=== PATIENT | female | born 1970 | race Caucasian/White ===

== ENCOUNTER 2019-11-30 01:40 | Emergency (ER) | payer MEDICAID, SELFPAY ==
[2019-11-30 01:40] VITALS: BP 144/75; PULSE 82; RESP 16; TEMP 36.9; O2SAT 95; BMI 38.4
--- NOTE | 2019-11-30 01:41 | ED.VIS.GEN ---
History of Present Illness Chief Complaint: Cold Sx Narrative: 49-year-old female presenting with a cough for 1 week. She states she thought it was her allergies because she has itching eyes that are burning as well as nasal congestion. She has been taking her Zyrtec without relief. She states she is not a smoker. She has no chest pain or shortness of breath. Denies myalgias, fever, loss of taste or smell. She is not been around any sick contacts that she knows of. Patient does state that she has a sore throat. - Past Medical History (1) Diabetes insipidus Status: Chronic (2) Dyslipidemia Status: Chronic (3) Hypothyroidism Status: Chronic Past Medical History - Allergies and Home Meds Allergies/Adverse Reactions: Allergies No Known Allergies Allergy (Verified 11/30/19 01:44) Primary Care Physician: Allison Blank MD [STAFF PHYSICIAN] - Past Medical History: - - Reviewed and problem list Surgical History: noncontributory, - - Lives: Alone Smoking Status: Never smoker Alcohol: None - Family History Paternal Family History: Reports: Heart Disease Review of Systems General: Denies: Chills, Fever, Sweats Eyes: Denies: Visual changes - bilaterally, Diplopia ENT: Reports: Rhinorrhea, Sore throat Cardiovascular: Denies: Chest pain, Palpitations Respiratory: Reports: Cough. Denies: Dyspnea, Sputum Gastrointestinal: Denies: Abdominal pain, Nausea Genitourinary: Denies: Dysuria, Hematuria Musculoskeletal: Denies: Myalgias, Arthralgias Skin: Denies: Rash, Abscess Neurological: Denies: Headache, Weakness Physical Exam Inital Vital Signs reviewed: Yes General: Obese, No Acute Distress Head: Normocephalic, Atraumatic Eyes: Perrl, EOMI, - - Scleral injection bilaterally ENT: Nasal congestion. Negative for: Dry mucous membranes Cardiovascular: Regular rate, Regular rhythm Respiratory: No distress, CTA bilaterally, Chest nontender Extremities: Nontender, No edema Skin: Normal color, No rash Neurological: Alert, Oriented x3, Cranial nerves II-XII grossly intact Psychological: Normal affect, Normal Mood Diagnostic/Tx/Re-eval Clinical Impression(s) from Imaging Studies Chest X-Ray 11/30/19 02:19 IMPRESSION: Persistent paramediastinal soft tissue density which may represent lymphadenopathy possible vascular ectasia or enlarged thyroid. Otherwise stable chest. No visualized focal infiltrate. Electronically Signed: Charmaine Cardenas MD at 3:22 EDT Tel , Service support , - Medical Decision Making Presents with chief complaint of cough. She states that she has been coughing more this week. She has not had a fever, chills, myalgias, loss of taste or smell but does states she has sore throat. She also believes this could be allergic in nature because her eyes are itching and her nose is running as well. She does take Zyrtec at home but does not seem to be helping. Her vital signs are stable she is afebrile. Her physical exam is normal. I did check a chest x-ray which was negative. Patient will be tested for COVID?19 and she will quarantine until her results come back. Impression: 1. Allergic rhinitis 2. Possible exposure to COVID?19 ED Disposition - Plan for ED Patient: Instructions: Controlling Allergens: In the Home, ED Upper Resp Infec No Abx Tx Prescriptions: Loratadine 10 mg PO DAILY #30 cap Transmission Status: Received by [id number] Benzonatate [Tessalon Perle] 100 mg PO TID PRN PRN #30 cap PRN Reason: Cough Transmission Status: Received by [id number] Referrals: Allison Blank MD [STAFF PHYSICIAN] -
--- NOTE | 2019-11-30 02:19 | RAD_ITS ---
STUDY: X-RAY CHEST REASON FOR EXAM: Female, 49 years old. COUGH X 1 WEEK TECHNIQUE: Single AP portable view of the chest. COMPARISON: January 04, 2014 FINDINGS: There is a focal right apical medial opacity abutting the mediastinum or involving the right-sided mediastinum. This is been seen on prior studies. There is no demonstrated pleural abnormality. Normal size heart. There are calcified mediastinal lymph nodes. Normal visualized pulmonary arteries. There is atherosclerotic tortuosity of the aortic arch and descending thoracic aorta. There are diffuse degenerative changes of the visualized thoracic spine. Normal visualized ribs, clavicles, and shoulders. There is no demonstrated abnormality of the visualized soft tissue structures of the upper abdomen. RAD/Chest 1 View IMPRESSION: Persistent paramediastinal soft tissue density which may represent lymphadenopathy possible vascular ectasia or enlarged thyroid. Otherwise stable chest. No visualized focal infiltrate. Electronically Signed: Charmaine Cardenas MD at 3:22 EDT Tel , Service support ,
[2019-11-30] MEDS: Benzonatate 100 MG Capsule 200 MG PO (02:53)
[2019-11-30] MEDS: Loratadine 10 MG Tablet PO (02:54)
[2019-11-30 04:02] VITALS: RESP 16
== END 2019-11-30 04:03 | disposition home or self-care (01) ==
PROVIDERS: Emergency Provider Student in an Organized Health Care Education/Training Program; Referring Provider Nurse Practitioner Family
DX: J30.9 Allergic rhinitis, unspecified (principal); E03.9 Hypothyroidism, unspecified
CPT/HCPCS: 71045; 87635; 99283; U0003

== ENCOUNTER → 2019-12-07 09:33 | Outpatient (CLI) | payer MEDICAID, SELFPAY ==
[2019-11-30 01:40] VITALS: BMI 38.4
[2019-12-07 10:28] LABS: Vitamin D,25 Hydroxy 32.4 ng/mL
[2019-12-07 10:36] LABS: Cholesterol 231 mg/dL (200); High Density Lipoprotein 45 mg/dL; Thyroid Stim Hormone (TSH) 1.69 uIU/mL (0.358-3.74); Triglycerides 222 mg/dL; Very Low Density Lipoprotein 44 mg/dL (5-40)
== END ==
PROVIDERS: Referring Provider Nurse Practitioner Family; Visit Provider Nurse Practitioner Family
DX: E78.5 Hyperlipidemia, unspecified (principal); E03.9 Hypothyroidism, unspecified; E55.9 Vitamin D deficiency, unspecified
CPT/HCPCS: 36415; 80061; 82306; 84443

== ENCOUNTER → 2020-01-25 12:53 | Outpatient (CLI) | payer MEDICAID, SELFPAY ==
[2020-01-25 09:51] VITALS: BMI 38.5
[2020-01-25 13:42] LABS: Absolute Neutrophil Count 3.5 X10^3/uL (2.0-7.7); Basophil# 0.07 X10^3/uL; Basophil% 0.9 % (0-1); Eosinophil# 0.54 X10^3/uL; Eosinophils% 7.1 % (0-5); Hematocrit 41.3 % (37-47); Hemoglobin 12.8 g/dL (12.0-15.0); Lymphocyte % 38.3 % (19-41); Mean Corpuscular Hgb 29.4 pg (27.0-32.0); Mean Corpuscular Volume 94.9 fL (81-99); Monocyte# 0.48 X10^3/uL; Monocyte% 6.3 % (0-10); NRBC Flagged by Analyzer 0 % (0-5); Neutrophil # 3.52 X10^3/uL (2.7-7.7); Neutrophil % 46.6 % (47-70); Platelet Count 153 K/mm3 (150-450); RBC Distribution Width CV 13.6 % (11.6-14.6); RBC Distribution Width SD 46.8 fl (35.1-43.9); Red Blood Count 4.35 M/mm3 (4.2-5.4); White Blood Count 7.6 K/mm3 (4.4-11.0)
[2020-01-25 14:09] LABS: AST(SGOT) 18 U/L (15-37); Alanine Aminotransfer ALT/SGPT 40 U/L (13-56); Albumin, Serum 3.7 g/dL (3.2-5.0); Alkaline Phosphatase 58 U/L (45-117); Anion Gap 4 (5-15); BUN 9 mg/dL (7-18); BUN/Creat Ratio 10.8 RATIO (10-20); Calcium,Total 8.5 mg/dL (8.5-10.1); Chloride 107 mmol/L (98-107); Cholesterol 261 mg/dL (200); Creatinine, Serum 0.83 mg/dL (0.55-1.02); EST Glomerular Filtration Rate 78 mL/min (>60); Est Glom Filt Rate - Afr Amer 94 mL/min (>60); Globulin 3.8 g/dL (2.2-4.2); Glucose 97 mg/dL (74-106); High Density Lipoprotein 48 mg/dL; Potassium 3.6 mmol/L (3.5-5.1); Protein, Total 7.5 g/dL (6.4-8.2); Sodium Level 142 mmol/L (136-145); T4 Free Direct 0.84 ng/dL (0.76-1.46); Triglycerides 301 mg/dL; Very Low Density Lipoprotein 60 mg/dL (5-40)
== END ==
PROVIDERS: PCP Internal Medicine; Referring Provider Internal Medicine; Visit Provider Internal Medicine
DX: E03.9 Hypothyroidism, unspecified (principal); E23.2 Diabetes insipidus; E78.5 Hyperlipidemia, unspecified
CPT/HCPCS: 36415; 80053; 80061; 84439; 84443; 85025

== ENCOUNTER → 2020-02-20 20:00 | Outpatient (CLI) | payer MEDICAID, SELFPAY ==
[2020-01-30 15:18] VITALS: BMI 38.5
== END ==
PROVIDERS: PCP Internal Medicine; Visit Provider Internal Medicine
DX: G47.10 Hypersomnia, unspecified (principal)
CPT/HCPCS: 95810

== ENCOUNTER → 2020-03-01 09:39 | Outpatient (CLI) | payer MEDICAID, SELFPAY ==
[2020-01-30 15:18] VITALS: BMI 38.5
--- NOTE | 2020-03-01 09:40 | BI_ITS ---
MAMMOGRAPHY - BILATERAL SCREENING REASON FOR EXAM: Female, 50 years old. Routine annual screening examination. PERTINENT HISTORY: Non-contributory. TECHNIQUE: Digital bilateral breast raquel (3D mammographic acquisition) in the CC and MLO projections. 2-D mediolateral oblique (MLO) and craniocaudad (CC) views of both breasts were obtained. CAD: Full Field Digital Mammography with Computer Added Detection was performed. COMPARISON: None. Baseline examination. FINDINGS: Breast Composition: There are scattered areas of fibroglandular density. There are no dominant masses or suspicious calcifications. No other significant abnormalities are identified. BI/SCREEN MAMM (CAD) W/RAQUEL BILAT IMPRESSION: Negative screening mammogram. Yearly followup mammogram recommended. (A) ASSESSMENT CATEGORY: BIRADS Category 1: Negative. A letter regarding these results will be sent to the patient by the facility within 30 days. Approximately 10% of breast cancers are not detected by mammography. A normal mammogram should not delay biopsy of a clinically suspicious abnormality. [id number] Electronically Signed: Bean Linn, at 11:11 EST , Service support ,
== END ==
PROVIDERS: PCP Internal Medicine; Referring Provider Internal Medicine; Visit Provider Internal Medicine
DX: Z12.31 Encounter for screening mammogram for malignant neoplasm of breast (principal)
CPT/HCPCS: 77063; 77067

== ENCOUNTER → 2020-03-22 09:44 | Outpatient (CLI) | payer MEDICAID, SELFPAY ==
[2020-03-12 10:00] VITALS: BMI 38.2
== END ==
PROVIDERS: PCP Internal Medicine; Visit Provider Nurse Practitioner Acute Care
DX: Z46.89 Encounter for fitting and adjustment of other specified devices (principal)

== ENCOUNTER → 2020-04-25 10:44 | Outpatient (CLI) | payer MEDICAID, SELFPAY ==
[2020-04-25 10:46] LABS: Mucous, Urine 0 SEEN /hpf (<or=2+); Red Blood Cells-Urine 0 SEEN /hpf (0-5)
[2020-04-25 12:47] LABS: Color, Urine Yellow (Yellow); Glucose, Dipstick Normal (Normal); Ketone-Dipstick Negative (Negative); Leukocyte Esterase-Dipstick 25 /ul (Negative); Nitrite-Dipstick Negative (Negative); Occult Blood-Urine Negative /ul (Negative); Protein-Dipstick Negative (Negative); Urine Bilirubin Dipstick Negative (Negative); Urine Clarity Clear (Clear); Urine Urobilinogen Normal (Normal)
[2020-04-25 13:11] LABS: ALB/GLOB Ratio 0.9 RATIO (0.9-2.4); AST(SGOT) 20 U/L (15-37); Alanine Aminotransfer ALT/SGPT 44 U/L (13-56); Albumin, Serum 3.6 g/dL (3.2-5.0); Alkaline Phosphatase 66 U/L (45-117); Anion Gap 4 (5-15); BUN 11 mg/dL (7-18); BUN/Creat Ratio 13.6 RATIO (10-20); Calcium,Total 8.7 mg/dL (8.5-10.1); Chloride 108 mmol/L (98-107); Creatinine, Serum 0.81 mg/dL (0.55-1.02); EST Glomerular Filtration Rate 81 mL/min (>60); Est Glom Filt Rate - Afr Amer 98 mL/min (>60); Globulin 3.9 g/dL (2.2-4.2); Glucose 78 mg/dL (74-106); Potassium 3.6 mmol/L (3.5-5.1); Protein, Total 7.5 g/dL (6.4-8.2); Sodium Level 142 mmol/L (136-145); Thyroid Stim Hormone (TSH) 0.38 uIU/mL (0.358-3.74)
[2020-04-25 13:16] LABS: Bacteria RARE /hpf (None Seen); Squamous Epithelial Cells - UA 10-25 SEEN /hpf (5-10); White Blood Cells 0-5 SEEN /hpf (0-5)
== END ==
PROVIDERS: PCP Internal Medicine; Referring Provider Internal Medicine; Visit Provider Internal Medicine
DX: E23.2 Diabetes insipidus (principal); E03.9 Hypothyroidism, unspecified; R35.0 Frequency of micturition
CPT/HCPCS: 36415; 80053; 81001; 84443

== ENCOUNTER → 2020-08-23 10:31 | Outpatient (CLI) | payer MEDICAID, SELFPAY ==
[2020-08-01 13:12] VITALS: BMI 38.2
[2020-08-22 08:46] VITALS: BMI 39.0
== END ==
PROVIDERS: PCP Internal Medicine; Visit Provider Nurse Practitioner Acute Care
DX: G47.33 Obstructive sleep apnea (adult) (pediatric) (principal)
CPT/HCPCS: 98960; G0463

== ENCOUNTER → 2020-10-19 15:39 | Outpatient (CLI) | payer MEDICAID, SELFPAY ==
[2020-10-19 15:03] VITALS: BMI 39.0
[2020-10-19 16:50] LABS: Vitamin D,25 Hydroxy 27.2 ng/mL
[2020-10-19 16:56] LABS: AST(SGOT) 18 U/L (15-37); Alanine Aminotransfer ALT/SGPT 41 U/L (13-56); Albumin, Serum 3.9 g/dL (3.2-5.0); Alkaline Phosphatase 57 U/L (45-117); Anion Gap 8 (5-15); BUN 12 mg/dL (7-18); BUN/Creat Ratio 14.2 RATIO (10-20); Calcium,Total 8.7 mg/dL (8.5-10.1); Chloride 106 mmol/L (98-107); Cholesterol 291 mg/dL (200); Creatinine, Serum 0.85 mg/dL (0.55-1.02); EST Glomerular Filtration Rate 76 mL/min (>60); Est Glom Filt Rate - Afr Amer 92 mL/min (>60); Globulin 4.1 g/dL (2.2-4.2); Glucose 89 mg/dL (74-106); High Density Lipoprotein 50 mg/dL; Potassium 3.4 mmol/L (3.5-5.1); Sodium Level 141 mmol/L (136-145); T4 Free Direct 0.69 ng/dL (0.76-1.46); Triglycerides 241 mg/dL; Very Low Density Lipoprotein 48 mg/dL (5-40)
== END ==
PROVIDERS: PCP Internal Medicine; Referring Provider Internal Medicine Endocrinology, Diabetes & Metabolism; Visit Provider Internal Medicine Endocrinology, Diabetes & Metabolism
DX: E78.5 Hyperlipidemia, unspecified (principal); E03.9 Hypothyroidism, unspecified; E23.2 Diabetes insipidus
CPT/HCPCS: 36415; 80053; 80061; 82306; 84439; 84443

== ENCOUNTER → 2020-12-12 13:18 | Outpatient (CLI) | payer MEDICAID, SELFPAY | PROVIDERS: PCP Internal Medicine; Referring Provider Physician Assistant; Visit Provider Physician Assistant | DX: Z11.52 Encounter for screening for COVID-19 (principal) | CPT/HCPCS: 87635; U0005; U0003 ==

== ENCOUNTER 2021-02-03 11:40 | Emergency (ER) | payer MEDICAID, SELFPAY ==
[2021-02-03 11:40] VITALS: BP 145/79; PULSE 78; RESP 16; TEMP 36.6; O2SAT 100; BMI 38.5
--- NOTE | 2021-02-03 12:11 | EX.ED.VISEXT ---
HPI History of Present Illness Chief Complaint: Bite Informant: patient Narrative Narrative: Patient took an air conditioner out of her house yesterday. Sometime after this she noted a red spot on her right wrist. Its been itching since. She is suspicious she was bitten by a spider. She never saw a spider or an insect. The area has not spread. She has not had nausea vomiting fevers or chills. ROS ROS ED Constitutional Constitutional ED: Denies fever(s) or subjective ENT ENT ED: Denies rhinorrhea Gastrointestinal Gastrointestinal: Denies nausea or vomiting Musculoskeletal Musculoskeletal: Denies arthralgias or myalgias Integumentary Reports rash and other Details: See history of present illness. Endocrine Endocrinology: Denies polydipsia or polyuria Allergic/Immunologic Allergic/Immunologic ED: Denies mouth swelling or tongue swelling PFSH PFSH Medical History Colon cancer screening Diabetes insipidus DiGeorge's syndrome Elevated blood pressure reading without diagnosis of hypertension Health care maintenance Prediabetes Seasonal allergies Home Medications ibuprofen 600 mg PO Q6H PRN PRN 11/12/15 [History Last Taken Unknown] cholecalciferol (vitamin D3) 1,250 mcg (50,000 unit) capsule 1,250 mcg PO QWEEK #14 cap 08/01/20 [Rx Last Taken Unknown] atorvastatin 20 mg tablet 20 mg PO DAILY #90 tab 10/22/20 [Rx Last Taken Unknown] desmopressin 0.1 mg tablet 0.15 mg PO BID #180 tab 11/02/20 [Rx Last Taken Unknown] levothyroxine 125 mcg tablet 125 mcg PO DAILY #90 tab 11/02/20 [Rx Last Taken Unknown] cetirizine 10 mg tablet 10 mg PO BID 90 Days #180 tab 11/06/20 [Rx Last Taken Unknown] montelukast 10 mg tablet 10 mg PO DAILY #90 tab 11/06/20 [Rx Last Taken Unknown] famotidine 10 mg tablet 10 mg PO DAILY #30 tab 01/14/21 [Rx Last Taken Unknown] hydroxyzine pamoate [Vistaril] 25 mg PO TID PRN #14 cap 02/03/21 [Rx Last Taken Unknown] Allergy/AdvReac Type Severity Reaction Status Date / Time No Known Allergies Allergy Verified 02/03/21 11:42 Family History Father Heart disease Myocardial infarction Surgical History c section H/O: hysterectomy Social History household members: significant other number of children: 2 current occupational status: unemployed history of recent travel: No sexually active: Yes Smoking Status: Never smoker second hand exposure: Yes alcohol intake: never substance use type: does not use what type of physical activity do you participate in: none seatbelt use: never do you feel safe at home: Yes additional social history: boyfriend EXAM Physical Exam Const Vital Signs: 02/03/21 11:40 Temperature 97.8 F Temperature Source Temporal Pulse Rate 78 Respiratory Rate 16 Blood Pressure 145/79 H Blood Pressure Mean 101 Pulse Ox 100 Oxygen Delivery Method Room Air Positive well nourished and well developed General Appearance ED: well developed and NAD HEENT Reports moist mucous membranes Resp normal respiratory effort GI non-tender Palpation: soft Extremity normal to inspection and full ROM Extremity Narrative: See skin exam below. General Extremety ED: Negative for deformity or edema General Extremity: Negative for deformity or edema Neuro no sensory deficits noted Sensorium / Orientation: alert Motor Exam: strength 5/5 throughout Psych mental status grossly normal Skin Skin Narrative: There is a 1-1 and half centimeter area of erythema surrounding a slight abrasion on the left wrist. I do not see any typical bite peng. There is no spreading erythema. No lymphangitis. No sign of abscess. This does not look infected. It looks very localized. MDM MDM MDM Narrative Medical decision making narrative: On exam it looks like she may have a small abrasion. But this also could have been caused by her scratching. Because of the significant pruritus, it is more suspicious that she may have been bit by something. I do not think this needs antibiotics. She has no symptoms of infection. Its not spreading. Is not getting larger. There is no drainage. I think antihistamine for itch will be appropriate. Discharge Plan Triage Chief Complaint: Bite ED Provider: Amadou Hanley Dx/Rx/DC Orders Clinical Impression: Insect bite of wrist Instructions: ED Insect Sting, Local Reaction Prescriptions: New hydroxyzine pamoate [Vistaril] 25 mg capsule 25 mg PO TID PRN (Reason: itching) Qty: 14 RF: 0 No Action cholecalciferol (vitamin D3) 1,250 mcg (50,000 unit) capsule 1,250 mcg PO QWEEK Qty: 14 RF: 1 montelukast 10 mg tablet 10 mg PO DAILY Qty: 90 RF: 2 cetirizine [Zyrtec] 10 mg tablet 10 mg PO BID 90 Days Qty: 180 RF: 3 famotidine 10 mg tablet 10 mg PO DAILY Qty: 30 RF: 0 ibuprofen 600 MG tablet 600 mg PO Q6H PRN PRN (Reason: Pain) RF: 0 atorvastatin 20 mg tablet 20 mg PO DAILY Qty: 90 RF: 3 desmopressin 0.1 mg tablet 0.15 mg PO BID Qty: 180 RF: 1 levothyroxine 125 mcg tablet 125 mcg PO DAILY Qty: 90 RF: 1 Primary Care Provider: Nicole Grey Referrals: Nicole Grey MD [Primary Care Provider] - 3-5 Days if not improving Disposition Disposition: Home, Self Care
[2021-02-03] MEDS: hydrOXYzine PAM 25 MG Capsule PO (12:30)
== END 2021-02-03 12:31 | disposition home or self-care (01) ==
LOC: ED 12:17
PROVIDERS: Emergency Provider Emergency Medicine; PCP Internal Medicine
DX: S60.861A Insect bite (nonvenomous) of right wrist, initial encounter (principal); W57.XXXA Bitten or stung by nonvenomous insect and other nonvenomous arthropods, initial encounter; Z79.899 Other long term (current) drug therapy
CPT/HCPCS: 99283

== ENCOUNTER 2021-05-01 02:23 | Emergency (ER) | payer MEDICAID, SELFPAY ==
[2021-05-01 02:23] VITALS: BP 143/91; PULSE 78; RESP 17; TEMP 36.7; O2SAT 99; BMI 40.6
--- NOTE | 2021-05-01 03:03 | RAD_ITS ---
EXAM: XR LEFT RIBS AND AP CHEST, 3 OR MORE VIEWS CLINICAL INDICATION: fall fall TECHNIQUE: Frontal and oblique views of the left ribs and frontal view of the chest. This report was created using [employer] report generation technology. COMPARISON: Chest x-ray 11/30/2019. FINDINGS: LUNGS AND PLEURAL SPACES: There is minimal chronic atelectasis or fibrosis in the lung bases. There are no demonstrated pulmonary consolidations. HEART: Unremarkable. Cardiac silhouette not enlarged. MEDIASTINUM: There are calcified granulomas overlying the mediastinum and right hilum. BONES/JOINTS: There are multilevel degenerative changes in the thoracic spine. There is an old healed fracture of the lateral segment of the left sixth rib. There is no demonstrated acute rib fracture. RAD/Ribs Uni Min 3V w/PA Chest IMPRESSION: No evidence for acute cardiopulmonary pathology. Old healed left sixth rib fracture. No demonstrated acute rib fracture. Electronically Signed: Martín Shields MD at 3:59 EST Reading Location ID and State: [facility] / [place] , Service support ,
[2021-05-01] MEDS: Naproxen 500 MG Tablet PO (03:14)
--- NOTE | 2021-05-01 04:16 | EDS_ITS ---
HPI History of Present Illness Chief Complaint: Fall Informant: patient Onset/Context/Timing Onset: Hours Current Severity: Mild Maximum Severity: Moderate Narrative Narrative: Patient presents via EMS secondary to left rib injury. Patient states she was on her porch and went to sit on the chair when she missed and fell striking her left ribs against the arm of the chair. She denies any other injury. She denies striking her head or loss of consciousness. She has no headache. [facility] Medical History Colon cancer screening Diabetes insipidus DiGeorge's syndrome Elevated blood pressure reading without diagnosis of hypertension Health care maintenance Prediabetes Seasonal allergies Home Medications ibuprofen 600 mg PO Q6H PRN PRN 11/12/15 [History Last Taken Unknown] cholecalciferol (vitamin D3) 1,250 mcg (50,000 unit) capsule 1,250 mcg PO QWEEK #14 cap 08/01/20 [Rx Last Taken Unknown] levothyroxine 125 mcg tablet 125 mcg PO DAILY #90 tab 11/02/20 [Rx Last Taken Unknown] desmopressin [DDAVP] 0.15 mg PO BID 05/01/21 [History Last Taken Unknown] naproxen [Naprosyn] 500 mg PO BID PRN #20 tab 05/01/21 [Rx Last Taken Unknown] Allergy/AdvReac Type Severity Reaction Status Date / Time No Known Allergies Allergy Verified 05/01/21 02:31 Family History Father Heart disease Myocardial infarction Surgical History c section H/O: hysterectomy Social History household members: significant other number of children: 2 current occupational status: unemployed history of recent travel: No sexually active: Yes Smoking Status: Never smoker second hand exposure: Yes alcohol intake: never substance use type: does not use what type of physical activity do you participate in: none seatbelt use: never do you feel safe at home: Yes additional social history: boyfriend ROS ROS ED Constitutional Constitutional ED: Denies chills or fever(s) Eyes Eyes: Denies change in vision ENT ENT ED: Denies sore throat Cardiovascular Cardiovascular: Reports chest pain and other Details: Left rib pain Respiratory/Chest Respiratory/Chest: Denies cough or dyspnea Gastrointestinal Gastrointestinal: Denies abdominal pain, nausea or vomiting Genitourinary Genitourinary ED: Denies dysuria Musculoskeletal Musculoskeletal: Denies back pain or neck pain Integumentary Denies rash Neurologic Neurologic: Denies headache(s) or weakness Allergic/Immunologic Allergic/Immunologic ED: Denies urticaria EXAM Physical Exam Const Vital Signs: 05/01/21 02:23 05/01/21 02:32 Temperature 98.0 F Temperature Source Temporal Pulse Rate 78 Respiratory Rate 17 Respiratory Effort Normal Blood Pressure 143/91 H Blood Pressure Mean 108 Pulse Ox 99 Oxygen Delivery Method Room Air Positive obese Nutritional Appearance: obese HEENT Reports moist mucous membranes Eyes PERRL and EOMs intact bilaterally Neck supple Chest Wall inspection of chest normal and palpation of chest normal Resp normal respiratory effort and clear to auscultation bilaterally Cardio regular rate and regular rhythm GI non-tender Palpation: soft Extremity normal to inspection Neuro oriented x3 Sensorium / Orientation: alert Psych mental status grossly normal Skin no rashes or lesions noted MDM MDM MDM Narrative Medical decision making narrative: Rib series with chest x-ray obtained. Pat ient given naproxen for pain. Radiography Diagnostic Testing: Clinical Impression(s) from Imaging Studies Ribs w/Chest X-Ray 05/01/21 03:03 IMPRESSION: No evidence for acute cardiopulmonary pathology. Old healed left sixth rib fracture. No demonstrated acute rib fracture. Electronically Signed: Martín Shields MD at 3:59 EST Reading Location ID and State: [facility] / [place] , Service support , Treatment and Re-Evaluation Comments:: X-rays from interpretation reveal no acute findings. Radiology to rotation is reviewed. Test results discussed with the patient. She got a prescription for naproxen at home. Return instructions given. Discharge Plan Triage Chief Complaint: Fall ED Provider: Alexa Arroyo Dx/Rx/DC Orders Clinical Impression: Contusion of rib Instructions: ED Contusion, Rib Prescriptions: New naproxen [Naprosyn] 500 mg tablet 500 mg PO BID PRN (Reason: pain) Qty: 20 RF: 0 No Action cholecalciferol (vitamin D3) 1,250 mcg (50,000 unit) capsule 1,250 mcg PO QWEEK Qty: 14 RF: 1 ibuprofen 600 MG tablet 600 mg PO Q6H PRN PRN (Reason: Pain) RF: 0 desmopressin [DDAVP] 0.1 mg tablet 0.15 mg PO BID RF: 0 levothyroxine 125 mcg tablet 125 mcg PO DAILY Qty: 90 RF: 1 Primary Care Provider: Nicole Grey Referrals: Nicole Grey MD [Primary Care Provider] - 10-14 Days if not better Activity Restrictions/Additional Instructions: You can take the prescribed naproxen or ibuprofen for pain, but do not take the 2 together. Disposition Disposition: Home, Self Care
[2021-05-01 04:50] VITALS: BP 121/93; PULSE 74; TEMP 37.1; O2SAT 99
== END 2021-05-01 04:53 | disposition home or self-care (01) ==
PROVIDERS: Emergency Provider Emergency Medicine; PCP Internal Medicine; Visit Provider Emergency Medicine
DX: S20.212A Contusion of left front wall of thorax, initial encounter (principal); E66.9 Obesity, unspecified; W07.XXXA Fall from chair, initial encounter; Z79.899 Other long term (current) drug therapy
CPT/HCPCS: 71101; 99284

== ENCOUNTER 2021-06-14 09:07 | Outpatient (CLI) | payer MEDICAID, SELFPAY ==
[2021-06-14 11:17] LABS: T4 Free Direct 1.35 ng/dL (0.76-1.46); Thyroid Stim Hormone (TSH) 0.66 uIU/mL (0.358-3.74)
== END 2021-06-14 23:59 | disposition home or self-care (01) ==
LOC: BIMLAB 09:08
PROVIDERS: PCP Internal Medicine; Referring Provider Nurse Practitioner Family; Visit Provider Nurse Practitioner Family
DX: E03.9 Hypothyroidism, unspecified (principal)
CPT/HCPCS: 36415; 84439; 84443

== ENCOUNTER 2021-07-14 18:01 | Emergency (ER) | payer MEDICAID, SELFPAY ==
[2021-07-14 18:05] VITALS: BP 147/89; PULSE 83; RESP 16; TEMP 36.4; O2SAT 98; BMI 37.0
--- NOTE | 2021-07-14 18:11 | EDS_ITS ---
HPI History of Present Illness Chief Complaint: Upper Extremity Injury Narrative Narrative: 51-year-old female presenting with left wrist pain. She states she was at [employer] and it was very muddy. She states she slipped with her left foot and fell to her buttocks with her hands behind her but her fingers facing forward. She complains of pain in the left wrist afterward. She states he drove back from [facility] and continued to have pain. She took nothing for pain prior to arrival. She decided at this point she would come to the emergency room for evaluation. She does not have any numbness or tingling. No other injuries. No lacerations or abrasions. [facility] Medical History Colon cancer screening Diabetes insipidus DiGeorge's syndrome Elevated blood pressure reading without diagnosis of hypertension Health care maintenance Prediabetes Seasonal allergies Home Medications ibuprofen 600 mg PO Q6H PRN PRN 11/12/15 [History Last Taken Unknown] levothyroxine 125 mcg tablet 125 mcg PO DAILY #90 tab 05/22/21 [Rx Last Taken Unknown] naproxen 500 mg tablet 500 mg PO BID PRN #20 tab 05/22/21 [Rx Last Taken Unknown] desmopressin 0.1 mg tablet 0.2 mg PO BID #360 tab 06/14/21 [Rx Last Taken Unknown] hydrocodone-acetaminophen 1 tab PO Q6H PRN 3 Days #12 tab 07/14/21 [Rx Last Taken Unknown] Allergy/AdvReac Type Severity Reaction Status Date / Time No Known Allergies Allergy Verified 07/14/21 18:02 Family History Father Heart disease Myocardial infarction Surgical History c section H/O: hysterectomy Social History household members: significant other number of children: 2 current occupational status: unemployed history of recent travel: No sexually active: Yes Smoking Status: Never smoker second hand exposure: Yes alcohol intake: never substance use type: does not use what type of physical activity do you participate in: none seatbelt use: never do you feel safe at home: Yes additional social history: boyfriend ROS ROS ED Constitutional Constitutional ED: Denies chills or fever(s) Eyes Eyes: Denies blurry vision or diplopia ENT ENT ED: Denies rhinorrhea or sore throat Cardiovascular Cardiovascular: Denies chest pain Respiratory/Chest Respiratory/Chest: Denies cough or dyspnea Gastrointestinal Gastrointestinal: Denies abdominal pain or nausea Genitourinary Genitourinary ED: Denies dysuria or hematuria Musculoskeletal Musculoskeletal: Reports other Details: Left wrist pain ; Denies neck pain Integumentary Denies rash Neurologic Neurologic: Denies headache(s) Psychiatric Psychiatric: Denies anxiety or depression EXAM Physical Exam Const Vital Signs: 07/14/21 18:05 Temperature 97.6 F L Temperature Source Temporal Pulse Rate 83 Respiratory Rate 16 Blood Pressure 147/89 H Blood Pressure Mean 108 Pulse Ox 98 Oxygen Delivery Method Room Air Positive well nourished General Appearance ED: NAD HEENT normocephalic and atraumatic Resp normal respiratory effort Cardio regular rate and regular rhythm Extremity Extremity Narrative: Tenderness to palpation over left dorsal lateral wrist. There is slight swelling. There is limited range of motion secondary to pain. No pain in the anatomical snuffbox. Left hand nontender. Left hand neurovascular intact prescription for all 5 fingers. Neuro oriented x3 and CN's II-XII intact bilaterally Sensorium / Orientation: alert Psych mental status grossly normal Skin Rashes: no rashes MDM MDM MDM Narrative Medical decision making narrative: Patient given ibuprofen. I will obtain an x- ray of the left wrist given her symptoms. X-ray of the wrist on my interpretation shows a transverse distal radius fracture without significant angulation or displacement. There is extension into the articular surface. Patient is driving so I did not get her narcotic pain medication here. Patient was place in a well padded, sugar tong splint which was fabricated by myself. Patient is neurovascularly intact post procedure. She tolerated this well. Patient will given a prescription for Jeanerette for home. She is counseled to keep her arm elevated above her heart is much as possible. She is given a sling for comfort. She will be given Dr. Owen for follow-up. Impression: 1. Mechanical fall 2. Left distal radius fracture Lab Data Attestation: I reviewed the patient's lab results. Discharge Plan Triage Chief Complaint: Upper Extremity Injury ED Provider: Tray,Maninder Dx/Rx/DC Orders Instructions: ED Fracture, Wrist, General Prescriptions: New hydrocodone-acetaminophen 5-325 mg tablet 1 tab PO Q6H PRN (Reason: pain) 3 Days Qty: 12 RF: 0 No Action desmopressin [DDAVP] 0.1 mg tablet 0.2 mg PO BID Qty: 360 RF: 1 ibuprofen 600 MG tablet 600 mg PO Q6H PRN PRN (Reason: Pain) RF: 0 levothyroxine 125 mcg tablet 125 mcg PO DAILY Qty: 90 RF: 1 naproxen [Naprosyn] 500 mg tablet 500 mg PO BID PRN (Reason: pain) Qty: 20 RF: 0 Primary Care Provider: Nicole Grey Referrals: Nicole Grey MD [Primary Care Provider] - Wagner Owen DO [STAFF PHYSICIAN] - 3-5 Days Disposition Disposition: Home, Self Care
--- NOTE | 2021-07-14 18:14 | RAD_ITS ---
STUDY: X-RAY - LEFT WRIST REASON FOR EXAM: Female, 51 years old. fell and injured left wrist today, pain all over wrist area TECHNIQUE: 3 view(s) of the wrist were obtained. COMPARISON: None. FINDINGS: Transverse fracture of the distal radial metaphysis with longitudinal component extending along the medial articular surface. Normal radiocarpal articulation. Normal distal radioulnar articulation. Normal carpal bones. Normal carpal articulations. Normal carpometacarpal articulation of the thumb. Normal second through fifth carpometacarpal articulations. Normal visualized metacarpal bones. Diffuse soft tissue swelling. RAD/Wrist min 3 Views IMPRESSION: Distal radial fracture with articular surface involvement. Electronically Signed: Ran Soliman MD ([place]) at 18:35 EDT ,
[2021-07-14] MEDS: Ibuprofen 600 MG Tablet PO (18:16)
--- NOTE | 2021-07-14 18:43 | ED.RN ---
pt. placed in paper scrub top due to dr. nesbitt having to splint arm
== END 2021-07-14 19:33 | disposition home or self-care (01) ==
PROVIDERS: Emergency Provider Student in an Organized Health Care Education/Training Program; PCP Internal Medicine; Visit Provider Student in an Organized Health Care Education/Training Program
DX: S52.502A Unspecified fracture of the lower end of left radius, initial encounter for closed fracture (principal); Z79.899 Other long term (current) drug therapy; W01.0XXA Fall on same level from slipping, tripping and stumbling without subsequent striking against object, initial encounter
CPT/HCPCS: 29125; 73110; 99283

== ENCOUNTER 2021-07-29 17:07 | Emergency (ER) | payer MEDICAID, SELFPAY ==
[2021-07-29 17:08] VITALS: BP 154/87; PULSE 80; RESP 16; TEMP 36.3; O2SAT 97; BMI 37.0
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
== END 2021-07-29 18:37 | disposition home or self-care (01) ==
PROVIDERS: Emergency Provider Emergency Medicine; PCP Internal Medicine; Visit Provider Emergency Medicine
DX: S00.11XA Contusion of right eyelid and periocular area, initial encounter (principal); D82.1 Di George's syndrome; Y04.8XXA Assault by other bodily force, initial encounter; R73.03 Prediabetes; Z79.899 Other long term (current) drug therapy
CPT/HCPCS: 99282

== ENCOUNTER 2022-03-12 10:26 | Emergency (ER) | payer MEDICAID, SELFPAY ==
[2022-03-12 10:27] VITALS: BP 130/99; PULSE 81; RESP 14; TEMP 36.1; O2SAT 99; BMI 35.2
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
[2022-03-12 14:12] VITALS: BP 141/86; PULSE 79; RESP 16; O2SAT 99
== END 2022-03-12 14:15 | disposition home or self-care (01) ==
PROVIDERS: Emergency Provider Emergency Medicine; PCP Internal Medicine; Visit Provider Emergency Medicine
DX: S60.221A Contusion of right hand, initial encounter (principal); X58.XXXA Exposure to other specified factors, initial encounter
CPT/HCPCS: 73140; 99282

== ENCOUNTER 2022-06-12 20:12 | Emergency (ER) | payer MEDICAID, SELFPAY ==
[2022-06-12 20:12] VITALS: RESP 18; TEMP 37.1; O2SAT 97
[2022-06-12 20:13] VITALS: BP 141/98; PULSE 80; RESP 20; TEMP 37.8; O2SAT 98; BMI 35.2
[2022-06-12] MEDS: Ibuprofen 600 MG Tablet PO (20:50)
[2022-06-12] MEDS: Benzonatate 100 MG Capsule 200 MG PO (20:51)
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
== END 2022-06-12 22:05 | disposition home or self-care (01) ==
PROVIDERS: Emergency Provider Emergency Medicine; PCP Internal Medicine; Visit Provider Emergency Medicine
DX: J06.9 Acute upper respiratory infection, unspecified (principal)
CPT/HCPCS: 87428; 99283

== ENCOUNTER 2022-07-31 16:04 | Emergency (ER) | payer MEDICAID, SELFPAY ==
[2022-07-31 16:04] VITALS: BP 135/81; PULSE 75; RESP 18; TEMP 36; O2SAT 99; BMI 35.4
--- NOTE | 2022-07-31 17:04 | EX.ED.DYSGE1 ---
HPI <DALLAS Bravo - Last Filed: 07/31/22 19:21> History of Present Illness Chief Complaint: Abd Pain Narrative Narrative: Patient is a 52-year-old female with history of hypothyroidism, diabetes who is currently homeless who presents to the emergency department for 2 days of severe upper and lower abdominal pain. Patient states that her bowel movements have been normal, she has no problems urinating. She does have history of C-sections, as well as full hysterectomy. She states that this pain is worse with any movement, and can be dull to sharp. She denies any blood in her stool or vomit. PFS <DALLAS Bravo - Last Filed: 07/31/22 19:21> [facility] Medical History Cervical cancer Colon cancer screening Diabetes insipidus DiGeorge's syndrome Elevated blood pressure reading without diagnosis of hypertension Health care maintenance Prediabetes Seasonal allergies Home Medications desmopressin 0.1 mg tablet (DDAVP) 0.2 mg PO BID #360 tabs 10/10/21 [Rx Last Taken Unknown] levothyroxine 125 mcg tablet 125 mcg PO DAILY #90 tabs 06/11/22 [Rx Last Taken Unknown] benzonatate 100 mg capsule 200 mg PO TID PRN PRN Cough #15 CAPSULES 06/18/22 [Rx Last Taken Unknown] cetirizine 10 mg tablet 10 mg PO DAILY PRN allergies #90 tabs 06/18/22 [Rx Last Taken Unknown] ciprofloxacin HCl 500 mg tablet (Cipro) 500 mg PO BID #20 tabs 07/31/22 [Rx Last Taken Unknown] metronidazole 500 mg tablet 500 mg PO TID #30 tabs 07/31/22 [Rx Last Taken Unknown] Allergy/AdvReac Type Severity Reaction Status Date / Time No Known Allergies Allergy Verified 07/31/22 16:04 Family History Father Heart disease Myocardial infarction Surgical History c section H/O: hysterectomy Social History household members: significant other number of children: 2 current occupational status: unemployed history of recent travel: No sexually active: Yes Smoking Status: Never smoker second hand exposure: Yes alcohol intake: never substance use type: does not use what type of physical activity do you participate in: none seatbelt use: never do you feel safe at home: Yes additional social history: boyfriend ROS <DALLAS Bravo - Last Filed: 07/31/22 19:21> ROS ED ROS Narrative Constitutional: Negative for fever, chills, weight loss, weakness Eyes: Negative for vision loss, vision change, double vision ENT: Negative for any sore throat, ear pain, congestion Cardiovascular: Negative for any chest pain, tightness, palpitations Respiratory: Negative for any cough, sputum production, hemoptysis, dyspnea, dyspnea on exertion, orthopnea Gastrointestinal: Negative for any vomiting, diarrhea, constipation, blood in stool, blood in vomit. Positive for abdominal pain : Negative for any urinary frequency, dysuria, retention, blood in urine Muscle skeletal: Negative for any muscle joint pain, stiffness, myalgias, arthralgias, neck pain, back pain Neurological: Negative for any headache, syncope, numbness or tingling, dizziness Skin: Negative for any rashes, lumps, itching, abrasions, lacerations Psychiatric: Negative for any depression, anxiety, stress, suicidal ideation, homicidal ideation Hematologic: Negative for any easy bruising, excessive bruising, easy bleeding Allergies: Negative for any eczema, hives, rash EXAM <DALLAS Bravo - Last Filed: 07/31/22 19:21> Physical Exam Narrative Exam Narrative: Vital signs reviewed. HEET: Head normocephalic atraumatic, TMs clear bilaterally. Posterior pharynx is clear, moist mucous membranes. Nares clear bilaterally. Neck: Supple with no lymphadenopathy or tenderness. No signs of meningismus, negative jolt sign. Cardiac: Regular rate and rhythm no murmurs gallops or rubs, equal peripheral pulses bilaterally. Respiratory: Lungs clear to auscultation bilaterally. No chest tenderness. Abdomen: Soft, nondistended. No abdominal bruit or pulsatile masses. No hepatosplenomegaly. Active bowel sounds in all quadrants, tenderness throughout the entire abdomen on palpation. Extremities: No peripheral edema, no signs of gross trauma or deformity. Active full range of motion of all extremities. Neuro: Cranial nerves II through XII intact, no focal neurological deficits. Skin: Clean dry and intact with no rash, purpura, petechiae, vesicles or pustules. Backs/flank: No CVA tenderness, no midline spinal tenderness, no deformity. Psych: Normal mood and affect. No SI, HI or acute psychosis. Const Vital Signs: 07/31/22 16:04 07/31/22 18:04 07/31/22 19:21 Temperature 96.8 F L Temperature Source Temporal Pulse Rate 75 84 Respiratory Rate 18 18 18 Blood Pressure 135/81 H 105/77 Blood Pressure Mean 99 Pulse Ox 99 95 Oxygen Delivery Method Room Air Positive unkempt General Appearance ED: unkempt Psych Appearance: unkempt <Dr. Chidi Simpson DO - Last Filed: 07/31/22 23:06> Physical Exam Const Vital Signs: 07/31/22 16:04 07/31/22 18:04 07/31/22 19:21 Temperature 96.8 F L Temperature Source Temporal Pulse Rate 75 84 Respiratory Rate 18 18 18 Blood Pressure 135/81 H 105/77 Blood Pressure Mean 99 Pulse Ox 99 95 Oxygen Delivery Method Room Air MDM <DALLAS Bravo - Last Filed: 07/31/22 19:21> MDM Lab Data Labs: Laboratory Results - last 24 hr 07/31/22 07/31/22 07/31/22 17:40 17:40 17:48 WBC 13.5 H RBC 4.37 Hgb 12.8 Hct 40.8 MCV 93.4 MCH 29.3 MCHC 31.4 L RDW Std Deviation 49.4 H RDW Coeff of Suhas 14.3 Plt Count 144 L MPV 13.9 H Immature Gran % (Auto) 0.700 Neut % (Auto) 74.8 H Lymph % (Auto) 16.5 L [place] % (Auto) 7.2 Eos % (Auto) 0.6 Baso % (Auto) 0.2 Absolute Neuts (auto) 10.1 H Absolute Lymphs (auto) 2.23 Nucleated RBC % 0 Sodium 140 Potassium 3.0 L Chloride 104 Carbon Dioxide 29.0 Anion Gap 7 BUN 8 Creatinine 0.89 Estim Creat Clear Calc 54.32 Est GFR (MDRD) Af Amer 87 Est GFR (MDRD) Non-Af 72 BUN/Creatinine Ratio 9.0 L Glucose 117 H Calcium 9.2 Total Bilirubin 2.20 H AST 11 L ALT 23 Alkaline Phosphatase 60 Total Protein 8.2 Albumin 3.6 Globulin 4.6 H Albumin/Globulin Ratio 0.8 L Lipase 21 Urine Color Straw Urine Clarity Sl. Cloudy Urine pH 6.5 Ur Specific [place] 1.010 Urine Protein 15 H Urine Glucose (UA) Normal Urine Ketones Negative Urine Occult Blood 10 H Urine Nitrite Negative Urine Bilirubin Negative Urine Urobilinogen 1 H Ur Leukocyte Esterase 500 H Urine RBC 0 SEEN Urine WBC 10-25 SEEN Ur Squamous Epith Cells 10-25 SEEN Urine Bacteria 1+ Urine Mucus 0 SEEN Radiography Diagnostic Testing: Clinical Impression(s) from Imaging Studies Abdomen/Pelvis CT 07/31/22 17:17 IMPRESSION: Wall thickening with inflammation of the mid to distal transverse colon compatible with diverticulitis. There is no abscess or perforation. There is no abscess or perforation. Electronically Signed: Guy Yang MD at 18:50 EDT , Treatment and Re-Evaluation :: All radiologic examinations were read, reviewed by the emergency department attending. From these reads, a plan of care will be put in place. Patient appears well, patient appears nontoxic, vital signs are stable. Patient presents to the emergency department with complaints of generalized abdominal pain for 2 days. Patient did receive a full abdominal work-up including abdominal labs and CT scan concerning for any appendicitis, diverticulitis, small bowel obstruction. Patient's laboratory studies do show the CBC has a leukocytosis with a white blood count of 13.5. Patient's chemistries showed potassium that was 3.0, that we will be replaced here orally. Patient's total bilirubin slightly elevated 2.2. Lipase is negative. Patient received a CT scan of the abdomen pelvis, this showed wall thickening with inflammation of the mid to distal transverse colon compatible with diverticulitis. There is no abscess or perforation. At this time, the patient is able to take p.o. fluids, I do feel that she is stable for discharge. She will receive a antibiotics Cipro as well as Flagyl. She does have a UTI as well this was shown with a urinalysis, urine culture will be sent. The Cipro will cover the urinary tract infection as well. She was educated to not drink with the Flagyl. She will follow-up outpatient, she is instructed to return for any worsening symptoms, abdominal pain nausea vomiting fever or chills. She is happy with plan of care all questions answered. <Dr. Chidi Simpson, DO - Last Filed: 07/31/22 23:06> [facility] Narrative Medical decision making narrative: I have personally performed a face to face assessment of the patient and have reviewed the MARVEL Note. I performed a substantive portion of the visit including all aspects of the following. My lemon findings include: History: Patient presents with abdominal pain that became worse today. Patient states her pain is diffuse across her abdomen but worse over the upper abdomen. Patient denies any nausea or vomiting. Patient denies any fevers or chills. Patient denies any dysuria or hematuria. Patient states nothing makes her pain better nothing makes it worse. Exam: Vital signs are stable. Patient is afebrile. Patient is in no acute distress. Oral mucosa is pink and moist. Neck is supple. Trachea is midline. There is no JVD. Heart was regular rate and rhythm. Lungs are clear and equal bilaterally. Abdomen is soft. Bowel sounds are normal. There is mild upper abdominal tenderness. There is no rebound or guarding noted. Cranial nerves II through XII are intact. There are no focal motor or sensory deficits noted. Medical Decision Making: Differential diagnosis includes gastritis, peptic ulcer disease, duodenal ulcer, pancreatitis, gastroenteritis, and pyelonephritis. CBC will be obtained to assess for leukocytosis and anemia. Comprehensive metabolic profile will be obtained to assess for hepatic function, renal function, and electrolyte abnormality. Lipase will be obtained to assess for pancreatitis. Urinalysis will be obtained to assess for urinary tract infection. CT scan of the abdomen pelvis will be obtained to assess for bowel obstruction and perforation. CBC was reviewed and showed a mild leukocytosis of 13.5. The remainder was within normal limits. Comprehensive metabolic profile was reviewed. Potassium was slightly low at 3.0. Total bilirubin was slightly elevated at 2.2. Urinalysis was reviewed. There is a leukocyte Estrace of 500 with 10-25 white blood cells but 10-25 epithelial cells. There is 1+ bacteria. CT scan of the abdomen pelvis was reviewed. There is evidence of diverticulitis over the mid to distal transverse colon. There is no abscess or perforation noted. This was interpreted by the radiologist and was also independently reviewed by myself. Patient was advised of her findings. Patient was given a dose of Cipro and Flagyl here. Patient was given prescription for Cipro and Flagyl. Patient was also given a dose of oral potassium here. Patient was instructed to avoid alcohol while taking Flagyl. Patient was instructed to follow-up with her primary care physician in 5 to 7 days. Patient understood and was agreeable with the plan. All questions were answered. Lab Data Labs: Laboratory Results - last 24 hr 07/31/22 07/31/22 07/31/22 17:40 17:40 17:48 WBC 13.5 H RBC 4.37 Hgb 12.8 Hct 40.8 MCV 93.4 MCH 29.3 MCHC 31.4 L RDW Std Deviation 49.4 H RDW Coeff of Suhas 14.3 Plt Count 144 L MPV 13.9 H Immature Gran % (Auto) 0.700 Neut % (Auto) 74.8 H Lymph % (Auto) 16.5 L [place] % (Auto) 7.2 Eos % (Auto) 0.6 Baso % (Auto) 0.2 Absolute Neuts (auto) 10.1 H Absolute Lymphs (auto) 2.23 Nucleated RBC % 0 Sodium 140 Potassium 3.0 L Chloride 104 Carbon Dioxide 29.0 Anion Gap 7 BUN 8 Creatinine 0.89 Estim Creat Clear Calc 54.32 Est GFR (MDRD) Af Amer 87 Est GFR (MDRD) Non-Af 72 BUN/Creatinine Ratio 9.0 L Glucose 117 H Calcium 9.2 Total Bilirubin 2.20 H AST 11 L ALT 23 Alkaline Phosphatase 60 Total Protein 8.2 Albumin 3.6 Globulin 4.6 H Albumin/Globulin Ratio 0.8 L Lipase 21 Urine Color Straw Urine Clarity Sl. Cloudy Urine pH 6.5 Ur Specific [place] 1.010 Urine Protein 15 H Urine Glucose (UA) Normal Urine Ketones Negative Urine Occult Blood 10 H Urine Nitrite Negative Urine Bilirubin Negative Urine Urobilinogen 1 H Ur Leukocyte Esterase 500 H Urine RBC 0 SEEN Urine WBC 10-25 SEEN Ur Squamous Epith Cells 10-25 SEEN Urine Bacteria 1+ Urine Mucus 0 SEEN Radiography Diagnostic Testing: Clinical Impression(s) from Imaging Studies Abdomen/Pelvis CT 07/31/22 17:17 IMPRESSION: Wall thickening with inflammation of the mid to distal transverse colon compatible with diverticulitis. There is no abscess or perforation. There is no abscess or perforation. Electronically Signed: Guy Yang MD at 18:50 EDT , Discharge Plan Triage Chief Complaint: Abd Pain ED Midlevel Provider: Anson Mike ED Provider: Chidi Simpson Dx/Rx/DC Orders Clinical Impression: Diverticulitis, UTI (urinary tract infection) Instructions: Diverticulitis Dc, ED Cystitis Female Adult Prescriptions: New ciprofloxacin HCl [Cipro] 500 mg tablet 500 mg PO BID Qty: 20 0RF metronidazole 500 mg tablet 500 mg PO TID Qty: 30 0RF No Action desmopressin [DDAVP] 0.1 mg tablet 0.2 mg PO BID Qty: 360 1RF levothyroxine 125 mcg tablet 125 mcg PO DAILY Qty: 90 1RF benzonatate 100 mg capsule 200 mg PO TID PRN PRN (Reason: Cough) Qty: 15 0RF cetirizine 10 mg tablet 10 mg PO DAILY PRN (Reason: allergies) Qty: 90 1RF Primary Care Provider: Nicole Grey Referrals: Nicole Grey MD [Primary Care Provider] - Activity Restrictions/Additional Instructions: You are being treated for diverticulitis and urinary tract infection. Take the full doses of Cipro and Flagyl, do not drink alcohol with the Flagyl Disposition Disposition: Home, Self Care Discharge Date/Time: 07/31/22 19:39
--- NOTE | 2022-07-31 17:17 | CT_ITS ---
EXAM: CT ABDOMEN AND PELVIS WITH INTRAVENOUS CONTRAST CLINICAL INDICATION: abdominal pain TECHNIQUE: Helically acquired images were obtained of the abdomen and pelvis with intravenous contrast. This CT exam was performed using one or more of the following dose reduction techniques: automated exposure control, adjustment of the mA and/or kV according to patient size, and/or use of iterative reconstruction technique. CONTRAST: IV 100mL Isovue-300 COMPARISON: 06/25/2015 FINDINGS: LOWER THORAX: Unremarkable. Lung bases are clear. No cardiomegaly. No significant pericardial effusion. ABDOMEN: LIVER: Unremarkable. Homogeneous. No focal mass. GALLBLADDER AND BILE DUCTS: Unremarkable. No calcified gallstones. No gallbladder distention or wall edema. No intra- or extrahepatic biliary ductal dilation. PANCREAS: Unremarkable. No focal cystic or solid mass. SPLEEN: Unremarkable. Normal size without focal cystic or solid mass. ADRENALS: Unremarkable. No nodules. KIDNEYS AND URETERS: Unremarkable. Normal renal size and position. No hydronephrosis. STOMACH AND BOWEL: Diverticula seen throughout the colon. There is thickening of the bowel wall with surrounding inflammation in the mid to distal transverse colon compatible with acute diverticulitis. There is no abscess or perforation. No stomach or bowel distention. PELVIS: APPENDIX: No evidence of acute appendicitis. BLADDER: Unremarkable. REPRODUCTIVE: Unremarkable as visualized. No mass. ABDOMEN and PELVIS: INTRAPERITONEAL SPACE: Unremarkable. No ascites or other fluid collection. No free air. BONES/JOINTS: Unremarkable. No suspicious lytic or blastic abnormality. SOFT TISSUES: Unremarkable. No discrete abdominal or pelvic wall hernia. VASCULATURE: Unremarkable. Abdominal aorta is non-dilated. LYMPH NODES: Unremarkable. No enlarged lymph nodes. CT/Abdomen/Pelvis W IV Cont ONLY IMPRESSION: Wall thickening with inflammation of the mid to distal transverse colon compatible with diverticulitis. There is no abscess or perforation. There is no abscess or perforation. Electronically Signed: Guy Yang MD at 18:50 EDT ,
[2022-07-31] MEDS: 0.9% Normal Saline 1,000 ML 1000 ML IV (17:49)
[2022-07-31] MEDS: Ketorolac 15 MG/ML Vial IV (17:49)
[2022-07-31] MEDS: Ondansetron 4 MG/2 ML Vial IV (17:49)
[2022-07-31 17:51] LABS: Absolute Lymphocyte Count 2.23 X10^3/uL (0.83-4.51); Absolute Neutrophil Count 10.1 X10^3/uL (2.0-7.7); Basophil# 0.03 X10^3/uL; Basophil% 0.2 % (0-1); Eosinophil# 0.08 X10^3/uL; Eosinophils% 0.6 % (0-5); Hematocrit 40.8 % (37-47); Hemoglobin 12.8 g/dL (12.0-15.0); Lymphocyte # 2.23 X10^3/ul (0.83-4.51); Lymphocyte % 16.5 % (19-41); Mean Corp Hgb Conc 31.4 g/dL (32-36); Mean Corpuscular Hgb 29.3 pg (27.0-32.0); Mean Corpuscular Volume 93.4 fL (81-99); Mean Platelet Vol. 13.9 fl (6.2-12.0); Monocyte# 0.98 X10^3/uL; Monocyte% 7.2 % (0-10); NRBC Flagged by Analyzer 0 % (0-5); Neutrophil # 10.12 X10^3/uL (2.7-7.7); Neutrophil % 74.8 % (47-70); Platelet Count 144 K/mm3 (150-450); RBC Distribution Width CV 14.3 % (11.6-14.6); RBC Distribution Width SD 49.4 fl (35.1-43.9); Red Blood Count 4.37 M/mm3 (4.2-5.4); White Blood Count 13.5 K/mm3 (4.4-11.0)
[2022-07-31 17:55] LABS: Mucous, Urine 0 SEEN /hpf (<or=2+); Red Blood Cells-Urine 0 SEEN /hpf (0-5)
[2022-07-31 18:00] LABS: Color, Urine Straw (Yellow); Glucose, Dipstick Normal (Normal); Ketone-Dipstick Negative (Negative); Leukocyte Esterase-Dipstick 500 /ul (Negative); Nitrite-Dipstick Negative (Negative); Occult Blood-Urine 10 /ul (Negative); Protein-Dipstick 15 mg/dl (Negative); Urine Bilirubin Dipstick Negative (Negative); Urine Clarity Sl. Cloudy (Clear); Urine Urobilinogen 1 mg/dl (Normal); Urine pH 6.5 (5.0 - 8.0)
[2022-07-31 18:04] VITALS: RESP 18
[2022-07-31 18:06] LABS: ALB/GLOB Ratio 0.8 RATIO (0.9-2.4); AST(SGOT) 11 U/L (15-37); Alanine Aminotransfer ALT/SGPT 23 U/L (13-56); Albumin, Serum 3.6 g/dL (3.2-5.0); Alkaline Phosphatase 60 U/L (45-117); Anion Gap 7 (5-15); BUN 8 mg/dL (7-18); Calcium,Total 9.2 mg/dL (8.5-10.1); Chloride 104 mmol/L (98-107); Creatinine, Serum 0.89 mg/dL (0.55-1.02); EST Glomerular Filtration Rate 72 mL/min (>60); Est Glom Filt Rate - Afr Amer 87 mL/min (>60); Estimated Creatinine Clearance 54.32 ml/min; Globulin 4.6 g/dL (2.2-4.2); Glucose 117 mg/dL (74-106); Lipase 21 U/L (13-75); Protein, Total 8.2 g/dL (6.4-8.2); Sodium Level 140 mmol/L (136-145)
[2022-07-31 18:09] LABS: Squamous Epithelial Cells - UA 10-25 SEEN /hpf (5-10); White Blood Cells 10-25 SEEN /hpf (0-5)
[2022-07-31 18:10] LABS: Bacteria 1+ /hpf (None Seen)
[2022-07-31 19:21] VITALS: BP 105/77; PULSE 84; RESP 18; O2SAT 95
[2022-07-31] MEDS: metroNIDAZOLE 500 MG Tablet PO (19:30)
[2022-07-31] MEDS: Ciprofloxacin 500 MG Tablet PO (19:31)
[2022-07-31] MEDS: Potassium Chloride Oral Tablet 20 MEQ 40 MEQ PO (19:31)
== END 2022-07-31 19:39 | disposition home or self-care (01) ==
PROVIDERS: Nurse Practitioner; Emergency Provider Emergency Medicine; PCP Internal Medicine; Visit Provider Emergency Medicine
DX: K57.92 Diverticulitis of intestine, part unspecified, without perforation or abscess without bleeding (principal); N39.0 Urinary tract infection, site not specified
CPT/HCPCS: 74177; 80053; 81001; 83690; 85025; 96361; 96374; 96375; 99284; J7030; Q9967; J2405

== ENCOUNTER 2022-09-18 19:09 | Emergency (ER) | payer MEDICAID, SELFPAY ==
[2022-09-18 19:10] VITALS: BP 153/81; PULSE 89; RESP 16; TEMP 36.6; O2SAT 95; BMI 36.1
--- NOTE | 2022-09-18 20:02 | EX.ED.DYSGE1 ---
HPI History of Present Illness Chief Complaint: General Illness Informant: patient Onset/Context/Timing Onset: Today Context: Sudden Onset Timing: Intermittent Quality: Chills Location: Generalized Worsened by: Nothing Relieved by: Nothing Narrative Narrative: Patient presents with chills that began today. Patient states she did not take her temperature. Patient does not think she had a fever. Patient states she just felt chilled all day today. Patient states it began suddenly when she woke up today. Patient states it comes and goes. Patient states nothing makes it better nothing makes it worse. Patient admits to some occasional chest pain. Patient also admits to some urinary frequency. Patient also admits to some pain in her neck and back. Patient states she has been drinking more frequently as well. [facility] Medical History Cervical cancer Colon cancer screening Diabetes insipidus DiGeorge's syndrome Elevated blood pressure reading without diagnosis of hypertension Health care maintenance Prediabetes Seasonal allergies Home Medications levothyroxine 125 mcg tablet 125 mcg PO DAILY #90 tabs 06/11/22 [Rx Last Taken Unknown] benzonatate 100 mg capsule 200 mg (2 x 100 mg) PO TID PRN PRN Cough #15 CAPSULES 06/18/22 [Rx Last Taken Unknown] cetirizine 10 mg tablet 10 mg PO DAILY PRN allergies #90 tabs 06/18/22 [Rx Last Taken Unknown] ciprofloxacin HCl 500 mg tablet (Cipro) 500 mg PO BID #20 tabs 07/31/22 [Rx Last Taken Unknown] metronidazole 500 mg tablet 500 mg PO TID #30 tabs 07/31/22 [Rx Last Taken Unknown] desmopressin 0.1 mg tablet See Rx Instructions .Route .COMPLEX #360 tabs 08/28/22 [Rx Last Taken Unknown] Allergy/AdvReac Type Severity Reaction Status Date / Time No Known Allergies Allergy Verified 09/18/22 19:12 Family History Father Heart disease Myocardial infarction Surgical History c section H/O: hysterectomy Social History household members: significant other number of children: 2 current occupational status: unemployed history of recent travel: No sexually active: Yes Smoking Status: Never smoker second hand exposure: Yes alcohol intake: never substance use type: does not use what type of physical activity do you participate in: none seatbelt use: never do you feel safe at home: Yes additional social history: boyfriend ROS ROS ED Constitutional Constitutional ED: Reports chills and subjective; Denies fever(s) Eyes Eyes: Denies blurry vision or change in vision ENT ENT ED: Denies rhinorrhea or sore throat Cardiovascular Cardiovascular: Reports chest pain; Denies palpitations Respiratory/Chest Respiratory/Chest: Denies cough or dyspnea Gastrointestinal Gastrointestinal: Denies nausea or vomiting Genitourinary Genitourinary ED: Reports urinary frequency; Denies dysuria or hematuria Musculoskeletal Musculoskeletal: Reports back pain and neck pain Integumentary Denies abscess or rash Neurologic Neurologic: Reports headache(s); Denies weakness Endocrine Endocrinology: Reports polydipsia and polyuria Allergic/Immunologic Allergic/Immunologic ED: Denies mouth swelling or urticaria EXAM Physical Exam Const Vital Signs: 09/18/22 19:10 Temperature 97.9 F Temperature Source Temporal Pulse Rate 89 Respiratory Rate 16 Blood Pressure 153/81 H Blood Pressure Mean 105 Pulse Ox 95 Oxygen Delivery Method Room Air Positive well nourished and well developed General Appearance ED: well developed HEENT Reports moist mucous membranes Neck supple and no JVD Resp normal respiratory effort and clear to auscultation bilaterally Cardio regular rate, regular rhythm and no murmurs GI normal to inspection, nondistended, normoactive bowel sounds and non-tender Palpation: soft Extremity normal to inspection General Extremety ED: Negative for edema or tenderness General Extremity: Negative for edema Neuro oriented x3, CN's II-XII intact bilaterally and no sensory deficits noted Sensorium / Orientation: alert Motor Exam: strength 5/5 throughout Psych mental status grossly normal Skin no rashes or lesions noted MDM MDM MDM Narrative Medical decision making narrative: Differential diagnosis includes viral illness, pneumonia, electrolyte abnormality, DKA, acute kidney injury, and urinary tract infection. Chest x-ray will be obtained to assess for pneumonia. CBC will be obtained to assess for leukocytosis and anemia. Basic metabolic profile will be obtained to assess for electrolyte abnormality, renal function, and glucose. Urinalysis will be obtained to assess for urinary tract infection hematuria. Lab Data Attestation: I reviewed the patient's lab results. Lab results narrative: CBC was reviewed. There is a slight leukocytosis of 11.2. Lipids were slightly low at 148. The remainder is within normal limits. Basic metabolic profile was reviewed and was essentially within normal limits. Urinalysis was reviewed. There is no evidence of urinary tract infection or hematuria. Labs: Laboratory Results - last 24 hr 09/18/22 09/18/22 20:13 20:20 WBC 11.2 H RBC 4.51 Hgb 13.4 Hct 41.9 MCV 92.9 MCH 29.7 MCHC 32.0 RDW Std Deviation 49.3 H RDW Coeff of Suhas 14.4 Plt Count 148 L MPV 14.0 H Immature Gran % (Auto) 1.100 H Neut % (Auto) 75.9 H Lymph % (Auto) 14.6 L [place] % (Auto) 7.8 Eos % (Auto) 0.1 Baso % (Auto) 0.5 Absolute Neuts (auto) 8.5 H Absolute Lymphs (auto) 1.63 Nucleated RBC % 0 Sodium 145 Potassium 3.2 L Chloride 109 H Carbon Dioxide 28.0 Anion Gap 8 BUN 11 Creatinine 1.05 H Estim Creat Clear Calc 46.04 Est GFR (MDRD) Af Amer 71 Est GFR (MDRD) Non-Af 59 L BUN/Creatinine Ratio 10.5 Glucose 111 H Calcium 8.7 Urine Color Straw Urine Clarity Clear Urine pH 6.5 Ur Specific [place] 1.010 Urine Protein Negative Urine Glucose (UA) Normal Urine Ketones Negative Urine Occult Blood Negative Urine Nitrite Negative Urine Bilirubin Negative Urine Urobilinogen Normal Ur Leukocyte Esterase 25 H Urine RBC 0 SEEN Urine WBC 0-5 SEEN Ur Squamous Epith Cells 0 SEEN Urine Bacteria 0 SEEN Urine Mucus 0 SEEN Radiography Diagnostic Testing: Clinical Impression(s) from Imaging Studies Chest X-Ray 09/18/22 20:35 IMPRESSION: No definite acute or significant abnormality seen. Electronically Signed: Yamil Mon MD at 20:47 EDT , PA and lateral chest x-ray was obtained. There are 2 views. On my independent interpretation, lung faustin are clear. There is normal cardiac silhouette. Bony thorax is normal. There is no acute process noted. Radiologist also interpreted the x-ray and agrees. Treatment and Re-Evaluation :: Patient was advised of her findings. Patient was advised that this may be a viral illness. Patient was instructed to continue Tylenol as needed for any fevers or chills. Patient was instructed to follow-up with her primary care physician in 5 to 7 days. Patient understood and was agreeable with the plan. All questions were answered. Discharge Plan Triage Chief Complaint: General Illness ED Provider: Chidi Simpson Dx/Rx/DC Orders Clinical Impression: Viral illness Instructions: ED Viral Syndrome (Adult) Prescriptions: No Action ciprofloxacin HCl [Cipro] 500 mg tablet 500 mg PO BID Qty: 20 0RF metronidazole 500 mg tablet 500 mg PO TID Qty: 30 0RF levothyroxine 125 mcg tablet 125 mcg PO DAILY Qty: 90 1RF benzonatate 100 mg capsule 200 mg PO TID PRN PRN (Reason: Cough) Qty: 15 0RF cetirizine 10 mg tablet 10 mg PO DAILY PRN (Reason: allergies) Qty: 90 1RF desmopressin 0.1 mg tablet See Rx Instructions .ROUTE .COMPLEX Qty: 360 1RF Dose Instruction: TAKE 2 TABLETS BY MOUTH TWICE DAILY Rx Instructions: TAKE 2 TABLETS BY MOUTH TWICE DAILY Primary Care Provider: Nicole Grey Referrals: Nicole Grey MD [Primary Care Provider] - 3-5 Days Disposition Disposition: Home, Self Care
[2022-09-18 20:30] LABS: Bacteria 0 SEEN /hpf (None Seen); Mucous, Urine 0 SEEN /hpf (<or=2+); Red Blood Cells-Urine 0 SEEN /hpf (0-5); Squamous Epithelial Cells - UA 0 SEEN /hpf (5-10)
[2022-09-18] MEDS: Acetaminophen 500 MG Tablet 1000 MG PO (20:32)
[2022-09-18 20:33] LABS: Color, Urine Straw (Yellow); Glucose, Dipstick Normal (Normal); Ketone-Dipstick Negative (Negative); Leukocyte Esterase-Dipstick 25 /ul (Negative); Nitrite-Dipstick Negative (Negative); Occult Blood-Urine Negative /ul (Negative); Protein-Dipstick Negative (Negative); Urine Bilirubin Dipstick Negative (Negative); Urine Clarity Clear (Clear); Urine Urobilinogen Normal (Normal); Urine pH 6.5 (5.0 - 8.0)
[2022-09-18 20:33] LABS: Absolute Lymphocyte Count 1.63 X10^3/uL (0.83-4.51); Absolute Neutrophil Count 8.5 X10^3/uL (2.0-7.7); Basophil# 0.06 X10^3/uL; Basophil% 0.5 % (0-1); Eosinophil# 0.01 X10^3/uL; Eosinophils% 0.1 % (0-5); Hematocrit 41.9 % (37-47); Hemoglobin 13.4 g/dL (12.0-15.0); Lymphocyte # 1.63 X10^3/ul (0.83-4.51); Lymphocyte % 14.6 % (19-41); Mean Corpuscular Hgb 29.7 pg (27.0-32.0); Mean Corpuscular Volume 92.9 fL (81-99); Monocyte# 0.87 X10^3/uL; Monocyte% 7.8 % (0-10); NRBC Flagged by Analyzer 0 % (0-5); Neutrophil # 8.46 X10^3/uL (2.7-7.7); Neutrophil % 75.9 % (47-70); Platelet Count 148 K/mm3 (150-450); RBC Distribution Width CV 14.4 % (11.6-14.6); RBC Distribution Width SD 49.3 fl (35.1-43.9); Red Blood Count 4.51 M/mm3 (4.2-5.4); White Blood Count 11.2 K/mm3 (4.4-11.0)
--- NOTE | 2022-09-18 20:35 | RAD_ITS ---
STUDY: X-RAY CHEST REASON FOR EXAM: Female, 52 years old. Cough TECHNIQUE: Frontal and lateral views of the chest. COMPARISON: 05/01/2021. FINDINGS: The lungs are clear and expanded. There is no demonstrated pleural abnormality. Normal size heart. There are calcified mediastinal lymph nodes. Normal visualized pulmonary arteries. Normal visualized aortic arch and descending thoracic aorta. There are diffuse degenerative changes of the visualized thoracic spine. Normal visualized ribs, clavicles, and shoulders. There is no demonstrated abnormality of the visualized soft tissue structures of the upper abdomen. RAD/Chest PA and Lateral IMPRESSION: No definite acute or significant abnormality seen. Electronically Signed: Yamil Mon MD at 20:47 EDT ,
[2022-09-18 20:43] LABS: White Blood Cells 0-5 SEEN /hpf (0-5)
[2022-09-18 20:48] LABS: Anion Gap 8 (5-15); BUN 11 mg/dL (7-18); BUN/Creat Ratio 10.5 RATIO (10-20); Calcium,Total 8.7 mg/dL (8.5-10.1); Chloride 109 mmol/L (98-107); Creatinine, Serum 1.05 mg/dL (0.55-1.02); EST Glomerular Filtration Rate 59 mL/min (>60); Est Glom Filt Rate - Afr Amer 71 mL/min (>60); Estimated Creatinine Clearance 46.04 ml/min; Glucose 111 mg/dL (74-106); Potassium 3.2 mmol/L (3.5-5.1); Sodium Level 145 mmol/L (136-145)
== END 2022-09-18 21:17 | disposition home or self-care (01) ==
PROVIDERS: Emergency Provider Emergency Medicine; PCP Internal Medicine; Visit Provider Emergency Medicine
DX: B34.9 Viral infection, unspecified (principal)
CPT/HCPCS: 71046; 80048; 81001; 85025; 99283; A4216

== ENCOUNTER 2022-11-13 16:25 | Emergency (ER) | payer MEDICAID, SELFPAY ==
[2022-11-13 16:27] VITALS: BP 133/89; PULSE 68; RESP 19; TEMP 36.9; O2SAT 100; BMI 34.5
== END 2022-11-13 17:30 | disposition left against medical advice (07) ==
LOC: ED 17:50
PROVIDERS: PCP Internal Medicine
DX: Z53.21 Procedure and treatment not carried out due to patient leaving prior to being seen by health care provider (principal)

== ENCOUNTER 2022-11-22 13:45 | Emergency (ER) | payer MEDICAID, SELFPAY ==
[2022-11-22 13:45] VITALS: BP 153/71; PULSE 75; RESP 18; TEMP 36.1; O2SAT 96; BMI 33.5
--- NOTE | 2022-11-22 13:57 | EX.ED.DYSGE1 ---
HPI <SAMUEL Garcia - Last Filed: 11/22/22 15:16> History of Present Illness Chief Complaint: Lower Extremity Injury Narrative Narrative: Patient presenting today with pain to her bilateral anterior thighs that she has had intermittently over the past year. She reports that the pain seems to worsen when she is trying to get in and out of the car or get into bed. She denies any injury. She has not seen her PCP for this issue. She came in today because she reports that she started googling what could be causing her symptoms and is concerned that she could have a DVT. She denies any history of blood clots, recent surgery/procedures, immobilization. She also reports having a mild cough intermittently over the past week. She does have a history of seasonal allergies and thinks that this is the cause of her cough. She denies any fever, chills, chest pain, or shortness of breath. [facility] <SAMUEL Garcia - Last Filed: 11/22/22 15:16> [facility] Medical History Cervical cancer Colon cancer screening Diabetes insipidus DiGeorge's syndrome Elevated blood pressure reading without diagnosis of hypertension Health care maintenance Prediabetes Seasonal allergies Home Medications levothyroxine 125 mcg tablet 125 mcg PO DAILY #90 tabs 06/11/22 [Rx Last Taken Unknown] cetirizine 10 mg tablet 10 mg PO DAILY PRN allergies #90 tabs 06/18/22 [Rx Last Taken Unknown] desmopressin 0.1 mg tablet See Rx Instructions .Route .COMPLEX #360 tabs 08/28/22 [Rx Last Taken Unknown] naproxen 500 mg tablet 500 mg PO BID #14 tabs 11/22/22 [Rx Last Taken Unknown] Allergy/AdvReac Type Severity Reaction Status Date / Time No Known Allergies Allergy Verified 11/22/22 13:47 Family History Father Heart disease Myocardial infarction Surgical History c section H/O: hysterectomy Social History household members: significant other number of children: 2 current occupational status: unemployed history of recent travel: No sexually active: Yes Smoking Status: Never smoker second hand exposure: Yes alcohol intake: never substance use type: does not use what type of physical activity do you participate in: none seatbelt use: never do you feel safe at home: Yes additional social history: boyfriend ROS <SAMUEL Garcia - Last Filed: 11/22/22 15:16> ROS ED Constitutional Constitutional ED: Denies chills or fever(s) Cardiovascular Cardiovascular: Denies chest pain Respiratory/Chest Respiratory/Chest: Reports cough; Denies dyspnea, dyspnea on exertion, tachypnea or wheezing Gastrointestinal Gastrointestinal: Denies abdominal pain, nausea or vomiting Musculoskeletal Musculoskeletal: Reports myalgias Integumentary Denies rash Neurologic Neurologic: Denies paresthesias or weakness EXAM <SAMUEL Garcia - Last Filed: 11/22/22 15:16> Physical Exam Const Vital Signs: 11/22/22 13:45 Temperature 97 F L Temperature Source Temporal Pulse Rate 75 Respiratory Rate 18 Blood Pressure 153/71 H Blood Pressure Mean 98 Pulse Ox 96 Oxygen Delivery Method Room Air Positive well nourished, well developed and no apparent distress General Appearance ED: well developed HEENT Reports normocephalic and head/scalp atraumatic Mouth ED: Yes moist mucous membranes normal Eyes PERRL and EOMs intact bilaterally Neck full ROM and supple Chest Wall inspection of chest normal Resp normal respiratory effort and clear to auscultation bilaterally Cardio regular rate and regular rhythm GI soft to palpation, non-tender, non-distended and no masses Back/Spine normal ROM and normal to inspection Extremity normal to inspection and full ROM Extremity Narrative: No pain to palpation to the thighs bilaterally Neuro oriented x3, CN's II-XII intact bilaterally, moves all extremities, no focal motor deficits and no sensory deficits noted Sensorium / Orientation: awake and alert Psych mental status grossly normal and thought process normal Skin no rashes or lesions noted and no wounds <Dr. Chidi Simpson DO - Last Filed: 11/22/22 14:26> Physical Exam Const Vital Signs: 11/22/22 13:45 Temperature 97 F L Temperature Source Temporal Pulse Rate 75 Respiratory Rate 18 Blood Pressure 153/71 H Blood Pressure Mean 98 Pulse Ox 96 Oxygen Delivery Method Room Air MDM <SAMUEL Garcia - Last Filed: 11/22/22 15:16> [facility] Narrative Medical decision making narrative: Patient presenting today due to pain to her bilateral thighs that she has had intermittently over the past year. She did not have any injury to her legs. She is well-appearing and in no acute distress, vitals are noted and unremarkable. She reports concerns for DVT after googling her symptoms, her symptoms are not consistent with a DVT and she has been reassured. I do not feel that any imaging at this time is indicated. She will be given a prescription for naproxen and is to follow-up with her PCP. She also reports a chronic cough that has been worse over the past week or so and thinks that it is because of her allergies. She is currently not taking anything for her allergies. I encouraged her to start taking an [id number] allergy pill. She is not complaining of any shortness of breath, fever, or chest pain. She will be discharged home in stable condition and is comfortable with plan. <Dr. Chidi Simpson, DO - Last Filed: 11/22/22 14:26> [facility] [place] Treatment and Re-Evaluation :: I have personally performed a face to face assessment of the patient and have reviewed the MARVEL Note. I performed a substantive portion of the visit including all aspects of the following. My lemon findings include: History: Patient presents with bilateral lower extremity pain that has been constant for the past year. Patient states it is mainly over her anterior thighs. Patient denies any trauma or injury. Patient denies any fevers or chills. Patient denies any swelling. Patient states she is concerned over possible blood clot. Patient also admits to a chronic cough. Patient states she has seasonal allergies. Exam: Vital signs are stable. Patient is afebrile. Patient is in no acute distress. Oral mucosa is pink and moist. Oropharynx shows some postnasal drainage. There are no exudates noted. Neck is supple. Trachea is midline. There is no JVD. Heart was regular rate and rhythm. Lungs are clear and equal bilaterally. Abdomen is soft and nontender. Cranial nerves II through XII are intact. There are no focal motor or sensory deficits noted. There is mild tenderness over the anterior thighs bilaterally. There is no bony crepitance or step-off. There is full range of motion. There is no edema noted. Medical Decision Making: Patient was advised that this is unlikely to be any blood clots. Patient was advised that this is most likely musculoskeletal strain. Patient was given a prescription for Naprosyn to take as needed for pain. Patient was also advised that her postnasal drainage is most likely from seasonal allergies. Patient was instructed use [id number] Zyrtec, Claritin, or Meri as needed. Patient was instructed to follow-up with her primary care physician in 5 to 7 days. Patient understood and was agreeable with the plan. All questions were answered. Discharge Plan Triage Chief Complaint: Lower Extremity Injury ED Midlevel Provider: Irina Wick ED Provider: Chidi Simpson Dx/Rx/DC Orders Clinical Impression: Cough, Bilateral leg pain Instructions: ED Myalgias Prescriptions: New naproxen 500 mg tablet 500 mg PO BID Qty: 14 0RF No Action levothyroxine 125 mcg tablet 125 mcg PO DAILY Qty: 90 1RF cetirizine 10 mg tablet 10 mg PO DAILY PRN (Reason: allergies) Qty: 90 1RF desmopressin 0.1 mg tablet See Rx Instructions .ROUTE .COMPLEX Qty: 360 1RF Dose Instruction: TAKE 2 TABLETS BY MOUTH TWICE DAILY Rx Instructions: TAKE 2 TABLETS BY MOUTH TWICE DAILY Primary Care Provider: Nicole Grey Referrals: Nicole Grey MD [Primary Care Provider] - 5-7 Days Activity Restrictions/Additional Instructions: Please follow-up with your PCP. Return for any worsening of your symptoms. Disposition Disposition: Home, Self Care Discharge Date/Time: 11/22/22 14:22
== END 2022-11-22 14:22 | disposition home or self-care (01) ==
LOC: ED 14:21
PROVIDERS: Emergency Provider Emergency Medicine; PCP Internal Medicine; Visit Provider Emergency Medicine
DX: R05.9 Cough, unspecified (principal); M79.604 Pain in right leg; M79.605 Pain in left leg
CPT/HCPCS: 99282

== ENCOUNTER 2023-04-15 15:39 | Emergency (ER) | payer MEDICAID, SELFPAY ==
[2023-04-15 15:39] VITALS: BP 165/111; PULSE 86; RESP 16; TEMP 36.6; O2SAT 99; BMI 34.4
--- NOTE | 2023-04-15 16:10 | EDS_ITS ---
HPI HPI - URI History of Present Illness Chief Complaint: Ear Problem Detail of Chief Complaint: Left ear pain last 2 days. No trauma. Informant: patient Onset/Context/Timing Onset: Days Context: Gradual Onset Timing: Continuous Current Severity: Mild Maximum Severity: Mild Worsened by: Not Worsened By Swallowing, Eating Solids or Drinking Liquids Associated Symptoms Associated Symptoms: Negative for Headache, Sinus Pressure, Myalgias, Nausea, Vomiting, Diarrhea, Shortness of Breath, Chest Pain, Nonproductive cough or Hemoptysis Narrative Narrative: 53-year-old female history of hypertension and diabetes insipidus. Complaining of left earache for last couple days. No fever. No vomiting or diarrhea. No sore throat or trouble swallowing. No trauma to her ear. Prior similar symptoms: Yes Recent Illness/Hospitalization: No ROS ROS ED ROS Narrative Left earache. Review of Systems ROS Unobtainable: Denies due to encephalopathy Constitutional Constitutional ED: Denies chills or fever(s) Eyes Eyes: Denies blurry vision ENT ENT ED: Reports ear pain; Denies rhinorrhea or sore throat Cardiovascular Cardiovascular: Denies chest pain, palpitations or racing heartbeat Respiratory/Chest Respiratory/Chest: Denies cough or dyspnea Gastrointestinal Gastrointestinal: Denies abdominal pain or diarrhea Genitourinary Genitourinary ED: Denies dysuria or hematuria Musculoskeletal Musculoskeletal: Denies arthralgias or back pain Integumentary Denies abscess or Abrasions Neurologic Neurologic: Denies headache(s) or paresthesias Psychiatric Psychiatric: Denies anxiety or depression Endocrine Endocrinology: Denies cold intolerance Hematologic/Lymphatic Hematologic/Lymphatic: Denies easy bleeding Allergic/Immunologic Allergic/Immunologic ED: Denies mouth swelling, tongue swelling or urticaria [facility] Medical History Cervical cancer Colon cancer screening Diabetes insipidus DiGeorge's syndrome Elevated blood pressure reading without diagnosis of hypertension Health care maintenance Prediabetes Seasonal allergies Home Medications levothyroxine 125 mcg tablet 125 mcg PO DAILY #90 tabs 06/11/22 [Rx Last Taken Unknown] cetirizine 10 mg tablet 10 mg PO DAILY PRN allergies #90 tabs 06/18/22 [Rx Last Taken Unknown] desmopressin 0.1 mg tablet See Rx Instructions .Route .COMPLEX #360 tabs 08/28/22 [Rx Last Taken Unknown] lisinopril 10 mg tablet 10 mg PO DAILY #30 tabs 03/13/23 [Rx Last Taken Unknown] naproxen 500 mg tablet 500 mg PO BID PRN 03/13/23 [History Last Taken Unknown] amoxicillin 500 mg capsule 500 mg PO TID 10 days #30 caps 04/15/23 [Rx Last Taken Unknown] Allergy/AdvReac Type Severity Reaction Status Date / Time No Known Allergies Allergy Verified 04/15/23 15:39 Family History Father Heart disease Myocardial infarction Surgical History c section H/O: hysterectomy Social History household members: significant other number of children: 2 current occupational status: unemployed history of recent travel: No sexually active: Yes Smoking Status: Never smoker second hand exposure: Yes alcohol intake: never substance use type: does not use what type of physical activity do you participate in: none seatbelt use: never do you feel safe at home: Yes additional social history: boyfriend EXAM Physical Exam Narrative Exam Narrative: Well-appearing 53-year-old female. Vital signs stable afebrile. History of hypertension initial blood pressure 165/111. H EENT exam left TM dull and red. Consistent with otitis media. Canal unremarkable. Posterior pharynx normal. Tonsils not enlarged. No trouble swallowing or breathing. No erythema or exudate. Right TM and canal normal. Neck nontender no lymphadenopathy. Lungs clear to auscultation bilaterally. Heart regular rhythm no murmur. Abdomen soft nontender. Moving all 4 extremities. Normal motor strength. Normal range of motion. Neurologically awake and alert no focal motor deficit. Const Vital Signs: 04/15/23 15:39 Temperature 98 F Temperature Source Temporal Pulse Rate 86 Respiratory Rate 16 Blood Pressure 165/111 H Blood Pressure Mean 129 Pulse Ox 99 Oxygen Delivery Method Room Air Positive well nourished and well developed; Negative for cachectic or contractures General Appearance ED: well developed and NAD; Negative for cachectic, contractures, cyanotic, diaphoretic or pallor Nutritional Appearance: Negative for cachectic HEENT Reports moist mucous membranes; Denies dry mucous membranes normocephalic and atraumatic; Negative for scalp tenderness Face and Sinus: Negative for sinus tenderness, maxillary instability or facial tenderness Mouth ED: No dry mucous membranes Mouth: No dry mucous membranes Teeth and Gingiva: Negative for caries Throat: posterior oropharynx normal; Negative for tonsils abnormal or posterior oropharynx abnormal Eyes PERRL and EOMs intact bilaterally General Eye ED: Negative for pale conjunctiva or scleral icterus Neck no lymphadenopathy, supple, no meningeal signs and no JVD General: Negative for anterior neck swelling, lymphadenopathy or other Resp normal respiratory effort and clear to auscultation bilaterally Effort and Inspection: Negative for retractions Auscultation: Negative for rales, rhonchi or wheezes Cardio S1 normal heart sound, S2 normal heart sound and no murmurs Rate: regular rate Rhythm: regular rhythm GI non-tender, non-distended and no masses Inspection: Negative for abdominal distention Auscultation: normoactive bowel sounds Palpation: soft; Negative for tender or guarding Back/Spine no CVA tenderness and normal ROM General Back: Negative for CVA tenderness Cervical Spine: Negative for cervical spine tenderness Thoracic Spine / Upper Back: Negative for thoracic spinal tenderness Lumbar Spine / Lower Back: Negative for lumbar spinal tenderness Sacrum: Negative for tenderness Extremity normal to inspection and full ROM General Extremety ED: Negative for cyanosis or tenderness General Extremity: Negative for cyanosis Neuro oriented x3 and CN's II-XII intact bilaterally Sensorium / Orientation: alert, oriented to person, oriented to place and oriented to time; Negative for orientation impaired, lethargic or stuporous Motor Exam: strength 5/5 throughout; Negative for general weakness or strength abnormal Psych mental status grossly normal Appearance: Negative for other Attitude: No agitated Mood & Affect: Negative for depressed, anxious or tearful Skin General Skin Exam: Negative for jaundice or pallor Lesions: no lesions Rashes: no rashes Trauma: Negative for abrasion or laceration MDM MDM MDM Narrative Medical decision making narrative: 53-year-old female left ear pain for 2 days exam consistent with left otitis media. Amoxicillin 500 3 times daily for 10 days. Tylenol Motrin for pain. Follow-up if not improving. Given her first dose of antibiotic here prior to discharge. Discharge Plan Triage Chief Complaint: Ear Problem ED Provider: Naresh Khalil Dx/Rx/DC Orders Clinical Impression: Acute left otitis media, History of diabetes insipidus Instructions: ED Otitis Media Adult Prescriptions: New amoxicillin 500 mg capsule 500 mg PO TID 10 Days Qty: 30 0RF No Action naproxen 500 mg tablet 500 mg PO BID PRN lisinopril 10 mg tablet 10 mg PO DAILY Qty: 30 1RF levothyroxine 125 mcg tablet 125 mcg PO DAILY Qty: 90 1RF cetirizine 10 mg tablet 10 mg PO DAILY PRN (Reason: allergies) Qty: 90 1RF desmopressin 0.1 mg tablet See Rx Instructions .ROUTE .COMPLEX Qty: 360 1RF Dose Instruction: TAKE 2 TABLETS BY MOUTH TWICE DAILY Rx Instructions: TAKE 2 TABLETS BY MOUTH TWICE DAILY Primary Care Provider: Nicole Grey Referrals: Nicole Grey MD [Primary Care Provider] - 3-5 Days if not improving Activity Restrictions/Additional Instructions: Left ear infection. Motrin and Tylenol for pain. The antibiotic amoxicillin 3 times a day for the next 10 days. If not improving follow-up with your doctor. Try to take a second dose of the antibiotic tonight before you go to bed. Disposition Disposition: Home, Self Care
[2023-04-15] MEDS: AMOXICILLIN 500 MG CAPSULE PO (16:12)
[2023-04-15 16:17] VITALS: PULSE 80; RESP 16; O2SAT 96
--- OUTSIDE RECORDS SUMMARY | 2023-04-15 19:16 | XMS RPT_ITS | CCD ---
Author Name Unknown Address Pending sale to [facility] [id number] [place] [address] Organization [facility] Care Team Providers Care Equal Opportunity Officer Name Role Phone Que PERRY, Nicole Dodge Primary Care Provider [phone] PHYSICIAN, NONE Primary Care Physician Unavailab NICOLE Urbina Primary Care Unavailable NICOLE GREY Primary Care Unavailable NICOLE GREY Primary Care Unavailable KATELYNN PERRY, DR PETER Lara [facility] PHYSICIAN, NONE Primary Care Unavailable Allergies Allergy Classification Reported Allergen(s) Allergy Type Date of Onset Reaction(s) Facility (5 sources) diphenhydrAMINE; Translations: [DIPHENHYDRAMINE HCL] Drug Allergy 12-31-2004 [facility] Work Phone: Medications Current Medications Medication Drug Class(es) Dates Sig (Normalized) Sig (Original) desmopressin acetate 0.1 mg oral tablet (5 sources) Vasopressin Analog, Factor VIII Activator Start: 2023 desmopressin 0.1 mg oral tablet Dose : 0.1 mg = 1 tab(s), TAKE 2 TABLETS BY MOUTH TWICE DAILY Start Date: 02/26/23 Status: Ordered Completed/Discontinued Medications Medication Drug Class(es) Dates Sig (Normalized) Sig (Original) [id number] 200 actuat albuterol 0.09 mg/actuat metered dose inhaler (4 sources) beta2-Adrenergic Agonist Start: 01-15-2021 take 2 puff(s) by inhalation every four hours as needed for wheezing albuterol HFA (PROVENTIL HFA, VENTOLIN HFA) 90 mcg/actuation inhaler Indications: Suspected COVID-19 virus infection , Wheezing Inhale 2 Puffs as instructed every 4 hours as needed for wheezing/shortnes s of breath. 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 Immunizations and screening for infectious disease (3 sources) Patient encounter status; Translations: [Encounter for screening for infections with a predominantly sexual mode of transmission] Episodic Inflammation; infection of eye (except that caused by tuberculosis or sexually transmitteddisease) (1 source) Acute conjunctivitis of bilateral eyes; Translations: [Unspecified acute conjunctivitis, bilateral] 01-11-2023 Episodic Nutritional deficiencies (4 sources) Vitamin D deficiency; Translations: [Vitamin D deficiency, unspecified] Onset: 10-21-2010 10-21-2010 Chronic Other endocrine disorders (4 sources) Diabetes insipidus; Translations: [Diabetes insipidus] 12-31-2004 Chronic Other nutritional; endocrine; and metabolic disorders (4 sources) Hypocalcemia; Translations: [Hypocalcemia] Onset: 03-11-2010 03-11-2010 Chronic Other nutritional; endocrine; and metabolic disorders (4 sources) Obesity; Translations: [Obesity, unspecified] Onset: 08-13-2015 08-13-2015 Chronic Other upper respiratory disease (4 sources) Allergic rhinitis; Translations: [Allergic rhinitis, unspecified] Onset: 01-23-2009 01-23-2009 Chronic Thyroid disorders (4 sources) Hypothyroidism; Translations: [Hypothyroidism, unspecified] 03-04-2021 Chronic Viral infection (2 sources) Viral disease; Translations: [Viral infection, unspecified] Onset: 2023 Episodic Results Test Name Value Interpretation Reference Range Facil ity Vital Signs Date Time Vital Sign Value Performing Clinician Facility 2023 15:140500 Body height 152.[address] PETER PACE MD [facility] 2023 15:14-0500 Body temperature 97.88 [degF] DR PETER PACE MD [facility] 2023 15:14-0500 Body weight 77.[address] PETER PACE MD [facility] 2023 15:14-0500 Diastolic Blood Pressure Non-Invasive 78 mm[Hg] DR PETER PACE MD [facility] 2023 15:14-0500 Heart rate 74 /min DR PETER PACE MD [facility] 2023 15:14-0500 Respiratory rate 16 /min DR PETER PACE MD [facility] 2023 15:14-0500 Systolic Blood Pressure Non-Invasive 139 mm[Hg] DR PETER PACE MD [facility] 01-11-2023 11:31-0500 Body temperature 98.29 [degF] Erica Athy PA-C Work Phone: [facility] 01-11-2023 11:31-0500 Body weight 79.47 kg Erica Athy PA-C Work Phone: [facility] 01-11-2023 11:31-0500 Diastolic blood pressure 68 mm[Hg] Erica Athy PA-C Work Phone: [facility] 01-11-2023 11:31-0500 Heart rate 63 /min Erica Athy PA-C Work Phone: [facility] 01-11-2023 11:31-0500 Respiratory rate 18 /min Erica Athy PA-C Work Phone: [facility] 01-11-2023 11:31-0500 SaO2% (BldA) [Mass fraction] 98 % Erica Athy PA-C Work Phone: [facility] 01-11-2023 11:31-0500 Systolic blood pressure 104 mm[Hg] Erica Bailey PA-C Work Phone: [facility] 02-10-2022 14:36-0500 Body height 152.4 cm Breanne Noa MOTOR COACH OPERATOR.CORRESPONDENCE TRANSCRIBER Work Phone: [facility] 02-10-2022 14:36-0500 Body weight 85.82 kg Breanne Nahunta MOTOR COACH OPERATOR.CORRESPONDENCE TRANSCRIBER Work Phone: [facility] 02-10-2022 14:36-0500 Diastolic blood pressure 80 mm[Hg] Breanne Nahunta MOTOR COACH OPERATOR.CORRESPONDENCE TRANSCRIBER Work Phone: [facility] 02-10-2022 14:36-0500 Systolic blood pressure 114 mm[Hg] Breanne Noa MOTOR COACH OPERATOR.CORRESPONDENCE TRANSCRIBER Work Phone: [facility] Encounters Encounter Date Encounter Type Care Provider Facility Start: 2023 End: 2023 Emergency department patient visit DR PETER PACE MD Facility: Start: 2023 End: 2023 ambulatory NICOLE RGEY Facility:[facility] Start: 2023 End: 2023 Emergency department patient visit DR PETER PACE MD [facility] Start: 01-12-2023 Telephone encounter Darcy Ramirez APRN.CORRESPONDENCE TRANSCRIBER Work Phone: [facility] Procedures Date Procedure Procedure Detail Performing Clinician Start: 01-11-2023 BACTERIAL VAGINOSIS NAAT Erica Bailey PA-C Work Phone: Start: 01-11-2023 Iadna chlamydia trachomatis amplified probe tq Erica Bailey PA-C Work Phone: Start: 01-11-2023 Urnls dip stick/tabl et rgnt auto w/o microscopy Erica Bailey PA-C Work Phone: Start: 08-26-2017 Lipid 1996 panel - S bria or Plasma Erica Bailey PA-C Work Phone: Plan of Treatment Date Care Activity Detail Author Start: 02-10-2027 Pap Testing Pap Testing [facility] Start: 07-29-2026 Urine microalbumin profile [facility] Start: 11-07-2022 Influenza vaccination Influenza Vacc ine (#1) [facility] Start: 08-26-2022 Lipid 1996 panel - S bria or Plasma Lipid Screening [facility] Start: 08-26-2022 LIPID SCREEN LIPID SCREEN [facility] Start: 08-24-2022 PAP TESTING PAP TESTING [facility] Start: 03-09-2022 Depression Assessment Depression Ass essment [facility] Start: 02-25-2022 Shingrix Vaccine (1 of 2) Shingrix Vaccine (1 of 2) [facility] Start: 02-10-2022 End: 04-12-2022 Hepatitis B virus surface Ag [Presence] in Serum [facility] Work Phone: Immunizations Immunization Date Immunization Notes Care Provider Andreea ley 01-25-2020 Influenza, injectabl e, [facility] [place] Canine Kidney, preservative free, quadrivalent Breanne Nahunta MOTOR COACH OPERATOR.[facility] Work Phone: [facility] Work Phone: 01-25-2020 influenza, seasonal, injectable, preservative free Breanne Nahunta MOTOR COACH OPERATOR.CORRESPONDENCE TRANSCRIBER Work Phone: [facility] Work Phone: 01-25-2020 influenza virus vaccine, unspecified formulation Erica Bailey PA-C Work Phone: [facility] 07-29-2016 tetanus toxoid, redu holly diphtheria toxoid, and acellular pertussis vaccine, adsorbed Breanne Noa MOTOR COACH OPERATOR.CORRESPONDENCE TRANSCRIBER Work Phone: [facility] 01-05-2014 influenza, seasonal, injectable, preservative free Breanne Noa MOTOR COACH OPERATOR.CORRESPONDENCE TRANSCRIBER Work Phone: [facility] Work Phone: 01-09-2010 influenza virus vaccine, unspecified formulation Breanne Nahunta MOTOR COACH OPERATOR.[employer] Work Phone: [facility] 12-22-2008 influenza virus vaccine, unspecified formulation Breanne Bynumcalf MOTOR COACH OPERATOR.[employer] Work Phone: [facility] Payers Date Payer Category Payer Medicaid [id number] 2015 Medicaid [id number] 1970 Unknown [id number] Social History Date Type Detail Facility Start: 02-10-2022 Tobacco smoking stat us [facility]IS Never smoked tobacco [facility] Start: 02-10-2022 Tobacco use and exposure Smokeless t obacco non-user [facility] Start: 02-10-2022 End: 01-11-2023 Alcohol intake Current drinker of alcohol (finding) [facility] Start: 08-11-2016 Alcohol Comment Occasionally [facility] Start: 1970 Sex Assigned At Not on file [facility] Start: 01-31-2022 End: 02-10-2022 Exposure to SARS-CoV-2 (event) Not sure [facility] Start: 03-21-2022 End: 01-11-2023 History of Social function [facility] Start: 03-21-2022 End: 01-11-2023 Tobacco use panel [facility] Adult Depression Screening Assessment 2 [facility] Medical Equipment Procedure Code Equipment Code Equipment Origin al Text Equipment Identifier Dates Clip Flsh Int Fa lop Tube Ti - [id number] Start: 09-05-2014 Functional Status Date Assessment Result Facility 2023 Functional Status Resting [facility] Mental Status Date Assessment Result Facility 2023 Mental Status Orientation Oriented x 4 [facility] Clinical Notes 08-30-2014 to 2023 Telephone Encounter - Darcy Ramirez APRN.CNP - 01/12/2023 11:14 AM Erica Talbot PA-C - 01/11/2023 12:11 PM ESTTelephone Encounter - Melissa Nix RN - 02/11/2022 10:00 AM EST Note Date & Type Note Facility 2023 Hospital Discharg e instructions Patient Education 2023 17:22:47 Viral Syndrome (Adult) Viral Syndrome (Adult) A viral illness may cause a number of symptoms such as fever. Other symptoms depend on the part of the body that the virus affects. If it settles in your nose, throat, and lungs, it may cause cough, sore throat, congestion, runny nose, headache, earache and other ear symptoms, or shortness of breath. If it settles in your stomach and intestinal tract, it may cause nausea, vomiting, cramping, and diarrhea. Sometimes it causes generalized symptoms like aching all over, feeling tired, loss of energy, or loss of appetite. A viral illness usually lasts anywhere from several days to several weeks, but sometimes it lasts longer. In some cases, a more serious infection can look like a viral syndrome in the first few days of the illness. You may need another exam and additional tests to know the difference. Watch for the warning signs listed below for when to seek medical advice. Home care Follow these guidelines for taking care of yourself at home: If symptoms are severe, rest at home for the first 2 to 3 days. Stay away from cigarette smoke - both your smoke and the smoke from others. You may use zpdg-jfh-qhplzht acetaminophen or ibuprofen for fever, muscle aching, and headache, unless another medicine was prescribed for this. If you have chronic liver or kidney disease or ever had a stomach ulcer or gastrointestinal bleeding, talk with your healthcare provider before using these medicines. No one who is younger than 18 and ill with a fever should take aspirin. It may cause severe disease or . Your appetite may be poor, so a light diet is fine. Avoid dehydration by drinking 8 to 12, 8-ounce glasses of fluids each day. This may include water; orange juice; lemonade; apple, grape, and cranberry juice; clear fruit drinks; electrolyte replacement and sports drinks; and decaffeinated teas and coffee. If you have been diagnosed with a kidney disease, ask your healthcare provider how much and what types of fluids you should drink to prevent dehydration. If you have kidney disease, drinking too much fluid can cause it build up in the your body and be dangerous to your health. Zmcy-oum-nysirpf remedies won't shorten the length of the illness but may be helpful for symptoms such as cough, sore throat, nasal and sinus congestion, or diarrhea. Don't use decongestants if you have high blood pressure. Follow-up care Follow up with your healthcare provider if you do not improve over the next week. Call 911 Call 911 if any of the following occur: Convulsion Feeling weak, dizzy, or like you are going to faint Chest pain, or more than mild shortness of breath When to seek medical advice Call your healthcare provider right away if any of these occur: Cough with lots of colored sputum (mucus) or blood in your sputum Chest pain, shortness of breath, wheezing, or trouble breathing Severe headache; face, neck, or ear pain Severe, constant pain in the lower right side of your belly (abdominal) Continued vomiting (can t keep liquids down) Frequent diarrhea (more than 5 times a day); blood (red or black color) or mucus in diarrhea Feeling weak, dizzy, or like you are going to faint Extreme thirst Fever of 100.4 F (38 C) or higher, or as directed by your healthcare provider [id number] [employer]. [address] [place] [address]. All rights reserved. This information is not intended as a substitute for professional medical care. Always follow your healthcare professional's instructions. Follow Up Care 2023 14:22:03 With:WENDY PANG DO Address: [address] [place] [address] [phone] When:2-4 days [facility] 2023 Note Discharge Instructions Thank you for allowing [facility] to assist you with your healthcare needs. The following is important discharge information regarding your hospital visit. Diagnosis from Today's Visit Medical screening exam Viral illness What to Do Next Instructions from Your Care Team No qualifying data available. Post Acute Orders No qualifying data available. You Need to Schedule the Following Appointments Follow Up with WENDY PANG DO When Within 2-4 days Where: [address] [place] [address] [phone] Allergies No active allergies Medications Please ask your primary doctor or pharmacist before taking any other medication not listed, including over the counter drugs, herbal medications, vitamins and or supplements as they may interact with your home medications. What How Much When Instructions Last Dose New naproxen (Anaprox-DS 550 mg oral tablet) 1 tab(s) by mouth Two (2) times a day as needed for as needed for pain Printed Prescription New ondansetron (Zofran 4 mg oral tablet) 1 tab(s) by mouth Every 6 hours as needed for Nausea/Vomiting Printed Prescription Unchanged desmopressin (desmopressin 0.1 mg oral tablet) 1 tab(s) TAKE 2 TABLETS BY MOUTH TWICE DAILY Unchanged levothyroxine (levothyroxine 125 mcg (0.125 mg) oral tablet) 1 tab(s) by mouth Once a day Please take this list to your next doctor s visit. Bring all medications you take, including over the counter medications, herbals and other supplements with you to your doctor s visit. Patients and families are reminded to discard old lists and to update any records with all medication providers or retail pharmacies. Medication Leaflets ondansetron (oral) (on GLORIA se sky) What is the most important information I should know about ondansetron? You should not use ondansetron if you are also using apomorphine (Apokyn). What is ondansetron? Ondansetron blocks the actions of chemicals in the body that can trigger nausea and vomiting. Ondansetron is used to prevent nausea and vomiting that may be caused by surgery, cancer chemotherapy, or radiation treatment. Ondansetron may be used for purposes not listed in this medication guide. What should I discuss with my health care provider before taking ondansetron? You should not use ondansetron if: you are also using apomorphine (Apokyn); or you are allergic to ondansetron or similar medicines (dolasetron, granisetron, palonosetron). To make sure ondansetron is safe for you, tell your doctor if you have: liver disease; an electrolyte imbalance (such as low levels of potassium or magnesium in your blood); congestive heart failure, slow heartbeats; a personal or family history of long QT syndrome; or a blockage in your digestive tract (stomach or intestines). Ondansetron is not expected to harm an unborn baby. Tell your doctor if you are . It is not known whether ondansetron passes into breast milk or if it could harm a nursing baby. Tell your doctor if you are breast-feeding a baby. Ondansetron is not approved for use by anyone younger than 4 years old. Ondansetron orally disintegrating tablets may contain phenylalanine. Tell your doctor if you have phenylketonuria (PKU). How should I take ondansetron? Follow all directions on your prescription label. Do not take this medicine in larger or smaller amounts or for longer than recommended. Ondansetron can be taken with or without food. The first dose of ondansetron is usually taken before the start of your surgery, chemotherapy, or radiation treatment. Follow your doctor's dosing instructions very carefully. Take the ondansetron regular tablet with a full glass of water. To take the orally disintegrating tablet (Zofran ODT): Keep the tablet in its blister pack until you are ready to take it. Open the package and peel back the foil. Do not push a tablet through the foil or you may damage the tablet. Use dry hands to remove the tablet and place it in your mouth. Do not swallow the tablet whole. Allow it to dissolve in your mouth without chewing. Swallow several times as the tablet dissolves. To use ondansetron oral soluble film (strip) (Zuplenz): Keep the strip in the foil pouch until you are ready to use the medicine. Using dry hands, remove the strip and place it on your tongue. It will begin to dissolve right away. Do not swallow the strip whole. Allow it to dissolve in your mouth without chewing. Swallow several times after the strip dissolves. If desired, you may drink liquid to help swallow the dissolved strip. Wash your hands after using Zuplenz. Measure liquid medicine with the dosing syringe provided, or with a special dose-measuring spoon or medicine cup. If you do not have a dose-measuring device, ask your pharmacist for one. Store at room temperature away from moisture, heat, and light. Store liquid medicine in an upright position. What happens if I miss a dose? Take the missed dose as soon as you remember. Skip the missed dose if it is almost time for your next scheduled dose. Do not take extra medicine to make up the missed dose. What happens if I overdose? Seek emergency medical attention or call the Poison Help line at . Overdose symptoms may include sudden loss of vision, severe constipation, feeling light-headed, or fainting. What should I avoid while taking ondansetron? Ondansetron may impair your thinking or reactions. Be careful if you drive or do anything that requires you to be alert. What are the possible side effects of ondansetron? Get emergency medical help if you have signs of an allergic reaction: rash, hives; fever, chills, difficult breathing; swelling of your face, lips, tongue, or throat. Call your doctor at once if you have: severe constipation, stomach pain, or bloating; headache with chest pain and severe dizziness, fainting, fast or pounding heartbeats; fast or pounding heartbeats; jaundice (yellowing of the skin or eyes); blurred vision or temporary vision loss (lasting from only a few minutes to several hours); high levels of serotonin in the body--agitation, hallucinations, fever, fast heart rate, overactive reflexes, nausea, vomiting, diarrhea, loss of coordination, fainting. Common side effects may include: diarrhea or constipation; headache; drowsiness; or tired feeling. This is not a complete list of side effects and others may occur. Call your doctor for medical advice about side effects. You may report side effects to FDA at 3-456-EKP-6863. What other drugs will affect ondansetron? Ondansetron can cause a serious heart problem, especially if you use certain medicines at the same time, including antibiotics, antidepressants, heart rhythm medicine, antipsychotic medicines, and medicines to treat cancer, malaria, HIV or AIDS. Tell your doctor about all medicines you use, and those you start or stop using during your treatment with ondansetron. Taking ondansetron while you are using certain other medicines can cause high levels of serotonin to build up in your body, a condition called 'serotonin syndrome,' which can be fatal. Tell your doctor if you also use: medicine to treat depression; medicine to treat a psychiatric disorder; a narcotic (opioid) medication; or medicine to prevent nausea and vomiting. This list is not complete and many other drugs can interact with ondansetron. This includes prescription and xrgl-vun-xwwoyps medicines, vitamins, and herbal products. Give a list of all your medicines to any healthcare provider who treats you. Where can I get more information? Your pharmacist can provide more information about ondansetron. Remember, keep this and all other medicines out of the reach of children, never share your medicines with others, and use this medication only for the indication prescribed. Every effort has been made to ensure that the information provided by [employer]. [employer]') is accurate, up-to-date, and complete, but no guarantee is made to that effect. Drug information contained herein may be time sensitive. [employer] information has been compiled for use by healthcare practitioners and consumers in the [place] and therefore [employer] does not warrant that uses outside of the [place] are appropriate, unless specifically indicated otherwise. [employer] drug information does not endorse drugs, diagnose patients or recommend therapy. [employer] drug information is an informational resource designed to assist licensed healthcare practitioners in caring for their patients and/or to serve consumers viewing this service as a supplement to, and not a substitute for, the expertise, skill, knowledge and judgment of healthcare practitioners. The absence of a warning for a given drug or drug combination in no way should be construed to indicate that the drug or drug combination is safe, effective or appropriate for any given patient. [employer] does not assume any responsibility for any aspect of healthcare administered with the aid of information [employer] provides. The information contained herein is not intended to cover all possible uses, directions, precautions, warnings, drug interactions, allergic reactions, or adverse effects. If you have questions about the drugs you are taking, check with your doctor, nurse or pharmacist. Copyright [id number] [employer]. Version: 16.. Revision Date: 10/09/2022. naproxen (na PROX en) Aleve, Aleve Back and Muscle Pain, Aleve Easy Open Arthritis, Aleve Liquid Gels, Anaprox-DS, EC-Naprosyn, Naprelan, Naprosyn What is the most important information I should know about naproxen? Naproxen can increase your risk of fatal heart attack or stroke. Do not use this medicine just before or after heart bypass surgery (coronary artery bypass graft, or CABG). Naproxen may also cause stomach or intestinal bleeding, which can be fatal. What is naproxen? Naproxen is a nonsteroidal anti-inflammatory drug (NSAID). Naproxen is used to treat pain or inflammation caused by conditions such as arthritis, ankylosing spondylitis, tendinitis, bursitis, gout, or menstrual cramps. The delayed-release or extended-release tablets are slower-acting forms of naproxen that are used only for treating chronic conditions such as arthritis or ankylosing spondylitis. These forms of naproxen will not work fast enough to treat acute pain. Naproxen may also be used for purposes not listed in this medication guide. What should I discuss with my healthcare provider before taking naproxen? Naproxen can increase your risk of fatal heart attack or stroke, even if you don't have any risk factors. Do not use this medicine just before or after heart bypass surgery (coronary artery bypass graft, or CABG). Naproxen may also cause stomach or intestinal bleeding, which can be fatal. These conditions can occur without warning while you are using naproxen, especially in older adults. You should not use naproxen if you are allergic to it, or if you have ever had an asthma attack or severe allergic reaction after taking aspirin or an NSAID. Ask a doctor before giving naproxen to a child younger than 12 years old. Ask a doctor or pharmacist if this medicine is safe to use if you have: heart disease, high blood pressure, high cholesterol, diabetes, or if you smoke; a heart attack, stroke, or blood clot; stomach ulcers or bleeding; asthma; liver or kidney disease; fluid retention; or if you take aspirin to prevent heart attack or stroke. If you are , you should not take naproxen unless your doctor tells you to. Taking an NSAID during the last 20 weeks of can cause serious heart or kidney problems in the unborn baby and possible complications with your . It may not be safe to breastfeed while using this medicine. Ask your doctor about any risk. How should I take naproxen? Use exactly as directed on the label, or as prescribed by your doctor. Use the lowest dose that is effective in treating your condition. Shake the oral suspension (liquid) before you measure a dose. Measure a dose with the supplied measuring device (not a kitchen spoon). Take this medicine with food or milk if it upsets your stomach. Always follow directions on the medicine label about giving this medicine to a child. Naproxen doses are based on weight in children. Your child's dose needs may change if the child gains or loses weight. If you use naproxen long-term, you may need frequent medical tests. This medicine can affect the results of certain medical tests. Tell any doctor who treats you that you are using naproxen. Store at room temperature away from moisture, heat, and light. Keep the bottle tightly closed when not in use. What happens if I miss a dose? Since naproxen is used when needed, you may not be on a dosing schedule. Skip any missed dose if it's almost time for your next dose. Do not use two doses at one time. What happens if I overdose? Seek emergency medical attention or call the Poison Help line at . What should I avoid while taking naproxen? Avoid drinking alcohol. It may increase your risk of stomach bleeding. Avoid taking aspirin or other NSAIDs unless your doctor tells you to. Ask a doctor or pharmacist before using other medicines for pain, fever, swelling, or cold/flu symptoms. They may contain ingredients similar to naproxen (such as aspirin, ibuprofen, or ketoprofen). Ask your doctor before using an antacid, and use only the type your doctor recommends. Some antacids can make it harder for your body to absorb naproxen. What are the possible side effects of naproxen? Get emergency medical help if you have signs of an allergic reaction (runny or stuffy nose, wheezing or trouble breathing, hives, swelling in your face or throat) or a severe skin reaction (fever, sore throat, burning eyes, skin pain, red or purple skin rash with blistering and peeling). Stop using naproxen and seek medical treatment if you have a serious drug reaction that can affect many parts of your body. Symptoms may include skin rash, fever, swollen glands, muscle aches, severe weakness, unusual bruising, or yellowing of your skin or eyes. Get emergency medical help if you have signs of a heart attack or stroke: chest pain spreading to your jaw or shoulder, sudden numbness or weakness on one side of the body, slurred speech, leg swelling, feeling short of breath. Stop using naproxen and call your doctor at once if you have: shortness of breath (even with mild exertion); swelling or rapid weight gain; the first sign of any skin rash or blister, no matter how mild; signs of stomach bleeding--bloody or tarry stools, coughing up blood or vomit that looks like coffee grounds; liver problems--nausea, upper stomach pain, loss of appetite, dark urine, rizwan-colored stools, jaundice (yellowing of the skin or eyes); kidney problems--little or no urination, painful urination, swelling in your feet or ankles; or low red blood cells (anemia)--pale skin, unusual tiredness, feeling light-headed or short of breath, cold hands and feet. Common side effects may include: headache; indigestion, heartburn, stomach pain; or flu symptoms; This is not a complete list of side effects and others may occur. Call your doctor for medical advice about side effects. You may report side effects to FDA at 0-696-HRM-1174. What other drugs will affect naproxen? Ask your doctor before using naproxen if you take an antidepressant. Taking certain antidepressants with an NSAID may cause you to bruise or bleed easily. Ask a doctor or pharmacist before using naproxen with any other medications, especially: other NSAIDs or salicylates (diflunisal, salsalate); antacids and sucralfate; cholestyramine; cyclosporine; digoxin; lithium; methotrexate; pemetrexed; probenecid; warfarin (Coumadin, Jantoven) or similar blood thinners; a diuretic or 'water pill'; or heart or blood pressure medication. This list is not complete. Other drugs may affect naproxen, including prescription and rxwx-phj-trckfqx medicines, vitamins, and herbal products. Not all possible drug interactions are listed here. Where can I get more information? Your pharmacist can provide more information about naproxen. Remember, keep this and all other medicines out of the reach of children, never share your medicines with others, and use this medication only for the indication prescribed. Every effort has been made to ensure that the information provided by [employer]. ('[employer]') is accurate, up-to-date, and complete, but no guarantee is made to that effect. Drug information contained herein may be time sensitive. [employer] information has been compiled for use by healthcare practitioners and consumers in the [place] and therefore [employer] does not warrant that uses outside of the [place] are appropriate, unless specifically indicated otherwise. [employer] drug information does not endorse drugs, diagnose patients or recommend therapy. [employer] drug information is an informational resource designed to assist licensed healthcare practitioners in caring for their patients and/or to serve consumers viewing this service as a supplement to, and not a substitute for, the expertise, skill, knowledge and judgment of healthcare practitioners. The absence of a warning for a given drug or drug combination in no way should be construed to indicate that the drug or drug combination is safe, effective or appropriate for any given patient. [employer] does not assume any responsibility for any aspect of healthcare administered with the aid of information [employer] provides. The information contained herein is not intended to cover all possible uses, directions, precautions, warnings, drug interactions, allergic reactions, or adverse effects. If you have questions about the drugs you are taking, check with your doctor, nurse or pharmacist. Copyright 3486-6641 [facility] [employer]. Version: 22.. Revision Date: 10/09/2022. Education Materials Viral Syndrome (Adult) A viral illness may cause a number of symptoms such as fever. Other symptoms depend on the part of the body that the virus affects. If it settles in your nose, throat, and lungs, it may cause cough, sore throat, congestion, runny nose, headache, earache and other ear symptoms, or shortness of breath. If it settles in your stomach and intestinal tract, it may cause nausea, vomiting, cramping, and diarrhea. Sometimes it causes generalized symptoms like aching all over, feeling tired, loss of energy, or loss of appetite. A viral illness usually lasts anywhere from several days to several weeks, but sometimes it lasts longer. In some cases, a more serious infection can look like a viral syndrome in the first few days of the illness. You may need another exam and additional tests to know the difference. Watch for the warning signs listed below for when to seek medical advice. Home care Follow these guidelines for taking care of yourself at home: If symptoms are severe, rest at home for the first 2 to 3 days. Stay away from cigarette smoke - both your smoke and the smoke from others. You may use bjaw-vam-xgtcnmb acetaminophen or ibuprofen for fever, muscle aching, and headache, unless another medicine was prescribed for this. If you have chronic liver or kidney disease or ever had a stomach ulcer or gastrointestinal bleeding, talk with your healthcare provider before using these medicines. No one who is younger than 18 and ill with a fever should take aspirin. It may cause severe disease or . Your appetite may be poor, so a light diet is fine. Avoid dehydration by drinking 8 to 12, 8-ounce glasses of fluids each day. This may include water; orange juice; lemonade; apple, grape, and cranberry juice; clear fruit drinks; electrolyte replacement and sports drinks; and decaffeinated teas and coffee. If you have been diagnosed with a kidney disease, ask your healthcare provider how much and what types of fluids you should drink to prevent dehydration. If you have kidney disease, drinking too much fluid can cause it build up in the your body and be dangerous to your health. Jzbj-kln-eootzek remedies won't shorten the length of the illness but may be helpful for symptoms such as cough, sore throat, nasal and sinus congestion, or diarrhea. Don't use decongestants if you have high blood pressure. Follow-up care Follow up with your healthcare provider if you do not improve over the next week. Call 911 Call 911 if any of the following occur: Convulsion Feeling weak, dizzy, or like you are going to faint Chest pain, or more than mild shortness of breath When to seek medical advice Call your healthcare provider right away if any of these occur: Cough with lots of colored sputum (mucus) or blood in your sputum Chest pain, shortness of breath, wheezing, or trouble breathing Severe headache; face, neck, or ear pain Severe, constant pain in the lower right side of your belly (abdominal) Continued vomiting (can t keep liquids down) Frequent diarrhea (more than 5 times a day); blood (red or black color) or mucus in diarrhea Feeling weak, dizzy, or like you are going to faint Extreme thirst Fever of 100.4 F (38 C) or higher, or as directed by your healthcare provider [phone] [employer]. [address] [place] [address], [place] [address]. All rights reserved. This information is not intended as a substitute for professional medical care. Always follow your healthcare professional's instructions. Additional Information VACCINATE! IT SAVES LIVES! Members of the community who have not yet received the COVID-19 vaccine and would like to receive it can visit one of [facility] vaccine clinics. There are many vaccine clinic locations within the [facility]. For locations and available times, please visit [email or web address] It is important to note that some COVID mobile vaccine clinics are held outdoors and may be canceled in rainy or stormy conditions. To learn more about pediatric vaccinations (ages 5-11), we invite you to visit the [employer] [facility] webpage. [email or web address] To learn more about the COVID-19 vaccine, we invite you to visit the CDC website for a list of frequently asked questions. https://www.cdc.gov/coronavirus/ 2019-ncov/vaccines/faq.html [facility] Patient Portal Access Instructions: Stay connected with your healthcare team and access your personal medical information anytime with the [facility] Patient Portal. If you would like a full copy of your medical records please contact the [facility] Medical Records Department Thursday through Thursday between 8a.m. and 4:30p.m. Please follow the directions below to access the portal: 1.Access the email account you provided upon registration to the hospital.2.Look for an invitation email from [facility].3.Open the email and access the invitation link: Accept Invitation to [facility]4.Fill in the required faustin to create your account. Sign into www.[email or web address] with your username and password that you created in the above steps to stay up to date. You can then view a summary of results, a summary of your visits, and the ability to download your summaries to your computer or send the information securely to a physician. Remember that your healthcare information is confidential, so carefully consider who you will allow to register on the [facility] Patient Portal for access to your information. You can also access the [facility] Patient Portal on the [employer]. Simply click on Health Records under Health Data and then click on the [employer] logo. HOW TO SAFELY DISPOSE OF PRESCRIPTION MEDICATIONS Please use one of the following methods to safely dispose of your unused medications. 1.Use a drug disposal kit: the drug disposal pouch allows you to safely discard your old and unused drugs. Ask your nurse to give you one when you are discharged.2.Visit a local take-back location: Many local pharmacies and police departments have programs that collect old and unwanted prescription drugs. Call your local pharmacy or go to http://[employer]/8G9Ur8e to find one close to you.3.Make use of household items: Use cat litter or old coffee grounds to dispose medications if other options are not available. Mix your drugs with these household products, seal them in an airtight container and throw it into the garbage. Call [facility]: [phone] to be sure your drugs can be disposed of in this way. Some medicines may require a different approach.4.Never flush your medications down the toilet. IF YOU HAVE BEEN PRESCRIBED AN OPIOIDS FOR PAIN If you have been prescribed an opioid (such as hydrocodone, oxycodone or morphine), it is critical to understand the possible side effects and risks of opioid pain medications. Even when taken as directed, opioids can have several side effects including: Tolerance, meaning you might need to take more of a medication for the same pain relief. Nausea, vomiting and/or constipation. Sleepiness, dizziness, dry mouth, confusion, depression or itching. Physical dependence, meaning you have withdrawal symptoms when a medication is stopped ? this can develop within a few days. KNOW YOUR RESPONSIBILITIES It is important to know exactly how much and how often to take the opioid pain medications you are prescribed. Never take opioids in higher amounts or more often than prescribed. Do not combine opioids with alcohol or other drugs that cause drowsiness, such as benzodiazepines, also known as benzos, including diazepam and alprazolam, muscle relaxants or sleep aids. Never sell or share prescription opioids. This is illegal. Store opioids in a secure place and out of reach of others (including children, family, friends and visitors). The last page(s) of this document has been signed and retained as a CHART COPY Signatures Patient Education Materials Viral Syndrome (Adult) Medication Leaflets ondansetron (oral), naproxen My discharge plan and instructions have been reviewed and explained to me and I,VENICE ANDERSON understand my current condition and have read and understand these discharge instructions. I have received a written copy of the plan/instructions. If I have questions, I am aware that I should contact my doctor. 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 Pulmonary vasculature is within normal limits.. No pleural effusion or visible pneumothorax. Cardiomediastinal contours are within normal limits. Degenerative changes of the visible spine and bilateral shoulders. IMPRESSION: No acute cardiopulmonary process. 9 mm opacity of the suprahilar region likely calcified granuloma. REPORT CORRECTION I have personally reviewed the images of this examination and edited the preliminary report. Interpreted by: Rui Hays MD Preliminary Report By: Luis A Banuelos Electronically signed By Rui Hays MD Dictated Date: 2023 4:36:11 PM Prelim Date: 2023 4:40:11 PM Sign Date: 2023 5:06:43 PM Ordering Provider: PETER PACE [facility] 2023 SARS-CoV-2 (COVID-19) RNA SAQIB+probe Ql (Nph) Negative *NA* (02/26/23 3:41 PM) [facility] SS 2023 Note HNO ID: [id number] Author: Jorge Esposito APRN.CORRESPONDENCE TRANSCRIBER Service: ? Author Type: Nurse Practitioner Type: Progress Notes Filed: 2023 12:50 PM Note Text: Nontoxic-appearing female presents urgent care chief complaint hard time breathing. Patient states that started last night. States feels like somebody is choking her. Is having hard time swallowing. Airway feels tight. Does have some tightness in her chest. No OTC medications. With patient presenting symptoms recommend patient be seen ED for further valuation care. Patient states will drive self to [place] ER. Declined transport. Jorge Esposito APRN.CNP [facility] 01-12-2023 Miscellaneous Notes Negative For yeast chlamydia gonorrhea bacterial vaginosis. Patient is positive for trichomonas and I called in Flagyl twice a day for 7 days was called and patient was called and notified. documented in this encounter [facility] 01-11-2023 Note HNO ID: [id number] Author: Erica Bailey PA-C Service: ? Author Type: Physician Bundle Shaker Type: Progress Notes Filed: 01/11/2023 12:15 PM Note Text: This note was created using [employer]. Subjective Venice Anderson is a 52 year old female. HPI Patient presents with a chief complaint of dysuria, urinary frequency, vaginal itching and discharge over the past 2 weeks. Denies abdominal or back pain. She has had a total hysterectomy. She is sexually active with 1 partner. She is not sure if he is monogamous. Denies fever. Patient also complaining of bilateral eye drainage and itchiness with redness over the past 3 days. No cough or runny nose. No ear pain. Review of Systems Constitutional: Negative. HENT: Negative. Eyes: Positive for discharge, redness and itching. Negative for photophobia, pain and visual disturbance. Respiratory: Negative. Cardiovascular: Negative. Gastrointestinal: Negative. Genitourinary: Positive for dysuria, frequency, urgency and vaginal discharge. Negative for hematuria and pelvic pain. Musculoskeletal: Negative. All other systems reviewed and are negative. PAST MEDICAL HISTORY Diagnosis Date Allergic Rhinitis 01/23/2009 Diabetes insipidus (HCC) DiGeorge's syndrome (HCC) Hypocalcemia Prediabetes Unspecified hypothyroidism Vitamin D deficiency Current Outpatient Medications Medication Sig Dispense Refill levothyroxine (SYNTHROID) 125 mcg tablet Take 125 mcg by mouth once daily. montelukast (SINGULAIR) 10 mg tablet Take by mouth. cetirizine (ZYRTEC) 10 mg tablet Take 10 mg by mouth once daily. albuterol HFA (PROVENTIL HFA, VENTOLIN HFA) 90 mcg/actuation inhaler Inhale 2 Puffs as instructed every 4 hours as needed for wheezing/shortness of breath. 1 Each 0 desmopressin acetate (DDAVP) 0.1 mg tablet Take 0.5 tablets by mouth twice daily. 30 tablet 2 Cholecalciferol, Vitamin D3, 2,000 unit cap Take 1 capsule by mouth once daily. 30 capsule 5 ofloxacin (OCUFLOX) 0.3 % ophthalmic solution Use 2 Drops in both eyes every 4 hours for 7 days. 10 mL 0 nitrofurantoin monohydrate and macrocrystal (MACROBID) 100 mg capsule Take 1 capsule by mouth two times a day with meals for 5 days. 10 capsule 0 naproxen (NAPROSYN) 500 mg tablet Take 500 mg by mouth twice daily as needed. (Patient not taking: Reported on 01/11/2023) pravastatin (PRAVACHOL) 10 mg tablet Take 1 tablet by mouth once daily. (Patient not taking: Reported on 01/11/2023) 0 VITAMIN D2 50,000 unit capsule Take 1 capsule by mouth one time a week. (Patient not taking: Reported on 01/11/2023) 0 ARIPiprazole (ABILIFY) 10 mg tablet Take 1 tablet by mouth once daily. (Patient not taking: Reported on 01/11/2023) buPROPion XL (WELLBUTRIN XL) 150 mg 24 hr tablet Take 1 tablet by mouth once daily. (Patient not taking: Reported on 01/11/2023) No current facility-administered medications for this visit. PAST SURGICAL HISTORY Procedure Laterality Date DELIVERY ONLY 07/2005 , low cervical LAPAROSCOPIC TUBAL LIGATION/RING/CLIP 2014 PAST SURGICAL HISTORY OF Bilateral 1983 flat foot surgery PAST SURGICAL HISTORY OF Bilateral hardware removed from feet PAST SURGICAL HISTORY OF 07/03/15 laparoscopic removal of adenxa- cervical CA FAMILY HISTORY Problem Relation Age of Onset Heart Father [place] Stroke Father other (anuerysm) Father other (immune deficiency) Mother Diabetes Maternal Grandmother other (Colon cancer) Paternal Grandmother in her 50's (?) other (heart defect) Daughter other (Juvenile Rheumatoid Arthritis) Daughter Social History Tobacco Use Smoking status: Never Smokeless tobacco: Never Vaping Use Vaping Use: Never used Substance Use Topics Alcohol use: Yes Comment: Occasionally Drug use: No Objective BP 104/68 Pulse 63 Temp 36.8 ?C (98.3 ?F) Resp 18 Wt 79.5 kg (175 lb 3.2 oz) LMP 08/28/2014 (Approximate) SpO2 98% BMI 34.22 kg/m? Physical Exam Vitals reviewed. Constitutional: Appearance: Normal appearance. HENT: Head: Normocephalic and atraumatic. Right Ear: Tympanic membrane, ear canal and external ear normal. Left Ear: Tympanic membrane, ear canal and external ear normal. Nose: Nose normal. Mouth/Throat: Mouth: Mucous membranes are moist. Pharynx: Oropharynx is clear. Eyes: Comments: Bilateral scleral injection with some drainage in the medial canthus. Conjunctival erythema mild swelling with ecchymosis of the right conjunctive a. No sign of orbital or periorbital cellulitis. Cardiovascular: Rate and Rhythm: Normal rate and regular rhythm. Heart sounds: Normal heart sounds. Pulmonary: Effort: Pulmonary effort is normal. Breath sounds: Normal breath sounds. Genitourinary: Comments: Patient declined pelvic exam, preferred self swabs Musculoskeletal: Cervical back: Neck supple. Skin: General: Skin is warm and dry. Neurological: General: No focal deficit prese (more content not included)... [facility] 01-11-2023 History of Presen t illness Narrative This note was created using [employer]. Subjective Venice Anderson is a 52 year old female. HPI Patient presents with a chief complaint of dysuria, urinary frequency, vaginal itching and discharge over the past 2 weeks. Denies abdominal or back pain. She has had a total hysterectomy. She is sexually active with 1 partner. She is not sure if he is monogamous. Denies fever. Patient also complaining of bilateral eye drainage and itchiness with redness over the past 3 days. No cough or runny nose. No ear pain. Review of Systems Constitutional: Negative. HENT: Negative. Eyes: Positive for discharge, redness and itching. Negative for photophobia, pain and visual disturbance. Respiratory: Negative. Cardiovascular: Negative. Gastrointestinal: Negative. Genitourinary: Positive for dysuria, frequency, urgency and vaginal discharge. Negative for hematuria and pelvic pain. Musculoskeletal: Negative. All other systems reviewed and are negative. PAST MEDICAL HISTORY Diagnosis Date Allergic Rhinitis 01/23/2009 Diabetes insipidus (HCC) DiGeorge's syndrome (HCC) Hypocalcemia Prediabetes Unspecified hypothyroidism Vitamin D deficiency Current Outpatient Medications Medication Sig Dispense Refill levothyroxine (SYNTHROID) 125 mcg tablet Take 125 mcg by mouth once daily. montelukast (SINGULAIR) 10 mg tablet Take by mouth. cetirizine (ZYRTEC) 10 mg tablet Take 10 mg by mouth once daily. albuterol HFA (PROVENTIL HFA, VENTOLIN HFA) 90 mcg/actuation inhaler Inhale 2 Puffs as instructed every 4 hours as needed for wheezing/shortness of breath. 1 Each 0 desmopressin acetate (DDAVP) 0.1 mg tablet Take 0.5 tablets by mouth twice daily. 30 tablet 2 Cholecalciferol, Vitamin D3, 2,000 unit cap Take 1 capsule by mouth once daily. 30 capsule 5 ofloxacin (OCUFLOX) 0.3 % ophthalmic solution Use 2 Drops in both eyes every 4 hours for 7 days. 10 mL 0 nitrofurantoin monohydrate and macrocrystal (MACROBID) 100 mg capsule Take 1 capsule by mouth two times a day with meals for 5 days. 10 capsule 0 naproxen (NAPROSYN) 500 mg tablet Take 500 mg by mouth twice daily as needed. (Patient not taking: Reported on 01/11/2023) pravastatin (PRAVACHOL) 10 mg tablet Take 1 tablet by mouth once daily. (Patient not taking: Reported on 01/11/2023) 0 VITAMIN D2 50,000 unit capsule Take 1 capsule by mouth one time a week. (Patient not taking: Reported on 01/11/2023) 0 ARIPiprazole (ABILIFY) 10 mg tablet Take 1 tablet by mouth once daily. (Patient not taking: Reported on 01/11/2023) buPROPion XL (WELLBUTRIN XL) 150 mg 24 hr tablet Take 1 tablet by mouth once daily. (Patient not taking: Reported on 01/11/2023) No current facility-administered medications for this visit. PAST SURGICAL HISTORY Procedure Laterality Date DELIVERY ONLY 07/2005 , low cervical LAPAROSCOPIC TUBAL LIGATION/RING/CLIP 2014 PAST SURGICAL HISTORY OF Bilateral 1984 flat foot surgery PAST SURGICAL HISTORY OF Bilateral hardware removed from feet PAST SURGICAL HISTORY OF 07/03/15 laparoscopic removal of adenxa- cervical CA FAMILY HISTORY Problem Relation Age of Onset Heart Father [place] Stroke Father other (anuerysm) Father other (immune deficiency) Mother Diabetes Maternal Grandmother other (Colon cancer) Paternal Grandmother in her 50's (?) other (heart defect) Daughter other (Juvenile Rheumatoid Arthritis) Daughter Social History Tobacco Use Smoking status: Never Smokeless tobacco: Never Vaping Use Vaping Use: Never used Substance Use Topics Alcohol use: Yes Comment: Occasionally Drug use: No Objective BP 104/68 Pulse 63 Temp 36.8 C (98.3 F) Resp 18 Wt 79.5 kg (175 lb 3.2 oz) LMP 08/28/2014 (Approximate) SpO2 98% BMI 34.22 kg/m Physical Exam Vitals reviewed. Constitutional: Appearance: Normal appearance. HENT: Head: Normocephalic and atraumatic. Right Ear: Tympanic membrane, ear canal and external ear normal. Left Ear: Tympanic membrane, ear canal and external ear normal. Nose: Nose normal. Mouth/Throat: Mouth: Mucous membranes are moist. Pharynx: Oropharynx is clear. Eyes: Comments: Bilateral scleral injection with some drainage in the medial canthus. Conjunctival erythema mild swelling with ecchymosis of the right conjunctive a. No sign of orbital or periorbital cellulitis. Cardiovascular: Rate and Rhythm: Normal rate and regular rhythm. Heart sounds: Normal heart sounds. Pulmonary: Effort: Pulmonary effort is normal. Breath sounds: Normal breath sounds. Genitourinary: Comments: Patient declined pelvic exam, preferred self swabs Musculoskeletal: Cervical back: Neck supple. Skin: General: Skin is warm and dry. Neurological: General: No focal deficit present. Mental Status: She is alert. Assessment and Plan ASSESSMENT/PLAN: 1. Burning with urination - ICD9: 788.1, ICD10: R30.0 acute - UA positive for higinio esterase and hematuria - Send urine for culture - Begin treatment with Macrobid 100 mg BID for 5 Days Vaginal swabs also obtained. Will call and treat as indicated. - UA DIP, URINE (POC) - URINE CULTURE - GONORRHEA/CHLAMYDIA NAAT - BACTERIAL VAGINOSIS NAAT - ARIADNA/TRICHOMONAS NAAT 2. Acute conjunctivitis of both eyes, unspecified acute conjunctivitis type - ICD9: 372.00, ICD10: H10.33 - see medication orders - course and contagiousness issues discussed, including hand washing. - Instructed to call if high fever, development of periorbital redness or swelling, eye pain, visual changes, concerns or if symptoms persist. Erica Bailey PA-C documented in this encounter [facility] 07-31-2022 Note HNO ID: [id number] Author: Robert Hilliard APRN.CNP Service: ? Author Type: Nurse Practitioner Type: Progress Notes Filed: 07/31/2022 3:37 PM Note Text: Patient triaged at [facility]. Here today with 10/10 lower abdominal pain for past few days. I will refer to ER. [place] vit[facility]. Patient in no visible distress at time of triage. [facility] 02-11-2022 Miscellaneous Notes Patient notified and voiced understanding. Melissa Nix RN Please let the patient know that her blood work is negative for any STD infections. Breanne Latham APRN.RAMON documented in this encounter [facility] 02-10-2022 History of Presen t illness Narrative Field Marketing Director offered: Patient declinesBayron Salgado is a 51 year old who presents for an annual gynecologic exam without complaints. 08/16/2015 Laparoscopic extensive lysis of adhesion, left ureterolysis, resection of pelvic mass, total hysterectomy, bilateral salpingo-oophorectomy, cystoscopy and laser ablation of vulvar condyloma Menses:Hysterectomy Contraception: tubal sterilization HPV vaccine: No Last Pap: 08/31/2017 normal HPV: 08/14/2016 negative History of abnormal pap: Yes Last mammogram: 2020normal @ [facility] Sexually active: Yes Patient concerns for STD exposure: Yes: around people with Hep C Pain with intercourse: No Postcoital bleeding: No OB History T2 L2 SAB0 IAB0 Ectopic0 Multiple0 Live Births0 Sand Conditioner History LMP: 08/28/2014 (Approximate), Ablation Age at Menarche: Age at First : Age at Menopause: Sand Conditioner History Comments: Sexual Activity: Yes; Male Contraception: Tubal Ligation PAST MEDICAL HISTORY Diagnosis Date Allergic Rhinitis 01/23/2009 Diabetes insipidus (HCC) DiGeorge's syndrome (HCC) Hypocalcemia Menorrhagia 12/2013 Prediabetes Unspecified hypothyroidism Vitamin D deficiency PAST SURGICAL HISTORY Procedure Laterality Date DELIVERY ONLY 07/2005 , low cervical LAPAROSCOPIC TUBAL LIGATION/RING/CLIP 2014 PAST SURGICAL HISTORY OF Bilateral 1984 flat foot surgery PAST SURGICAL HISTORY OF Bilateral hardware removed from feet PAST SURGICAL HISTORY OF 07/03/15 laparoscopic removal of adenxa- cervical CA FAMILY HISTORY Problem Relation Age of Onset Heart Father [place] Stroke Father other (anuerysm) Father other (immune deficiency) Mother Diabetes Maternal Grandmother other (Colon cancer) Paternal Grandmother in her 50's (?) other (heart defect) Daughter other (Juvenile Rheumatoid Arthritis) Daughter SOCIAL HISTORY Social History Tobacco Use Smoking status: Never Smokeless tobacco: Never Vaping Use Vaping Use: Never used Substance Use Topics Alcohol use: Yes Comment: Occasionally Drug use: No REVIEW OF SYSTEMS Abdomen: No abdominal pain, nausea, vomiting, diarrhea, or constipation. No bloating, early satiety, indigestion, or increased flatulence. Bladder: No dysuria, gross hematuria, urinary frequency, urinary urgency, or incontinence. Breast: No breast lumps, nipple d/c, overlying skin changes, redness or skin retraction. Allergies and current medication updated:Yes EXAM: BP 114/80 Ht 5' 0 (1.52m) Wt 189 lb 3.2 oz (85.8kg) LMP 08/28/2014 BMI 36.95 kg/(m^2). GENERAL: pleasant, female in no apparent distress HEENT: Normocephalic, atraumatic, and no lesions NECK: Supple, full range of motion, no adenopathy, and thyroid normal DERMATOLOGY: Normal, without lesions, non-icteric, and non-hirsute BREAST: soft, non-tender, symmetric, no dominant mass, normal nipple-areolar complex, no lymphadenopathy, and no nipple discharge CHEST: Normal inspiratory effort ABDOMEN: soft, non-tender, and no masses PELVIC: external genitalia normal, normal Bartholin's glands, urethra, Higden's glands, no vulvar lesions, physiologic discharge present, normal appearing perineal body and perianal region, cervix surgically absent BIMANUAL: no adnexal masses, non-tender, and uterus surgically absent RECTOVAGINAL: deferred. NEURO: alert and oriented x3,exam grossly non-focal EXTREMITIES: normal ASSESSMENT/PLAN: 1) Health maintenance: Pap done with HPV. Mammogram ordered. Nutrition, exercise and routine health maintenance exams reviewed. Calcium/Vitamin D supplementation information provided. 2) Contraception: hysterectomy. Contraceptive options reviewed and information provided. 3) STD screening: Accepts full STD screeening including HIV, Syphilis and Hepatitis. 4) Follow up one year or sooner as needed Breanne Latham APRN.RAMON documented in this encounter [facility] documented as of this encounter (statuses as of 02/10/2022) [facility] History of Past illness Narrative* Problem Noted Date Resolved Date Abnormal uterine bleeding 08/30/20142021 Absence of menstruation 12/31/2004 08/05/19 15 documented as of this encounter (statuses as of 02/11/2022) [facility] History of Past illness Narrative* Problem Noted Date Diagnosed Date Resolved Date Abnormal uterine bleeding 08/30/2014 Absence of menstruation 12/31/200407/08 documented as of this encounter (statuses as of 01/12/2023) [facility] History of Past illness Narrative* Problem Noted Date Diagnosed Date Resolved Date Abnormal uterine bleeding 08/30/2014 Absence of menstruation 12/31/200407/08 documented as of this encounter (statuses as of 01/13/2023) [facility] No data available for this section [facility] Evaluation note* Diagnosis Encounter for gynecological examination (general) (routine) without abnormal findings- Primary Encounter for screening mammogram for breast cancer Screen for STD (sexually transmitted disease) Screening examination for venereal disease Screening for vaginal cancer Special screening for malignant neoplasms, vagina documented in this encounter [facility] note* Diagnosis Burning with urination- Primary Dysuria Acute conjunctivitis of both eyes, unspecified acute conjunctivitis type [facility] Diagnostic Procedure Only (Routine) - Pending Review Specialty Diagnoses / Procedures Referred By Love shepherd Referred To Contact [facility] Diagnoses Special screening examination for human papillomavirus (HPV) Procedures JUAN SCREENING SCREENING MAMMOGRAPHY BI 2-VIEW BREAST INC Breanne Gray APRN.CNP [address] [place] [place] [address] [facility] [address] [place] [address] Referral ID Status Reason Start Date Expiration Date Visits Requested Visits Authorized [id number] Pending Review Auto-Generat ed Referral 02/10/2022 03/12/2023 1 1 [facility] Summary Purpose Family History No Family History Records Found Advance Directives No Advanced Directives Records FoundNo Advanced Directives Records Found Additional Source Comments Source Comments (unrecognize d section and content) In the event this informatio n is protected by the Federal Confidentiality of Alcohol and Drug Abuse Patient Records regulations: The Federal rules restrict any use of the information to criminally investigate or prosecute any alcohol or drug abuse patient.[facility] the event this information is protected by the Federal Confidentiality of Alcohol and Drug Abuse Patient Records regulations: The Federal rules restrict any use of the information to criminally investigate or prosecute any alcohol or drug abuse patient.[facility] the event this information is protected by the Federal Confidentiality of Alcohol and Drug Abuse Patient Records regulations: The Federal rules restrict any use of the information to criminally investigate or prosecute any alcohol or drug abuse patient.[facility] the event this information is protected by the Federal Confidentiality of Alcohol and Drug Abuse Patient Records regulations: The Federal rules restrict any use of the information to criminally investigate or prosecute any alcohol or drug abuse patient.[facility] Reason for Visit (unrecogniz ed section and content) Reason Comments Results Reason Comments UTI Burning, frequency x 2 weeks Eye Problem Both Eyes Redness, swelling, watery Care Teams (unrecognized sec tion and content) Equal Opportunity Officer Relationship Specialty Start Date End Date Nicole Grey MD [address] [facility] [address] [place] [address] PCP - General Internal Medicine 09/27/20 Equal Opportunity Officer Relationship Specialty Start Date End Date Nicole Grey MD [address] [place] [phone] PCP - General Internal Medicine 09/27/20 Equal Opportunity Officer Relationship Specialty Start Date End Date Nicole Grey MD [address] [facility] [address] [place] [phone] PCP - General Internal Medicine 09/27/20 INFORMATION SOURCE (unrecogn ized section and content) DATE CREATED AUTHOR [facility]/05/2023 [facility] ([place]) FOR RECORDS PERTAINING TO PATIENTS WHO ARE OR HAVE BEEN ENROLLED IN A CHEMICAL DEPENDENCY/SUBSTANCEABUSE PROGRAM, SOME INFORMATION MAY BE OMITTED. This clinical summary was aggregated from multiple sources. Caution should be exercised in using it in the provision of clinical care. This summary normalizes information from multiple sources, and as a consequence, information in this document may materially change the coding, format and clinical context of patient data. In addition, data may be omitted in some cases. CLINICAL DECISIONS SHOULD BE BASED ON THE PRIMARY CLINICAL RECORDS. [facility]. provides no warranty or guarantee of the accuracy or completeness of information in this document.
== END 2023-04-15 16:37 | disposition home or self-care (01) ==
LOC: ED 16:32
PROVIDERS: Emergency Provider Emergency Medicine; PCP Internal Medicine; Visit Provider Emergency Medicine
DX: H66.92 Otitis media, unspecified, left ear (principal); E11.9 Type 2 diabetes mellitus without complications
CPT/HCPCS: 99282

== ENCOUNTER → 2023-06-09 | Outpatient (CLI) | payer MEDICAID, SELFPAY ==
--- NOTE | 2023-06-09 15:49 | BI_ITS ---
MAMMOGRAPHY - BILATERAL SCREENING REASON FOR EXAM: Female, 53 years old. Routine annual screening examination. PERTINENT HISTORY: Non-contributory. TECHNIQUE: Digital bilateral breast raquel (3D mammographic acquisition) in the CC and MLO projections. 2-D mediolateral oblique (MLO) and craniocaudad (CC) views of both breasts were obtained. CAD: Full Field Digital Mammography with Computer Added Detection was performed. COMPARISON: Comparison is made with prior study March 01, 2020. FINDINGS: Breast Composition: The breasts are almost entirely fatty. There are no dominant masses or suspicious calcifications. No other significant abnormalities are identified. There has been no significant change since the prior study. BI/SCRN MAMM (CAD)W/RAQUEL BILAT IMPRESSION: Stable bilateral screening mammogram. Yearly follow-up mammogram recommended. (A) ASSESSMENT CATEGORY: BIRADS Category 1: Negative. A letter regarding these results will be sent to the patient by the facility within 30 days. Approximately 10% of breast cancers are not detected by mammography. A normal mammogram should not delay biopsy of a clinically suspicious abnormality. [id number] Electronically Signed: Bean Linn MD at 7:52 EDT ,
== END | disposition home or self-care (01) ==
LOC: OPBI 15:49
PROVIDERS: PCP Internal Medicine; Referring Provider Nurse Practitioner; Visit Provider Nurse Practitioner
DX: Z12.31 Encounter for screening mammogram for malignant neoplasm of breast (principal)
CPT/HCPCS: 77063; 77067

== ENCOUNTER → 2023-06-19 | Outpatient (CLI) | payer MEDICAID, SELFPAY ==
[2023-06-19 16:52] LABS: Absolute Lymphocyte Count 3.09 X10^3/uL (0.83-4.51); Basophil# 0.07 X10^3/uL; Eosinophils% 5.5 % (0-5); Hematocrit 39.6 % (37-47); Hemoglobin 12.6 g/dL (12.0-15.0); Lymphocyte # 3.09 X10^3/ul (0.83-4.51); Lymphocyte % 42.3 % (19-41); Mean Corp Hgb Conc 31.8 g/dL (32-36); Mean Corpuscular Hgb 29.6 pg (27.0-32.0); Mean Platelet Vol. 13.9 fl (6.2-12.0); Monocyte# 0.71 X10^3/uL; Monocyte% 9.7 % (0-10); NRBC Flagged by Analyzer 0 % (0-5); Neutrophil # 2.96 X10^3/uL (2.7-7.7); Neutrophil % 40.4 % (47-70); Platelet Count 162 K/mm3 (150-450); RBC Distribution Width CV 13.3 % (11.6-14.6); RBC Distribution Width SD 45.2 fl (35.1-43.9); Red Blood Count 4.26 M/mm3 (4.2-5.4); White Blood Count 7.3 K/mm3 (4.4-11.0)
[2023-06-19 17:06] LABS: AST(SGOT) 7 U/L (15-37); Alanine Aminotransfer ALT/SGPT 25 U/L (13-56); Albumin, Serum 3.7 g/dL (3.2-5.0); Alkaline Phosphatase 49 U/L (45-117); Anion Gap 2 (5-15); BUN 17 mg/dL (7-18); BUN/Creat Ratio 23.6 RATIO (10-20); Calcium,Total 8.9 mg/dL (8.5-10.1); Chloride 107 mmol/L (98-107); Cholesterol 196 mg/dL (200); Creatinine, Serum 0.72 mg/dL (0.55-1.02); EST Glomerular Filtration Rate 91 mL/min (>60); Est Glom Filt Rate - Afr Amer 110 mL/min (>60); Globulin 3.8 g/dL (2.2-4.2); Glucose 93 mg/dL (74-106); High Density Lipoprotein 45 mg/dL; Potassium 3.7 mmol/L (3.5-5.1); Protein, Total 7.5 g/dL (6.4-8.2); Sodium Level 139 mmol/L (136-145); Triglycerides 145 mg/dL; Very Low Density Lipoprotein 29 mg/dL (5-40)
[2023-06-19 17:14] LABS: Thyroid Stim Hormone (TSH) 0.16 uIU/mL (0.358-3.74)
== END | disposition home or self-care (01) ==
LOC: BIMLAB 16:02
PROVIDERS: PCP Internal Medicine; Referring Provider Nurse Practitioner; Visit Provider Nurse Practitioner
DX: E03.9 Hypothyroidism, unspecified (principal); E78.5 Hyperlipidemia, unspecified; I10 Essential (primary) hypertension
CPT/HCPCS: 36415; 80053; 80061; 84443; 85025

== ENCOUNTER → 2023-07-22 | Outpatient (CLI) | payer MEDICAID, SELFPAY ==
--- NOTE | 2023-07-22 15:24 | STRESSREP_ITS ---
Stress Test Report Date: 07/22/2023 Procedure: Exercise tolerance test Indications: Chest pain Consent: Per the patient Procedure: The patient exercised on a Chad protocol for 6 minutes achieving a peak heart rate of 131 bpm (77% predicted maximal heart rate) with a peak blood pressure 152/78 mmHg and a peak MET capacity of approximately 7.0 MET's. The baseline ECG demonstrated sinus rhythm. Standing pretest ECG showed nonspecific T wave changes and ST depressions in inferior leads. Peak exercise ECG showed exaggeration of the baseline ST-T wave changes in the inferior leads. Nondiagnostic secondary to baseline abnormality. There were no cardiac dysrhythmias pretest, during exercise, or recovery. The functional capacity was considered suboptimal. The patient had no complaints of chest discomfort during exercise or recovery. The examination was discontinued secondary to fatigue and dyspnea. Impression: 1. Exercise tolerance test with 77% of maximal predicted heart rate achieved 2. Peak exercise ECG with ST depressions in inferior leads however these would be considered nondiagnostic in view of the baseline ST-T wave changes. Recommend further study with an imaging modality such as exercise Myoview or stress echo or coronary CT angiography if clinically indicated. 3. There were no cardiac dysrhythmias during exercise or recovery This note was generated with [employer] software. It may contain incorrect words, spelling, and punctuation that were not noted in checking the note before signing.
== END | disposition home or self-care (01) ==
PROVIDERS: PCP Internal Medicine; Referring Provider Nurse Practitioner; Visit Provider Nurse Practitioner
DX: R07.9 Chest pain, unspecified (principal)
CPT/HCPCS: 93017

== ENCOUNTER → 2023-07-30 | Outpatient (CLI) | payer MEDICAID, SELFPAY ==
[2023-08-04 21:07] LABS: Chlamydia By Nucleic Acid AMP Negative (Negative); Gonococcus By Nucleic Acid AMP Negative (Negative)
[2023-08-06 09:08] LABS: HPV APTIMA, High Risk Negative (Negative)
== END | disposition home or self-care (01) ==
LOC: LABSPEC 17:02
PROVIDERS: PCP Internal Medicine; Referring Provider Nurse Practitioner Family; Visit Provider Nurse Practitioner Family
DX: Z12.4 Encounter for screening for malignant neoplasm of cervix (principal); Z11.3 Encounter for screening for infections with a predominantly sexual mode of transmission
CPT/HCPCS: 87491; 87591; 87624; 88175; G0145

== ENCOUNTER → 2023-08-10 | Outpatient (CLI) | payer MEDICAID, SELFPAY ==
[2023-08-10 17:46] LABS: T4 Free Direct 1.27 ng/dL (0.76-1.46)
[2023-08-10 18:15] LABS: HIV - WCH Non-Reactive (Nonreactive); Hepatitis C Antibody Non-Reactive (Nonreactive); Syphilis Antibodies Non-reactive
[2023-08-12 06:11] LABS: HSV 1 IgG < 0.91 index (0.00-0.90); HSV 2 IgG < 0.91 index (0.00-0.90)
== END | disposition home or self-care (01) ==
PROVIDERS: Nurse Practitioner; PCP Internal Medicine; Referring Provider Nurse Practitioner Family; Visit Provider Nurse Practitioner Family
DX: Z11.3 Encounter for screening for infections with a predominantly sexual mode of transmission (principal); E03.9 Hypothyroidism, unspecified
CPT/HCPCS: 36415; 84439; 84443; 86695; 86696; 86703; 86780; 86803

== ENCOUNTER → 2023-10-20 | Outpatient (CLI) | payer MEDICAID, SELFPAY ==
[2023-10-20 18:01] LABS: HIV - WCH Non-Reactive (Nonreactive)
== END | disposition home or self-care (01) ==
PROVIDERS: PCP Internal Medicine; Referring Provider Registered Nurse; Visit Provider Registered Nurse
DX: Z20.2 Contact with and (suspected) exposure to infections with a predominantly sexual mode of transmission (principal)
CPT/HCPCS: 86703

== ENCOUNTER → 2024-03-17 | Outpatient (CLI) | payer MEDICAID, SELFPAY | END | disposition home or self-care (01) | LOC: SL 13:27 | PROVIDERS: PCP Internal Medicine; Visit Provider Nurse Practitioner Acute Care | DX: Z00.00 Encounter for general adult medical examination without abnormal findings (principal) ==

== ENCOUNTER → 2024-06-29 | Outpatient (CLI) | payer MEDICAID, SELFPAY ==
[2024-06-29 12:28] LABS: Absolute Neutrophil Count 2.8 X10^3/uL (2.0-7.7); Basophil# 0.07 X10^3/uL; Basophil% 1.1 % (0-1); Eosinophil# 0.53 X10^3/uL; Eosinophils% 8.1 % (0-5); Hematocrit 36.8 % (37-47); Lymphocyte % 39.9 % (19-41); Mean Corp Hgb Conc 32.6 g/dL (32-36); Mean Corpuscular Hgb 29.9 pg (27.0-32.0); Mean Corpuscular Volume 91.5 fL (81-99); Mean Platelet Vol. 14.2 fl (6.2-12.0); Monocyte# 0.45 X10^3/uL; Monocyte% 6.9 % (0-10); NRBC Flagged by Analyzer 0 % (0-5); Neutrophil # 2.83 X10^3/uL (2.7-7.7); Neutrophil % 43.4 % (47-70); Platelet Count 157 K/mm3 (150-450); Red Blood Count 4.02 M/mm3 (4.2-5.4); White Blood Count 6.5 K/mm3 (4.4-11.0)
[2024-06-29 13:33] LABS: Hemoglobin A1c 5.7 % (<=5.6)
[2024-06-29 13:55] LABS: ALB/GLOB Ratio 1.3 RATIO (0.9-2.4); AST(SGOT) 24 U/L (<=31); Alanine Aminotransfer ALT/SGPT 25 U/L (<=34); Alkaline Phosphatase 51 U/L (35-104); Anion Gap 15 (5-15); BUN 12 mg/dL (4-19); BUN/Creat Ratio 15.8 RATIO (10-20); Calcium,Total 8.6 mg/dL (7.6-11.0); Carbon Dioxide 21.8 mmol/L (21.0-32.0); Chloride 102 mmol/L (98-108); Cholesterol 231 mg/dL (<=200); Creatinine, Serum 0.76 mg/dL (0.70-1.20); EST Glomerular Filtration Rate 95 (>60); Glucose 120 mg/dL (70-99); High Density Lipoprotein 44 mg/dL; Low Density Lipoprotein Calc. 125 mg/dL; Potassium 3.4 mmol/L (3.3-5.1); Sodium Level 139 mmol/L (133-145); Total Bilirubin 0.66 mg/dL (0.00-1.30); Triglycerides 311 mg/dL; Very Low Density Lipoprotein 62 mg/dL (5-40); cholesterol:hdl ratio screen 5.31
[2024-06-29 14:00] LABS: HIV Nonreactive (Nonreactive)
== END | disposition home or self-care (01) ==
LOC: BIMLAB 11:15
PROVIDERS: Registered Nurse; PCP Internal Medicine; Referring Provider Internal Medicine; Visit Provider Internal Medicine
DX: I10 Essential (primary) hypertension (principal); E78.2 Mixed hyperlipidemia; R73.03 Prediabetes
CPT/HCPCS: 36415; 80053; 80061; 83036; 84443; 85025; 86703

== ENCOUNTER → 2024-08-03 | Outpatient (CLI) | payer MEDICAID, SELFPAY ==
[2024-08-03 18:09] LABS: HIV Nonreactive (Nonreactive); Hepatitis B Surface Antigen Nonreactive (Nonreactive); Syphilis Antibodies Nonreactive (Nonreactive)
[2024-08-03 18:48] LABS: Hepatitis C Antibody Nonreactive (Nonreactive)
[2024-08-05 06:08] LABS: HSV 1 IgG Non Reactive (Non Reactive); HSV 2 IgG Non Reactive (Non Reactive)
[2024-08-05 21:07] LABS: Chlamydia By Nucleic Acid AMP Negative (Negative); Gonococcus By Nucleic Acid AMP Negative (Negative)
== END | disposition home or self-care (01) ==
PROVIDERS: PCP Internal Medicine; Referring Provider Nurse Practitioner Family; Visit Provider Nurse Practitioner Family
DX: Z20.2 Contact with and (suspected) exposure to infections with a predominantly sexual mode of transmission (principal)
CPT/HCPCS: 36415; 86695; 86696; 86703; 86780; 86803; 87340; 87491; 87591

== ENCOUNTER 2024-08-19 06:25 | Day surgery (SDC) | payer MEDICAID, SELFPAY ==
--- NOTE | 2024-08-18 11:06 | PAT.ANE_ITS ---
Pre-Assessment Diagnosis/Proposed Procedure Planned Operative Procedure(s): COLONOSCOPY Anesthesia History Anesthesia History - captain cannery tender: Anesthesia History - captain cannery tender Hx Hospitalization No 08/18/24 10:02 Any Problems With Anesthesia No 08/18/24 10:02 Cholinesterase deficiency No 08/18/24 10:02 You/Your Family Experience No 08/18/24 10:02 fever (hyperthermia) with Relationship Recent Exposure to Contagious No 05/20/23 08:27 Disease Does patient have nerve No 08/18/24 10:02 stimulator Patient instructed to have device shut off --Does patient have Pacemaker or ICD? When Was Last Pacemaker Check QUESTION #4 FULL TEXT: You/Your Family Experience fever (hyperthermia) with Anesthesia Last Oral Intake Last Oral intake: Last Oral Intake NPO since Meds taken in AM with sips of water? Meds patient instructed to take am of surgery PONV PONV - captain cannery tender: PONV - captain cannery tender Female Yes 08/18/24 10:02 HX of Motion Sickness No 08/18/24 10:02 HX of N/V After Surgery No 08/18/24 10:02 Non-Smoker Yes 08/18/24 10:02 Duration of Surgery greater No 08/18/24 10:02 than 60 minutes Number of Risk Factors 2 08/18/24 10:02 PONV Score Moderate Risk 08/18/24 10:02 Height & Weight Height & Weight: Anesthesia: Height & Weight Height 5 ft 07/27/24 13:53 Respiratory Assessment Respiratory Assessment - captain cannery tender: Respiratory Tract Infection Hx - captain cannery tender Hx Respiratory Tract Infection No 08/18/24 10:02 STOP Sleep Apnea STOP Sleep Apnea - captain cannery tender: STOP Sleep Apnea - captain cannery tender Hx Hypertension No 08/18/24 10:02 Hx Sleep Apnea Yes 08/18/24 10:02 CPAP Yes 08/18/24 10:02 BIPAP No 08/18/24 10:02 Do you snore loudly (louder than talking or can be heard Do you often feel tired/ fatigued/ sleepy during daytime? Has anyone observed you stop breathing during sleep? STOP Results Positive 08/18/24 10:02 QUESTION #5 FULL TEXT : Do you snore loudly (louder than talking or can be heard through closed doors)? Tobacco Use History Tobacco Use History - captain cannery tender: Tobacco Use History - captain cannery tender Tobacco Use Smoking Status Never smoker 08/18/24 10:02 Hx Tobacco Use No 08/18/24 10:02 Years Smoking Packs Smoked per Day Smoking Cessation Date was within the last 15 years Hx Smoking Cessation Date Hx Smoking Cessation Counseling Hematologic Medial History Hematologic Hx - captain cannery tender: Hematologic Medical Hx - bi consultant Hx of Blood Transfusion No 08/18/24 10:02 Hx of Transfusion in last 3 No 08/18/24 10:02 Months Date of Last Transfusion (if within last 3 months) Ever experience any problems No 08/18/24 10:02 with transfusion(s)? Specify any problems Hx of Preganancy in last 3 No 08/18/24 10:02 Months Nurse Filling Out Transfusion [email or web address] 08/18/24 10:02 & Questions: Date: 08/18/24 08/18/24 10:02 Time: 10:05 08/18/24 10:02 Patient unable to answer at this time (ie. confused, unrespo /Reproduction History /Reproductive History - captain cannery tender: /Reproductive Hx- captain cannery tender Hx Now No 08/18/24 10:02 Gestational Age (in weeks): EDC: Hx Hx Para Hx Section SAB No 08/18/24 10:02 [facility] Medical History (Updated 08/18/24 @ 10:10 by Thom Brewer) Vitamin D deficiency Low iron Wears hearing aid Wears dentures Wears glasses Cancer Depression Anxiety Thyroid disease Anemia CPAP (continuous positive airway pressure) dependence Sleep apnea History of stress test Hx of otitis media Hx of diverticulitis of colon Cervical cancer Distal radius fracture Diabetes insipidus Seasonal allergies Prediabetes Elevated blood pressure reading without diagnosis of hypertension DiGeorge's syndrome Home Medications ?Medication ?Instructions ?Recorded ?Last Taken ?Type blood pressure monitor #1 ea 06/02/23 Unknown Rx cetirizine 10 mg tablet 10 mg PO DAILY PRN allergies #90 02/17/24 Unknown Rx tabs Cpap Mask #1 ea 02/24/24 Unknown Rx fluticasone propionate 50 1 spray intranasal BID #16 g ludy 06/29/24 Unknown Rx mcg/actuation nasal spray,suspension (Flonase Allergy Relief) desmopressin 0.1 mg tablet 0.2 mg (2 x 0.1 mg) PO BID 2 07/21/24 Unknown Rx months #240 tabs levothyroxine 125 mcg tablet See Rx Instructions .Rout e 07/21/24 Unknown Rx .COMPLEX #30 tabs peg 3350-electrolytes 236 4,000 ml PO ONCE #4,000 mL 0 07/28/24 Unknown Rx gram-22.74 gram-6.74 gram-5.86 gram solution Allergy/AdvReac Type Severity Reaction Status Date / Time No Known Allergies Allergy Verified 08/18/24 10:00 Family History (Reviewed 08/17/24 @ 13:45 by Carisa Slaughter RETAIL ADVERTISING SALES MANAGER, RETAIL ADVERTISING SALES MANAGER-C) Father Heart disease Myocardial infarction Grandmother Colon cancer Surgical History (Updated 08/18/24 @ 10:10 by Thom Brewer) Hx of foot surgery c section H/O: hysterectomy Social History (Reviewed 08/17/24 @ 13:45 by Carisa Slaughter RETAIL ADVERTISING SALES MANAGER, RETAIL ADVERTISING SALES MANAGER-C) number of children: 2 current occupational status: employed and unemployed history of recent travel: No sexually active: Yes Smoking Status: Never smoker second hand exposure: Yes alcohol intake: never substance use type: does not use what type of physical activity do you participate in: none seatbelt use: never do you feel safe at home: Yes additional social history: boyfriend Audit: Pertinent Findings Pertinent Findings EKG Perinent findings: 11/12/2015. Normal sinus rhythm nonspecific T wave abnormality. 61 bpm. Stress test pertinent findings: 07/21/2013. Some ST depression inferior leads however considered nondiagnostic in view of baseline ST to T wave changes. Recommend further imaging only if symptoms warrant. No cardiac dysrhythmias. Recommendation Anesthesia Recommendation Anesthesia recommendation: OPTIMIZED for anesthesia
[2024-08-19] VITALS (7 sets, daily range): BP systolic 114–150; BP diastolic 65–98; PULSE 66–69; RESP 16; TEMP 36.2–36.5; O2SAT 95–100; BMI 35.3
--- OUTSIDE RECORDS SUMMARY | 2024-08-19 06:29 | XMS RPT_ITS | CCD ---
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 reference interval change Current guidelines and recommendations do not recommend routine screening for HSV-2 in asymptomatic individuals, including those that are . The detection of HSV-2 IgG antibodies in a single sample indicates previous exposure to HSV-2 but does not give information as to the site of HSV infection or the timing of exposure. The predictive value of positive and negative results depends on the population's prevalence and the pretest likelihood of HSV-2. HSV-2 IgG testing performed using the [employer] HSV-2 IgG assay. Performed at: [address] [id number] Embossing Tool Setter: Jean-Claude Deshpande PhD, Phone: [phone] Performed By: #### L 3890.6006 #### [facility] [address] [place], [address] Chlamydia trachomatis rRNA d etection by probe and target amplification methodOrdered By: Haritha Carmen on 08-03-2024 C. trachomatis rRNA SAQIB+probe Ql (Unsp spec) Negative Negative [facility] HIVon 08-03-2024 HIV Non-Reactive Normal Nonreactive [facility] Comment on above: Result Comment: Non- Reactive Reactive Repeatedly reactive samples must be confirmed according to CDC recommended confirmatory algorithms. The subresults for either HIVAG or AHIV can be used as an aid in the selection of the confirmation algorithm for reactive samples. Send out specimens with Reactive results to [facility] for confirmation. Order the HIV antibody detection and differentiation: lc#[id number] Performed By: #### L 3890.6006 #### [facility] [address] [place] [address], [address] Hepatitis C Antibodyon 08-03 Hepatitis C Ab Non-Reactive Normal Nonreactive [facility] Comment on above: Result Comment: Reac tive: Presumptive evidence of antibodies to HCV. Follow CDC recommendations for supplemental testing. Non-Reactive: Antibodies to HCV were not detected; does not exclude the possibility of exposure to HCV Reactive Results are presumptive evidence of antibodies to HCV. Follow CDC recommendations for supplemental testing. Order confirmation testing: HCV Quant by PCR testing - HCVPCR #[id number] Non Reactive: < 0.8 Equivocal: >/= 0.8 to < 1.0 Reactive: >/= 1.0 The [facility] requires that a reactive/equivocal HCV antibody result be sent out for confirmation. HCV Quant by PCR testing. Performed By: #### L 3890.6301 #### [facility] [address] [place] [address], [id number] L3890.6102on 08-03-2024 HEP B Surf Ag Non-Reactive Normal Nonreactive [facility] Comment on above: Result Comment: Reac tive: Presumptive evidence of HBV. Repeatedly reactive samples must be confirmed using a neutralization test ([employer] HBsAg Confirmatory Test) Non-Reactive: HBsAg not detected; does not exclude the possibility of exposure to HBV Performed By: #### L 3890.6006 #### [facility] [address] [place] [address], [id number] Laboratory - Chemistry and C hemistry - challengeOrdered By: Haritha Carmen on 08-03-2024 Bilirubin Ql (U) Negative [facility] Glucose Ql (U) Negative [facility] Ketones Ql (U) Negative [facility] pH (U) 6 [pH] [facility] Specific gravity (U) [Rel density] 1.005 [facility] Urobilinogen (U) [Mass/Vol] Negative [facility] Laboratory - Hematology and Cell countsOrdered By: Haritha Carmen on 08-03-2024 Hemoglobin Ql (U) Negative [facility] Laboratory - Microbiology an d Antimicrobial susceptibilityOrdered By: Haritha Carmen on 08-03-2024 HBV surface Ag Ql (S) Non-Reactive Nonreactive [facility] Comment on above: Reactive: Presumptiv e evidence of HBV. Repeatedly reactive samples must be confirmed using a neutralization test (Ele[employer] HBsAg Confirmatory Test)Non-Reactive: HBsAg not detected; does not exclude the possibility of exposure to HBV Laboratory - Specimen inform ationOrdered By: Haritha Carmen on 08-03-2024 Clarity (U) Clear [facility] Color (U) Yellow [facility] Laboratory - UrinalysisOrder ed By: Haritha Carmen on 08-03-2024 Nitrite Ql (U) Negative [facility] Protein Ql (U) Negative [facility] Neisseria gonorrhoeae nuclei c acid detection by amplified probe techniqueOrdered By: Haritha Carmen on 08-03-2024 N. gonorrhoeae DNA SAQIB+probe Ql (Unsp spec) Negative Negative [facility] Comment on above: Performed at: =[address] [id number] Director: Sultana Stafford MD, Phone: [phone] No Panel InformationOrdered By: Haritha Carmne on 08-03-2024 HIV (1&2) Antibody Non-Reactive Nonreactive [facility] Comment on above: Non-ReactiveReactive Repeatedly reactive samples must be confirmed according to CDC recommended confirmatory algorithms. The subresults for either HIVAG or AHIV can be used as an aid in the selection of the confirmation algorithm for reactive samples.Send out specimens with Reactive results to [facility] for confirmation.Order the HIV antibody detection and differentiation: #[id number] POC Trichomonas (Rapid) Negative [facility] Urine Leukocytes Negatve [facility] Urine Non-Hemolyzed Blood [facility] Bss Solution Architect Office Visit Reporton 08-03-2024 Bss Solution Architect Office Visit Report [facility] [address], [address] [place] [address] OFFICE VISIT Date of Service: 08/03/24 MR#: [id number] Acct: [id number] Name: VENICE ANDERSON Brayden Rep #: [id number] : 1970 Provider: DALLAS Jenkins Age/Sex: 54/F Location: [facility] Status: Signed Intake Vital Signs 02/24/24 17:58 07/27/24 13:53 08/03/24 15:30 08/03/24 15:30 Height 5 ft 5 ft 5 ft 5 ft Weight: 191 lb BMI 37.3 BP 139/84 H Intake Visit 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 Acute Required: No Is patient in pain?: No Allergies No Known Allergies Allergy (Verified 08/03/24 15:30) Medications ???Medication ???Instructions ???Recorded ???Confirmed ???Type blood pressure monitor #1 ea 06/02/23 08/03/24 Rx cetirizine 10 mg tablet 10 mg PO DAILY PRN allergies #90 1 04/19/23 08/03/24 Rx tabs Cpap Mask #1 ea 02/24/24 08/03/24 Rx multivitamin (Daily Multi-Vitamin 1 tab PO DAILY 04/27/24 08/03/24 History tablet) fluticasone propionate 50 1 spray intranasal BID #16 grams 0 06/29/24 08/03/24 Rx mcg/actuation nasal spray,suspension (Flonase Allergy Relief) desmopressin 0.1 mg tablet 0.2 mg (2 x 0.1 mg) PO BID 2 07/2108/03/24 Rx months #240 tabs levothyroxine 125 mcg tablet See Rx Instructions .Route 5 08/03/24 Rx .COMPLEX #30 tabs peg 3350-electrolytes 236 4,000 ml PO ONCE #4,000 mL 5 08/03/24 Rx gram-22.74 gram-6.74 gram-5.86 gram solution Post menopausal: No Patient : No : No PFSH Medical History Wears hearing aid Wears dentures Wears glasses Cancer Depression Anxiety Thyroid disease Anemia CPAP (continuous positive airway pressure) dependence Sleep apnea History of stress test Hx of otitis media Hx of diverticulitis of colon Cervical cancer Distal radius fracture Diabetes insipidus Seasonal allergies Prediabetes Elevated blood pressure reading without diagnosis of hypertension DiGeorge's syndrome Surgical History Hx of foot surgery c section H/O: hysterectomy Family History Father Heart disease Myocardial infarction Grandmother Colon cancer Social History number of children: 2 current occupational status: employed and unemployed history of recent travel: No sexually active: Yes Smoking Status: Never smoker second hand exposure: Yes alcohol intake: never substance use type: does not use what type of physical activity do you participate in: none seatbelt use: never do you feel safe at home: Yes additional social history: boyfriend History 2 Elective abortions Hx Para 2 Spontaneous abortions Hx # Term Pregnancies Ectopic pregnancies Hx # Pregnancies Multiple births # of living children 2 Past Pregnancies Del. Date Name GA/Weeks Outcome Route Bth Weight Gen Labor Lgth Anesthesia Del Locatn Provider FOB Unknown Katina 1993 Unknown Marjorie 2005 HPI Encounter for routine gynecological examination Details: VENICE ANDERSON is a 54 year old who presents for annual exam. She reports no issues or concerns today. She would like to have her urine check for UTI; she reports she is not symptomatic. She reports she was with a new partner and would like to be tested for STD's. She reports no current symptoms; denies discharge, vaginal odor or any bleeding. Last PAP: 2023; normal. HPV neg. History of abnormal PAP: no. Last mammogram: 2023; normal. History of abnormal mammogram: no. Colon cancer screening: scheduled for 08/19/24. Other preventative health care screenings: Dr. Grey; PCP. ROS Const Constitutional: Denies chills, fatigue, fever(s), headache(s) or weight loss Eyes Eyes: Denies change in vision ENT ENT: Denies dizziness Resp Resp: Denies cough GI GI: Denies abdominal pain, constipation or nausea : Denies difficulty voiding, dysuria, hematuria, nipple discharge, pelvic pain, prolapse symptoms, urinary incontinence, vaginal discharge, vaginal dryness, vaginal odor or vaginal pruritus Skin Skin/Breast: Denies alopecia, rash, breast mass, breast pain, breast skin changes or nipple discharge Neuro Neuro: Denies dizziness Psych Psych: Denies anxiety or depression Endo Endo: Denies cold intolerance, excessive sweating or heat intolerance Exam Const General: cooperative, healthy appearing, comfortable, no acute distress, well groomed and well hydrated Nutritional Appearance: well nourished Orientation: alert, awake and oriented x3 HENMT Head: normal to inspection and normocephalic Ears: hearing grossl (more content not included)... Normal [facility] Serum herpes simplex virus 2 antibody assay by immunoassay (units/volume)Ordered By: Haritha Carmen on 08-03-2024 HSV 2 Ab IA Qn (S) Non-Reactive Non Reactive [facility] Comment on above: Please note refere nce interval changeCurrent guidelines and recommendations do not recommendroutine screening for HSV-2 in asymptomatic individuals,including those that are . The detection of HSV-2IgG antibodies in a single sample indicates previousexposure to HSV-2 but does not give information as to thesite of HSV infection or the timing of exposure. Thepredictive value of positive and negative results dependson the population's prevalence and the pretest likelihoodof HSV-2. HSV-2 IgG testing performed using the [employer] HSV-2 IgG assay.Performed at: [facility] [id number] Director: Jean-Claude Deshpande PhD, Phone: [phone] Syphilis Antibodieson 2024 Syphilis Abs Non-Reactive Normal Nonreactive [facility] Comment on above: Performed By: #### L 3890.6006 #### [facility] [address] [place] [address]. [place], [place], [address] Surgery Visit Reporton 07-27 Surgery Visit Report [facility] [address] [place] [address] OFFICE VISIT Date of Service: 07/27/24 MR#: [id number] Acct: [id number] Name: VENICE ANDERSON Rep #: [id number] : 1970 Provider: Dr. Manan tse MD Age/Sex: 54/F Location: [facility] Status: Signed Intake Vital Signs 06/29/24 10:32 07/27/24 13:53 Height 5 ft 5 ft Weight: 193 lb 189 lb BMI 37.7 36.9 BP 128/80 H 154/83 H Blood Pressure Location Lt brachial Rt brachial Position Sitting Sitting Respiration 17 16 Pulse 65 Pulse Source Monitor Temp 98.0 F Temp Source Temporal Pulse Oximetry (%) 97 Oxygen Delivery Method room air Intake Visit Reasons: DISCUSS COLONOSCOPY Chief Complaint: c-scope Director Acute Required: No Is patient in pain?: No Allergies No Known Allergies Allergy (Verified 07/27/24 13:54) Medications ???Medication ???Instructions ???Recorded ???Confirmed ???Type blood pressure monitor #1 ea 06/02/23 07/27/24 Rx cetirizine 10 mg tablet 10 mg PO DAILY PRN allergies #90 1 04/19/23 07/27/24 Rx tabs Cpap Mask #1 ea 02/24/24 07/27/24 Rx peg 3350-electrolytes 236 4,000 ml PO ONCE #4,000 mL 5 07/27/24 Rx gram-22.74 gram-6.74 gram-5.86 gram solution multivitamin (Daily Multi-Vitamin 1 tab PO DAILY 04/27/24 07/27/24 History tablet) fluticasone propionate 50 1 spray intranasal BID #16 grams 0 06/29/24 07/27/24 Rx mcg/actuation nasal spray,suspension (Flonase Allergy Relief) desmopressin 0.1 mg tablet 0.2 mg (2 x 0.1 mg) PO BID 2 07/2107/27/24 Rx months #240 tabs levothyroxine 125 mcg tablet See Rx Instructions .Route 5 07/27/24 Rx .COMPLEX #30 tabs Have you fallen in the past year?: No PFSH Medical History Wears hearing aid Wears dentures Wears glasses Cancer Depression Anxiety Thyroid disease Anemia CPAP (continuous positive airway pressure) dependence Sleep apnea History of stress test Hx of otitis media Hx of diverticulitis of colon Cervical cancer Distal radius fracture Diabetes insipidus Seasonal allergies Prediabetes Elevated blood pressure reading without diagnosis of hypertension DiGeorge's syndrome Surgical History Hx of foot surgery c section H/O: hysterectomy Family History Father Heart disease Myocardial infarction Grandmother Colon cancer Social History number of children: 2 current occupational status: employed and unemployed history of recent travel: No sexually active: Yes Smoking Status: Never smoker second hand exposure: Yes alcohol intake: never substance use type: does not use what type of physical activity do you participate in: none seatbelt use: never do you feel safe at home: Yes additional social history: boyfriend HPI HPI HPI: Patient is a 54-year-old female here for screening colonoscopy. She came in about 6 months ago and attempted colonoscopy but did not prep well. She is here to reschedule. She denies abdominal pain or blood in the stool. ROS General General: Yes weight change and fatigue; No appetite, colon cancer, breast cancer or weakness HEENT HEENT: No difficulty swallowing, eye injury, eye surgery, swollen glands or hoarseness Endo Endocrine: Yes thyroid disease and diabetes mellitus; No thyroid cancer, Hair loss, heat intolerance or cold intolerance Skin Skin: Yes rash; No changing moles Breast Breast: No left breast lump, right breast lump, nipple discharge, breast pain, abnormal mammogram, abnormal US or breast enlargement Musc Musculoskeletal: No back problems, arthritis, rheumatoid arthritis, gout or joint pain Cardio Cardiovascular: Yes high blood pressure; No murmur, pacemaker, heart disease, atrial fibrillation, heart attack, heart stent, palpitations, shortness of breath with exertion or chest pain Psych Psychiatric: Yes depression and anxiety; No hearing voices Resp Respiratory: No shortness of breath, Yes sleep apnea, No cough, No COPD, No asthma, No emphysema and No wheezing Gastro Gastrointestinal: No abdominal pain, No nausea or vomiting, No diarrhea, No constipation, No blood in stool, No acid reflux, No hemorrhoids, No ulcers, No gallbladder problem and No black,tarry stools Rahul Hematologic: No blood thinners, No blood disorders, No bleeding, Yes anemia and No blood clots Neuro Neurologic: No system reviewed and no additional complaints, except as documented, No as per HPI, No abnormal gait, No abnormal hearing, No abnormal movements, No abnormal speech, No behavioral changes, No burning sensations, No (more content not included)... Normal [facility] Absolute lymphocyte countOrd ered By: Carine Grey on 06-29-2024 Lymphocytes Auto (Unsp spec) [#/Vol] 2.60 10*3/uL 0.83-4.51 [facility] Absolute neutrophil countOrd ered By: Carine Grey on 06-29-2024 Neutrophils (Bld) [#/Vol] 2.8 10*3/uL 2.0-7.7 [facility] Anion gap in Serum or Plasma Ordered By: Carine Grey on 06-29-2024 Anion gap [Moles/Vol] 15 mmol/L 5- [facility] Automated lymphocyte count a s percentage of total leukocytesOrdered By: Carine Grey on 06-29-2024 Lymphocytes/100 WBC Auto (Unsp spec) 39.9 % - [facility] BUN/creatinine ratioOrdered By: Tammymelissa Grey on 06-29-2024 Urea nitrogen/Creatinine [Mass ratio] 15.8 mg/mg 10- [facility] Basophil percentageOrdered B y: Carine Valentinalanabeny on 06-29-2024 Basophils/100 WBC (Bld) 1.1 % High 0-1 [facility] Bilirubin, totalOrdered By: Tammykgmarixawesley Valentinalanabeny on 06-29-2024 Bilirubin [Mass/Vol] 0.66 mg/dL 0.00-1.30 [facility] CBC W/Diff, Automatedon 06-08 Absolute Lymph 2.60 X10 3/uL Normal 0.83-4.51 [facility] Comment on above: Performed By: #### L 500.4100, L100.0100, L501.9985, L501.9520, L500.4050 #### [facility] [address] [place], [address] Absolute Neut 2.8 X10 3/uL Normal 2.0-7.7 [facility] Comment on above: Performed By: #### L 500.4100, L100.0100, L501.9985, L501.9520, L500.4050 #### [facility] [address] [place], [address] Basophils/100 WBC (Bld) 1.1 % High 0-1 [facility] Comment on above: Performed By: #### L 500.4100, L100.0100, L501.9985, L501.9520, L500.4050 #### [facility] [address] [place], [address] Eosinophils/100 WBC (Bld) 8.1 % High 0-5 [facility] Comment on above: Performed By: #### L 500.4100, L100.0100, L501.9985, L501.9520, L500.4050 #### [facility] [address] [place], [address] Erythrocyte distribution width (RBC) [Ratio] 14.0 % Normal 11.6-14.6 [facility] Comment on above: Performed By: #### L 500.4100, L100.0100, L501.9985, L501.9520, L500.4050 #### [facility] [address] [place], [address] Hematocrit (Bld) [Volume fraction] 36.8 % Low 37-47 [facility] Comment on above: Performed By: #### L 500.4100, L100.0100, L501.9985, L501.9520, L500.4050 #### [facility] [address] [place], [address] Hemoglobin (Bld) [Mass/Vol] 12.0 g/dL Normal 12.0-15.0 [facility] Comment on above: Performed By: #### L 500.4100, L100.0100, L501.9985, L501.9520, L500.4050 #### [facility] [address] [place], [address] IG% 0.600 Normal 0.0-0.9 [facility] Comment on above: Result Comment: IG% - Immature Granulocytes (promyelocytes, myelocytes and metamyelocytes) > 1% indicates that a LEFT SHIFT is Present. Performed By: #### L 500.4100, L100.0100, L501.9985, L501.9520, L500.4050 #### [facility] [address] [place], [address] Lymphocytes/100 WBC (Bld) 39.9 % Normal 19-41 [facility] Comment on above: Performed By: #### L 500.4100, L100.0100, L501.9985, L501.9520, L500.4050 #### [facility] [address] [place], [address] MCH (RBC) [Entitic mass] 29.9 pg Normal 27.0-32.0 [facility] Comment on above: Performed By: #### L 500.4100, L100.0100, L501.9985, L501.9520, L500.4050 #### [facility] [address] [place], [address] MCHC (RBC) [Mass/Vol] 32.6 g/dL Normal 32-36 [facility] Comment on above: Performed By: #### L 500.4100, L100.0100, L501.9985, L501.9520, L500.4050 #### [facility] [address] [place], [address] MCV (RBC) [Entitic vol] 91.5 fL Normal 81-99 [facility] Comment on above: Performed By: #### L 500.4100, L100.0100, L501.9985, L501.9520, L500.4050 #### [facility] [address] [place], [address] Monocytes/100 WBC (Bld) 6.9 % Normal 0-10 [facility] Comment on above: Performed By: #### L 500.4100, L100.0100, L501.9985, L501.9520, L500.4050 #### [facility] [address] [place], [address] Neutrophils/100 WBC (Bld) 43.4 % Low 47-70 [facility] Comment on above: Performed By: #### L 500.4100, L100.0100, L501.9985, L501.9520, L500.4050 #### [facility] [address] [place], [address] Nucleated RBC (Bld) [#/Vol] 0 10*3/uL Normal 0-5 [facility] Comment on above: Performed By: #### L 500.4100, L100.0100, L501.9985, L501.9520, L500.4050 #### [facility] [address] [place], [address] Platelet mean volume (Bld) [Entitic vol] 14.2 fL High 6.2-12.0 [facility] Comment on above: Performed By: #### L 500.4100, L100.0100, L501.9985, L501.9520, L500.4050 #### [facility] [address] [place], [address] Platelets (Bld) [#/Vol] 157 10*3/uL Normal 150-450 [facility] Comment on above: Performed By: #### L 500.4100, L100.0100, L501.9985, L501.9520, L500.4050 #### [facility] [address] [place], [address] RBC (Bld) [#/Vol] 4.02 10*6/uL Low 4.2-5.4 [facility] Comment on above: Performed By: #### L 500.4100, L100.0100, L501.9985, L501.9520, L500.4050 #### [facility] [address] [place], [address] RDW SD 47.0 fl High 35.1-43.9 [facility] Comment on above: Performed By: #### L 500.4100, L100.0100, L501.9985, L501.9520, L500.4050 #### [facility] [address] [place], [address] WBC (Bld) [#/Vol] 6.5 10*3/uL Normal 4.4-11.0 [facility] Comment on above: Performed By: #### L 500.4100, L100.0100, L501.9985, L501.9520, L500.4050 #### [facility] [address] [place], [address] Calculated very low density lipoprotein (VLDL) cholesterol measurementOrdered By: Carine Grey on 06-29-2024 Calculated very low density lipoprotein (VLDL) cholesterol measurement 62 mg/dL High 5-40 [facility] Carbon dioxide, total [Moles /volume] in Central venous bloodOrdered By: Carine Grey on 06-29-2024 CO2 [Moles/Vol] 21.8 mmol/L 21.0-32.0 [facility] Chloride assayOrdered By: Tammy Grey on 06-29-2024 Chloride [Moles/Vol] 102 mmol/L 98-108 [facility] Comprehensive Metabolic Prof ilon 06-29-2024 Albumin [Mass/Vol] 4.0 g/dL Normal 3.5-5.0 [facility] [facility] Comment on above: Performed By: #### L 500.4100, L100.0100, L501.9985, L501.9520, L500.4050 #### [facility] [address] [place], [address] Albumin/Globulin [Mass ratio] 1.3 {ratio} Normal 0.9-2.4 [facility] Comment on above: Performed By: #### L 500.4100, L100.0100, L501.9985, L501.9520, L500.4050 #### [facility] [address] [place], [address] ALK PHOS 51 U/L Normal 35-104 [facility] Comment on above: Performed By: #### L 500.4100, L100.0100, L501.9985, L501.9520, L500.4050 #### [facility] [address] [place], [address] ALT [Catalytic activity/Vol] 25 U/L Normal <=34 [facility] Comment on above: Performed By: #### L 500.4100, L100.0100, L501.9985, L501.9520, L500.4050 #### [facility] [address] [place], [address] AST [Catalytic activity/Vol] 24 U/L Normal <=31 [facility] Comment on above: Performed By: #### L 500.4100, L100.0100, L501.9985, L501.9520, L500.4050 #### [facility] [address] [place], [address] Bilirubin [Mass/Vol] 0.66 mg/dL Normal 0.00-1.30 [facility] Comment on above: Performed By: #### L 500.4100, L100.0100, L501.9985, L501.9520, L500.4050 #### [facility] [address] [place], [address] BUN/CRE 15.8 RATIO Normal 10-20 [facility] Comment on above: Performed By: #### L 500.4100, L100.0100, L501.9985, L501.9520, L500.4050 #### [facility] [address] [place], [address] Calcium [Mass/Vol] 8.6 mg/dL Normal 7.6-11.0 [facility] Comment on above: Performed By: #### L 500.4100, L100.0100, L501.9985, L501.9520, L500.4050 #### [facility] [address] [place], [address] Chloride [Moles/Vol] 102 mmol/L Normal 98-108 [facility] Comment on above: Performed By: #### L 500.4100, L100.0100, L501.9985, L501.9520, L500.4050 #### [facility] [address] [place], [address] CO2 [Moles/Vol] 21.8 mmol/L Normal 21.0-32.0 [facility] Comment on above: Performed By: #### L 500.4100, L100.0100, L501.9985, L501.9520, L500.4050 #### [facility] [address] [place], [address] Creatinine [Mass/Vol] 0.76 mg/dL Normal 0.70-1.20 [facility] Comment on above: Performed By: #### L 500.4100, L100.0100, L501.9985, L501.9520, L500.4050 #### [facility] [address] [place], [address] GAP 15 Normal 5-15 [facility] Comment on above: Performed By: #### L 500.4100, L100.0100, L501.9985, L501.9520, L500.4050 #### [facility] [address] [place], [address] GFR/1.73 sq M.predicted among non-blacks MDRD (S/P/Bld) [Vol rate/Area] 95 mL/min/{1.73_m2} Normal >60 [facility] Comment on above: Result Comment: mL/m in/1.73m2 CKD-EPI Creatinine Equation (2020) Performed By: #### L 500.4100, L100.0100, L501.9985, L501.9520, L500.4050 #### [facility] [address] [place], [address] Globulin (S) [Mass/Vol] 3.0 g/dL Normal 2.2-4.2 [facility] Comment on above: Performed By: #### L 500.4100, L100.0100, L501.9985, L501.9520, L500.4050 #### [facility] [address] [place], [address] Glucose [Mass/Vol] 120 mg/dL High 70-99 [facility] Comment on above: Performed By: #### L 500.4100, L100.0100, L501.9985, L501.9520, L500.4050 #### [facility] [address] [place], [address] Potassium [Moles/Vol] 3.4 mmol/L Normal 3.3-5.1 [facility] Comment on above: Performed By: #### L 500.4100, L100.0100, L501.9985, L501.9520, L500.4050 #### [facility] [address] [place], [address] Sodium [Moles/Vol] 139 mmol/L Normal 133-145 [facility] Comment on above: Performed By: #### L 500.4100, L100.0100, L501.9985, L501.9520, L500.4050 #### [facility] [address] [place], [address] T PROT 7.0 g/dL Normal 5.9-8.4 [facility] Comment on above: Performed By: #### L 500.4100, L100.0100, L501.9985, L501.9520, L500.4050 #### [facility] [address] [place], [address] Urea nitrogen [Mass/Vol] 12 mg/dL Normal 4-19 [facility] Comment on above: Performed By: #### L 500.4100, L100.0100, L501.9985, L501.9520, L500.4050 #### [facility] [address] [place], [place], [id number] (925) Eosinophil percentageOrdered By: Carine Grey on 06-29-2024 Eosinophils/100 WBC (Bld) 8.1 % High 0-5 [facility] Erythrocyte distribution wid th ratioOrdered By: Mckenzieavon lakewesley Grey on 06-29-2024 Erythrocyte distribution width (RBC) [Ratio] 14.0 % 11.6-14.6 [facility] Erythrocyte distribution wid th standard deviationOrdered By: [facility] Valentinbeny on 06-29-2024 Erythrocyte distribution width (RBC) [Ratio] 47.0 fl High 35.1-43.9 [facility] Glomerular filtration rate ( GFR) estimation/1.73 sq m using serum, plasma, or whole bOrdered By: Carine Grey on 06-29-2024 GFR/1.73 sq M.predicted among non-blacks MDRD (S/P/Bld) [Vol rate/Area] 95 mL/min/{1.73_m2} >60 [facility] Comment on above: mL/min/1.73m2 CKD-EP I Creatinine Equation (2020) HIVon 06-29-2024 HIV Non-Reactive Normal Nonreactive [facility] Comment on above: Result Comment: Non- Reactive Reactive Repeatedly reactive samples must be confirmed according to CDC recommended confirmatory algorithms. The subresults for either HIVAG or AHIV can be used as an aid in the selection of the confirmation algorithm for reactive samples. Send out specimens with Reactive results to [facility] for confirmation. Order the HIV antibody detection and differentiation: lc#[id number] Performed By: #### L 3890.6006 #### [facility] [address] [place], [place], [id number] Hematocrit Auto (Bld) [Volum e fraction]Ordered By: Carine Grey on 06-29-2024 Hematocrit (Bld) [Volume fraction] 36.8 % Low 37-47 [facility] Hemoglobin A1con 06-29-2024 HbA1c (Bld) [Mass fraction] 5.7 % Normal <=5.6 [facility] Comment on above: Result Comment: Norm al < 5.7 % Prediabetic 5.7 - 6.4 % Diabetic >or= 6.5 % Please note range changes. Performed By: #### L 500.4100, L100.0100, L501.9985, L501.9520, L500.4050 #### [facility] [address] [place], [place], [id number] Hemoglobin A1c percentageOrd ered By: Carine Grey on 06-29-2024 HbA1c (Bld) [Mass fraction] 5.7 % <5.7 [facility] Comment on above: Normal < 5.7 % Predi abetic 5.7 - 6.4 % Diabetic >or= 6.5 % Please note range changes. Hemoglobin measurementOrdere d By: Carine Grey on 06-29-2024 Hemoglobin (Bld) [Mass/Vol] 12.0 g/dL 12.0-15.0 [facility] Immature granulocytes/100 WB C Auto (Bld)Ordered By: Carine Grey on 06-29-2024 Immature granulocytes/100 WBC (Bld) 0.600 % 0.0-0.9 [facility] Comment on above: IG% - Immature Granu locytes (promyelocytes, myelocytes and metamyelocytes) > 1% indicates that a LEFT SHIFT is Present. Internal Medicine Office Vis romaine 06-29-2024 Internal Medicine Office Visit [facility] [address] [place] [address] [place] [address] OFFICE VISIT Date of Service: 06/29/24 MR#: [id number] Acct: [id number] Name: VENICE ANDERSON Rep #: [id number] : 1970 Provider: SAMUEL Villatoro Age/Sex: 54/F Location: [facility] Status: Signed Intake Vital Signs 03/21/24 07:50 06/29/24 10:32 Height 5 ft 5 ft Weight: 190 lb 193 lb BMI 37.0 37.7 BP 157/85 H 128/80 H Blood Pressure Location Lt brachial Lt brachial Position Sitting Sitting Respiration 20 H 17 Pulse 65 65 Pulse Source Monitor Monitor Temp 97.4 F L 98.0 F Temp Source Temporal Pulse Oximetry (%) 97 97 Oxygen Delivery Method room air room air Intake Visit Reasons: ACUTE - 4 M FU Chief Complaint: ACUTE- 4 M FU Is patient in pain?: No Allergies No Known Allergies Allergy (Verified 06/29/24 10:33) Medications ???Medication ???Instructions ???Recorded ???Confirmed ???Type blood pressure monitor #1 ea 06/02/23 06/29/24 Rx cetirizine 10 mg tablet 10 mg PO DAILY PRN allergies #90 1 04/19/23 04/27/24 Rx tabs Cpap Mask #1 ea 02/24/24 06/29/24 Rx levothyroxine 125 mcg tablet See Rx Instructions .Route 5 06/29/24 Rx .COMPLEX #30 tabs peg 3350-electrolytes 236 4,000 ml PO ONCE #4,000 mL 5 04/27/24 Rx gram-22.74 gram-6.74 gram-5.86 gram solution multivitamin (Daily Multi-Vitamin 1 tab PO DAILY 04/27/24 06/29/24 History tablet) desmopressin 0.1 mg tablet 0.2 mg (2 x 0.1 mg) PO BID 2 05/1606/29/24 Rx months #240 tabs fluticasone propionate 50 1 spray intranasal BID #16 grams 0 06/29/24 06/29/24 Rx mcg/actuation nasal spray,suspension (Flonase Allergy Relief) Have you fallen in the past year?: No Nurse's Note: pt reports she has been taking 3 zyrtec per evening to help with allergies. [facility] Medical History Wears hearing aid Wears dentures Wears glasses Cancer Depression Anxiety Thyroid disease Anemia CPAP (continuous positive airway pressure) dependence Sleep apnea History of stress test Hx of otitis media Hx of diverticulitis of colon Cervical cancer Distal radius fracture Diabetes insipidus Seasonal allergies Prediabetes Elevated blood pressure reading without diagnosis of hypertension DiGeorge's syndrome Surgical History Hx of foot surgery c section H/O: hysterectomy Family History Father Heart disease Myocardial infarction Grandmother Colon cancer Social History number of children: 2 current occupational status: employed and unemployed history of recent travel: No sexually active: Yes Smoking Status: Never smoker second hand exposure: Yes alcohol intake: never substance use type: does not use what type of physical activity do you participate in: none seatbelt use: never do you feel safe at home: Yes additional social history: boyfriend HPI HPI Chief Complaint: ACUTE- 4 M FU Details: VENICE ANDERSON, is a 54 F who presents to the office today for f/u on her chronic conditions. Patient has no current concerns or complaints at this time and is feeling well. She does not currently monitor her BP at home. She states that she only takes her BP meds when she needs it and has not needed to take them recently She does not currently check her sugars at home She does take her thyroid medication daily but states that she takes this with her other medications and not always on an empty stomach. She does get allergies this time of year pretty bad. She has been taking her medications for this regularly. She states that she has to actually take three of these tabs for it to work for her. Nasal Congestion is her biggest concern / symptom along with some sneezing. She states that she has not tried anything else She does take her desmopressin daily as directed. She states that she had an injury to her wrist a long time ago and thought maybe she should have this checked out but states that the wrist does not hurt her or bother her. She uses this every day without any restrictions or hesitations and has not noticed any swelling or other abnormalities She does not get regular exercise but tries to walk some. She also does not really monitor her dietary intake. ROS Const Constitutional: No body ache, chills, excessive sweating, fatigue, fever(s), frequent falls, headache(s), snoring, weight change, sleep problems, abnormal sleep pattern or change in appetite Eyes Eyes: No blurry vision, change in vision, eye pain or Light sensitivity ENT ENT: No abnormal hearing, ear or mastoid pain, tinnitus, nasal congestion, headache(s), ne (more content not included)... Normal [facility] LDL calc ser/plasOrdered By: Carine Grey on 06-29-2024 Cholesterol in LDL [Mass/Vol] 125 mg/dL [facility] Comment on above: Lhdnepzpsa=915-542 m g/dL & Higher Teme=553 mg/dL or greater Laboratory - Chemistry and C hemistry - challengeOrdered By: Carine Grey on 06-29-2024 AST [Catalytic activity/Vol] 24 U/L <32 [facility] Lipid Profileon 06-29-2024 CHOL:HDL 5.31 Normal [facility] Comment on above: Performed By: #### L 500.4100, L100.0100, L501.9985, L501.9520, L500.4050 #### [facility] [address] [place], [address] Cholesterol [Mass/Vol] 231 mg/dL High <=200 [facility] Comment on above: Result Comment: Chol esterol level, Desirable <200 mg/dL Borderline high cholesterol 200-239 mg/dL High cholesterol >=240 mg/dL Recommendations of the NCEP Adult Treatment Panel for the following risk-cutoff thresholds for the [place] population. Performed By: #### L 500.4100, L100.0100, L501.9985, L501.9520, L500.4050 #### [facility] [address] [place], [address] Cholesterol in HDL [Mass/Vol] 44 mg/dL Normal [facility] Comment on above: Result Comment: Babita onal Cholesterol Education Program (NCEP) guidelines: <40 mg/dL: Low HDL-cholesterol (major risk factor for CHD) >= 60 mg/dL: High HDL-cholesterol (negative risk factor for CHD) HDL-cholesterol is affected by a number of factors, e.g. smoking, exercise, hormones, sex and age. Performed By: #### L 500.4100, L100.0100, L501.9985, L501.9520, L500.4050 #### [facility] [address] [place], [address] Cholesterol in LDL [Mass/Vol] 125 mg/dL Normal [facility] Comment on above: Result Comment: Bord plgobd=539-094 mg/dL Higher Iejq=023 mg/dL or greater Performed By: #### L 500.4100, L100.0100, L501.9985, L501.9520, L500.4050 #### [facility] [address] [place], [address] Cholesterol in VLDL [Mass/Vol] 62 mg/dL High 5-40 [facility] Comment on above: Performed By: #### L 500.4100, L100.0100, L501.9985, L501.9520, L500.4050 #### [facility] [address] [place], [address] Triglyceride [Mass/Vol] 311 mg/dL High [facility] Comment on above: Result Comment: The drugs N-Acetylcysteine and Metamizole may falsely depress this assay. Normal range: <150 mg/dL Borderline High: 150-199 mg/dL High: 200-499 mg/dL Very High: >500 mg/dL Performed By: #### L 500.4100, L100.0100, L501.9985, L501.9520, L500.4050 #### [facility] [address] [place], [address] MCV (mean corpuscular volume ) determinationOrdered By: Carine Grey on 06-29-2024 MCV (RBC) [Entitic vol] 91.5 fL 81-99 [facility] Mean corpuscular hemoglobin (MCH) determinationOrdered By: Carine Grey on 06-29-2024 MCH (RBC) [Entitic mass] 29.9 pg 27.0-32.0 [facility] Mean corpuscular hemoglobin concentration (MCHC) determinationOrdered By: Carine Grey on 06-29-2024 MCHC (RBC) [Mass/Vol] 32.6 g/dL 32-36 [facility] Mean platelet volume determi nationOrdered By: Carine Grey on 06-29-2024 Platelet mean volume (Bld) [Entitic vol] 14.2 fL High 6.2-12.0 [facility] Monocyte percentageOrdered B y: Tammykgmarixawesley Grey on 06-29-2024 Monocytes/100 WBC (Bld) 6.9 % 0-10 [facility] Neutrophil percentageOrdered By: Carine Grey on 06-29-2024 Neutrophils/100 WBC (Bld) 43.4 % Low 47-70 [facility] No Panel InformationOrdered By: Radha Natarajan on 06-29-2024 HIV (1&2) Antibody Non-Reactive Nonreactive [facility] Comment on above: Non-ReactiveReactive Repeatedly reactive samples must be confirmed according to CDC recommended confirmatory algorithms. The subresults for either HIVAG or AHIV can be used as an aid in the selection of the confirmation algorithm for reactive samples.Send out specimens with Reactive results to [facility] for confirmation.Order the HIV antibody detection and differentiation: #[id number] Nucleated red blood cell per centageOrdered By: Carine Grey on 06-29-2024 Nucleated RBC/100 WBC (Bld) [Ratio] 0 % 0-5 [facility] Platelet countOrdered By: Tammy Grey on 06-29-2024 Platelets (Bld) [#/Vol] 157 10*3/uL 150-450 [facility] Potassium measurement (mass/ volume)Ordered By: Carine Grey on 06-29-2024 Potassium (Unsp spec) [Mass/Vol] 3.4 mmol/L 3.3-5.1 [facility] RBC Auto (Bld) [#/Vol]Ordere d By: Carine rGey on 06-29-2024 RBC (Bld) [#/Vol] 4.02 10*6/uL Low 4.2-5.4 [facility] Screening total cholesterol/ high density lipoprotein (HDL) cholesterol ratioOrdered By: Carine Grey on 06-29-2024 Cholesterol.total/Ny sterol in HDL [Mass ratio] 5.31 {ratio} [facility] Serum creatinine measurement (mass/volume)Ordered By: Carine Grey on 06-29-2024 Creatinine [Mass/Vol] 0.76 mg/dL 0.70-1.20 [facility] Serum globulin measurementOr dered By: Carine Grey on 06-29-2024 Globulin (S) [Mass/Vol] 3.0 g/dL 2.2-4.2 [facility] Serum glucose measurement (m ass/volume)Ordered By: Carine Grey on 06-29-2024 Glucose [Mass/Vol] 120 mg/dL High 70-99 [facility] Serum or plasma alanine mcneal otransferase (ALT) measurementOrdered By: Carine Grey 06-29-2024 ALT [Catalytic activity/Vol] 25 U/L <35 [facility] Serum or plasma albumin jinny urement (mass/volume)Ordered By: Carine Grey 06-29-2024 Albumin [Mass/Vol] 4.0 g/dL 3.5-5.0 [facility] Serum or plasma albumin/glob ulin mass ratioOrdered By: Carine Grey 06-29-2024 Albumin/Globulin [Mass ratio] 1.3 {ratio} 0.9-2.4 [facility] Serum or plasma alkaline morelia sphatase measurementOrdered By: Carine Grey 06-29-2024 ALP [Catalytic activity/Vol] 51 U/L 35-104 [facility] Serum or plasma calcium jinny urement (mass/volume)Ordered By: Carine Grey on 06-29-2024 Calcium [Mass/Vol] 8.6 mg/dL 7.6-11.0 [facility] Serum or plasma cholesterol in HDL measurement (mass/volume)Ordered By: Carine Grey on 06-29-2024 Cholesterol in HDL [Mass/Vol] 44 mg/dL >40 [facility] Comment on above: National Cholesterol Education Program (NCEP) guidelines:<40 mg/dL: Low HDL-cholesterol (major risk factor for CHD)>= 60 mg/dL: High HDL-cholesterol (negative risk factor for CHD)HDL-cholesterol is affected by a number of factors, e.g. smoking, exercise, hormones, sex and age. Serum or plasma cholesterol measurement (mass/volume)Ordered By: Carine Grey on 06-29-2024 Cholesterol [Mass/Vol] 231 mg/dL High <201 [facility] Comment on above: Cholesterol level, D esirable <200 mg/dLBorderline high cholesterol 200-239 mg/dLHigh cholesterol >=240 mg/dLRecommendations of the NCEP Adult Treatment Panel for the following risk-cutoff thresholds for the [place] population. Serum or plasma urea nitroge n measurement (mass/volume)Ordered By: Carine Grey on 06-29-2024 Urea nitrogen [Mass/Vol] 12 mg/dL 4-19 [facility] Sodium levelOrdered By: Mckenzie Grey on 06-29-2024 Sodium [Moles/Vol] 139 mmol/L 133-145 [facility] TSH DL <= 0.005 mIU/L QnOrde red By: Carine Grey on 06-29-2024 TSH Qn 6.900 uIU/mL High 0.300-4.200 [facility] Thyroid Stim Hormone (TSH)on 06-29-2024 TSH 6.900 uIU/mL High 0.300-4.200 [facility] Comment on above: Performed By: #### L 500.4100, L100.0100, L501.9985, L501.9520, L500.4050 #### [facility] [address] [place], [address] Total proteinOrdered By: Jasonbeny esparzawesley Grey on 06-29-2024 Protein [Mass/Vol] 7.0 g/dL 5.9-8.4 [facility] Triglycerides measurementOrd ered By: Carine Grey on 06-29-2024 Triglyceride [Mass/Vol] 311 mg/dL High <199 [facility] Comment on above: The drugs N-Acetylcy steine and Metamizole may falsely depress this assay. Normal range: <150 mg/dLBorderline High: 150-199 mg/dLHigh: 200-499 mg/dLVery High: >500 mg/dL White blood cell (WBC) count Ordered By: Carine Grey on 06-29-2024 WBC (Bld) [#/Vol] 6.5 10*3/uL 4.4-11.0 [facility] 36on 06-14-2024 36 Name of Caller: Venice Contact Reason for Appointment: Venice called stating that [facility] gave her our number to call and schedule. I let Venice know we would need a referral. Provided our fax number and Venice is going to call her PCP and have them send a referral. Venice asking for a call back when referral is received to schedule. Please advise. Office Name: Gastroenterology Medication Refills need, if any: N/A Medication Name: N/A [facility] MR/PATBayronANEon 04-27-2024 MR/PAT.IVY [facility] Medical Records Department [address] [place] [address] PAT - Anesthesia 04/27/24 1236 MR#: [id number] Acct: [id number] Name: VENICE ANDERSON Rep #: [id number] : 1970 54 From: Yasmany Huertas MD PCP: Dr. 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 When Was Last Pacemaker Check QUESTION #4 FULL TEXT: You/Your Family Experience fever (hyperthermia) with Anesthesia Last Oral Intake Last Oral intake: Last Oral Intake NPO since Meds taken in AM with sips of water? 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 scout Female Yes 04/27/24 09:38 HX of Motion Sickness No 04/27/24 09:38 HX of N/V After Surgery No 04/27/24 09:38 Non-Smoker Yes 04/27/24 09:38 Duration of Surgery greater No 04/27/24 09:38 than 60 minutes Number of Risk Factors 2 04/27/24 09:38 PONV Score Moderate Risk 04/27/24 09:38 Height Weight Height Weight: Anesthesia: Height Weight Height 5 ft 03/21/24 07:50 Respiratory Assessment Respiratory Assessment - athletic scout: Respiratory Tract Infection Hx - athletic scout Hx Respiratory Tract Infection No 04/27/24 09:38 STOP Sleep Apnea STOP Sleep Apnea - athletic scout: STOP Sleep Apnea - athletic scout Hx Hypertension No 04/27/24 09:38 Hx Sleep Apnea No 04/27/24 09:38 CPAP No 04/27/24 09:38 BIPAP No 04/27/24 09:38 Do you snore loudly (louder No 04/27/24 09:38 than talking or can be heard Do you often feel tired/ No 04/27/24 09:38 fatigued/ sleepy during daytime? Has anyone observed you stop No 04/27/24 09:38 breathing during sleep? STOP Results Negative 04/27/24 09:38 QUESTION #5 FULL TEXT : Do you snore loudly (louder than talking or can be heard through closed doors)? Tobacco Use History Tobacco Use History - athletic scout: Tobacco Use History - athletic scout Tobacco Use Smoking Status Never smoker 04/27/24 09:38 Hx Tobacco Use No 04/27/24 09:38 Years Smoking Packs Smoked per Day Smoking Cessation Date was within the last 15 years Hx Smoking Cessation Date Hx Smoking Cessation Counseling Hematologic Medial History Hematologic Hx - athletic scout: Hematologic Medical Hx - manager progressive care Hx of Blood Transfusion No 04/27/24 09:38 Hx of Transfusion in last 3 No 04/27/24 09:38 Months Date of Last Transfusion (if within last 3 months) Ever experience any problems No 04/27/24 09:38 with transfusion(s)? Specify any problems Hx of Preganancy in last 3 No 04/27/24 09:38 Months Nurse Filling Out Transfusion VCHRISTIN 04/27/24 09:38 Questions: Date: 04/27/24 04/27/24 09:38 Time: 09:40 04/27/24 09:38 Patient unable to answer at this time (ie. confused, unrespo /Reproduct ion History /Reproduct gabriele History - athletic scout: /Reproduct gabriele Hx- athletic scout Hx Now No 04/27/24 09:38 Gestational Age (in weeks): EDC: Hx Hx Para Hx Section SAB No 04/27/24 09:38 [facility] Medical History (Updated 04/27/24 @ 09:38 by Paz Moe) Wears hearing aid Wears dentures Wears glasses Cancer Depression Anxiety Thyroid disease Anemia CPAP (continuous positive airway pressure) dependence Sleep apnea History of stress test Hx of otitis media Hx of diverticulitis of colon Cervical cancer Distal radius fracture Diabetes insipidus Seasonal allergies Prediabetes Elevated blood pressure reading without diagnosis of hypertension DiGeorge's syndrome Home Medications ???Medication ???Instructions ???Recorded ???Last Taken ???Type naproxen 500 mg tablet 500 mg PO BID PRN pain 03/13/23 Un known History desmopressin 0.1 mg tablet See Rx Instructions .Route 4 Unknown Rx .COMPLEX #360 tabs blood pressure monitor #1 ea 06/02/23 Unknown Rx meclizine 25 mg tablet 25 mg PO DAILY PRN dizziness #30 0 06/19/23 Unknown Rx tabs cetirizine (more content not included)... Normal [facility] Pulmonary Visit Reporton Pulmonary Visit Report [facility] [address] [place] [address] OFFICE VISIT Date of Service: 03/21/24 MR#: [id number] Acct: [id number] Name: VENICE ANDERSON Rep #: [id number] : 1970 Provider: DALLAS Slaughter Age/Sex: 54/F [facility] Status: Signed Assessment and Plan Assessment and Plan (1) CHRISSY (obstructive sleep apnea): Status: Chronic Comment: Overall AHI 27.6 Plan: She is using and benefiting from Pap therapy. The patient now understands that she needs to utilize her machine at least 4 hours nightly, or 80% of the time. No indication for retitration study. Follow-up in 6 months. Contact the office with any new or worsening symptoms in the meantime. (2) Obesity: Status: Chronic Qualifiers: Obesity type: due to excess calories Obesity classification: adult class 2 (BMI 35 - 39.9) Serious obesity comorbidity presence: with serious comorbidity Body mass index: BMI 37.0-37.9 Qualified Code(s): E66.812 - Obesity, class 2; E66.01 - Morbid (severe) obesity due to excess calories; Z68.37 - Body mass index [BMI] 37.0-37.9, adult Plan: Continue to encourage healthy weight loss. Plan Details Follow Up: 6 Months ([facility] HPI f/u sleep apnea Chief Complaint: Reestablish care HPI Comments Details: The patient is a 51-year-old female who presents to the clinic today for a follow-up on her obstructive sleep apnea. She is ambulatory and currently on room air. I she was last seen here in the office in 2021. She presents today to reestablish care. The patient has had some personal troubles, in fact was homeless for several months over the summer. She lived in her van for 3 months. She has not recently been seen in the ED or urgent care for any respiratory illness. She has not required any antibiotics or prednisone for any breathing problems. She does have an occasional nonproductive cough. She denies any production or hemoptysis. She denies any shortness of breath. She also denies any wheezing, chest tightness, chest pain or palpitations. She has not had any fever, chills or body aches. The patient reports that over the past week she has begun to be compliant with her PAP machine. She has noticed benefit. She is feeling more rested. She now has a stable lace to stay that she believes will be a long-term solution. She is not having difficulty with dry mouth. She denies any problem with mask leaks. She is not requiring naps and is not nodding off to sleep unintentionally. Patient also admits that she was not aware that she needed to utilize the PAP machine a certain percentage. Compliance report for the past 30 days shows 13% compliance and average use of 9 hours and 40 minutes per night. Current setting is AutoPap 5 to 15 cm of water pressure typically being utilized at 7 to 9.9 cm water. Residual AHI 0.4 events per hour. Leaks do not appear to be problematic. Intake Vital Signs 12/14/23 07:31 02/24/24 17:58 03/21/24 07:50 Height 5 ft 5 ft 5 ft Weight: 190 lb BMI 37.0 BP 157/85 H Blood Pressure Location Lt brachial Position Sitting Respiration 20 H Pulse 65 Pulse Source Monitor Temp 97.4 F L Temperature Source Temporal Artery Pulse Oximetry (%) 97 Oxygen Delivery Method room air Intake Visit Reasons: f/u sleep apnea Chief Complaint: F/U Chronic Conditions Director Acute Required: No DME Vendor: Juan[employer] Accompanied by: Self Allergies No Known Allergies Allergy (Verified 03/21/24 13:23) Medications ???Medication ???Instructions ???Recorded ???Confirmed ???Type naproxen 500 mg tablet 500 mg PO BID PRN 03/13/23 03/21/24 History desmopressin 0.1 mg tablet See Rx Instructions .Route 04/24/23 03/21/24 Rx .COMPLEX #360 tabs lisinopril 10 mg tablet 5 mg (1/2 x 10 mg) PO DAILY #30 05/07/23 03/21/24 Rx tabs blood pressure monitor #1 ea 06/02/23 03/21/24 Rx meclizine 25 mg tablet 25 mg PO DAILY PRN dizziness #30 06/19/23 03/21/24 Rx tabs benzonatate 100 mg capsule 100 mg PO BID-TID PRN cough #90 07/30/23 03/21/24 Rx caps peg 3350-electrolytes 236 4,000 ml PO ONCE #4,000 mL 08/05/23 03/21/24 Rx gram-22.74 gram-6.74 gram-5.86 gram solution levothyroxine 125 mcg tablet See Rx Instructions .Route 02/11/24 03/21/24 Rx .COMPLEX #30 tabs cetirizine 10 mg tablet 10 mg PO DAILY PRN allergies #90 02/17/24 03/21/24 Rx tabs Cpap Mask #1 ea 02/24/24 03/21/24 Rx PFSH Medical History Hx of otitis media Hx of diverticulitis of colon Cervical cancer Distal radius fracture Diabetes insipidus Seasonal allergies Prediabetes Elevated blood pressure reading without diagnosis of hypertension DiGeorge's syndrome Surgical History ... Normal [facility] Internal Medicine Office Vis iton 02-24-2024 Internal Medicine Office Visit [facility] [address] [place] [address] [place] [address] OFFICE VISIT Date of Service: 02/24/24 MR#: [id number] Acct: [id number] Name: VENICE ANDERSON Rep #: [id number] : 1970 Provider: Dr. Carine garcia MD Age/Sex: 53/F Location: [facility] Status: Signed Intake Vital Signs 12/14/23 07:31 02/24/24 17:58 Height 5 ft 5 ft Weight: 188 lb BMI 36.7 BP 124/74 H Blood Pressure Location Lt brachial Position Sitting Respiration 16 Pulse 74 Pulse Source Monitor Temp 97.7 F L Temp Source Temporal Pulse Oximetry (%) 93 Oxygen Delivery Method room air Intake Visit Reasons: fu Chief Complaint: F/U Chronic Conditions Director Acute Required: No Accompanied by: Self Is patient in pain?: No Allergies No Known Allergies Allergy (Verified 02/24/24 17:56) Medications ???Medication ???Instructions ???Recorded ???Confirmed ???Type naproxen 500 mg tablet 500 mg PO BID PRN 03/13/23 02/24/24 History desmopressin 0.1 mg tablet See Rx Instructions .Route 04/24/23 02/24/24 Rx .COMPLEX #360 tabs lisinopril 10 mg tablet 5 mg (1/2 x 10 mg) PO DAILY #30 05/07/23 02/24/24 Rx tabs blood pressure monitor #1 ea 06/02/23 02/24/24 Rx meclizine 25 mg tablet 25 mg PO DAILY PRN dizziness #30 06/19/23 02/24/24 Rx tabs benzonatate 100 mg capsule 100 mg PO BID-TID PRN cough #90 07/30/23 02/24/24 Rx caps peg 3350-electrolytes 236 4,000 ml PO ONCE #4,000 mL 08/05/23 02/24/24 Rx gram-22.74 gram-6.74 gram-5.86 gram solution levothyroxine 125 mcg tablet See Rx Instructions .Route 02/11/24 02/24/24 Rx .COMPLEX #30 tabs cetirizine 10 mg tablet 10 mg PO DAILY PRN allergies #90 02/17/24 02/24/24 Rx tabs Cpap Mask #1 ea 02/24/24 02/24/24 Rx PFSH Medical History Hx of otitis media Hx of diverticulitis of colon Cervical cancer Distal radius fracture Diabetes insipidus Seasonal allergies Prediabetes Elevated blood pressure reading without diagnosis of hypertension DiGeorge's syndrome Surgical History c section H/O: hysterectomy Family History Father Heart disease Myocardial infarction Grandmother Colon cancer Social History household members: significant other number of children: 2 current occupational status: employed history of recent travel: No sexually active: Yes Smoking Status: Never smoker second hand exposure: Yes alcohol intake: never substance use type: does not use what type of physical activity do you participate in: none seatbelt use: never do you feel safe at home: Yes additional social history: boyfriend HPI HPI Chief Complaint: F/U Chronic Conditions Details: VENICE ANDERSON, is a 53 F who presents to the office today for follow-up of her chronic conditions. Also has a concerns. History of sleep apnea, she reports concerns with her mask leaking lately. Has an appointment with pulmonology but this is not till next month. Feels tired. She would like a prescription for a new mask. History of hypertension, blood pressure today at 120/74 mmHg. Currently on lisinopril which she reports compliance with. No chest pain, palpitations or shortness of breath. Other chronic medical conditions are stable. ROS Const Constitutional: No body ache, chills, excessive sweating, fatigue, fever(s), frequent falls, headache(s), snoring, weakness or change in appetite Eyes Eyes: No blurry vision, change in vision, bulging eyes, floaters, visual disturbances, eye pain or Light sensitivity ENT ENT: No abnormal hearing, ear or mastoid pain, tinnitus, balance problems, nosebleed/epistaxis , nasal congestion, headache(s), neck pain or sore throat Resp Respiratory: No cough, excessive phlegm production, pain on inspiration, shortness of breath, snoring or wheezing Cardio Cardiology: No chest pain at rest, chest pain with exertion, excessive sweating, dyspnea on exertion, lightheadedness, orthopnea or palpitations Gastro GI: No abdominal pain, change in bowel habits, constipation, cramping, diarrhea, nausea/dyspepsia or vomiting Genitourinary-Femal e: No burning urination, painful urination, urinary incontinence, urinary frequency, suprapubic fullness or side pain Musc Musculoskeletal: No abnormal gait, joint pain, back pain, limited range of motion, loss of height, muscle cramps, muscle weakness, neck pain or numbness Skin Skin: No dry skin, redness, excessive hair growth, yellowing of the eye, lesions, itchy eyes, rash or wounds Neuro Neurology: No abnormal gait, abnormal hearing, behavioral changes, unsteady gait/balance, weakness, frequent falls, headache( (more content not included)... [facility] ---- VENICE ANDERSON ([id number]) 1970 F Date Time Provider Department 11/06/23 2:15 PM JORGE ESPOSITO [facility] During your visit today, we recorded the following information about you: Temperature Pulse Respiration Blood pressure 97 degrees 56/minute 20/minute 151/86 Weight 81 kg Jorge Esposito, REPORT MANAGER.HL7 DEVELOPER 11/06/2023 2:50 PM Signed Subjective HPI Nontoxic-appearing female presents urgent care chief complaint loose stool headache nausea. Duration of symptoms 2 days. Associated symptoms listed above. 1 loose stool yesterday. No blood. Is slightly nauseated today. Has headache. Colleague has similar signs symptoms. No OTC medication use. Denies any fever body aches chills productive cough chest pain shortness of breath pleuritic pain hemoptysis nausea vomiting abdominal pain or rashes. Habits. Past medical history prescription medication use and allergies reviewed. .Patient presents with: Nausea: Headache, x today, diarrhea yesterday PAST MEDICAL HISTORY 01/23/2009: Allergic Rhinitis No date: Diabetes insipidus (HCC) No date: DiGeorge's syndrome (HCC) No date: Hypocalcemia No date: Prediabetes No date: Unspecified hypothyroidism No date: Vitamin D deficiency PAST SURGICAL HISTORY 07/2005: DELIVERY ONLY Comment: , low cervical 2015: LAPAROSCOPIC TUBAL LIGATION/RING/CLIP 1984: PAST SURGICAL HISTORY OF; Bilateral Comment: flat foot surgery No date: PAST SURGICAL HISTORY OF; Bilateral Comment: hardware removed from feet 07/03/15: PAST SURGICAL HISTORY OF Comment: laparoscopic removal of adenxa- cervical CA ALLERGIES Benadryl [Diphenhydramine Hcl] MEDICATIONS busPIRone (BUSPAR) 5 mg tablet Take 1 tablet by mouth every 12 hours. levothyroxine (SYNTHROID) 125 mcg tablet Take 125 mcg by mouth once daily. montelukast (SINGULAIR) 10 mg tablet Take by mouth. cetirizine (ZYRTEC) 10 mg tablet Take 10 mg by mouth once daily. albuterol HFA (PROVENTIL HFA, VENTOLIN HFA) 90 mcg/actuation inhaler Inhale 2 Puffs as instructed every 4 hours as needed for wheezing/shortness of breath. desmopressin acetate (DDAVP) 0.1 mg tablet Take 0.5 tablets by mouth twice daily. Cholecalciferol, Vitamin D3, 2,000 unit cap Take 1 capsule by mouth once daily. naproxen (NAPROSYN) 500 mg tablet Take 500 mg by mouth twice daily as needed. (Patient not taking: Reported on 01/11/2023) pravastatin (PRAVACHOL) 10 mg tablet Take 1 tablet by mouth once daily. (Patient not taking: Reported on 01/11/2023) VITAMIN D2 50,000 unit capsule Take 1 capsule by mouth one time a week. (Patient not taking: Reported on 01/11/2023) ARIPiprazole (ABILIFY) 10 mg tablet Take 1 tablet by mouth once daily. (Patient not taking: Reported on 01/11/2023) buPROPion XL (WELLBUTRIN XL) 150 mg 24 hr tablet Take 1 tablet by mouth once daily. (Patient not taking: Reported on 01/11/2023) FAMILY HISTORY Problem Relation Age of Onset Heart Father ID Stroke Father other (anuerysm) Father other (immune deficiency) Mother Diabetes Maternal Grandmother other (Colon cancer) Paternal Grandmother in her 50's (?) other (heart defect) Daughter other (Juvenile Rheumatoid Arthritis) Daughter Social History Tobacco Use Smoking status: Never Smokeless tobacco: Never Vaping Use Vaping status: Never Used Substance Use Topics Alcohol use: Yes Comment: Occasionally Drug use: No BP 151/86 Pulse (!) 56 Temp 36.1 ?C (97 ?F) Resp 20 Wt 81 kg (178 lb 9.2 oz) LMP 08/28/2014 (Approximate) SpO2 100% BMI 34.88 kg/m? Review of Systems Constitutional: Negative for chills, fever and malaise/fatigue. HENT: Negative for congestion, ear discharge, ear pain, sinus pain and sore throat. Eyes: Negative for blurred vision, pain, discharge and redness. Respiratory: Negative for cough, hemoptysis, sputum production, shortness of breath, wheezing and stridor. Cardiovascular: Negative for chest pain. Gastrointestinal: Positive for diarrhea and nausea. Negative for abdominal pain and vomiting. Musculoskeletal: Negative for myalgias. Skin: Negative for itching and rash. Neurological: Positive for headaches. Negative for dizziness. Objective Physical Exam Constitutional: General: She is not in acute distress. Appearance: She is not diaphoretic. HENT: Head: Normocephalic. Jaw: No trismus, tenderness, swelling or pain on movement. Mouth/Throat: Mouth: Mucous membranes are moist. Pharynx: Oropharynx is clear. Uvula midline. No pharyngeal swelling, oropharyngeal exudate, posterior oropharyngeal erythema or uvula swelling. Eyes: Conjunctiva/sclera: Conjunctivae normal. Pupils: Pupils are equal, round, and reactive to light. Cardiovascular: Rate and Rhythm: Normal rate and regular rhythm. Heart sounds: Normal heart sounds. Pulmonary: Effort: Pulmonary effort is no (more content not included)... Normal [facility] HIV - WCHon 10-20-2023 HIV Non-Reactive Normal Nonreactive [facility] Comment on above: Performed By: #### L [id number] #### [facility] Laboratory [address] [place], [place], [address] Urgent Care Visit Reporton 0 08-27-2023 Urgent Care Visit Report [facility] [address], [address] [place] [address] OFFICE VISIT Date of Service: 05/01/23 MR#: [id number] Acct: [id number] Name: VENICE ANDERSON Brayden Rep #: [id number] : 1970 Provider: SAMUEL Roberson Age/Sex: 53/F Location: [facility] Status: Signed Intake Vital Signs 04/15/23 15:39 Height 5 ft Intake Visit Reasons: RANDOM NON DOT DRUG BAT/ [place] Chief Complaint: 3m f/u Allergies No Known Allergies Allergy (Verified 07/30/23 16:32) [facility] Medical History Hx of otitis media Hx of diverticulitis of colon Cervical cancer Distal radius fracture Diabetes insipidus Seasonal allergies Prediabetes Elevated blood pressure reading without diagnosis of hypertension DiGeorge's syndrome Surgical History c section H/O: hysterectomy Family History Father Heart disease Myocardial infarction Grandmother Colon cancer Social History household members: significant other number of children: 2 current occupational status: employed history of recent travel: No sexually active: Yes Smoking Status: Never smoker second hand exposure: Yes alcohol intake: never substance use type: does not use what type of physical activity do you participate in: none seatbelt use: never do you feel safe at home: Yes additional social history: boyfriend HPI HPI Chief Complaint: 3m f/u Details: VENICE ANDERSON, is a 53 F who presents to the office today for Coding Level of Care Code No Charge CPT Codes Testing - Breath Alcohol in [facility]: Yes (BATNC) Testing - Non-DOT Random Drug Screen: Yes (NDRDS) [facility] Billing Sheet Testing Breath Alcohol in [facility]: Yes Non-DOT Random Drug Screen: Yes 09/03/23 0953 Date Marcos Irizarry Signature: Date (if applicable) CC: Normal [facility] Absolute lymphocyte countOrd ered By: Carine Grey on 06-19-2023 Lymphocytes Auto (Unsp spec) [#/Vol] 3.09 10*3/uL 0.83-4.51 [facility] Automated lymphocyte count a s percentage of total leukocytesOrdered By: Carine Grey on 06-19-2023 Lymphocytes/100 WBC Auto (Unsp spec) 42.3 % 19-41 [facility] Basophil percentageOrdered B y: Carine Grey on 06-19-2023 Basophils/100 WBC (Bld) 1.0 % 0-1 [facility] Bilirubin [Mass/Vol] 0.70 mg/dL 0.20-1.00 [facility] Comment on above: For patients on eltr ombopag therapy, use of Dimension [place] TBIL is not recommended. Chloride [Moles/Vol] 107 mmol/L 98-107 [facility] Cholesterol [Mass/Vol] 196 mg/dL <200 [facility] Comment on above: <200 mg/dL Desirable 200-240 mg/dL Borderline >240 mg/dL High Risk Eosinophils/100 WBC (Bld) 5.5 % 0-5 [facility] Glucose [Mass/Vol] 93 mg/dL 74-106 [facility] Hemoglobin (Bld) [Mass/Vol] 12.6 g/dL 12.0-15.0 [facility] Monocytes/100 WBC (Bld) 9.7 % 0-10 [facility] Neutrophils (Bld) [#/Vol] 3.0 10*3/uL 2.0-7.7 [facility] Neutrophils/100 WBC (Bld) 40.4 % 47-70 [facility] Potassium [Moles/Vol] 3.7 mmol/L 3.5-5.1 [facility] Protein [Mass/Vol] 7.5 g/dL 6.4-8.2 [facility] Sodium [Moles/Vol] 139 mmol/L 136-145 [facility] Triglyceride [Mass/Vol] 145 mg/dL <199 [facility] Comment on above: The drugs N-Acetylcy steine and Metamizole may falsely depress this assay.Serum Triglycerides Reference Interval Normal <150 mg/dL Borderline high 150 - 199 mg/dL High 200 - 499 mg/dL Very High > or = 500 mg/dL WBC (Bld) [#/Vol] 7.3 10*3/uL 4.4-11.0 [facility] Determination of erythrocyte mean corpuscular volume (MCV)Ordered By: Carine Grey on 06-19-2023 MCV (RBC) [Entitic vol] 93.0 fL 81-99 [facility] Erythrocyte distribution wid th ratioOrdered By: Carine Grey on 06-19-2023 Erythrocyte distribution width (RBC) [Ratio] 13.3 % 11.6-14.6 [facility] Erythrocyte distribution wid th standard deviationOrdered By: Carine Grey on 06-19-2023 Erythrocyte distribution width (RBC) [Entitic vol] 45.2 fL 35.1-43.9 [facility] Hematocrit Auto (Bld) [Volum e fraction]Ordered By: Carine Grey on 06-19-2023 Hematocrit (Bld) [Volume fraction] 39.6 % 37-47 [facility] Immature granulocytes/100 WB C Auto (Bld)Ordered By: [facility] Valentinbeny on 06-19-2023 Immature granulocytes/100 WBC (Bld) 1.100 % 0.0-0.9 [facility] Comment on above: IG% - Immature Granu locytes (promyelocytes, myelocytes and metamyelocytes) > 1% indicates that a LEFT SHIFT is Present. Laboratory - Chemistry and C hemistry - challengeOrdered By: Mckenzieavon lakewesley Grey on 06-19-2023 Albumin/Globulin [Mass ratio] 1.0 {ratio} 0.9-2.4 [facility] ALP [Catalytic activity/Vol] 49 U/L 45-117 [facility] ALT [Catalytic activity/Vol] 25 U/L 13-56 [facility] Cholesterol in HDL [Mass/Vol] 45 mg/dL >40 [facility] Comment on above: The drugs N-Acetylcy steine and Metamizole may falsely depress this assay. Reference Range HDL <40 mg/dL Low HDL Cholesterol HDL >or= 60 mg/dL High HDL Cholesterol Cholesterol in LDL [Mass/Vol] 122 mg/dL 0-130 [facility] CO2 [Moles/Vol] 30.0 mmol/L 21.0-32.0 [facility] Globulin (S) [Mass/Vol] 3.8 g/dL 2.2-4.2 [facility] Urea nitrogen/Creatinine [Mass ratio] 23.6 mg/mg 10-20 [facility] Laboratory - Hematology and Cell countsOrdered By: kgavon lakewesley Grey on 06-19-2023 MCH (RBC) [Entitic mass] 29.6 pg 27.0-32.0 [facility] MCHC (RBC) [Mass/Vol] 31.8 g/dL 32-36 [facility] Nucleated RBC/100 WBC (Bld) [Ratio] 0 % 0-5 [facility] Platelet mean volume (Bld) [Entitic vol] 13.9 fL 6.2-12.0 [facility] Platelets (Bld) [#/Vol] 162 10*3/uL 150-450 [facility] No Panel InformationOrdered By: Carine Grey on 06-19-2023 Estimated GFR (MDRD) Amer 110 mL/min >60 [facility] Comment on above: GFR Calc Estimated GFR (MDRD) Non-Af Amer 91 mL/min >60 [facility] Comment on above: Non- GFR Calc VLDL Cholesterol 29 mg/dL 5-40 [facility] RBC Auto (Bld) [#/Vol]Ordere d By: Carine Grey on 06-19-2023 RBC (Bld) [#/Vol] 4.26 10*6/uL 4.2-5.4 [facility] Serum or plasma calcium jinny urement (mass/volume)Ordered By: Carine Grey on 06-19-2023 Calcium [Mass/Vol] 8.9 mg/dL 8.5-10.1 [facility] Serum or plasma creatinine m easurement (mass/volume)Ordered By: Carine Grey on 06-19-2023 Creatinine [Mass/Vol] 0.72 mg/dL 0.55-1.02 [facility] Comment on above: The validity of the calculated GFR & GFRAA in patients over 70 years has not been determined. Clinical correlation is essential. Serum or plasma thyroid stim ulating hormone (TSH) measurement (units/volume)Ordered By: Svitlana Ricci on 06-19-2023 TSH Qn 0.16 uIU/mL 0.358-3.74 [facility] Serum or plasma urea nitroge n measurement (mass/volume)Ordered By: Carine Grey on 06-19-2023 Urea nitrogen [Mass/Vol] 17 mg/dL 7-18 [facility] Thin prep Papanicolaou smear with manual screeningOrdered By: Carine Grey on 06-19-2023 Thin prep Papanicolaou smear with manual screening 3.7 g/dL 3.2-5.0 [facility] Thin prep Papanicolaou smear with manual screening 7 U/L 15-37 [facility] Thin prep Papanicolaou smear with manual screening 2 5-15 [facility] .Auto Diffon 05-24-2023 Basophil, Absolute 0.1 10 3/mcL Normal 0.0-0.2 [facility] ([place]) Comment on above: Performed By: #### Allie COELLO COVD19 #### [address] [address] Basophils/100 WBC (Bld) 0.9 % Normal 0.0-2.5 [facility] ([place]) Comment on above: Performed By: #### Allie COELLO COVD19 #### [address] [address] Eosinophil, Absolute 0.3 10 3/mcL Normal 0.0-0.4 [facility] ([place]) Comment on above: Performed By: #### F MODE COVD19 #### [address] [address] Eosinophils/100 WBC (Bld) 3.6 % Normal 0.0-7.0 [facility] ([place]) Comment on above: Performed By: #### F MODE COVD19 #### [address] [address] Lymphocyte, Absolute 2.8 10 3/mcL Normal 0.8-3.9 [facility] ([place] Comment on above: Performed By: #### F MODE COVD19 #### [address] [address] Lymphocytes/100 WBC (Bld) 38.7 % Normal 10.0-50.0 [facility] ([place]) Comment on above: Performed By: #### F MODE, COVD19 #### [address] [address] Monocyte, Absolute 0.4 10 3/mcL Normal 0.2-1.0 [facility] ([place]) Comment on above: Performed By: #### F MODE COVD19 #### [address] [address] Monocytes/100 WBC (Bld) 5.4 % Normal 1.7-13.0 A [facility] ([place]) Comment on above: Performed By: #### F ROGER COELLOD19 #### [address] [address] Neutrophils/100 WBC (Bld) 51.4 % Normal 37.0-80.0 [facility] ([place] Comment on above: Performed By: #### HOWIE SANABRIA9 #### [address] [address] .GFRon 05-24-2023 GFR 96 ml/min/1.73sqm Normal [facility] ([place]) Comment on above: Result Comment: GFR Population mean for , Non- Americans Ages 20-29 = 116 mL/min/1.73 sq.m. Ages 30-39 = 107 mL/min/1.73 sq.m. Ages 40-49 = 99 mL/min/1.73 sq.m. Ages 50-59 = 93 mL/min/1.73 sq.m. Ages 60-69 = 85 mL/min/1.73 sq.m. Ages 70+ = 75 mL/min/1.73 sq.m. Chronic Kidney Disease: Less than 60 mL/min/1.73 square meters End Stage Renal Disease: Less than 15 mL/min/1.73 square meters Performed By: #### F MODE, COVD19 #### [address] [address] GFR Non- 79 ml/min/1.73sqm Normal [facility] ([place] Comment on above: Result Comment: GFR Population mean for , Non- Americans Ages 20-29 = 116 mL/min/1.73 sq.m. Ages 30-39 = 107 mL/min/1.73 sq.m. Ages 40-49 = 99 mL/min/1.73 sq.m. Ages 50-59 = 93 mL/min/1.73 sq.m. Ages 60-69 = 85 mL/min/1.73 sq.m. Ages 70+ = 75 mL/min/1.73 sq.m. Chronic Kidney Disease: Less than 60 mL/min/1.73 square meters End Stage Renal Disease: Less than 15 mL/min/1.73 square meters Performed By: #### HOWIE SANABRIA9 #### [place] [address] .MDWon 05-24-2023 Monocyte Distribution Width 18.92 Normal 0.00-20.00 [facility] ([place]) Comment on above: Result Comment: For ED adult patients suspected of sepsis, MDW<=20.0 does not rule out sepsis or risk of sepsis Performed By: #### HOWIE SANABRIA9 #### [place] [address] .NEUABSon 05-24-2023 Neutrophil, Absolute 3.7 10 3/mcL Normal 2.9-6.2 [facility] ([place] Comment on above: Performed By: #### HOWIE SANABRIA9 #### [place] [address] .Urinalysis Microscopic (AO) on 05-24-2023 UA Bacteria Trace Abnormal [facility] ([place]) Comment on above: Performed By: #### U A, UAMICAO #### [place] [address] UA RBC None Seen Normal None Seen [facility] ([place] Comment on above: Performed By: #### U A, UAMICAO #### [place] [address] UA Squam Epithelial 5-10 Abnormal None Seen [facility] ([place]) Comment on above: Performed By: #### U A, UAMICAO #### [place] [address] UA WBC 0-5 Abnormal None Seen [facility] ([place] Comment on above: Performed By: #### U A, UAMICAO #### [address] [address] BMPon 05-24-2023 BUN/Creatinine Ratio 14 ratio Normal 7-27 [facility] ([place] Comment on above: Performed By: #### Allie COELLO, COVD19 #### [address] [address] Calcium [Mass/Vol] 8.6 mg/dL Normal 8.4-10.2 [facility] ([place]) Comment on above: Performed By: #### Allie COELLO, COVD19 #### [address] [address] Chloride [Moles/Vol] 100 mmol/L Normal 98-107 [facility] ([place] Comment on above: Performed By: #### Allie COELLO, COVD19 #### [address] [address] CO2 [Moles/Vol] 29 mmol/L Normal 22-29 [facility] ([place] Comment on above: Performed By: #### Allie COELLO COVVianey9 #### [address] [address] Creatinine [Mass/Vol] 0.77 mg/dL Normal 0.55-1.02 [facility] ([place]) Comment on above: Performed By: #### Allie COELLO, COVD19 #### [address] [address] Electrolyte Balance 9.0 mEq/L Normal 4.0-15.0 [facility] ([place] Comment on above: Performed By: #### Allie COELLO COVD19 #### [address] [address] Glucose [Mass/Vol] 100 mg/dL Normal 70-105 [facility] ([place]) Comment on above: Performed By: #### Allie COELLO, COVD19 #### [address] [address] Potassium [Moles/Vol] 3.9 mmol/L Normal 3.5-5.1 [facility] ([place]) Comment on above: Performed By: #### HOWIE SANABRIA9 #### [address] [address] Sodium [Moles/Vol] 138 mmol/L Normal 136-145 [facility] ([place]) Comment on above: Performed By: #### HOWIE SANABRIA9 #### [address] [address] Urea nitrogen [Mass/Vol] 11 mg/dL Normal 7-18 [facility] ([place] Comment on above: Performed By: #### HOWIE SANABRIA9 #### [address] [address] CBCon 05-24-2023 Erythrocyte distribution width (RBC) [Ratio] 15.0 % High 11.5-14.5 [facility] ([place] Comment on above: Performed By: #### HOWIE SANABRIA9 #### [address] [address] Hematocrit (Bld) [Volume fraction] 39.8 % Normal 37.0-47.0 [facility] ([place] Comment on above: Performed By: #### HOWIE SANABRIA9 #### [address] [address] Hgb 13.4 G/dL Normal 12.0-16.0 [facility] ([place] Comment on above: Performed By: #### HOWIE SANABRIA9 #### [address] [address] MCH (RBC) [Entitic mass] 30.2 pg Normal 27.0-31.2 [facility] ([place] Comment on above: Performed By: #### HOWIE SANABRIA9 #### [address] [address] MCHC 33.8 G/dL Normal 33.0-37.0 [facility] ([place] Comment on above: Performed By: #### HOWIE SANABRIA9 #### [address] [address] MCV (RBC) [Entitic vol] 89.5 fL Normal 80.0-94.0 A [facility] ([place] Comment on above: Performed By: #### F MODE, COVD19 #### [address] [place] [address] [place], [place] [address] Platelet 178 10 3/mcL Normal 130-400 [facility] ([place]) Comment on above: Performed By: #### F MODE, COVD19 #### [address] [address] Platelet mean volume (Bld) [Entitic vol] 11.4 fL High 7.4-10.4 [facility] ([place] Comment on above: Performed By: #### F MODE, COVD19 #### [address] [address] RBC 4.45 10 6/mcL Normal 4.20-5.40 [facility] ([place] Comment on above: Performed By: #### Allie COELLO, COVD19 #### [address] [address] WBC 7.2 10 3/mcL Normal 4.6-10.8 [facility] ([place] Comment on above: Performed By: #### F MODE, COVD19 #### [address] [address] LABORATORYOrdered By: Marques Carmona on 05-24-2023 Appearance (U) Clear (05/24/23 4:11 PM) Normal Clear AO Auto Urine SS Bacteria LM.HPF (Urine sed) [#/Area] Trace /HPF Invalid Interpretation Code AO Auto Urine SS Bilirubin Ql (U) Negative (05/24/23 4:11 PM) Normal Negative AO Auto Urine SS Color (U) Yellow (05/24/23 4:11 PM) Normal AO Auto Urine SS Glucose Test strip (U) [Mass/Vol] Negative Normal Negative AO Auto Urine SS Hemoglobin Auto test strip (U) [Mass/Vol] Negative (05/24/23 4:11 PM) Normal Negative AO Auto Urine SS Ketones Ql (U) Negative Normal Negative AO Auto Urine SS UA Leuk Est Trace *ABN* (05/24/23 4:11 PM) Invalid Interpretation Code Negative AO Auto Urine SS UA Nitrite Negative (05/24/23 4:11 PM) Normal Negative AO Auto Urine SS UA pH 7.5 (05/24/23 4:11 PM) Normal 5.0 - 8.0 AO Auto Urine SS UA Protein Negative Normal Negative AO Auto Urine SS UA RBC None Seen /HPF Normal None Seen AO Auto Urine SS UA Spec Grav 1.015 (05/24/23 4:11 PM) Normal 1.015-1.025 AO Auto Urine SS UA Specimen Type Clean Catch (05/24/23 4:11 PM) Normal AO Auto Urine SS UA Squam Epithelial 5-10 /HPF Invalid Interpretation Code None Seen AO Auto Urine SS UA Urobilinogen 0.2 E.U./dL Normal 0.2-1.0 AO Auto Urine SS WBC LM.HPF (Urine sed) [#/Area] 0-5 /HPF Invalid Interpretation Code None Seen AO Auto Urine SS LABORATORYOrdered By: SYSTEM SYSTEM on 05-24-2023 Basophil, Absolute 0.1 103/mcL Normal 0.0 - 0.2 10^3/mcL AO Workflow SS Basophils/100 WBC (Bld) 0.9 % Normal 0.0 - 2.5 % AO Workflow SS Calcium [Mass/Vol] 8.6 mg/dL Normal 8.4 - 10. 2 mg/dL AO ADM SS Chloride [Moles/Vol] 100 mmol/L Normal 98 - 107 mmol/L AO ADM SS CO2 [Moles/Vol] 29 mmol/L Normal 22 - 29 mmol/L AO AD M SS Creatinine [Mass/Vol] 0.77 mg/dL Normal 0.55 - 1.02 mg/dL AO ADM SS Electrolyte Balance 9.0 mEq/L Normal 4.0 - 15 .0 mEq/L AO ADM SS Eosinophil, Absolute 0.3 103/mcL Normal 0.0 - 0 .4 10^3/mcL AO Workflow SS Eosinophils/100 WBC (Bld) 3.6 % Normal 0.0 - 7.0 % AO Workflow SS Erythrocyte distribution width (RBC) [Ratio] 15.0 % High 11.5 - 14.5 % AO Workflow SS GFR/1.73 sq M.predicted among blacks MDRD (S/P/Bld) [Vol rate/Area] 96 ml/min/1.73sqm Invalid Interpretation Code AO Chemistry S Comment on above: Interpretive Data: GFR Population mean for , Non- Americans Ages 20-29 = 116 mL/min/1.73 sq.m. Ages 30-39 = 107 mL/min/1.73 sq.m. Ages 40-49 = 99 mL/min/1.73 sq.m. Ages 50-59 = 93 mL/min/1.73 sq.m. Ages 60-69 = 85 mL/min/1.73 sq.m. Ages 70+ = 75 mL/min/1.73 sq.m. Chronic Kidney Disease: Less than 60 mL/min/1.73 square meters End Stage Renal Disease: Less than 15 mL/min/1.73 square meters GFR/1.73 sq M.predicted among non-blacks MDRD (S/P/Bld) [Vol rate/Area] 79 ml/min/1.73sqm Invalid Interpretation Code AO Chemistry S Comment on above: Interpretive Data: GFR Population mean for , Non- Americans Ages 20-29 = 116 mL/min/1.73 sq.m. Ages 30-39 = 107 mL/min/1.73 sq.m. Ages 40-49 = 99 mL/min/1.73 sq.m. Ages 50-59 = 93 mL/min/1.73 sq.m. Ages 60-69 = 85 mL/min/1.73 sq.m. Ages 70+ = 75 mL/min/1.73 sq.m. Chronic Kidney Disease: Less than 60 mL/min/1.73 square meters End Stage Renal Disease: Less than 15 mL/min/1.73 square meters Glucose [Mass/Vol] 100 mg/dL Normal 70 - 105 mg/dL AO ADM SS Hematocrit (Bld) [Volume fraction] 39.8 % Normal 37.0 - 47.0 % AO Workflow SS Hemoglobin (Bld) [Mass/Vol] 13.4 G/dL Normal 12.0 - 16.0 G/dL AO Workflow SS Lymphocyte, Absolute 2.8 103/mcL Normal 0.8 - 3 .9 10^3/mcL AO Workflow SS Lymphocytes/100 WBC (Bld) 38.7 % Normal 10.0 - 50.0 % AO Workflow SS MCH (RBC) [Entitic mass] 30.2 pg Normal 27.0 - 31.2 pg AO Workflow SS MCHC 33.8 G/dL Normal 33.0 - 37.0 G/dL AO Workflow SS MCV (RBC) [Entitic vol] 89.5 fL Normal 80.0 - 94.0 fL AO Workflow SS Monocyte distribution width Auto (Bld) [Entitic vol] 18.92 1 Normal 0.00 - 20.00 AO Workflow SS Comment on above: Result Comment: For ED adult patients suspected of sepsis, MDW<=20.0 does not rule out sepsis or risk of sepsis Monocyte, Absolute 0.4 103/mcL Normal 0.2 - 1.0 10^3/mcL AO Workflow SS Monocytes/100 WBC (Bld) 5.4 % Normal 1.7 - 13.0 % AO Workflow SS Neutrophil, Absolute 3.7 103/mcL Normal 2.9 - 6 .2 10^3/mcL AO Workflow SS Neutrophils/100 WBC (Bld) 51.4 % Normal 37.0 - 80.0 % AO Workflow SS Platelet mean volume (Bld) [Entitic vol] 11.4 fL High 7.4 - 10.4 fL AO Workflow SS Platelets (Bld) [#/Vol] 178 103/mcL Normal 130 - 400 10^3/mcL AO Workflow SS Potassium [Moles/Vol] 3.9 mmol/L Normal 3.5 - 5.1 mmol/L AO ADM SS RBC (Bld) [#/Vol] 4.45 106/mcL Normal 4.20 - 5.4 0 10^6/mcL AO Workflow SS Sodium [Moles/Vol] 138 mmol/L Normal 136 - 145 mmol/L AO ADM SS TSH Qn 57.68 m[IU]/L High 0.36 - 3.74 mcIU/mL AO ADM SS Urea nitrogen [Mass/Vol] 11 mg/dL Normal 7 - 18 mg/dL AO ADM SS Urea nitrogen/Creatinine [Mass ratio] 14 ratio Normal 7 - 27 ratio AO ADM SS WBC (Bld) [#/Vol] 7.2 103/mcL Normal 4.6 - 10.8 10^3/mcL AO Workflow SS TSHon 05-24-2023 TSH Qn 57.68 m[IU]/L High 0.36-3.74 [facility] ([place]) Comment on above: Performed By: #### F MODE, [id number] #### [place] [address] UAon 05-24-2023 Color (U) Yellow Normal [facility] ([place]) Comment on above: Performed By: #### U A, UAMICAO #### [place] [address] Glucose (U) [Mass/Vol] Negative Normal Negative [facility] ([place]) Comment on above: Performed By: #### U A, UAMICAO #### [place] [address] Ketones Ql (U) Negative Normal Negative [facility] ([place]) Comment on above: Performed By: #### U A, UAMICAO #### [place] [address] UA Appear Clear Normal Clear [facility] ([place]) Comment on above: Performed By: #### U A, UAMICAO #### [place] [address] UA Blood Negative Normal Negative [facility] ([place] Comment on above: Performed By: #### U A, UAMICAO #### [place] [address] UA Leuk Est Trace Abnormal Negative [facility] ([place] Comment on above: Performed By: #### U A, UAMICAO #### [place] [address] UA Nitrite Negative Normal Negative [facility] ([place] Comment on above: Performed By: #### U A, UAMICAO #### [place] [address] UA pH 7.5 Normal 5.0 - 8.0 [facility] ([place] Comment on above: Performed By: #### U A, UAMICAO #### [place] [address] UA Protein Negative Normal Negative [facility] ([place] Comment on above: Performed By: #### U A, UAMICAO #### [address] [address] UA Spec Grav 1.015 Normal 1.015-1.025 [facility] ([place]) Comment on above: Performed By: #### U A, UAMICAO #### [address] [address] UA Specimen Type Clean Catch Normal [facility] ([place]) Comment on above: Performed By: #### U A, UAMICAO #### [address] [address] UA Urobilinogen 0.2 E.U./dL Normal 0.2-1.0 [facility] ([place] Comment on above: Performed By: #### U A, UAMICAO #### [place] [address] Urobilinogen (U) [Mass/Vol] Negative Normal Negative [facility] ([place] Comment on above: Performed By: #### U A, UAMICAO #### [address] [address] .Auto Diffon 2023 Basophil, Absolute 0.0 10 3/mcL Normal 0.0-0.2 [facility] ([place]) Comment on above: Performed By: #### M ORPH, BMP, ADIFF, CBC, ANEU, MDW, GFR #### [address] [address] Basophils/100 WBC (Bld) 0.4 % Normal 0.0-2.5 A [facility] ([place]) Comment on above: Performed By: #### M ORPH, BMP, ADIFF, CBC, ANEU, MDW, GFR #### [place] [address] Eosinophil, Absolute 0.1 10 3/mcL Normal 0.0-0.4 [facility] ([place] Comment on above: Performed By: #### M ORPH, BMP, ADIFF, CBC, ANEU, MDW, GFR #### [address] [address] Eosinophils/100 WBC (Bld) 1.0 % Normal 0.0-7.0 [facility] ([place] Comment on above: Performed By: #### M ORPH, BMP, ADIFF, CBC, ANEU, MDW, GFR #### [address] [address] Lymphocyte, Absolute 0.3 10 3/mcL Low 0.8-3.9 [facility] ([place] Comment on above: Performed By: #### M ORPH, BMP, ADIFF, CBC, ANEU, MDW, GFR #### [address] [address] Lymphocytes/100 WBC (Bld) 5.1 % Low 10.0-50.0 [facility] ([place] Comment on above: Performed By: #### M ORPH, BMP, ADIFF, CBC, ANEU, MDW, GFR #### [address] [address] Monocyte, Absolute 0.4 10 3/mcL Normal 0.2-1.0 [facility] ([place] Comment on above: Performed By: #### M ORPH, BMP, ADIFF, CBC, ANEU, MDW, GFR #### [address] [address] Monocytes/100 WBC (Bld) 7.2 % Normal 1.7-13.0 A [facility] ([place] Comment on above: Performed By: #### M ORPH, BMP, ADIFF, CBC, ANEU, MDW, GFR #### [address] [address] Neutrophils/100 WBC (Bld) 86.3 % High 37.0-80.0 [facility] ([place] Comment on above: Performed By: #### M ORPH, BMP, ADIFF, CBC, ANEU, MDW, GFR #### [address] [address] .GFRon 2023 GFR 81 ml/min/1.73sqm Normal [facility] ([place]) Comment on above: Result Comment: GFR Population mean for , Non- Americans Ages 20-29 = 116 mL/min/1.73 sq.m. Ages 30-39 = 107 mL/min/1.73 sq.m. Ages 40-49 = 99 mL/min/1.73 sq.m. Ages 50-59 = 93 mL/min/1.73 sq.m. Ages 60-69 = 85 mL/min/1.73 sq.m. Ages 70+ = 75 mL/min/1.73 sq.m. Chronic Kidney Disease: Less than 60 mL/min/1.73 square meters End Stage Renal Disease: Less than 15 mL/min/1.73 square meters Performed By: #### F HOWIE COELLO9 #### [address] [place] [address] [place], [place] [address] GFR Non- 67 ml/min/1.73sqm Normal [facility] ([place] Comment on above: Result Comment: GFR Population mean for , Non- Americans Ages 20-29 = 116 mL/min/1.73 sq.m. Ages 30-39 = 107 mL/min/1.73 sq.m. Ages 40-49 = 99 mL/min/1.73 sq.m. Ages 50-59 = 93 mL/min/1.73 sq.m. Ages 60-69 = 85 mL/min/1.73 sq.m. Ages 70+ = 75 mL/min/1.73 sq.m. Chronic Kidney Disease: Less than 60 mL/min/1.73 square meters End Stage Renal Disease: Less than 15 mL/min/1.73 square meters Performed By: #### F HOWIE COELLO9 #### [address] [place], [place] [address] .MDWon 2023 Monocyte Distribution Width 21.74 High 0.00-20.00 [facility] ([place] Comment on above: Result Comment: For adults in ED, MDW>20.0 may be associated with a higher risk of sepsis during the first 12hrs of hospital admission Performed By: #### M ORPH, BMP, ADIFF, CBC, ANEU, MDW, GFR #### [address] [address] .Morphon 2023 Platelet Estimate Slt Decreased Normal [facility] ([place]) Comment on above: Performed By: #### F ROGER COELLOD19 #### [address] [address] .NEUABSon 2023 Neutrophil, Absolute 5.3 10 3/mcL Normal 2.9-6.2 [facility] ([place]) Comment on above: Performed By: #### M ORPH, BMP, ADIFF, CBC, ANEU, MDW, GFR #### [address] [address] BMPon 2023 BUN/Creatinine Ratio 10 ratio Normal 7-27 [facility]) Comment on above: Performed By: #### M ORPH, BMP, ADIFF, CBC, ANEU, MDW, GFR #### [address] [address] Calcium [Mass/Vol] 9.1 mg/dL Normal 8.4-10.2 [facility] ([place]) Comment on above: Performed By: #### M ORPH, BMP, ADIFF, CBC, ANEU, MDW, GFR #### [address] [address] Chloride [Moles/Vol] 105 mmol/L Normal 98-107 [facility]) Comment on above: Performed By: #### M ORPH, BMP, ADIFF, CBC, ANEU, MDW, GFR #### [address] [address] CO2 [Moles/Vol] 27 mmol/L Normal 22-29 [facility] ([place] Comment on above: Performed By: #### M ORPH, BMP, ADIFF, CBC, ANEU, MDW, GFR #### [address] [address] Creatinine [Mass/Vol] 0.89 mg/dL Normal 0.55-1.02 [facility] ([place]) Comment on above: Performed By: #### M ORPH, BMP, ADIFF, CBC, ANEU, MDW, GFR #### [address] [address] Electrolyte Balance 11.0 mEq/L Normal 4.0-15.0 [facility] ([place] Comment on above: Performed By: #### M ORPH, BMP, ADIFF, CBC, ANEU, MDW, GFR #### [address] [address] Glucose [Mass/Vol] 112 mg/dL High 70-105 [facility] ([place] Comment on above: Performed By: #### M ORPH, BMP, ADIFF, CBC, ANEU, MDW, GFR #### [address] [address] Potassium [Moles/Vol] 3.7 mmol/L Normal 3.5-5.1 [facility] ([place]) Comment on above: Performed By: #### M ORPH, BMP, ADIFF, CBC, ANEU, MDW, GFR #### [address] [address] Sodium [Moles/Vol] 143 mmol/L Normal 136-145 [facility] ([place] Comment on above: Performed By: #### M ORPH, BMP, ADIFF, CBC, ANEU, MDW, GFR #### [address] [address] Urea nitrogen [Mass/Vol] 9 mg/dL Normal 7-18 [facility] ([place] Comment on above: Performed By: #### M ORPH, BMP, ADIFF, CBC, ANEU, MDW, GFR #### [address] [address] CBCon 2023 Erythrocyte distribution width (RBC) [Ratio] 14.8 % High 11.5-14.5 [facility] ([place] Comment on above: Performed By: #### M ORPH, BMP, ADIFF, CBC, ANEU, MDW, GFR #### [address] [address] Hematocrit (Bld) [Volume fraction] 42.9 % Normal 37.0-47.0 [facility] ([place] Comment on above: Performed By: #### M ORPH, BMP, ADIFF, CBC, ANEU, MDW, GFR #### [address] [address] Hgb 14.1 G/dL Normal 12.0-16.0 [facility] ([place] Comment on above: Performed By: #### M ORPH, BMP, ADIFF, CBC, ANEU, MDW, GFR #### [place] [address] MCH (RBC) [Entitic mass] 28.9 pg Normal 27.0-31.2 [facility] ([place] Comment on above: Performed By: #### M ORPH, BMP, ADIFF, CBC, ANEU, MDW, GFR #### [place] [address] MCHC 32.9 G/dL Low 33.0-37.0 [facility] ([place] Comment on above: Performed By: #### M ORPH, BMP, ADIFF, CBC, ANEU, MDW, GFR #### [place] [address] MCV (RBC) [Entitic vol] 87.9 fL Normal 80.0-94.0 [facility] ([place]) Comment on above: Performed By: #### M ORPH, BMP, ADIFF, CBC, ANEU, MDW, GFR #### [place] [address] Platelet 136 10 3/mcL Normal 130-400 [facility] ([place] Comment on above: Performed By: #### M ORPH, BMP, ADIFF, CBC, ANEU, MDW, GFR #### [address] [address] Platelet mean volume (Bld) [Entitic vol] 11.0 fL High 7.4-10.4 [facility] ([place]) Comment on above: Performed By: #### M ORPH, BMP, ADIFF, CBC, ANEU, MDW, GFR #### [address] [place], [place] [address] RBC 4.88 10 6/mcL Normal 4.20-5.40 [facility] ([place]) Comment on above: Performed By: #### M ORPH, BMP, ADIFF, CBC, ANEU, MDW, GFR #### [address] [place], [place] [address] WBC 6.2 10 3/mcL Normal 4.6-10.8 [facility] ([place]) Comment on above: Performed By: #### M ORPH, BMP, ADIFF, CBC, ANEU, MDW, GFR #### [address] [place], [place] [address] CNOVon 2023 CNOV Office Visit (UCWSTR) ---- VENICE ANDERSON ([id number]) 1970 F Date Time Provider Department 02/26/23 12:30 PM JORGE ESOPSITO [facility] During your visit today, we recorded the following information about you: Jorge Esposito APRN.CNP 2023 12:50 PM Signed Nontoxic-appearing female presents urgent care chief complaint hard time breathing. Patient states that started last night. States feels like somebody is choking her. Is having hard time swallowing. Airway feels tight. Does have some tightness in her chest. No OTC medications. With patient presenting symptoms recommend patient be seen ED for further valuation care. Patient states will drive self to [place] [facility]. Declined transport. Jorge Esposito APRN.CNP Allergies As of Date: 2023 Noted Allergy Reaction BENADRYL (DIPHENHYDRAMINE HCL) 12/31/2004 Comments: as a child Date Reviewed: 01/11/2023 Reviewed by: Nazanin Sosa MA - Fully Assessed Primary Visit Diagnosis:Procedure not carried out [Z53.9] Prescriptions as of 2023 - levothyroxine (SYNTHROID) 125 mcg tablet Take 125 mcg by mouth once daily. - naproxen (NAPROSYN) 500 mg tablet Take 500 mg by mouth twice daily as needed. - montelukast (SINGULAIR) 10 mg tablet Take by mouth. - cetirizine (ZYRTEC) 10 mg tablet Take 10 mg by mouth once daily. - albuterol HFA (PROVENTIL HFA, VENTOLIN HFA) 90 mcg/actuation inhaler Inhale 2 Puffs as instructed every 4 hours as needed for wheezing/shortness of breath. - pravastatin (PRAVACHOL) 10 mg tablet Take 1 tablet by mouth once daily. - VITAMIN D2 50,000 unit capsule Take 1 capsule by mouth one time a week. - desmopressin acetate (DDAVP) 0.1 mg tablet Take 0.5 tablets by mouth twice daily. - Cholecalciferol, Vitamin D3, 2,000 unit cap Take 1 capsule by mouth once daily. - ARIPiprazole (ABILIFY) 10 mg tablet Take 1 tablet by mouth once daily. - buPROPion XL (WELLBUTRIN XL) 150 mg 24 hr tablet Take 1 tablet by mouth once daily. 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 [id number] 2023 SARS-CoV-2 (COVID-19) RNA SAQIB+probe Ql (Unsp spec) Negative Normal Negative [facility] ([place]) Comment on above: Performed By: #### F MODE COVD19 #### [address] [address] SARS-CoV-2 (COVID-19) RNA SAQIB+probe Ql (Unsp spec) Normal [facility] ([place]) Comment on above: Result Comment: Nega tive results do not preclude SARS-CoV-2 infection and should not be used as the sole basis for patient management decisions. Negative results must be combined with clinical observations, patient history, and epidemiological information. There is a risk of false negative values resulting from improperly collected, transported, or handled specimens. There is a risk of false negative values due to the presence of sequence variants in the pathogen targets of the assay, procedural errors, amplification inhibitors in specimens, or inadequate numbers of organisms for amplification. [employer] SARS-CoV-2 Assay is a Real-Time reverse-transcriptase polymerase chain reaction (RT-PCR) based qualitative in vitro diagnostic test intended for the qualitative detection of nucleic acid from the SARS-CoV-2 in nasopharyngeal swab specimens collected from individuals suspected of COVID-19 by their healthcare provider. Testing is limited to laboratories certified under the Clinical Laboratory Improvement Amendments of 1988 (CLIA), 42 U.S.C. ?263a, to perform moderate and high complexity tests. COVID-19 Int Performed By: #### F MODE COVD19 #### [address] [address] FLURSVon 2023 Flu A PCR (AO) Positive Abnormal Negative [facility] ([place]) Comment on above: Result Comment: Posi tive Results: Positive Flu A/B or RSV for by PCR. Positive test results do not rule out bacterial infection or co-infection with other pathogens. Test results should be interpreted in conjunction with other laboratory and clinical data. Negative Results: Negative for by PCR. Negative test results do not preclude influenza virus or RSV infection and should not be used as the sole basis for diagnosis, treatment, or other management decisions. There is a risk of false negative RSV results when at low concentration and in the presence of co-infection with high concentration of influenza A. Invalid Results: An Invalid result (INV) was obtained. The test was repeated with similar results. REPEAT COLLECTION AND TESTING IS RECOMMENDED. The [employer] Flu A/B & RSV Assay is a real-time polymerase chain reaction (PCR) based qualitative in vitro diagnostic test for the direct detection and differentiation of influenza A virus, influenza B virus, and respiratory syncytial virus (RSV) nucleic acid in nasopharyngeal swab (SEED CLEANING MACHINE OPERATOR) specimens from patients with signs and symptoms of respiratory infection in conjunction with clinical and laboratory findings. The test is intended for use as an aid in the differential diagnosis of influenza A virus, influenza B virus, and RSV in humans and is not intended to detect influenza C. Performed By: #### F MODE COVD19 #### [address] [address] Flu B PCR (AO) Negative Normal Negative [facility] ([place]) Comment on above: Result Comment: Posi tive Results: Positive Flu A/B or RSV for by PCR. Positive test results do not rule out bacterial infection or co-infection with other pathogens. Test results should be interpreted in conjunction with other laboratory and clinical data. Negative Results: Negative for by PCR. Negative test results do not preclude influenza virus or RSV infection and should not be used as the sole basis for diagnosis, treatment, or other management decisions. There is a risk of false negative RSV results when at low concentration and in the presence of co-infection with high concentration of influenza A. Invalid Results: An Invalid result (INV) was obtained. The test was repeated with similar results. REPEAT COLLECTION AND TESTING IS RECOMMENDED. The [employer] Flu A/B & RSV Assay is a real-time polymerase chain reaction (PCR) based qualitative in vitro diagnostic test for the direct detection and differentiation of influenza A virus, influenza B virus, and respiratory syncytial virus (RSV) nucleic acid in nasopharyngeal swab (SEED CLEANING MACHINE OPERATOR) specimens from patients with signs and symptoms of respiratory infection in conjunction with clinical and laboratory findings. The test is intended for use as an aid in the differential diagnosis of influenza A virus, influenza B virus, and RSV in humans and is not intended to detect influenza C. Performed By: #### F MODE COVD19 #### [address] [address] RSV PCR (AO) Negative Normal Negative [facility] ([place]) Comment on above: Result Comment: Posi tive Results: Positive Flu A/B or RSV for by PCR. Positive test results do not rule out bacterial infection or co-infection with other pathogens. Test results should be interpreted in conjunction with other laboratory and clinical data. Negative Results: Negative for by PCR. Negative test results do not preclude influenza virus or RSV infection and should not be used as the sole basis for diagnosis, treatment, or other management decisions. There is a risk of false negative RSV results when at low concentration and in the presence of co-infection with high concentration of influenza A. Invalid Results: An Invalid result (INV) was obtained. The test was repeated with similar results. REPEAT COLLECTION AND TESTING IS RECOMMENDED. The [employer] Flu A/B & RSV Assay is a real-time polymerase chain reaction (PCR) based qualitative in vitro diagnostic test for the direct detection and differentiation of influenza A virus, influenza B virus, and respiratory syncytial virus (RSV) nucleic acid in nasopharyngeal swab (SEED CLEANING MACHINE OPERATOR) specimens from patients with signs and symptoms of respiratory infection in conjunction with clinical and laboratory findings. The test is intended for use as an aid in the differential diagnosis of influenza A virus, influenza B virus, and RSV in humans and is not intended to detect influenza C. Performed By: #### F MODE COVD19 #### [place] [address] LABORATORYOrdered By: SYSTEM SYSTEM on 2023 Basophil, Absolute 0.0 103/mcL Normal 0.0 - 0.2 10^3/mcL AO Workflow SS Basophils/100 WBC (Bld) 0.4 % Normal 0.0 - 2.5 % AO Workflow SS Calcium [Mass/Vol] 9.1 mg/dL Normal 8.4 - 10. 2 mg/dL AO ADM SS Chloride [Moles/Vol] 105 mmol/L Normal 98 - 107 mmol/L AO ADM SS CO2 [Moles/Vol] 27 mmol/L Normal 22 - 29 mmol/L AO AD M SS Creatinine [Mass/Vol] 0.89 mg/dL Normal 0.55 - 1.02 mg/dL AO ADM SS Electrolyte Balance 11.0 mEq/L Normal 4.0 - 15 .0 mEq/L AO ADM SS Eosinophil, Absolute 0.1 103/mcL Normal 0.0 - 0 .4 10^3/mcL AO Workflow SS Eosinophils/100 WBC (Bld) 1.0 % Normal 0.0 - 7.0 % AO Workflow SS Erythrocyte distribution width (RBC) [Ratio] 14.8 % High 11.5 - 14.5 % AO Workflow SS GFR/1.73 sq M.predicted among blacks MDRD (S/P/Bld) [Vol rate/Area] 81 ml/min/1.73sqm Invalid Interpretation Code AO Chemistry S Comment on above: Interpretive Data: GFR Population mean for , Non- Americans Ages 20-29 = 116 mL/min/1.73 sq.m. Ages 30-39 = 107 mL/min/1.73 sq.m. Ages 40-49 = 99 mL/min/1.73 sq.m. Ages 50-59 = 93 mL/min/1.73 sq.m. Ages 60-69 = 85 mL/min/1.73 sq.m. Ages 70+ = 75 mL/min/1.73 sq.m. Chronic Kidney Disease: Less than 60 mL/min/1.73 square meters End Stage Renal Disease: Less than 15 mL/min/1.73 square meters GFR/1.73 sq M.predicted among non-blacks MDRD (S/P/Bld) [Vol rate/Area] 67 ml/min/1.73sqm Invalid Interpretation Code AO Chemistry S Comment on above: Interpretive Data: GFR Population mean for , Non- Americans Ages 20-29 = 116 mL/min/1.73 sq.m. Ages 30-39 = 107 mL/min/1.73 sq.m. Ages 40-49 = 99 mL/min/1.73 sq.m. Ages 50-59 = 93 mL/min/1.73 sq.m. Ages 60-69 = 85 mL/min/1.73 sq.m. Ages 70+ = 75 mL/min/1.73 sq.m. Chronic Kidney Disease: Less than 60 mL/min/1.73 square meters End Stage Renal Disease: Less than 15 mL/min/1.73 square meters Glucose [Mass/Vol] 112 mg/dL High 70 - 105 mg/dL AO ADM SS Hematocrit (Bld) [Volume fraction] 42.9 % Normal 37.0 - 47.0 % AO Workflow SS Hemoglobin (Bld) [Mass/Vol] 14.1 G/dL Normal 12.0 - 16.0 G/dL AO Workflow SS Lymphocyte, Absolute 0.3 103/mcL Low 0.8 - 3 .9 10^3/mcL AO Workflow SS Lymphocytes/100 WBC (Bld) 5.1 % Low 10.0 - 50.0 % AO Workflow SS MCH (RBC) [Entitic mass] 28.9 pg Normal 27.0 - 31.2 pg AO Workflow SS MCHC 32.9 G/dL Low 33.0 - 37.0 G/dL AO Workflow SS MCV (RBC) [Entitic vol] 87.9 fL Normal 80.0 - 94.0 fL AO Workflow SS Monocyte distribution width Auto (Bld) [Entitic vol] 21.74 1 High 0.00 - 20.00 AO Workflow SS Comment on above: Result Comment: For adults in ED, MDW>20.0 may be associated with a higher risk of sepsis during the first 12hrs of hospital admission Monocyte, Absolute 0.4 103/mcL Normal 0.2 - 1.0 10^3/mcL AO Workflow SS Monocytes/100 WBC (Bld) 7.2 % Normal 1.7 - 13.0 % AO Workflow SS Neutrophil, Absolute 5.3 103/mcL Normal 2.9 - 6 .2 10^3/mcL AO Workflow SS Neutrophils/100 WBC (Bld) 86.3 % High 37.0 - 80.0 % AO Workflow SS Platelet mean volume (Bld) [Entitic vol] 11.0 fL High 7.4 - 10.4 fL AO Workflow SS Platelets (Bld) [#/Vol] 136 103/mcL Normal 130 - 400 10^3/mcL AO Workflow SS Potassium [Moles/Vol] 3.7 mmol/L Normal 3.5 - 5.1 mmol/L AO ADM SS RBC (Bld) [#/Vol] 4.88 106/mcL Normal 4.20 - 5.4 0 10^6/mcL AO Workflow SS Sodium [Moles/Vol] 143 mmol/L Normal 136 - 145 mmol/L AO ADM SS Urea nitrogen [Mass/Vol] 9 mg/dL Normal 7 - 18 mg/dL AO ADM SS Urea nitrogen/Creatinine [Mass ratio] 10 ratio Normal 7 - 27 ratio AO ADM SS WBC (Bld) [#/Vol] 6.2 103/mcL Normal 4.6 - 10.8 10^3/mcL AO Workflow SS LABORATORYOrdered By: Jennifer Wagner on 2023 FLUAV RNA SAQIB+probe Ql (Upper resp) Positive 4 *ABN* (02/26/23 3:41 PM) Invalid Interpretation Code Negative AO Auto Urine SS Comment on above: Interpretive Data: P ositive Results: Positive Flu A/B or RSV for by PCR. Positive test results do not rule out bacterial infection or co-infection with other pathogens. Test results should be interpreted in conjunction with other laboratory and clinical data. Negative Results: Negative for by PCR. Negative test results do not preclude influenza virus or RSV infection and should not be used as the sole basis for diagnosis, treatment, or other management decisions. There is a risk of false negative RSV results when at low concentration and in the presence of co-infection with high concentration of influenza A. Invalid Results: An Invalid result (INV) was obtained. The test was repeated with similar results. REPEAT COLLECTION AND TESTING IS RECOMMENDED. The [employer] Flu A/B & RSV Assay is a real-time polymerase chain reaction (PCR) based qualitative in vitro diagnostic test for the direct detection and differentiation of influenza A virus, influenza B virus, and respiratory syncytial virus (RSV) nucleic acid in nasopharyngeal swab (SEED CLEANING MACHINE OPERATOR) specimens from patients with signs and symptoms of respiratory infection in conjunction with clinical and laboratory findings. The test is intended for use as an aid in the differential diagnosis of influenza A virus, influenza B virus, and RSV in humans and is not intended to detect influenza C. FLUBV RNA SAQIB+probe Ql (Upper resp) Negative 5 (02/26/23 3:41 PM) Normal Negative AO Auto Urine SS Comment on above: Interpretive Data: P ositive Results: Positive Flu A/B or RSV for by PCR. Positive test results do not rule out bacterial infection or co-infection with other pathogens. Test results should be interpreted in conjunction with other laboratory and clinical data. Negative Results: Negative for by PCR. Negative test results do not preclude influenza virus or RSV infection and should not be used as the sole basis for diagnosis, treatment, or other management decisions. There is a risk of false negative RSV results when at low concentration and in the presence of co-infection with high concentration of influenza A. Invalid Results: An Invalid result (INV) was obtained. The test was repeated with similar results. REPEAT COLLECTION AND TESTING IS RECOMMENDED. The [employer] Flu A/B & RSV Assay is a real-time polymerase chain reaction (PCR) based qualitative in vitro diagnostic test for the direct detection and differentiation of influenza A virus, influenza B virus, and respiratory syncytial virus (RSV) nucleic acid in nasopharyngeal swab (SEED CLEANING MACHINE OPERATOR) specimens from patients with signs and symptoms of respiratory infection in conjunction with clinical and laboratory findings. The test is intended for use as an aid in the differential diagnosis of influenza A virus, influenza B virus, and RSV in humans and is not intended to detect influenza C. RSV RNA SAQIB+probe Ql (Upper resp) Negative 6 (02/26/23 3:41 PM) Normal Negative AO Auto Urine SS Comment on above: Interpretive Data: P ositive Results: Positive Flu A/B or RSV for by PCR. Positive test results do not rule out bacterial infection or co-infection with other pathogens. Test results should be interpreted in conjunction with other laboratory and clinical data. Negative Results: Negative for by PCR. Negative test results do not preclude influenza virus or RSV infection and should not be used as the sole basis for diagnosis, treatment, or other management decisions. There is a risk of false negative RSV results when at low concentration and in the presence of co-infection with high concentration of influenza A. Invalid Results: An Invalid result (INV) was obtained. The test was repeated with similar results. REPEAT COLLECTION AND TESTING IS RECOMMENDED. The [employer] Flu A/B & RSV Assay is a real-time polymerase chain reaction (PCR) based qualitative in vitro diagnostic test for the direct detection and differentiation of influenza A virus, influenza B virus, and respiratory syncytial virus (RSV) nucleic acid in nasopharyngeal swab (SEED CLEANING MACHINE OPERATOR) specimens from patients with signs and symptoms of respiratory infection in conjunction with clinical and laboratory findings. The test is intended for use as an aid in the differential diagnosis of influenza A virus, influenza B virus, and RSV in humans and is not intended to detect influenza C. SARS-CoV-2 (COVID-19) RNA SAQIB+probe Ql (Resp) Negative results do not preclude SARS-CoV-2 infection and should not be used as the sole basis for patient management decisions. Negative results must be combined with clinical observations, patient history, and epidemiological information.There is a risk of false negative values resulting from improperly collected, transported, or handled specimens.There is a risk of false negative values due to the presence of sequence variants in the pathogen targets of the assay, procedural errors, amplification inhibitors in specimens, or inadequate numbers of organisms for amplification.[employer] SARS-CoV-2 Assay is a Real-Time reverse-transcripta se polymerase chain reaction (RT-PCR) based qualitative in vitro diagnostic test intended for the qualitative detection of nucleic acid from the SARS-CoV-2 in nasopharyngeal swab specimens collected from individuals suspected of COVID-19 by their healthcare provider. Testing is limited to laboratories certified under the Clinical Laboratory Improvement Amendments of 1988 (CLIA), 42 U.S.C. 263a, to perform moderate and high complexity tests. Invalid Interpretation Code AO Auto Urine SS LABORATORYOrdered By: Stephanie Alexander on 2023 Platelet Estimate Slt Decreased (02/26/23 3:41 PM) Normal AO Hematology S XR CHEST 1 VIEWon 2023 XR CHEST 1 VIEW ORIGINAL EXAMINATION: ONE XRAY VIEW OF THE [...] suprahilar region likely calcified granuloma. REPORT CORRECTION * I have personally reviewed the images of this examination and edited the preliminary report. Interpreted by: Rui Hays MD Preliminary Report By: Luis A Banuelos Electronically signed By Rui Hays MD Dictated Date: 2023 4:36:11 PM Prelim Date: 2023 4:40:11 PM Sign Date: 2023 5:06:43 PM Ordering Provider: PETER PACE [facility] ([place]) Jazmyn 01-12-2023 RAMONN Telephone ([facility]) ---- VENICE ANDERSON ([id number]) 1970 F Date Time Provider Department 01/12/23 GERMAN SHIN [facility] During your visit today, we recorded the following information about you: German Shin APRN.[facility] 01/12/2023 11:42 AM Addendum Negative For yeast chlamydia gonorrhea bacterial vaginosis. Patient is positive for trichomonas and I called in Flagyl twice a day for 7 days was called and patient was called and notified. Allergies As of Date: 01/12/2023 Noted Allergy Reaction BENADRYL (DIPHENHYDRAMINE HCL) 12/31/2004 Comments: as a child Date Reviewed: 01/11/2023 Reviewed by: Nazanin Sosa MA - Fully Assessed Reason for Visit: Results [95] Order(s):metroNIDAZ OLE (FLAGYL) 500 mg tabletTake 1 tablet by mouth two times a day for 7 days.Disp: 14 tabletRfl: 0 Prescriptions as of 01/12/2023 - metroNIDAZOLE (FLAGYL) 500 mg tablet Take 1 tablet by mouth two times a day for 7 days. - ofloxacin (OCUFLOX) 0.3 % ophthalmic solution Use 2 Drops in both eyes every 4 hours for 7 days. - nitrofurantoin monohydrate and macrocrystal (MACROBID) 100 mg capsule Take 1 capsule by mouth two times a day with meals for 5 days. - levothyroxine (SYNTHROID) 125 mcg tablet Take 125 mcg by mouth once daily. - naproxen (NAPROSYN) 500 mg tablet Take 500 mg by mouth twice daily as needed. - montelukast (SINGULAIR) 10 mg tablet Take by mouth. - cetirizine (ZYRTEC) 10 mg tablet Take 10 mg by mouth once daily. - albuterol HFA (PROVENTIL HFA, VENTOLIN HFA) 90 mcg/actuation inhaler Inhale 2 Puffs as instructed every 4 hours as needed for wheezing/shortness of breath. - pravastatin (PRAVACHOL) 10 mg tablet Take 1 tablet by mouth once daily. - VITAMIN D2 50,000 unit capsule Take 1 capsule by mouth one time a week. - desmopressin acetate (DDAVP) 0.1 mg tablet Take 0.5 tablets by mouth twice daily. - Cholecalciferol, Vitamin D3, 2,000 unit cap Take 1 capsule by mouth once daily. - ARIPiprazole (ABILIFY) 10 mg tablet Take 1 tablet by mouth once daily. - buPROPion XL (WELLBUTRIN XL) 150 mg 24 hr tablet Take 1 tablet by mouth once daily. 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 Encounter Status:[facility] VENICE ANDERSON ([id number]) 1970 F Date Time Provider Department 01/12/23 RIRI ARRIOLA [facility] During your visit today, we recorded the following information about you: Riri Arriola APRN.[facility] 01/12/2023 2:57 PM Signed Patient urine culture negative for bacterial growth. She can stop taking the Macrobid (she should continue taking the Flagyl as that is treating BV, but can stop the Macrobid) Please advise Tomer Mas MA 01/12/2023 3:31 PM Signed Pt was notified of the results. Pt verbalized understanding. Tomer Cleary MA Allergies As of Date: 01/12/2023 Noted Allergy Reaction BENADRYL (DIPHENHYDRAMINE HCL) 12/31/2004 Comments: as a child Date Reviewed: 01/11/2023 Reviewed by: Nazanin Sosa MA - Fully Assessed Reason for Visit: Results [95] Prescriptions as of 01/12/2023 - metroNIDAZOLE (FLAGYL) 500 mg tablet Take 1 tablet by mouth two times a day for 7 days. - ofloxacin (OCUFLOX) 0.3 % ophthalmic solution Use 2 Drops in both eyes every 4 hours for 7 days. - nitrofurantoin monohydrate and macrocrystal (MACROBID) 100 mg capsule Take 1 capsule by mouth two times a day with meals for 5 days. - levothyroxine (SYNTHROID) 125 mcg tablet Take 125 mcg by mouth once daily. - naproxen (NAPROSYN) 500 mg tablet Take 500 mg by mouth twice daily as needed. - montelukast (SINGULAIR) 10 mg tablet Take by mouth. - cetirizine (ZYRTEC) 10 mg tablet Take 10 mg by mouth once daily. - albuterol HFA (PROVENTIL HFA, VENTOLIN HFA) 90 mcg/actuation inhaler Inhale 2 Puffs as instructed every 4 hours as needed for wheezing/shortness of breath. - pravastatin (PRAVACHOL) 10 mg tablet Take 1 tablet by mouth once daily. - VITAMIN D2 50,000 unit capsule Take 1 capsule by mouth one time a week. - desmopressin acetate (DDAVP) 0.1 mg tablet Take 0.5 tablets by mouth twice daily. - Cholecalciferol, Vitamin D3, 2,000 unit cap Take 1 capsule by mouth once daily. - ARIPiprazole (ABILIFY) 10 mg tablet Take 1 tablet by mouth once daily. - buPROPion XL (WELLBUTRIN XL) 150 mg 24 hr tablet Take 1 tablet by mouth once daily. 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 BACTERIAL VAGINOSIS NAATon 1 03-13-2022 Lactobacillus crispatus+gasseri+jense sola + Gardnerella vaginalis + Atopobium vaginae rRNA SAQIB+probe Ql (Vag fld) Negative Negative for bacterial vaginosis [facility] Lactobacillus crispatus+gasseri+jense sola + Gardnerella vaginalis + Atopobium vaginae rRNA SAQIB+probe Ql (Vag fld) Negative Normal Negative for bacterial vaginosis [facility] Comment on above: Order Comment: Speci men Type: SWAB Ordering Facility: [facility] Address: [address] [place] [address] Performed By: #### 3 6902-5, BVAMP #### [facility] CLIA [id number] [address] [place] [address] [place] Bacteria Ur Culton Bacteria identified Cx Nom (U) ORGANISM ID: 1 10,000 -<50,000 CFU/ml Normal urogenital klaus Normal [facility] Comment on above: Performed By: #### 6 30-4 #### [facility] CLIA [id number] [address] [place] [address] [place] C. trachomatis+N. gonorrhoea e DNA SAQIB+probe Ql (Unsp spec)on 01-11-2023 C. trachomatis rRNA SAQIB+probe Ql (Unsp spec) Negative Negative for Chlamydia trachomatis by amplificaton [facility] N. gonorrhoeae rRNA SAQIB+probe Ql (Unsp spec) Negative Negative for Neisseria gonorrhoeae by amplification [facility] C. trachomatis rRNA SAQIB+probe Ql (Unsp spec) Negative Normal Negative for Chlamydia trachomatis by amplificaton [facility] Comment on above: Order Comment: Speci men Type: SWAB Ordering Facility: [facility] Address: [address] [place] [address] Performed By: #### 3 6902-5, BVAMP #### [facility] CLIA [id number] [address] [place] [address] [place] N. gonorrhoeae rRNA SAQIB+probe Ql (Unsp spec) Negative Normal Negative for Neisseria gonorrhoeae by amplification [facility] Comment on above: Order Comment: Speci men Type: SWAB Ordering Facility: [facility] Address: [address] [place] [address] Performed By: #### 3 6902-5, BVAMP #### [facility] [facility] CLIA [id number] [facility] [place] [address] [place] ARIADNA/TRICHOMONAS NAATon 1 03-13-2022 C. glabrata RNA SAQIB+probe Ql (Vag fld) Negative Negative for Ariadna glabrata [facility] Ariadna sp DNA SAQIB+probe Ql (Vag fld) Negative Negative for Ariadna species [facility] T. vaginalis DNA SAQIB+probe Ql (Unsp spec) Positive Abnormal Negative for Trichomonas vaginalis by amplification [facility] C. glabrata RNA SAQIB+probe Ql (Vag fld) Negative Normal Negative for Ariadna glabrata [facility] Comment on above: Order Comment: Speci men Type: SWAB Ordering Facility: [facility] Address: [address] [place] [address] Performed By: #### C VTV #### [facility] CLIA [id number] [address] [place] [address] [place] sp DNA SAQIB+probe Ql (Vag fld) Negative Normal Negative for Ariadna species [facility] Comment on above: Order Comment: Speci men Type: SWAB Ordering Facility: [facility] Address: [address] [place] [address] Performed By: #### C VTV #### [facility] CLIA [id number] [address] [place] [address] [place] T. vaginalis DNA SAQIB+probe Ql (Unsp spec) Positive Abnormal Negative for Trichomonas vaginalis by amplification [facility] Comment on above: Order Comment: Speci men Type: SWAB Ordering Facility: [facility] Address: [address] [place] [address] Performed By: #### C VTV #### [facility] CLIA [id number] [address] [place] [address] OF [place] CNOVon 01-11-2023 CNOV Office Visit (UCWSTR) ---- VENICE ANDERSON ([id number]) 1970 F Date Time Provider Department 01/11/23 11:30 AM MEIR NICOLE WSTR During your visit today, we recorded the following information about you: Temperature Pulse Respiration Blood pressure 98.3 degrees 63/minute 18/minute 104/68 Weight 79.5 kg Meir Nicole PA-C 01/11/2023 12:15 PM Signed This note was created using [employer]. Subjective Venice Anderson is a 52 year [...] not taking: Reported on 01/11/2023) No current facility-administer ed medications for this visit. PAST SURGICAL HISTORY Procedure Laterality Date DELIVERY ONLY 07/2005 , low cervical LAPAROSCOPIC TUBAL LIGATION/RING/CLIP 2014 PAST SURGICAL HISTORY OF Bilateral 1984 flat foot surgery PAST SURGICAL HISTORY OF Bilateral hardware removed from feet PAST SURGICAL HISTORY OF 07/03/15 laparoscopic removal of adenxa- cervical CA FAMILY HISTORY Problem Relation Age of Onset Heart Father ID Stroke Father other (anuerysm) Father other (immune [...] Heart sounds: Normal heart sounds. Pulmonary: Effort: Pulmon (more content not included)... Normal [facility] UA DIP, URINE (POC)on 2022 BILIRUBIN UA (POCT) Negative Negative [facility] CLARITY UA (POCT) Clear [facility] COLOR UA (POCT) Yellow [facility] GLUCOSE UA (POCT) Negative Negative mg/dL [facility] Hemoglobin Ql (U) Small Abnormal Negative [facility] KETONE UA (POCT) Negative Negative mg/dL [facility] LEUKOCYTES UA (POCT) Large Abnormal Negative [facility] NITRITE UA (POCT) Negative Negative [facility] PH UA (POCT) 5.5 4.5 - 8.0 [facility] Protein Ql (U) Negative Negative mg/dL [facility] SPECIFIC GRAVITY UA (POCT) <=1.005 Abnormal 1.005 - 1.030 [facility] UROBILINOGEN UA (POCT) 0.2 E.U./dL Normal E.U./ dL [facility] Absolute lymphocyte countOrd ered By: Chidi Simpson on 09-18-2022 Lymphocytes Auto (Unsp spec) [#/Vol] 1.63 10*3/uL 0.83-4.51 [facility] Basophil percentageOrdered B y: Chidi Simpson on 09-18-2022 Basophil percentage 0-5 SEEN /hpf 0-5 [facility] Basophils/100 WBC (Bld) 0.5 % 0-1 [facility] Chloride [Moles/Vol] 109 mmol/L 98-107 [facility] Eosinophils/100 WBC (Bld) 0.1 % 0-5 [facility] Glucose [Mass/Vol] 111 mg/dL 74-106 [facility] Comment on above: Fasting Glucose resu lt from 100 to 125 mg/dL suggests IMPAIRED HOMEOSTASIS per A.D.A. criteria. Neutrophils (Bld) [#/Vol] 8.5 10*3/uL 2.0-7.7 [facility] Neutrophils/100 WBC (Bld) 75.9 % 47-70 [facility] Potassium [Moles/Vol] 3.2 mmol/L 3.5-5.1 [facility] Sodium [Moles/Vol] 145 mmol/L 136-145 [facility] WBC (Bld) [#/Vol] 11.2 10*3/uL 4.4-11.0 [facility] Bilirubin Test strip Ql (U)O rdered By: Chidi Simpson on 09-18-2022 Bilirubin Ql (U) Negative Negative [facility] Blood erythrocytes count (nu mber/volume)Ordered By: Chidi Simpson on 09-18-2022 RBC (Bld) [#/Vol] 4.51 10*6/uL 4.2-5.4 [facility] Blood hemoglobin measurement (mass/volume)Ordered By: Chidi Simpson on 09-18-2022 Hemoglobin (Bld) [Mass/Vol] 13.4 g/dL 12.0-15.0 [facility] Blood lymphocytes/100 leukoc ytesOrdered By: Chidi Simpson on 09-18-2022 Lymphocytes/100 WBC (Bld) 14.6 % 19-41 [facility] Blood monocytes/100 leukocyt esOrdered By: Chidi Simpson on 09-18-2022 Monocytes/100 WBC (Bld) 7.8 % 0-10 [facility] Blood platelet mean volumeOr dered By: Chidi Simpson on 09-18-2022 Platelet mean volume (Bld) [Entitic vol] 14.0 fL 6.2-12.0 [facility] Determination of erythrocyte mean corpuscular volume (MCV)Ordered By: Chidi Simpson on 09-18-2022 MCV (RBC) [Entitic vol] 92.9 fL 81-99 [facility] Hematocrit Auto (Bld) [Volum e fraction]Ordered By: Chidi Simpson on 09-18-2022 Hematocrit (Bld) [Volume fraction] 41.9 % 37-47 [facility] Ketones Test strip Ql (U)Ord ered By: Chidi Simpson on 09-18-2022 Ketones Ql (U) Negative Negative [facility] Laboratory - Chemistry and C hemistry - challengeOrdered By: Chidi Simpson on 09-18-2022 CO2 [Moles/Vol] 28.0 mmol/L 21.0-32.0 [facility] Urea nitrogen/Creatinine [Mass ratio] 10.5 mg/mg 10-20 [facility] Laboratory - Hematology and Cell countsOrdered By: Chidi Simpson on 09-18-2022 Erythrocyte distribution width (RBC) [Entitic vol] 49.3 fL 35.1-43.9 [facility] Erythrocyte distribution width (RBC) [Ratio] 14.4 % 11.6-14.6 [facility] Immature granulocytes/100 WBC (Bld) 1.100 % 0.0-0.9 [facility] Comment on above: IG% - Immature Granu locytes (promyelocytes, myelocytes and metamyelocytes) > 1% indicates that a LEFT SHIFT is Present. MCH (RBC) [Entitic mass] 29.7 pg 27.0-32.0 [facility] Nucleated RBC/100 WBC (Bld) [Ratio] 0 % 0-5 [facility] MCHC Auto (RBC) [Mass/Vol]Or dered By: Chidi Simpson on 09-18-2022 MCHC (RBC) [Mass/Vol] 32.0 g/dL 32-36 [facility] Mucus LM Ql (Urine sed)Order ed By: Chidi Simpson on 09-18-2022 Mucus Ql (Urine sed) 0 SEEN /hpf [facility] Nitrite Test strip Ql (U)Ord ered By: Chidi Simpson on 09-18-2022 Nitrite Ql (U) Negative Negative [facility] No Panel InformationOrdered By: Chidi Simpson on 09-18-2022 Estimated Creatinine Clearance Calc 46.04 ml/min [facility] Estimated GFR (MDRD) Amer 71 mL/min >60 [facility] Comment on above: GFR Calc Estimated GFR (MDRD) Non-Af Amer 59 mL/min >60 [facility] Comment on above: Non- GFR Calc Platelets bldOrdered By: Jennifer Simpson on 09-18-2022 Platelets (Bld) [#/Vol] 148 10*3/uL 150-450 [facility] Protein Test strip Ql (U)Ord ered By: Chidi Simpson on 09-18-2022 Protein Ql (U) Negative Negative [facility] Serum or plasma calcium jinny urement (mass/volume)Ordered By: Chidi Simpson on 09-18-2022 Calcium [Mass/Vol] 8.7 mg/dL 8.5-10.1 [facility] Serum or plasma creatinine m easurement (mass/volume)Ordered By: Chidi Simpson on 09-18-2022 Creatinine [Mass/Vol] 1.05 mg/dL 0.55-1.02 [facility] Comment on above: The validity of the calculated GFR & GFRAA in patients over 70 years has not been determined. Clinical correlation is essential. Serum or plasma urea nitroge n measurement (mass/volume)Ordered By: Chidi Simpson on 09-18-2022 Urea nitrogen [Mass/Vol] 11 mg/dL 7-18 [facility] Squamous epithelial cells de tection in urine sediment by light microscopyOrdered By: Chidi Simpson on 09-18-2022 Epithelial cells.squamous LM Ql (Urine sed) 0 SEEN /hpf 5-10 [facility] Thin prep Papanicolaou smear with manual screeningOrdered By: Chidi Simpson on 09-18-2022 Thin prep Papanicolaou smear with manual screening 8 5-15 [facility] Urine blood detectionOrdered By: Chidi Simpson on 09-18-2022 RBC Ql (U) Negative Negative [facility] RBC Ql (U) 0 SEEN /hpf 0-5 [facility] Urine clarityOrdered By: Jennifer Simpson on 09-18-2022 Clarity (U) Clear Clear [facility] Urine color determinationOrd ered By: Chidi Simpson on 09-18-2022 Color (U) Straw Yellow [facility] Urine glucose detectionOrder ed By: Chidi Simpson on 09-18-2022 Glucose Ql (U) Normal mg/dl Normal [facility] Urine leukocyte esterase det ection by dipstickOrdered By: Chidi Simpson on 09-18-2022 Leukocyte esterase Test strip Ql (U) 25 /ul Negative [facility] Urine pHOrdered By: Chidi rosa on 09-18-2022 pH (U) 6.5 [pH] 5.0 - 8.0 [facility] Urine sediment bacteria coun t by microscopy (number/high power field)Ordered By: Chidi Simpson on 09-18-2022 Bacteria LM.HPF (Urine sed) [#/Area] 0 /[HPF] None Seen [facility] Urine specific gravity measu rementOrdered By: Chidi Simpson on 09-18-2022 Specific gravity (U) [Rel density] 1.010 1.002-1.030 [facility] Urobilinogen Auto test strip Ql (U)Ordered By: Chidi Simpson on 09-18-2022 Urobilinogen Ql (U) Normal mg/dl Normal [facility] Absolute lymphocyte countOrd ered By: Anson Mike on 07-31-2022 Lymphocytes Auto (Unsp spec) [#/Vol] 2.23 10*3/uL 0.83-4.51 [facility] Basophil percentageOrdered B y: Anson Mike on 07-31-2022 Basophil percentage 10-25 SEEN /hpf 0-5 [facility] Basophils/100 WBC (Bld) 0.2 % 0-1 [facility] Bilirubin [Mass/Vol] 2.20 mg/dL 0.20-1.00 [facility] Comment on above: For patients on eltr ombopag therapy, use of Dimension [place] TBIL is not recommended. Chloride [Moles/Vol] 104 mmol/L 98-107 [facility] Eosinophils/100 WBC (Bld) 0.6 % 0-5 [facility] Glucose [Mass/Vol] 117 mg/dL 74-106 [facility] Comment on above: Fasting Glucose resu lt from 100 to 125 mg/dL suggests IMPAIRED HOMEOSTASIS per A.D.A. criteria. Neutrophils (Bld) [#/Vol] 10.1 10*3/uL 2.0-7.7 [facility] Neutrophils/100 WBC (Bld) 74.8 % 47-70 [facility] Potassium [Moles/Vol] 3.0 mmol/L 3.5-5.1 [facility] Protein [Mass/Vol] 8.2 g/dL 6.4-8.2 [facility] Sodium [Moles/Vol] 140 mmol/L 136-145 [facility] WBC (Bld) [#/Vol] 13.5 10*3/uL 4.4-11.0 [facility] Bilirubin Test strip Ql (U)O rdered By: Anson Mike on 07-31-2022 Bilirubin Ql (U) Negative Negative [facility] Blood erythrocytes count (nu mber/volume)Ordered By: Anson Mike on 07-31-2022 RBC (Bld) [#/Vol] 4.37 10*6/uL 4.2-5.4 [facility] Blood hemoglobin measurement (mass/volume)Ordered By: Anson Mike on 07-31-2022 Hemoglobin (Bld) [Mass/Vol] 12.8 g/dL 12.0-15.0 [facility] Blood lymphocytes/100 leukoc ytesOrdered By: Anson Mike on 07-31-2022 Lymphocytes/100 WBC (Bld) 16.5 % 19-41 [facility] Blood monocytes/100 leukocyt esOrdered By: Anson Mike on 07-31-2022 Monocytes/100 WBC (Bld) 7.2 % 0-10 [facility] Blood platelet mean volumeOr dered By: Anson Mike on 07-31-2022 Platelet mean volume (Bld) [Entitic vol] 13.9 fL 6.2-12.0 [facility] Determination of erythrocyte mean corpuscular volume (MCV)Ordered By: Anson Mike on 07-31-2022 MCV (RBC) [Entitic vol] 93.4 fL 81-99 [facility] Hematocrit Auto (Bld) [Volum e fraction]Ordered By: Anson Mike on 07-31-2022 Hematocrit (Bld) [Volume fraction] 40.8 % 37-47 [facility] Ketones Test strip Ql (U)Ord ered By: Anson Mike on 07-31-2022 Ketones Ql (U) Negative Negative [facility] Laboratory - Chemistry and C hemistry - challengeOrdered By: Anson Mike on 07-31-2022 ALP [Catalytic activity/Vol] 60 U/L 45-117 [facility] ALT [Catalytic activity/Vol] 23 U/L 13-56 [facility] CO2 [Moles/Vol] 29.0 mmol/L 21.0-32.0 [facility] Globulin (S) [Mass/Vol] 4.6 g/dL 2.2-4.2 [facility] Lipase [Catalytic activity/Vol] 21 U/L 13-75 [facility] Comment on above: Please note:LIPASE r evised reference range effective 22. New Lipase methodology. Expected to produce lower values than the previous assay method. NEW Reference Range: 13 - 75 U/L Urea nitrogen/Creatinine [Mass ratio] 9.0 mg/mg 10-20 [facility] Laboratory - Hematology and Cell countsOrdered By: Anson Mike on 07-31-2022 Erythrocyte distribution width (RBC) [Entitic vol] 49.4 fL 35.1-43.9 [facility] Erythrocyte distribution width (RBC) [Ratio] 14.3 % 11.6-14.6 [facility] Immature granulocytes/100 WBC (Bld) 0.700 % 0.0-0.9 [facility] Comment on above: IG% - Immature Granu locytes (promyelocytes, myelocytes and metamyelocytes) > 1% indicates that a LEFT SHIFT is Present. MCH (RBC) [Entitic mass] 29.3 pg 27.0-32.0 [facility] Nucleated RBC/100 WBC (Bld) [Ratio] 0 % 0-5 [facility] MCHC Auto (RBC) [Mass/Vol]Or dered By: Anson Mike on 07-31-2022 MCHC (RBC) [Mass/Vol] 31.4 g/dL 32-36 [facility] Mucus LM Ql (Urine sed)Order ed By: Anson Mike on 07-31-2022 Mucus Ql (Urine sed) 0 SEEN /hpf [facility] Nitrite Test strip Ql (U)Ord ered By: Anson Mike on 07-31-2022 Nitrite Ql (U) Negative Negative [facility] No Panel InformationOrdered By: Anson Mike on 07-31-2022 Estimated Creatinine Clearance Calc 54.32 ml/min [facility] Estimated GFR (MDRD) Amer 87 mL/min >60 [facility] Comment on above: GFR Calc Estimated GFR (MDRD) Non-Af Amer 72 mL/min >60 [facility] Comment on above: Non- GFR Calc Platelets bldOrdered By: Marci Mike on 07-31-2022 Platelets (Bld) [#/Vol] 144 10*3/uL 150-450 [facility] Protein Test strip Ql (U)Ord ered By: Anson Mike on 07-31-2022 Protein Ql (U) 15 mg/dl Negative [facility] Serum or plasma albumin jinny urement (mass/volume)Ordered By: Anson Mike on 07-31-2022 Albumin [Mass/Vol] 3.6 g/dL 3.2-5.0 [facility] Serum or plasma albumin/glob ulin mass ratioOrdered By: Anson Mike on 07-31-2022 Albumin/Globulin [Mass ratio] 0.8 {ratio} 0.9-2.4 [facility] Serum or plasma calcium jinny urement (mass/volume)Ordered By: Anson Mike on 07-31-2022 Calcium [Mass/Vol] 9.2 mg/dL 8.5-10.1 [facility] Serum or plasma creatinine m easurement (mass/volume)Ordered By: Anson Mike on 07-31-2022 Creatinine [Mass/Vol] 0.89 mg/dL 0.55-1.02 [facility] Comment on above: The validity of the calculated GFR & GFRAA in patients over 70 years has not been determined. Clinical correlation is essential. Serum or plasma urea nitroge n measurement (mass/volume)Ordered By: Anson Mike on 07-31-2022 Urea nitrogen [Mass/Vol] 8 mg/dL 7-18 [facility] Squamous epithelial cells de tection in urine sediment by light microscopyOrdered By: Anson Mike on 07-31-2022 Epithelial cells.squamous LM Ql (Urine sed) 10-25 SEEN /hpf 5-10 [facility] Thin prep Papanicolaou smear with manual screeningOrdered By: Anson Mike on 07-31-2022 Thin prep Papanicolaou smear with manual screening 11 U/L 15-37 [facility] Thin prep Papanicolaou smear with manual screening 7 5-15 [facility] Urine blood detectionOrdered By: Anson Mike on 07-31-2022 RBC Ql (U) 10 /ul Negative [facility] RBC Ql (U) 0 SEEN /hpf 0-5 [facility] Urine clarityOrdered By: Marci Mike on 07-31-2022 Clarity (U) Sl. Cloudy Clear [facility] Urine color determinationOrd ered By: Anson Mike on 07-31-2022 Color (U) Straw Yellow [facility] Urine glucose detectionOrder ed By: Anson Mike on 07-31-2022 Glucose Ql (U) Normal mg/dl Normal [facility] Urine leukocyte esterase det ection by dipstickOrdered By: Anson Mike on 07-31-2022 Leukocyte esterase Test strip Ql (U) 500 /ul Negative [facility] Urine pHOrdered By: Anson persaud on 07-31-2022 pH (U) 6.5 [pH] 5.0 - 8.0 [facility] Urine sediment bacteria coun t by microscopy (number/high power field)Ordered By: Anson Mike on 07-31-2022 Bacteria LM.HPF (Urine sed) [#/Area] 1 /[HPF] None Seen [facility] Urine specific gravity measu rementOrdered By: Anson Mike on 07-31-2022 Specific gravity (U) [Rel density] 1.010 1.002-1.030 [facility] Urobilinogen Auto test strip Ql (U)Ordered By: Anson Mike on 07-31-2022 Urobilinogen Ql (U) 1 mg/dl Normal [facility] Influenza virus A and B and SARS-CoV-2 (COVID-19) Ag panel - Upper respiratory specimOrdered By: Shalom Bailey on 06-12-2022 SARS-CoV-2 (COVID-19) RNA SAQIB+probe Ql (Resp) [facility] Influenza virus A and B and SARS-CoV-2 (COVID-19) Ag panel - Upper respiratory specimOrdered By: Dr. Bailey on 06-12-2022 SARS-CoV-2 (COVID-19) RNA SAQIB+probe Ql (Resp) [facility] Laboratory - Chemistry and C hemistry - challengeon 06-14-2021 Free T4 [Mass/Vol] 1.35 ng/dL 0.76-1.46 [facility] Work Phone: No Panel Informationon 06-14 Thyroid Stimulating Hormone (TSH) 0.66 uIU/mL 0.358-3.74 [facility] Work Phone: Vital Signs Date Time Vital Sign Value Performing Clinician Facility 08-17-2024 09:25-0400 Body mass index (BMI) [Ratio] 37.3 kg/m2 Dr. Carine Grey MD Work Phone: [facility] 08-17-2024 09:25-0400 Body temperature 97.4 [degF] Dr. Carine Grey MD Work Phone: [facility] 08-17-2024 09:25-0400 Body weight 86.[address] Carine Grey MD Work Phone: [facility] 08-17-2024 09:25-0400 Diastolic blood pressure 89 mm[Hg] Dr. Carine Grey MD Work Phone: [facility] 08-17-2024 09:25-0400 Heart rate 63 /min Dr. Carine Grey MD Work Phone: [facility] 08-17-2024 09:25-0400 Respiratory rate 18 /min Dr. Carine Grey MD Work Phone: [facility] 08-17-2024 09:25-0400 SaO2% (BldA) [Mass fraction] 97 % Dr. Carine Grey MD Work Phone: [facility] 08-17-2024 09:25-0400 Systolic blood pressure 135 mm[Hg] Dr. Carine Grey MD Work Phone: [facility] 08-03-2024 15:30-0400 Body height 152.[address] Carine Grey MD Work Phone: [facility] 08-03-2024 15:30-0400 Body mass index (BMI) [Ratio] 37.3 kg/m2 Dr. Carine Grey MD Work Phone: [facility] 08-03-2024 15:30-0400 Body weight 86.[address] Carine Grey MD Work Phone: [facility] 08-03-2024 15:30-0400 Diastolic blood pressure 84 mm[Hg] Dr. Carine Grey MD Work Phone: [facility] 08-03-2024 15:30-0400 Systolic blood pressure 139 mm[Hg] Dr. Carine Grey MD Work Phone: [facility] 07-27-2024 13:53-0400 Body height 152.[address] Carine Grey MD Work Phone: [facility] 07-27-2024 13:53-0400 Body mass index (BMI) [Ratio] 36.9 kg/m2 Dr. Carine Grey MD Work Phone: [facility] 07-27-2024 13:53-0400 Body weight 85.[address] Carine Grey MD Work Phone: [facility] 07-27-2024 13:53-0400 Diastolic blood pressure 83 mm[Hg] Dr. Carine Grey MD Work Phone: [facility] 07-27-2024 13:53-0400 Respiratory rate 16 /min Dr. Carine Grey MD Work Phone: [facility] 07-27-2024 13:53-0400 Systolic blood pressure 154 mm[Hg] Dr. Carine Grey MD Work Phone: [facility] 06-29-2024 10:32-0400 Body mass index (BMI) [Ratio] 37.7 kg/m2 Dr. Carine Grey MD Work Phone: [facility] 06-29-2024 10:32-0400 Body temperature 98 [degF] Dr. Carine Grey MD Work Phone: [facility] 06-29-2024 10:32-0400 Body weight 87.[address] Carine Grey MD Work Phone: [facility] 06-29-2024 10:32-0400 Diastolic blood pressure 80 mm[Hg] Dr. Carine Grey MD Work Phone: [facility] 06-29-2024 10:32-0400 Heart rate 65 /min Dr. Carine Grey MD Work Phone: [facility] 06-29-2024 10:32-0400 Respiratory rate 17 /min Dr. Carine Grey MD Work Phone: [facility] 06-29-2024 10:32-0400 SaO2% (BldA) [Mass fraction] 97 % Dr. Carine Grey MD Work Phone: [facility] 06-29-2024 10:32-0400 Systolic blood pressure 128 mm[Hg] Dr. Carine Grey MD Work Phone: [facility] 11-06-2023 14:26-0400 Body mass index (BMI) [Ratio] 34.88 kg/m2 [facility] REPORT MANAGER.[id number] DEVELOPER Work Phone: [facility] 11-06-2023 14:26-0400 Body temperature 97 [degF] [facility] REPORT MANAGER.[id number] DEVELOPER Work Phone: [facility] 11-06-2023 14:26-0400 Body weight 81 kg [facility] REPORT MANAGER.HL7 DEVELOPER Work Phone: [facility] 11-06-2023 14:26-0400 Diastolic blood pressure 86 mm[Hg] [facility] REPORT MANAGER.HL7 DEVELOPER Work Phone: [facility] 11-06-2023 14:26-0400 Heart rate 56 /min [facility] REPORT MANAGER.HL7 DEVELOPER Work Phone: [facility] 11-06-2023 14:26-0400 Respiratory rate 20 /min [facility] REPORT MANAGER.HL7 DEVELOPER Work Phone: [facility] 11-06-2023 14:26-0400 SaO2% (BldA) [Mass fraction] 100 % [facility] REPORT MANAGER.HL7 DEVELOPER Work Phone: [facility] 11-06-2023 14:26-0400 Systolic blood pressure 151 mm[Hg] [facility] REPORT MANAGER.HL7 DEVELOPER Work Phone: [facility] 06-19-2023 15:43-0400 Body height 152.[address] Carine Grey Work Phone: [facility] 06-19-2023 15:43-0400 Body mass index (BMI) [Ratio] 35.2 kg/m2 Dr. Carine Grey Work Phone: [facility] 06-19-2023 15:43-0400 Body temperature 97.3 [degF] Dr. Carine Grey Work Phone: [facility] 06-19-2023 15:43-0400 Body weight 81.[address] Carine Grey Work Phone: [facility] 06-19-2023 15:43-0400 Diastolic blood pressure 70 mm[Hg] Dr. Carine Grey Work Phone: [facility] 06-19-2023 15:43-0400 Heart rate 60 /min Dr. Carine Grey Work Phone: [facility] 06-19-2023 15:43-0400 Respiratory rate 16 /min Dr. Carine Grey Work Phone: [facility] 06-19-2023 15:43-0400 SaO2% (BldA) [Mass fraction] 98 % Dr. Carine Grey Work Phone: [facility] 06-19-2023 15:43-0400 Systolic blood pressure 122 mm[Hg] Dr. Carine Grey Work Phone: [facility] 06-04-2023 07:58-0400 Body height 152.[address] Carine Grey Work Phone: [facility] 06-04-2023 07:58-0400 Body mass index (BMI) [Ratio] 36.1 kg/m2 Dr. Carine Grey Work Phone: [facility] 06-04-2023 07:58-0400 Body weight 83.[address] Carine Grey Work Phone: [facility] 06-04-2023 07:58-0400 Diastolic blood pressure 90 mm[Hg] Dr. Carine Grey Work Phone: [facility] 06-04-2023 07:58-0400 Heart rate 70 /min Dr. Carine Grey Work Phone: [facility] 06-04-2023 07:58-0400 Respiratory rate 17 /min Dr. Carine Grey Work Phone: [facility] 06-04-2023 07:58-0400 SaO2% (BldA) [Mass fraction] 96 % Dr. Carine Grey Work Phone: [facility] 06-04-2023 07:58-0400 Systolic blood pressure 142 mm[Hg] Dr. Carine Grey Work Phone: [facility] 06-02-2023 15:44-0400 Body mass index (BMI) [Ratio] 35.5 kg/m2 Dr. Carine Grey Work Phone: [facility] 06-02-2023 15:44-0400 Body temperature 97.4 [degF] Dr. Carine Grey Work Phone: [facility] 06-02-2023 15:44-0400 Body weight 82.[address] Carine Grey Work Phone: [facility] 06-02-2023 15:44-0400 Diastolic blood pressure 90 mm[Hg] Dr. Carine Grey Work Phone: [facility] 06-02-2023 15:44-0400 Heart rate 62 /min Dr. Carine Grey Work Phone: [facility] 06-02-2023 15:44-0400 Respiratory rate 14 /min Dr. Carine Grey Work Phone: [facility] 06-02-2023 15:44-0400 SaO2% (BldA) [Mass fraction] 99 % Dr. Carine Grey Work Phone: [facility] 06-02-2023 15:44-0400 Systolic blood pressure 140 mm[Hg] Dr. Carine Grey Work Phone: [facility] 05-24-2023 17:37-0400 Diastolic Blood Pressure Non-Invasive 84 mm[Hg] NIDAL CHOUJAA DO [facility] 05-24-2023 17:37-0400 Heart rate 62 /min NIDAL CHOUJAA DO [facility] 05-24-2023 17:37-0400 Respiratory rate 20 /min NIDAL CHOUJAA DO [facility] 05-24-2023 17:37-0400 Systolic Blood Pressure Non-Invasive 131 mm[Hg] NIDAL CHOUJAA DO [facility] 05-24-2023 17:00-0400 Diastolic Blood Pressure Non-Invasive 94 mm[Hg] NIDAL CHOUJAA DO [facility] 05-24-2023 17:00-0400 Heart rate 56 /min NIDAL CHOUJAA DO [facility] 05-24-2023 17:00-0400 Respiratory rate 17 /min NIDAL CHOUJAA DO [facility] 05-24-2023 17:00-0400 Systolic Blood Pressure Non-Invasive 140 mm[Hg] NIDAL CHOUJAA DO [facility] 05-24-2023 16:31-0400 Respiratory rate 18 /min NIDAL CHOUJAA DO [facility] 05-24-2023 16:30-0400 Diastolic Blood Pressure Non-Invasive 86 mm[Hg] NIDAL CHOUJAA DO [facility] 05-24-2023 16:30-0400 Heart rate 55 /min NIDAL CHOUJAA DO [facility] 05-24-2023 16:30-0400 Systolic Blood Pressure Non-Invasive 141 mm[Hg] KASSANDRA REICHA DO [facility] 05-24-2023 15:42-0400 Body temperature 96.8 [degF] KASSANDRA ELIZONDO DO [facility] 05-07-2023 17:12-0500 Body mass index (BMI) [Ratio] 34.7 kg/m2 Dr. Carine Grey Work Phone: [facility] 05-07-2023 17:12-0500 Body temperature 97.8 [degF] Dr. Carine Grey Work Phone: [facility] 05-07-2023 17:12-0500 Body weight 80.[address] Carine Grey Work Phone: [facility] 05-07-2023 17:12-0500 Diastolic blood pressure 70 mm[Hg] Dr. Carine Grey Work Phone: [facility] 05-07-2023 17:12-0500 Heart rate 55 /min Dr. Carine Grey Work Phone: [facility] 05-07-2023 17:12-0500 Respiratory rate 14 /min Dr. Carine Grey Work Phone: [facility] 05-07-2023 17:12-0500 SaO2% (BldA) [Mass fraction] 98 % Dr. Carine Grey Work Phone: [facility] 05-07-2023 17:12-0500 Systolic blood pressure 108 mm[Hg] Dr. Carine Grey Work Phone: [facility] 04-15-2023 16:17-0500 Heart rate 80 /min Dr. Carine Grey Work Phone: [facility] 04-15-2023 16:17-0500 Respiratory rate 16 /min Dr. Carine Grey Work Phone: [facility] 04-15-2023 16:17-0500 SaO2% (BldA) [Mass fraction] 96 % Dr. Carine Grey Work Phone: [facility] 04-15-2023 15:39-0500 Body height 152.[address] Carine Grey Work Phone: [facility] 04-15-2023 15:39-0500 Body mass index (BMI) [Ratio] 34.4 kg/m2 Dr. Carine Grey Work Phone: [facility] 04-15-2023 15:39-0500 Body temperature 98 [degF] Dr. Carine Grey Work Phone: [facility] 04-15-2023 15:39-0500 Body weight 79.[address] Carine Grey Work Phone: [facility] 04-15-2023 15:39-0500 Diastolic blood pressure 111 mm[Hg] Dr. Carine Grey Work Phone: [facility] 04-15-2023 15:39-0500 Systolic blood pressure 165 mm[Hg] Dr. Carine Grey Work Phone: [facility] 03-13-2023 15:46-0500 Body mass index (BMI) [Ratio] 34.9 kg/m2 Dr. Carine Grey Work Phone: [facility] 03-13-2023 15:46-0500 Body temperature 97.6 [degF] Dr. Carine Grey Work Phone: [facility] 03-13-2023 15:46-0500 Body weight 81.[address] Carine Grey Work Phone: [facility] 03-13-2023 15:46-0500 Diastolic blood pressure 98 mm[Hg] Dr. Carine Grey Work Phone: [facility] 03-13-2023 15:46-0500 Heart rate 58 /min Dr. Carine Grey Work Phone: [facility] 03-13-2023 15:46-0500 Respiratory rate 16 /min Dr. Carine Grey Work Phone: [facility] 03-13-2023 15:46-0500 SaO2% (BldA) [Mass fraction] 98 % Dr. Carine Grey Work Phone: [facility] 03-13-2023 15:46-0500 Systolic blood pressure 138 mm[Hg] Dr. Carine Grey Work Phone: [facility] 2023 15:14-0500 Body height 152.[address] PETER PACE MD [facility] 2023 15:14-0500 Body temperature 97.88 [degF] DR PETER PACE MD [facility] 2023 15:14-0500 Body weight 77.[address] PETER PACE MD [facility] 2023 15:14-0500 Diastolic Blood Pressure Non-Invasive 78 mm[Hg] DR PETER PACE MD [facility] 2023 15:14-0500 Heart rate 74 /min DR PETER PACE MD [facility] 2023 15:14-0500 Respiratory rate 16 /min DR PETER PACE MD [facility] 2023 15:14-0500 Systolic Blood Pressure Non-Invasive 139 mm[Hg] DR PETER PACE MD [facility] 01-11-2023 11:31-0500 Body temperature 98.29 [degF] Meir Athy PA-C Work Phone: [facility] 01-11-2023 11:31-0500 Body weight 79.47 kg Meir Athy PA-C Work Phone: [facility] 01-11-2023 11:31-0500 Diastolic blood pressure 68 mm[Hg] Meir Athy PA-C Work Phone: [facility] 01-11-2023 11:31-0500 Heart rate 63 /min Meir Athy PA-C Work Phone: [facility] 01-11-2023 11:31-0500 Respiratory rate 18 /min Meir Athy PA-C Work Phone: [facility] 01-11-2023 11:31-0500 SaO2% (BldA) [Mass fraction] 98 % Meir Athy PA-C Work Phone: [facility] 01-11-2023 11:31-0500 Systolic blood pressure 104 mm[Hg] Meir Athy PA-C Work Phone: [facility] 11-22-2022 13:45-0400 Body height 152.4 cm [facility] 11-22-2022 13:45-0400 Body mass index (BMI) [Ratio] 33.5 kg/m2 [facility] 11-22-2022 13:45-0400 Body temperature 97 [degF] [facility] 11-22-2022 13:45-0400 Body weight 78.01 kg [facility] 11-22-2022 13:45-0400 Diastolic blood pressure 71 mm[Hg] [facility] 11-22-2022 13:45-0400 Heart rate 75 /min [facility] 11-22-2022 13:45-0400 Respiratory rate 18 /min [facility] 11-22-2022 13:45-0400 SaO2% (BldA) [Mass fraction] 96 % [facility] 11-22-2022 13:45-0400 Systolic blood pressure 153 mm[Hg] [facility] 11-13-2022 16:27-0400 Body height 152.4 cm [facility] 11-13-2022 16:27-0400 Body mass index (BMI) [Ratio] 34.5 kg/m2 [facility] 11-13-2022 16:27-0400 Body temperature 98.4 [degF] [facility] 11-13-2022 16:27-0400 Body weight 80.19 kg [facility] 11-13-2022 16:27-0400 Diastolic blood pressure 89 mm[Hg] [facility] 11-13-2022 16:27-0400 Heart rate 68 /min [facility] 11-13-2022 16:27-0400 Respiratory rate 19 /min [facility] 11-13-2022 16:27-0400 SaO2% (BldA) [Mass fraction] 100 % [facility] 11-13-2022 16:27-0400 Systolic blood pressure 133 mm[Hg] [facility] 09-18-2022 19:10-0400 Body height 152.4 cm [facility] 09-18-2022 19:10-0400 Body mass index (BMI) [Ratio] 36.1 kg/m2 [facility] 09-18-2022 19:10-0400 Body temperature 97.9 [degF] [facility] 09-18-2022 19:10-0400 Body weight 83.91 kg [facility] 09-18-2022 19:10-0400 Diastolic blood pressure 81 mm[Hg] [facility] 09-18-2022 19:10-0400 Heart rate 89 /min [facility] 09-18-2022 19:10-0400 Respiratory rate 16 /min [facility] 09-18-2022 19:10-0400 SaO2% (BldA) [Mass fraction] 95 % [facility] 09-18-2022 19:10-0400 Systolic blood pressure 153 mm[Hg] [facility] 07-31-2022 19:21-0400 Diastolic blood pressure 77 mm[Hg] [facility] 07-31-2022 19:21-0400 Heart rate 84 /min [facility] 07-31-2022 19:21-0400 Respiratory rate 18 /min [facility] 07-31-2022 19:21-0400 SaO2% (BldA) [Mass fraction] 95 % [facility] 07-31-2022 19:21-0400 Systolic blood pressure 105 mm[Hg] [facility] 07-31-2022 16:04-0400 Body mass index (BMI) [Ratio] 35.4 kg/m2 [facility] 07-31-2022 16:04-0400 Body temperature 96.8 [degF] [facility] 07-31-2022 16:04-0400 Body weight 82.19 kg [facility] 06-12-2022 20:13-0400 Body height 152.4 cm [facility] 06-12-2022 20:13-0400 Body mass index (BMI) [Ratio] 35.2 kg/m2 [facility] 06-12-2022 20:13-0400 Body temperature 100.1 [degF] [facility] 06-12-2022 20:13-0400 Body weight 81.64 kg [facility] 06-12-2022 20:13-0400 Diastolic blood pressure 98 mm[Hg] [facility] 06-12-2022 20:13-0400 Heart rate 80 /min [facility] 06-12-2022 20:13-0400 Respiratory rate 20 /min [facility] 06-12-2022 20:13-0400 SaO2% (BldA) [Mass fraction] 98 % [facility] 06-12-2022 20:13-0400 Systolic blood pressure 141 mm[Hg] [facility] 03-12-2022 14:12-0500 Diastolic blood pressure 86 mm[Hg] [facility] 03-12-2022 14:12-0500 Heart rate 79 /min [facility] 03-12-2022 14:12-0500 Respiratory rate 16 /min [facility] 03-12-2022 14:12-0500 SaO2% (BldA) [Mass fraction] 99 % [facility] 03-12-2022 14:12-0500 Systolic blood pressure 141 mm[Hg] [facility] 03-12-2022 10:27-0500 Body height 152.4 cm [facility] Work Phone: 03-12-2022 10:27-0500 Body mass index (BMI) [Ratio] 35.2 kg/m2 [facility] 03-12-2022 10:27-0500 Body temperature 97 [degF] [facility] 03-12-2022 10:27-0500 Body weight 81.64 kg [facility] 02-10-2022 14:36-0500 Body height 152.4 cm Breanne Noa REPORT MANAGER.HL7 DEVELOPER Work Phone: [facility] 02-10-2022 14:36-0500 Body weight 85.82 kg Breanne Noa REPORT MANAGER.HL7 DEVELOPER Work Phone: [facility] 02-10-2022 14:36-0500 Diastolic blood pressure 80 mm[Hg] Breanne Noa REPORT MANAGER.HL7 DEVELOPER Work Phone: [facility] 02-10-2022 14:36-0500 Systolic blood pressure 114 mm[Hg] Breanne Trafford REPORT MANAGER.HL7 DEVELOPER Work Phone: [facility] 07-29-2021 17:08-0400 Body height 152.[address] Carine Grey Work Phone: [facility] Work Phone: 07-29-2021 17:08-0400 Body mass index (BMI) [Ratio] 37 kg/m2 Dr. Carine Grey Work Phone: [facility] Work Phone: 07-29-2021 17:08-0400 Body temperature 97.4 [degF] Dr. Carine Grey Work Phone: [facility] Work Phone: 07-29-2021 17:08-0400 Body weight 86.[address] Carine Grey Work Phone: [facility] Work Phone: 07-29-2021 17:08-0400 Diastolic blood pressure 87 mm[Hg] Dr. Carine Grey Work Phone: [facility] Work Phone: 07-29-2021 17:08-0400 Heart rate 80 /min Dr. Carine Grey Work Phone: [facility] Work Phone: 07-29-2021 17:08-0400 Respiratory rate 16 /min Dr. Carine Grey Work Phone: [facility] Work Phone: 07-29-2021 17:08-0400 SaO2% (BldA) [Mass fraction] 97 % Dr. Carine Grey Work Phone: [facility] Work Phone: 07-29-2021 17:08-0400 Systolic blood pressure 154 mm[Hg] Dr. Carine Grey Work Phone: [facility] Work Phone: 07-14-2021 18:05-0400 Body mass index (BMI) [Ratio] 37 kg/m2 Dr. Carine Grey Work Phone: [facility] Work Phone: 07-14-2021 18:05-0400 Body temperature 97.6 [degF] Dr. Carine Grey Work Phone: [facility] Work Phone: 07-14-2021 18:05-0400 Body weight 86.[address] Carine Grey Work Phone: [facility] Work Phone: 07-14-2021 18:05-0400 Diastolic blood pressure 89 mm[Hg] Dr. Carine Grey Work Phone: [facility] Work Phone: 07-14-2021 18:05-0400 Heart rate 83 /min Dr. Carine Grey Work Phone: [facility] Work Phone: 07-14-2021 18:05-0400 Respiratory rate 16 /min Dr. Carine Grey Work Phone: [facility] Work Phone: 07-14-2021 18:05-0400 SaO2% (BldA) [Mass fraction] 98 % Dr. Carine Grey Work Phone: [facility] Work Phone: 07-14-2021 18:05-0400 Systolic blood pressure 147 mm[Hg] Dr. Carine Grey Work Phone: [facility] Work Phone: 06-14-2021 08:40-0400 Body height 152.[address] Carine Grey Work Phone: [facility] Work Phone: 06-14-2021 08:40-0400 Body mass index (BMI) [Ratio] 37.8 kg/m2 Dr. Carine Grey Work Phone: [facility] Work Phone: 06-14-2021 08:40-0400 Body temperature 97 [degF] Dr. Carine Grey Work Phone: [facility] Work Phone: 06-14-2021 08:40-0400 Body weight 87.[address] Carine Grey Work Phone: [facility] Work Phone: 06-14-2021 08:40-0400 Diastolic blood pressure 70 mm[Hg] Dr. Carine Grey Work Phone: [facility] Work Phone: 06-14-2021 08:40-0400 Heart rate 86 /min Dr. Carine Grey Work Phone: [facility] Work Phone: 06-14-2021 08:40-0400 Respiratory rate 16 /min Dr. Carine Grey Work Phone: [facility] Work Phone: 06-14-2021 08:40-0400 SaO2% (BldA) [Mass fraction] 93 % Dr. Carine Grey Work Phone: [facility] Work Phone: 06-14-2021 08:40-0400 Systolic blood pressure 120 mm[Hg] Dr. Carine Grey Work Phone: [facility] Work Phone: 05-01-2021 03:50-0500 Body temperature 98.7 [degF] Dr. Carine Grey Work Phone: [facility] Work Phone: 05-01-2021 03:50-0500 Diastolic blood pressure 93 mm[Hg] Dr. Carine Grey Work Phone: [facility] Work Phone: 05-01-2021 03:50-0500 Heart rate 74 /min Dr. Carine Grey Work Phone: [facility] Work Phone: 05-01-2021 03:50-0500 SaO2% (BldA) [Mass fraction] 99 % Dr. Carine Grey Work Phone: [facility] Work Phone: 05-01-2021 03:50-0500 Systolic blood pressure 121 mm[Hg] Dr. Carine Grey Work Phone: [facility] Work Phone: 05-01-2021 01:23-0500 Body mass index (BMI) [Ratio] 40.6 kg/m2 Dr. Carine Grey Work Phone: [facility] Work Phone: 05-01-2021 01:23-0500 Body weight 94.[address] Carine Grey Work Phone: [facility] Work Phone: 05-01-2021 01:23-0500 Respiratory rate 17 /min Dr. Carine Grey Work Phone: [facility] Work Phone: Encounters Encounter Date Encounter Type Care Provider Facility Start: 08-19-2024 ambulatory Manan Caldwell lity:[facility] Start: 08-17-2024 End: 08-17-2024 ambulatory Carisa Slaughter NP Facility:[facility] Start: 08-17-2024 End: 08-17-2024 Patient encounter procedure Carisa Slaughter LOG DATA TECHNICIAN-C -[facility] Work Phone: Start: 08-03-2024 End: 08-03-2024 Patient encounter procedure Haritha Carmen NP-C -[facility] Work Phone: Start: 08-03-2024 End: 08-03-2024 Patient encounter status Haritha Carmen NP-C [facility] Start: 08-03-2024 End: 08-03-[address] Carine Grey MD Work Phone: [facility] Work Phone: Start: 08-03-2024 End: 08-03-2024 ambulatory Haritha Carmen Facility:[facility] Start: 07-27-2024 End: 07-27-[address] Manan Galicia MD -[facility] Work Phone: Start: 07-27-2024 End: 07-27-[address] Carine Grey MD Work Phone: [facility] Work Phone: Start: 06-29-2024 End: 06-29-2024 Patient encounter procedure Jose R BAKER -[facility] Work Phone: Start: 06-29-2024 End: 06-29-2024 ambulatory Efewongbe Oleghe Facility:[facility] Start: 06-29-2024 End: 06-29-2024 ambulatory Efewongbe Oleghe Facility:[facility] Start: 04-29-2024 ambulatory Efewavon lakebe Gracielae Facili ty:[facility] Start: 04-07-2024 Encounter for genera l adult medical examination without abnormal findings Carisa Slaughter LOG DATA TECHNICIAN [facility] Start: 03-21-2024 End: 03-21-2024 ambulatory Carisa Slaughter LOG DATA TECHNICIAN Facility:[facility] Start: 03-17-2024 End: 03-17-2024 ambulatory Carisa Slaughter LOG DATA TECHNICIAN Facility:[facility] Start: 02-24-2024 End: 02-24-2024 ambulatory Efewongbe Oleghe Facility:[facility] Start: 11-06-2023 End: 11-06-2023 ambulatory EFMELISSA B HANNAHALANAE Facility:[facility] Start: 11-06-2023 End: 11-06-2023 Office outpatient visit 15 minutes Jorge Esposito APRN.CNP Work Phone: [facility] Comment on above: Viral illness (Prima ry Dx) Start: 11-05-2023 ambulatory Efmelissa Owense Facili ty:[facility] Start: 10-20-2023 End: 10-20-2023 ambulatory Efkgongwesley Valentinghe Facility:[facility] Start: 06-19-2023 End: 06-19-[address] Carine Grey Work Phone: [facility] Work Phone: Start: 06-19-2023 End: 06-19-[address] Carine Grey Work Phone: [facility] Work Phone: Start: 06-09-2023 End: 06-09-[address] Carine Grey Work Phone: [facility] Work Phone: Start: 06-09-2023 End: 06-09-[address] Carine Grey Work Phone: [facility] Work Phone: Start: 06-04-2023 End: 06-04-[address] Carine Grey Work Phone: [facility] Work Phone: Start: 06-02-2023 End: 06-02-[address] Carine Grey Work Phone: [facility] Work Phone: Start: 05-24-2023 End: 05-24-2023 Emergency department patient visit CARINE GREY MD Facility:[facility] Start: 05-24-2023 End: 05-24-2023 Emergency department patient visit KASSANDRA ELIZONDO [facility] Start: 05-07-2023 End: 05-07-[address] Carine Grey Work Phone: [facility] Work Phone: Start: 05-01-2023 End: 05-01-[address] Carine Grey Work Phone: [facility] Work Phone: Start: 04-15-2023 End: 04-15-2023 Emergency department patient [facility] Dr. Carine Grey [facility] Start: 03-13-2023 End: 03-13-[address] Carine Grey Work Phone: [facility] Work Phone: Start: 2023 End: 2023 Emergency department patient visit DR PETER PACE MD Facility:B Start: 2023 End: 2023 Emergency department patient visit DR PETER PACE MD [facility] Start: 2023 End: 2023 ambulatory [facility] Facility:[facility] Start: 01-12-2023 Telephone encounter German Shin APRN.CNP Work Phone: [facility] Comment on above: Results Start: 01-11-2023 End: 01-11-2023 ambulatory [facility] Facility:[facility] Start: 01-11-2023 End: 01-11-2023 Patient encounter procedure Meir Nicole PA-C Work Phone: [facility] Comment on above: Burning with urinati on (Primary Dx); Acute conjunctivitis of both eyes, unspecified acute conjunctivitis type Start: 11-22-2022 End: 11-22-2022 [facility] Start: 11-13-2022 End: 11-13-2022 [facility] Start: 09-18-2022 End: 09-18-2022 [facility] Start: 07-31-2022 End: 07-31-2022 Emergency department patient visit [facility]Emergency Department Work Phone: Start: 06-12-2022 End: 06-12-2022 Emergency department patient visit [facility]-Emergency Department Start: 03-12-2022 End: 03-12-2022 Emergency department patient visit [facility]Emergency Department Start: 02-11-2022 Telephone encounter Breanne Linares marv REPORT MANAGER.HL7 DEVELOPER Work Phone: OB/Gynecology Comment on above: Results Start: 02-10-2022 End: 02-10-2022 Patient encounter procedure Breanne Bynumcalf HL7 DEVELOPER Work Phone: OB/Gynecology Comment on above: Encounter for gyneco logical examination (general) (routine) without abnormal findings (Primary Dx); Encounter for screening mammogram for breast cancer; Screen for STD (sexually transmitted disease); Screening for vaginal cancer Start: 02-10-2022 End: 02-10-2022 Patient encounter status Breanne Bynumcalf REPORT MANAGER.HL7 DEVELOPER Work Phone: OB/Gynecology Start: 07-29-2021 End: 07-29-2021 Emergency department patient visit Dr. Carine Grey Work Phone: [facility]-Emergency Department Start: 07-22-2021 End: 07-22-[address] Carine Grey Work Phone: [facility] Start: 07-17-2021 End: 07-17-[address] Carine Grey Work Phone: [facility] Start: 07-14-2021 End: 07-14-2021 Emergency department patient visit Dr. Carine Grey Work Phone: [facility]-Emergency Department Start: 06-14-2021 End: 06-14-[address] Carine Grey Work Phone: [facility]-Laboratory, [facility] Start: 05-01-2021 End: 05-01-2021 Emergency department patient visit Dr. Carine Grey Work Phone: [facility]-Emergency Department Start: 11-06-[address] Beny Grey Work Phone: [facility] Procedures Date Procedure Procedure Detail Performing Clinician Start: 08-03-2024 Hepatitis C antibody measurement Dr. Carine Grey MD Work Phone: Comment on above: Reactive: Presumptiv e evidence of antibodies to HCV. Follow CDC recommendations for supplemental testing.Non-Reactive: Antibodies to HCV were not detected; does not exclude the possibility of exposure to HCVReactive Results are presumptive evidence of antibodies to HCV. Follow CDC recommendations for supplemental testing.Order confirmation testing: HCV Quant by PCR testing - HCVPCR #[id number] Non Reactive: < 0.8 Equivocal: >/= 0.8 to < 1.0 Reactive: >/= 1.0The CDC requires that a reactive/equivocal HCV antibody result be sent out for confirmation. HCV Quant by PCR testing. Start: 08-03-2024 Serologic test for h erpes simplex Dr. Carine Grey MD Work Phone: Comment on above: Please note refere nce interval changeHSV-1 IgG testing performed using the [employer] HSV-1IgG assay. Start: 08-03-2024 Serologic test for syphilis Dr. Carine Grey MD Work Phone: Start: 06-09-2023 Screening mammography Jazlyn Grey Work Phone: Start: 01-11-2023 BACTERIAL VAGINOSIS NAAT Meir Nicole PA-C Work Phone: Start: 01-11-2023 Iadna chlamydia trac homatis amplified probe tq Meir Nicole PA-C Work Phone: Start: 01-11-2023 Urnls dip stick/tabl et rgnt auto w/o microscopy Meir HOLLINSC Work Phone: Start: 09-18-2022 Plain chest X-ray Start: 07-31-2022 Computed tomography of abdomen and pelvis with intravenous contrast Start: 06-12-2022 SARS-CoV-2 & FLU Ant igen (Rapid) Start: 03-12-2022 Diagnostic radiograp hy of finger Start: 07-22-2021 Plain x-ray of wrist Dr Bayron Grey Work Phone: Start: 07-14-2021 Plain x-ray of wrist Dr Bayron Grey Work Phone: Start: 05-01-2021 X-ray of chest posteroanterior view Dr. Carine Grey Work Phone: Start: 08-26-2017 Lipid 1996 panel - S bria or Plasma Meir Nicole PA-C Work Phone: Plan of Treatment Date Care Activity Detail Author Start: 02-10-2027 Pap Testing Pap Testing [facility] Start: 02-10-2027 Screening for malign ant neoplasm of cervix Cervical Cancer Screening [facility] Start: 07-29-2026 Urine microalbumin profile [facility] Start: 08-17-2024 Patient referral [facility] Work Phone: Start: 08-03-2024 Serologic test for syphilis [facility] Start: 08-03-2024 [facility] Start: 11-08-2023 Influenza vaccination Influenza Vacc ine (#1) [facility] Start: 05-07-2023 Patient referral [facility] Work Phone: Start: 04-15-2023 [facility] Start: 11-07-2022 Covid-19 Vaccine ( season) Covid-19 Vaccine ( season) [facility] Start: 11-07-2022 Influenza vaccination Influenza Vacc ine (#1) [facility] Start: 08-26-2022 Lipid 1996 panel - S bria or Plasma Lipid Screening [facility] Start: 08-26-2022 Lipid panel Lipid Screening [facility] Start: 08-26-2022 LIPID SCREEN LIPID SCREEN [facility] Start: 08-24-2022 PAP TESTING PAP TESTING [facility] Start: 03-09-2022 Depression Assessment Depression Ass essment [facility] Start: 02-25-2022 Shingrix Vaccine (1 of 2) Franco grix Vaccine (1 of 2) [facility] Start: 02-10-2022 End: 04-12-2022 Hepatitis B virus surface Ag [Presence] in Serum [facility] Work Phone: Comment on above: Expected: 02/10/2022 , Expires: 04/12/2022 Start: 02-10-2022 End: 04-12-2022 Hepatitis C virus RNA [Units/volume] (viral load) in Serum or Plasma by SAQIB with probe detection [facility] Work Phone: Comment on above: Expected: 02/10/2022 , Expires: 04/12/2022 Start: 02-10-2022 End: 04-12-2022 HIV 1+2 Ab [Presence] in Serum or Plasma by Immunoassay [facility] Work Phone: Comment on above: Expected: 02/10/2022 , Expires: 04/12/2022 Start: 02-10-2022 End: 04-12-2022 SYPHILIS TOTAL W/REFLEX [facility] Work Phone: Comment on above: Expected: 02/10/2022 , Expires: 04/12/2022 Start: 11-07-2021 Influenza vaccination INFLUENZA (#1) [facility] Start: 08-11-2021 HPV TESTING HPV TESTING [facility] Start: 03-09-2021 DEPRESSION ASSESSMENT DEPRESSION ASS ESSMENT [facility] Start: 08-26-2020 DIABETES SCREEN DIABETES SCREEN [facility] Start: 08-26-2020 Diabetes Screening Diabetes Screenin g [facility] Start: 11-05-2018 ANNUAL PCP TEAM TREASURY MANAGER CARLA DISEASE VISIT ANNUAL PCP TEAM CHRONIC DISEASE VISIT [facility] Start: 02-25-2017 COLOGUARD (FIT-DNA) COLOGUARD (FIT-D NA) [facility] Start: 02-25-2017 Colonoscopy COLONOSCOPY [facility] Start: 02-25-2017 COLORECTAL CANCER SCREENING COLORECTAL CANCER SCREENING [facility] Start: 02-25-[address] COLONOGRAPHY [facility] Start: 02-25-2017 FECAL OCCULT BLOOD FECAL OCCULT BLOO D [facility] Start: 02-25-2017 Screening for malign ant neoplasm of colon [facility] Start: 02-25-2017 SIGMOIDOSCOPY SIGMOIDOSCOPY [facility] Start: 2012 Mammography [facility] Start: 2012 Screening for malign ant neoplasm of breast Mammogram Screening [facility] Start: 02-25-1991 Hepatitis B Vaccine (1 of 3 - 19+ 3-dose series) Hepatitis B Vaccine (1 of 3 - 19+ 3-dose series) [facility] Start: 02-25-1990 Annual PCP Team Mucker Cofferdam carla Disease Visit Annual PCP Team Chronic Disease Visit [facility] Start: 02-25-1990 Anxiety Screening Anxiety Screening [facility] Start: 02-25-1990 Depression Screening Depression Scre ening [facility] Start: 1972 COVID-19 VACCINE (#1) COVID-19 VACCI NE (#1) [facility] Start: 1972 HEPATITIS B (1 of 3 - 3-dose series) HEPATITIS B (1 of 3 - 3-dose series) [facility] Start: 1972 Hepatitis B Vaccine (1 of 3 - 3-dose series) Hepatitis B Vaccine (1 of 3 - 3-dose series) [facility] Bacteria identified in Urine by Culture URINE CULTURE Microbiology Routine Burning with urination 01/11/2023 11:53 AM EST [facility] Work Phone: Cardiovascular stres s testing [facility] CBC W Auto Different ial panel - Blood [facility] Chlamydia deoxyribon ucleic acid detection [facility] Chlamydia trachomatis+Neisseria gonorrhoeae DNA [Presence] in Unspecified specimen by SAQIB with probe detection GC/CHLAMYDIA DNA DET Lab Routine Screen for STD (sexually transmitted disease) 02/10/2022 3:00 PM EST [facility] Work Phone: Colonoscopy [facility] Colonoscopy [facility] Hepatitis B virus jennings rface Ag [Presence] in Serum [facility] Hepatitis C antibody measurement [facility] Lipid 1996 panel - S bria or Plasma [facility] End: 03-12-2023 JUAN SCREENING JUAN SCREENING Radiology Routine 1 Occurrences starting 02/10/2022 until 03/12/2023 [facility] Work Phone: Comment on above: 1 Occurrences starti ng 02/10/2022 until 03/12/2023 Measurement of Human herpesvirus 2 antibody [facility] MG Breast - bilatera l Screening [facility] PAP FLUID CERVICAL SCREENING PAP FLUID CERVICAL SCREENING Lab Routine Encounter for gynecological examination (general) (routine) without abnormal findings Ordered: 02/10/2022 [facility] Work Phone: Comment on above: Ordered: 02/10/2022 PAP FLUID VAGINAL VA ULT SCREENING PAP FLUID VAGINAL VAULT SCREENING Lab Routine Screening for vaginal cancer 02/10/2022 3:24 PM EST [facility] Work Phone: Patient Education [facility] Work Phone: Patient referral [facility] Work Phone: Polysomnography [facility] Serologic test for h erpes simplex [facility] Thyroid stimulating hormone measurement [facility] Immunizations Immunization Date Immunization Notes Care Provider [facility] 01-25-2020 Influenza, injectabl e, Madin [place] Canine Kidney, preservative free, quadrivalent Breanne Trafford REPORT MANAGER.HL7 DEVELOPER Work Phone: [facility] Work Phone: 01-25-2020 influenza, injectable,quadrivalent , preservative free, pediatric Dr. Carine Grey Work Phone: [facility] 01-25-2020 influenza, seasonal, injectable, preservative free Breanne Noa REPORT MANAGER.HL7 DEVELOPER Work Phone: [facility] Work Phone: 01-25-2020 Flucelvax Quad [id number] (PF) (flu vac qs 2020(4 yr up)CD(PF)) 60 mcg ([address] Carine Grey Work Phone: [facility] Work Phone: 01-25-2020 influenza virus vaccine, unspecified formulation Meir Nicole PA-C Work Phone: [facility] 07-29-2016 tetanus toxoid, redu holly diphtheria toxoid, and acellular pertussis vaccine, adsorbed Breanne Trafford REPORT MANAGER.HL7 DEVELOPER Work Phone: [facility] 01-05-2014 influenza, seasonal, injectable, preservative free Breanne Noa REPORT MANAGER.HL7 DEVELOPER Work Phone: [facility] Work Phone: 01-09-2010 influenza virus vaccine, unspecified formulation Breanne Noa REPORT MANAGER.HL7 DEVELOPER Work Phone: [facility] 12-22-2008 influenza virus vaccine, unspecified formulation Breanne Trafford REPORT MANAGER.HL7 DEVELOPER Work Phone: [facility] Payers Date Payer Category Payer Self-pay [id number] 2023 Unknown [id number] 2015 Medicaid [id number] 2013 Unknown [id number] [facility] [id number] 2013 Unknown [id number] 1972 Unknown [id number] 2.16.8 [id number] 1972 Unknown [id number] 2.16.8 [id number] Unknown [id number] 2.16.8 [id number] Unknown [id number] 2.16.8 [id number] Unknown [id number] 2.16.8 [id number] Unknown [id number] 2.16.8 [id number] Unknown [id number] 2.16.8 [id number] Unknown [id number] 2.16.8 [id number] Unknown [id number] 2.16.8 [id number] Unknown [id number] 2.16.8 [id number] Unknown [id number] 2.16.8 [id number] Unknown [id number] 2.16.8 [id number] Unknown [id number] 2.16.8 [id number] Unknown [id number] 2.16.8 [id number] Unknown [id number] 2.16.8 [id number] Social History Date Type Detail Facility [facility] Work Phone: Start: 06-14-2021 End: 06-19-2023 Tobacco smoking status NHIS Unknown if ever smoked [facility] Start: 11-30-2019 None [facility] Start: 11-30-2019 Alone [facility] Start: 1970 Sex Assigned At Female [facility] Start: 02-10-2022 End: 04-27-2024 Tobacco smoking status NCIS Never smoked tobacco [facility] Start: 02-10-2022 Tobacco use and exposure Smokeless tobacco non-user [facility] Start: 02-10-2022 End: 11-06-2023 Alcohol intake Current drinker of alcohol (finding) [facility] Start: 08-11-2016 Alcohol Comment Occasionally [facility] Start: 1970 Sex Assigned At Not on file [facility] Start: 01-31-2022 End: 02-10-2022 Exposure to SARS-CoV-2 (event) Not sure [facility] Start: 01-11-2023 End: 04-06-2023 History of Social function [facility] Start: 01-11-2023 End: 04-06-2023 Tobacco use panel [facility] Adult Depression Screening Assessment 2 [facility] Sex Assigned At Sex [facility] Medical Equipment Procedure Code Equipment Code Equipment Origin al Text Equipment Identifier Dates Clip Flsh Int Fa lop Tube Ti - [id number] Start: 09-05-2014 Clip Flsh Int Fa lop Tube Ti - [id number] Start: 09-05-2014 Functional Status Date Assessment Result Facility 05-24-2023 Functional Status Independent [facility] 2023 Functional Status Resting [facility] Mental Status Date Assessment Result Facility 05-24-2023 Mental Status Orientation Oriented x 4 [facility] 2023 Mental Status Orientation Oriented x 4 [facility] 09-18-2022 Cognitive function Level Of Cons ciousness Awake;Alert;Appropriate;Follow s Commands [facility] Work Phone: Clinical Notes 08-30-2014 to 08-03-2024 Note Date & Type Note Facility 08-03-2024 Progress note [facility] 08-03-2024 Progress note Note Date/Time August 03, 2024 4:00pm [facility] [address], [address] [place] [address] OFFICE VISIT Date of Service: 08/03/24 MR#: [id number] Acct: [id number] Name: VENICE ANDERSON Rep #: [id number] : 1970 Provider: DALLAS Carmen Age/Sex: 54/F Location: [facility] Status: Signed Intake Vital Signs 02/24/24 17:58 07/27/24 13:53 08/03/24 15:30 08/03/24 15:30 Height 5 ft 5 ft 5 ft 5 ft Weight: 191 lb BMI 37.3 BP 139/84 H Intake Visit 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 Acute Required: No Is patient in pain?: No Allergies No Known Allergies Allergy (Verified 08/03/24 15:30) Medications ?Medication ?Instructions ?Recorded ?Confirmed ?Type blood pressure monitor #1 ea 06/02/23 08/03/24 Rx cetirizine 10 mg tablet 10 mg PO DAILY PRN allergies #90 02/17/24 08/03/24 Rx tabs Cpap Mask #1 ea 02/24/24 08/03/24 Rx multivitamin (Daily Multi-Vitamin 1 tab PO DAILY 04/2708/03/24 History tablet) fluticasone propionate 50 1 spray intranasal BID #16 g ludy 06/29/24 08/03/24 Rx mcg/actuation nasal spray,suspension (Flonase Allergy Relief) desmopressin 0.1 mg tablet 0.2 mg (2 x 0.1 mg) PO BID 2 07/21/24 08/03/24 Rx months #240 tabs levothyroxine 125 mcg tablet See Rx Instructions .Rout e 07/21/24 08/03/24 Rx .COMPLEX #30 tabs peg 3350-electrolytes 236 4,000 ml PO ONCE #4,000 mL 0 07/28/24 08/03/24 Rx gram-22.74 gram-6.74 gram-5.86 gram solution Post menopausal: No Patient : No : No PFSH Medical History Wears hearing aid Wears dentures Wears glasses Cancer Depression Anxiety Thyroid disease Anemia CPAP (continuous positive airway pressure) dependence Sleep apnea History of stress test Hx of otitis media Hx of diverticulitis of colon Cervical cancer Distal radius fracture Diabetes insipidus Seasonal allergies Prediabetes Elevated blood pressure reading without diagnosis of hypertension DiGeorge's syndrome Surgical History Hx of foot surgery c section H/O: hysterectomy Family History Father Heart disease Myocardial infarction Grandmother Colon cancer Social History number of children: 2 current occupational status: employed and unemployed history of recent travel: No sexually active: Yes Smoking Status: Never smoker second hand exposure: Yes alcohol intake: never substance use type: does not use what type of physical activity do you participate in: none seatbelt use: never do you feel safe at home: Yes additional social history: boyfriend History 2 Elective abortions Hx Para 2 Spontaneous abortions Hx # Term Pregnancies Ectopic pregnancies Hx # Pregnancies Multiple births # of living children 2 Past Pregnancies Del. Date Name GA/Weeks Outcome Route Bth Weight Infant Gen Labor Lgth Anesthesia Del [facility] Provider FOB Unknown Katina 1993 Unknown Marjorie 2005 HPI Encounter for routine gynecological examination Details: VENICE ANDERSON is a 54 year old who presents for annual exam. She reports no issuesor concerns today. She would like to have her urine check for UTI; she reports she is not symptomatic. She reports she was with a new partner and would like titi tested for STD's. She reports no current symptoms; denies discharge, vaginal odor or any bleeding. Last PAP: 2023; normal. HPV neg. History of abnormal PAP: no. Last mammogram: 2023; normal. History of abnormal mammogram: no. Colon cancer screening: scheduled for 08/19/24. Other preventative health care screenings: Dr. Grey; PCP. ROS Const Constitutional: Denies chills, fatigue, fever(s), headache(s) or weight loss Eyes Eyes: Denies change in vision ENT ENT: Denies dizziness Resp Resp: Denies cough GI GI: Denies abdominal pain, constipation or nausea : Denies difficulty voiding, dysuria, hematuria, nipple discharge, pelvic pain, prolapse symptoms, urinary incontinence, vaginal discharge, vaginal dryness, vaginal odor or vaginal pruritus Skin Skin/Breast: Denies alopecia, rash, breast mass, breast pain, breast skin changes or nipple discharge Neuro Neuro: Denies dizziness Psych Psych: Denies anxiety or depression Endo Endo: Denies cold intolerance, excessive sweating or heat intolerance Exam Const General: cooperative, healthy appearing, comfortable, no acute distress, well groomed and well hydrated Nutritional Appearance: well nourished Orientation: alert, awake and oriented x3 HENMT Head: normal to inspection and normocephalic Ears: hearing grossly normal bilaterally and external ears normal Nose: external nose normal Face and sinus: normal facial exam Eyes General: appearance normal, both eyes and all related structures Neck Neck: normal visual inspection, full ROM and no lymphadenopathy Thyroid: thyroid normal Chest Chest palpation & inspection: normal inspection of the chest Breast inspection: normal inspection of the breasts and normal inspection of theaxillae Breast palpation: normal palpation of the breasts, normal palpation of the axillae and no axillary lymphadenopathy Resp Effort & Inspection: normal respiratory effort, able to speak in complete sentences and symmetric chest movement GI Inspection: normal to inspection Palpation: soft and no hepatosplenomegaly General: bladder normal to palpation External Female Exam: normal external appearance and normal appearance of the urethra Urethra: normal appearance of the urethra Speculum Exam - Vagina: normal appearance of the vagina, normal vaginal discharge, no lesions and nontender Speculum Exam - Cervix: absent Bimanual Exam- Vagina & Uterus: normal bimanual exam, bladder normal to palpation and uterus absent Bimanual Exam- Adnexa, other: normal adnexae, no masses, normal and non-tender Pelvic Support: normal Skin General: no rashes or lesions noted Neuro General: patient alert, patient awake, patient oriented x3 and moves all extremities Psych Appearance: grossly normal Mental Status: mental status grossly normal Affect: normal affect Speech and Movement: speech and movement normal Attitude: cooperative Results POC Urinalysis Dip (Clinic) Office Urine Color Yellow Last Edit by Justa Del Castillo on 08/03/24 15:39 Office Urine Clarity Clear Last Edit by Justasa Del Castillo on 08/03/24 15:39 Office Urine Glucose Negative Last Edit by Justasa Del Castillo on 08/03/24 15:39 Office Urine Ketones Negative Last Edit by Justa Abundio on 08/03/24 15:39 Off Ur Spec Lindsay 1.005 Last Edit by Justa Abundio on 08/03/24 15:39 Office Urine pH 6 Last Edit by Justasa Del Castillo on 08/03/24 15:39 Office Urine Bilirubin Negative Last Edit by Justa Abundio on 08/03/24 15:39 Office Urine Urobilinogen Negative Last Edit by Justa Abundio on 08/03/24 15 :39 Office Urine Blood Negative Last Edit by Justa Abundio on 08/03/24 15:39 Office Urine Blood Hemolyzed NA Last Edit by Justa Abundio on 08/03/24 15:39 Office Urine Protein Negative Last Edit by Justa Abundio on 08/03/24 15:39 Office Urine Nitrate Negative Last Edit by Justa Abundio on 08/03/24 15:39 Off Ur Leukocytes Negatve Last Edit by Justa Abundio on 08/03/24 15:39 Coding Level of Care Code Established Pt Off vis,est,prev 40-64yrs Patient Type Established Diagnoses Encounter for routine gynecological examination Z01.419 Possible exposure to STI Z20.2 Assessment and Plan Assessment and Plan (1) Encounter for routine gynecological examination: Plan: Breast and pelvic exam complete. PAP due: hyst Mammogram due: due; orders placed to obtain Advised self breast exams monthly. Contraception: hyst Advised incorporating healthy dietary choices such as increase in lean meats, fruits/vegetables, less processed food/sat fat/trans fats. Increase exercise to 30 minutes per day/5 days a week. This can include both weight bearing exercisesand/or brisk walking. Follow up with PCP for further preventative health screenings. Follow up 1 year for repeat annual supportability engineer exam. Call office sooner with questions or concerns. (2) Possible exposure to STI: Status: Acute Plan: cultures and blood work obtained; final plan with results. Orders: Orders POC Urinalysis Dip (Clinic) Today N39.0 - Urinary tract infection, site not specified POC Trichomonas Vaginalis Today Z12.31 - Encounter for screening mammogram for malignant neoplasm of breast, Z20.2 - Contact with and (suspected) exposure to infections with a predominantly sexual mode of transmission Chlamydia/GC SAQIB aptima Today Z12.31 - Encounter for screening mammogram for malignant neoplasm of breast, Z20.2 - Contact with and (suspected) exposure to infections with a predominantly sexual mode of transmission Hepatitis B Surface Antigen Today Z20.2 - Contact with and (suspected) exposureto infections with a predominantly sexual mode of transmission Syphilis Antibodies Today Z20.2 - Contact with and (suspected) exposure to infections with a predominantly sexual mode of transmission HIV Today Z20.2 - Contact with and (suspected) exposure to infections with a predominantly sexual mode of transmission HSV 1&2 IgG Today Z20.2 - Contact with and (suspected) exposure to infections with a predominantly sexual mode of transmission Hepatitis C Antibody Today Z12.31 - Encounter for screening mammogram for malignant neoplasm of breast, Z20.2 - Contact with and (suspected) exposure to infections with a predominantly sexual mode of transmission SCRN MAMM (CAD)W/RAQUEL BILAT Today Z12. - Encounter for screening mammogram for malignant neoplasm of breast 08/03/24 1600 <Electronically signed by Haritha HAYNES> Date _ Haritha Carmen LOG DATA TECHNICIAN-C Cosigner Signature: Date (if applicable) CC: ~ [facility] Work Phone: 1(973) 637-384104-23-2025 Evaluation note* Diagnosis Onset Date Resolution Status Admit Date Diabetes insipidus chronic June 29, 2024 10:22am Hyperlipidemia chronic June 10:22am Hypothyroidism chronic June 10:22am Seasonal allergies chronic June 29, 2024 10:22am [facility] Work Phone: 1(263) 483-117604-23-2025 Evaluation note* Diagnosis Onset Date Resolution Status Admit Date Diabetes insipidus chronic June 29, 2024 10:22am Hyperlipidemia chronic June 10:22am Hypothyroidism chronic June 10:22am Seasonal allergies chronic June 29, 2024 10:22am Colon cancer screening acute 2024 1:31pm Possible exposure to STI acute August 03, 2024 3:20pm Encounter for routine gynecological examination noneactive August 032024 3:20pm [facility] Work Phone: 1(451) 775-350204-11-2025 NoteNoted, thank you. Will contact patient once the referral is received.[facility]08-30-2024 NoteHNO ID: [id number] Author: JORGE ESPOSITO APRN.HL7 DEVELOPER Service: ? Author Type: Nurse Practitioner Type: Progress Notes Filed: 11/06/2023 14:50 Note Text: Subjective HPI Nontoxic-appearing female presents urgent care chief complaint loose stool headache nausea. Duration of symptoms 2 days. Associated symptoms listed above. 1 loose stool yesterday. No blood. Is slightly nauseated today. Has headache. Colleague has similar signs symptoms. No OTC medication use. Denies any fever body aches chills productive cough chest pain shortness of breath pleuritic pain hemoptysis nausea vomiting abdominal pain or rashes. Habits. Past medical history prescription medication use and allergies reviewed. .Patient presents with: Nausea: Headache, x today, diarrhea yesterday PAST MEDICAL HISTORY 01/23/2009: Allergic Rhinitis No date: Diabetes insipidus (HCC) No date: DiGeorge's syndrome (HCC) No date: Hypocalcemia No date: Prediabetes No date: Unspecified hypothyroidism No date: Vitamin D deficiency PAST SURGICAL HISTORY 07/2005: DELIVERY ONLY Comment: , low cervical 2015: LAPAROSCOPIC TUBAL LIGATION/RING/CLIP 1983: PAST SURGICAL HISTORY OF; Bilateral Comment: flat foot surgery No date: PAST SURGICAL HISTORY OF; Bilateral Comment: hardware removed from feet 07/03/15: PAST SURGICAL HISTORY OF Comment: laparoscopic removal of adenxa- cervical CA ALLERGIES Benadryl [Diphenhydramine Hcl] MEDICATIONS busPIRone (BUSPAR) 5 mg tablet Take 1 tablet by mouth every 12 hours. levothyroxine (SYNTHROID) 125 mcg tablet Take 125 mcg by mouth once daily. montelukast (SINGULAIR) 10 mg tablet Take by mouth. cetirizine (ZYRTEC) 10 mg tablet Take 10 mg by mouth once daily. albuterol HFA (PROVENTIL HFA, VENTOLIN HFA) 90 mcg/actuation inhaler Inhale 2 Puffs as instructed every 4 hours as needed for wheezing/shortness of breath. desmopressin acetate (DDAVP) 0.1 mg tablet Take 0.5 tablets by mouth twice daily. Cholecalciferol, Vitamin D3, 2,000 unit cap Take 1 capsule by mouth once daily. naproxen (NAPROSYN) 500 mg tablet Take 500 mg by mouth twice daily as needed. (Patient not taking: Reported on 01/11/2023) pravastatin (PRAVACHOL) 10 mg tablet Take 1 tablet by mouth once daily. (Patient not taking: Reported on 01/11/2023) VITAMIN D2 50,000 unit capsule Take 1 capsule by mouth one time a week. (Patient not taking: Reported on 01/11/2023) ARIPiprazole (ABILIFY) 10 mg tablet Take 1 tablet by mouth once daily. (Patient not taking: Reported on 01/11/2023) buPROPion XL (WELLBUTRIN XL) 150 mg 24 hr tablet Take 1 tablet by mouth once daily. (Patient not taking: Reported on 01/11/2023) FAMILY HISTORY Problem Relation Age of Onset Heart Father ID Stroke Father other (anuerysm) Father other (immune deficiency) Mother Diabetes Maternal Grandmother other (Colon cancer) Paternal Grandmother in her 50's (?) other (heart defect) Daughter other (Juvenile Rheumatoid Arthritis) Daughter Social History Tobacco Use Smoking status: Never Smokeless tobacco: Never Vaping Use Vaping status: Never Used Substance Use Topics Alcohol use: Yes Comment: Occasionally Drug use: No BP 151/86 Pulse (!) 56 Temp 36.1 ?C (97 ?F) Resp 20 Wt 81 kg (178 lb 9.2 oz) LMP 08/28/2014 (Approximate) SpO2 100% BMI 34.88 kg/m? Review of Systems Constitutional: Negative for chills, fever and malaise/fatigue. HENT: Negative for congestion, ear discharge, ear pain, sinus pain and sore throat. Eyes: Negative for blurred vision, pain, discharge and redness. Respiratory: Negative for cough, hemoptysis, sputum production, shortness of breath, wheezing and stridor. Cardiovascular: Negative for chest pain. Gastrointestinal: Positive for diarrhea and nausea. Negative for abdominal pain and vomiting. Musculoskeletal: Negative for myalgias. Skin: Negative for itching and rash. Neurological: Positive for headaches. Negative for dizziness. Objective Physical Exam Constitutional: General: She is not in acute distress. Appearance: She is not diaphoretic. HENT: Head: Normocephalic. Jaw: No trismus, tenderness, swelling or pain on movement. Mouth/Throat: Mouth: Mucous membranes are moist. Pharynx: Oropharynx is clear. Uvula midline. No pharyngeal swelling, oropharyngeal exudate, posterior oropharyngeal erythema or uvula swelling. Eyes: Conjunctiva/sclera: Conjunctivae normal. Pupils: Pupils are equal, round, and reactive to light. Cardiovascular: Rate and Rhythm: Normal rate and regular rhythm. Heart sounds: Normal heart sounds. Pulmonary: Effort: Pulmonary effort is normal. No tachypnea, accessory muscle usage or respiratory distress. Breath sounds: Normal breath sounds. No stridor. No wheezing, rhonchi or rales. Abdominal: General: There is no distension. Palpations: Abdomen is soft. Tenderness: There is no abdominal tenderness. There is no (more content not included)...[facility]08-30-2024 History of Present illness Narrative* Jorge Esposito, [email or web address].[email or web address] DEVELOPER - 11/06/2023 2:31 PM EDT Subjective HPI Nontoxic-appearing female presents urgent care chief complaint loose stool headache nausea. Duration of symptoms 2 days. Associated symptoms listed above. 1 loose stool yesterday. No blood. Is slightly nauseated today. Has headache. Colleague has similar signs symptoms. No OTC medication use. Denies any fever body aches chills productive cough chest pain shortness of breath pleuritic pain hemoptysis nausea vomiting abdominal pain or rashes. Habits. Past medical history prescription medication use and allergies reviewed. .Patient presents with: Nausea: Headache, x today, diarrhea yesterday PAST MEDICAL HISTORY 01/23/2009: Allergic Rhinitis No date: Diabetes insipidus (HCC) No date: DiGeorge's syndrome (HCC) No date: Hypocalcemia No date: Prediabetes No date: Unspecified hypothyroidism No date: Vitamin D deficiency PAST SURGICAL HISTORY 07/2005: DELIVERY ONLY Comment: , low cervical 2015: LAPAROSCOPIC TUBAL LIGATION/RING/CLIP 1983: PAST SURGICAL HISTORY OF; Bilateral Comment: flat foot surgery No date: PAST SURGICAL HISTORY OF; Bilateral Comment: hardware removed from feet 07/03/15: PAST SURGICAL HISTORY OF Comment: laparoscopic removal of adenxa- cervical CA ALLERGIES Benadryl [Diphenhydramine Hcl] MEDICATIONS busPIRone (BUSPAR) 5 mg tablet Take 1 tablet by mouth every 12 hours. levothyroxine (SYNTHROID) 125 mcg tablet Take 125 mcg by mouth once daily. montelukast (SINGULAIR) 10 mg tablet Take by mouth. cetirizine (ZYRTEC) 10 mg tablet Take 10 mg by mouth once daily. albuterol HFA (PROVENTIL HFA, VENTOLIN HFA) 90 mcg/actuation inhaler Inhale 2 Puffs as instructed every 4 hours as needed for wheezing/shortness of breath. desmopressin acetate (DDAVP) 0.1 mg tablet Take 0.5 tablets by mouth twice daily. Cholecalciferol, Vitamin D3, 2,000 unit cap Take 1 capsule by mouth once daily. naproxen (NAPROSYN) 500 mg tablet Take 500 mg by mouth twice daily as needed. (Patient not taking: Reported on 01/11/2023) pravastatin (PRAVACHOL) 10 mg tablet Take 1 tablet by mouth once daily. (Patient not taking: Reported on 01/11/2023) VITAMIN D2 50,000 unit capsule Take 1 capsule by mouth one time a week. (Patient not taking: Reported on 01/11/2023) ARIPiprazole (ABILIFY) 10 mg tablet Take 1 tablet by mouth once daily. (Patient not taking: Reported on 01/11/2023) buPROPion XL (WELLBUTRIN XL) 150 mg 24 hr tablet Take 1 tablet by mouth once daily. (Patient not taking: Reported on 01/11/2023) FAMILY HISTORY Problem Relation Age of Onset Heart Father ID Stroke Father other (anuerysm) Father other (immune deficiency) Mother Diabetes Maternal Grandmother other (Colon cancer) Paternal Grandmother in her 50's (?) other (heart defect) Daughter other (Juvenile Rheumatoid Arthritis) Daughter Social History Tobacco Use Smoking status: Never Smokeless tobacco: Never Vaping Use Vaping status: Never Used Substance Use Topics Alcohol use: Yes Comment: Occasionally Drug use: No BP 151/86 Pulse (!) 56 Temp 36.1 C (97 F) Resp 20 Wt 81 kg (178 lb 9.2 oz) LMP 08/28/2014(Approximate) SpO2 100% BMI 34.88 kg/m Review of Systems Constitutional: Negative for chills, fever and malaise/fatigue. HENT: Negative for congestion, ear discharge, ear pain, sinus pain and sore throat. Eyes: Negative for blurred vision, pain, discharge and redness. Respiratory: Negative for cough, hemoptysis, sputum production, shortness of breath, wheezing and stridor. Cardiovascular: Negative for chest pain. Gastrointestinal: Positive for diarrhea and nausea. Negative for abdominal pain and vomiting. Musculoskeletal: Negative for myalgias. Skin: Negative for itching and rash. Neurological: Positive for headaches. Negative for dizziness. Objective Physical Exam Constitutional: General: She is not in acute distress. Appearance: She is not diaphoretic. HENT: Head: Normocephalic. Jaw: No trismus, tenderness, swelling or pain on movement. Mouth/Throat: Mouth: Mucous membranes are moist. Pharynx: Oropharynx is clear. Uvula midline. No pharyngeal swelling, oropharyngeal exudate, posterior oropharyngeal erythema or uvula swelling. Eyes: Conjunctiva/sclera: Conjunctivae normal. Pupils: Pupils are equal, round, and reactive to light. Cardiovascular: Rate and Rhythm: Normal rate and regular rhythm. Heart sounds: Normal heart sounds. Pulmonary: Effort: Pulmonary effort is normal. No tachypnea, accessory muscle usage or respiratory distress. Breath sounds: Normal breath sounds. No stridor. No wheezing, rhonchi or rales. Abdominal: General: There is no distension. Palpations: Abdomen is soft. Tenderness: There is no abdominal tenderness. There is no guarding or rebound. Musculoskeletal: Cervical back: Normal range of motion and neck supple. No edema, erythema, rigidity or tenderness. No pain with movement. Normal range of motion. Lymphadenopathy: Cervical: No cervical adenopathy. Skin: General: Skin is warm and dry. Neurological: Mental Status: She is alert and oriented to person, place, and time. ASSESSMENT/PLAN: 1. Viral illness - ICD9: 079.99, ICD10: B34.9 Diagnosed with viral illness. No evidence of bacterial infection. Patient was educated on supportive therapies. Patient will follow up with primary care provider as needed. Patient was instructed to immediately proceed to emergency room for any new, worsening, or symptoms lasting longer than anticipated. The patient's clinical presentation is otherwise unremarkable at this time. Based on exam andclinical finding, the patient is stable for discharge. Plan of care was discussed with patient. Patient verbalizes understanding and agrees to plan of care. This note was generated using [employer] software. It may contain errors in wording, punctuation, or spelling. Jorge Esposito APRN.HL7 DEVELOPER [facility] Discharge instructions Patient Education 05/24/2023 17:20:29 Hypothyroidism Hypothyroidism You have hypothyroidism. This means your thyroid gland is not making enough thyroid hormone. This hormone is vital to body growth and metabolism. If you don t make enough, many body processes slow down. This can cause symptoms throughout the body. Hypothyroidism can range from mild to severe. The most severe form is called myxedema. There are a number of causes of hypothyroidism. A common cause is Maxi s disease. This diseasecauses the body s own immune system to attack the thyroid gland. When you have certain treatments, such as surgery to remove the thyroid gland, this can also cause hypothyroidism. Sometimes the thyroid gland is not functioning because of lack of stimulation from the pituitary gland. Symptoms of hypothyroidism can include: Fatigue Trouble concentrating or thinking clearly; forgetfulness Dry skin Hair loss Weight gain Low tolerance to cold Constipation Depression Personality changes Tingling or prickling of the hands or feet Heavy, absent, or irregular periods (women only) Older adults may sometimes have other symptoms. These can include: Muscle aches and weakness Confusion Incontinence (unable to control urine or stool) Trouble moving around Falling Treatment for hypothyroidism involves taking thyroid hormone pills daily. These pills replace the hormone your thyroid doesn t make. You will likely need to take a daily pill for the rest of your life. Tips for taking this medicine are given below. Home care Tips for taking your medicine Take your thyroid hormone pills as prescribed by your healthcare provider. This is most often 1 pill a day on an empty stomach. Use a pillbox labeled with the days of the week. This will help you remember to take your pill each day. Don t take products that contain iron and calcium or antacids within 4 hours of taking your thyroidhormone pills. Don t take other medicines with your thyroid hormone pill without checking with your provider first. Tell your provider if you have any side effects from your medicines that bother you, especially anychest pain or irregular heartbeats. Never change the dosage or stop taking your thyroid pills without talking to your provider first. General care Always talk with your provider before trying other medicines or treatments for your thyroid problem. If you see other healthcare providers, be sure to let them know about your thyroid problem. Let your healthcare provider know if you become because your dose of thyroid hormone will need to be adjusted. Follow-up care See your healthcare provider for checkups as advised. You may need regular tests to check the levelof thyroid hormone in your blood. When to seek medical advice Call your healthcare provider right away if any of these occur: New symptoms develop Symptoms return, continue, or worsen even after treatment Extreme fatigue Puffy hands, face, or feet Fast or irregular heartbeat Confusion Call 911 Call 911 if any of these occur: Fainting Chest pain Shortness of breath or trouble breathing [phone] [employer]. [address] [place] [address]. All rights reserved. This information is not intended as a substitute for professional medical care. Always follow yourhealthcare professional's instructions. Follow Up Care 05/24/2023 15:35:18 With:CARINE GREY MD Address: [address] [place] [address] [phone] When:2-4 days [facility] 03-17-2024 Note Discharge Instructions Thank you for allowing [facility] to assist you with your healthcare needs. The following is importantdischarge information regarding your hospital visit. Diagnosis from Today's Visit Hypothyroidism Light-Headed What to Do Next Instructions from Your Care Team Please go straight to your pharmacy and cotton picker your levothyroxine prescription and start taking itas directed by your primary care physician. No qualifying data available. Post Acute Orders No qualifying data available. You Need to Schedule the Following Appointments Follow Up with CARINE GREY MD When Within 2-4 days Where: [address] [place] [address]- [phone] Allergies NKA Medications Please ask your primary doctor or pharmacist before taking any other medication not listed, including over the counter drugs, herbal medications, vitamins and or supplements as they may interact withyour home medications. What How Much When Instructions Last Dose Unchanged desmopressin (desmopressin 0.1 mg oral tablet) 1 tab(s) TAKE 2 TABLETS BY MOUTH TWICE DAILY Unchanged levothyroxine (levothyroxine 125 mcg (0.125 mg) oral tablet) 1 tab(s) by mouth Once a day Unchanged naproxen (Anaprox-DS 550 mg oral tablet) 1 tab(s) by mouth Two (2) times a day as needed for as needed for pain Unchanged ondansetron (Zofran 4 mg oral tablet) 1 tab(s) by mouth Every 6 hours as needed for Nausea/Vomiting Please take this list to your next doctor s visit. Bring all medications you take, including over the counter medications, herbals and other supplements with you to your doctor s visit. Patients and families are reminded to discard old lists and to update any records with all medication providers or retail pharmacies. Education Materials Hypothyroidism You have hypothyroidism. This means your thyroid gland is not making enough thyroid hormone. This hormone is vital to body growth and metabolism. If you don t make enough, many body processes slow down. This can cause symptoms throughout the body. Hypothyroidism can range from mild to severe. The most severe form is called myxedema. There are a number of causes of hypothyroidism. A common cause is Maxi s disease. This diseasecauses the body s own immune system to attack the thyroid gland. When you have certain treatments, such as surgery to remove the thyroid gland, this can also cause hypothyroidism. Sometimes the thyroid gland is not functioning because of lack of stimulation from the pituitary gland. Symptoms of hypothyroidism can include: Fatigue Trouble concentrating or thinking clearly; forgetfulness Dry skin Hair loss Weight gain Low tolerance to cold Constipation Depression Personality changes Tingling or prickling of the hands or feet Heavy, absent, or irregular periods (women only) Older adults may sometimes have other symptoms. These can include: Muscle aches and weakness Confusion Incontinence (unable to control urine or stool) Trouble moving around Falling Treatment for hypothyroidism involves taking thyroid hormone pills daily. These pills replace the hormone your thyroid doesn t make. You will likely need to take a daily pill for the rest of your life. Tips for taking this medicine are given below. Home care Tips for taking your medicine Take your thyroid hormone pills as prescribed by your healthcare provider. This is most often 1 pill a day on an empty stomach. Use a pillbox labeled with the days of the week. This will help you remember to take your pill each day. Don t take products that contain iron and calcium or antacids within 4 hours of taking your thyroidhormone pills. Don t take other medicines with your thyroid hormone pill without checking with your provider first. Tell your provider if you have any side effects from your medicines that bother you, especially anychest pain or irregular heartbeats. Never change the dosage or stop taking your thyroid pills without talking to your provider first. General care Always talk with your provider before trying other medicines or treatments for your thyroid problem. If you see other healthcare providers, be sure to let them know about your thyroid problem. Let your healthcare provider know if you become because your dose of thyroid hormone will need to be adjusted. Follow-up care See your healthcare provider for checkups as advised. You may need regular tests to check the levelof thyroid hormone in your blood. When to seek medical advice Call your healthcare provider right away if any of these occur: New symptoms develop Symptoms return, continue, or worsen even after treatment Extreme fatigue Puffy hands, face, or feet Fast or irregular heartbeat Confusion Call 911 Call 911 if any of these occur: Fainting Chest pain Shortness of breath or trouble breathing [phone] [employer]. [address] [place] [address]. All rights reserved. This information is not intended as a substitute for professional medical care. Always follow yourhealthcare professional's instructions. Additional Information VACCINATE! IT SAVES LIVES! Members of the community who have not yet received the COVID-19 vaccine and would like to receive it can visit one of [facility] vaccine clinics. There are many vaccine clinic locations within the [facility]. For locations and available times, please visit www.gettheshot.coronavirus.[place].gov/. It is important to note that some COVID mobile vaccine clinics are held outdoors and may be canceled in rainy or stormy conditions. To learn more about pediatric vaccinations (ages 5-11), we invite you to visit the [employer] [facility] webpage. https://www.[facility].org/pages/3702-Nwbxz-Tdiwfoaibom-Qcjxhsojvr-Twtmx-Kua stions.htmlTo learn more about the COVID-19 vaccine, we invite you to visit the CDC website for a list of frequently asked questions. https://www.cdc.gov/coronavirus/2019-ncov/vaccines/faq.html [facility] Patient Portal Access Instructions: Stay connected with your healthcare team and access your personal medical information anytime with the [facility] Patient Portal. If you would like a full copy of your medical records please contact the [facility] Medical Records Department Thursday through Thursday between 8a.m. and 4:30p.m. Please follow the directions below to access the portal: 1.Access the email account you provided upon registration to the hospital.2.Look for an invitation email from [facility].3.Open the email and access the invitation link: Accept Invitation to [facility]4.Fill in the required faustin to create your account. Sign into [email or web address] with your username and password that you [...] you will allow to register on the [employer] Patient Portal for access to your information. You can also access the [employer] Patient Portal on the [employer] trino. Simply click on Health Records under [employer] and then click on the [employer] logo. HOW TO SAFELY DISPOSE OF PRESCRIPTION MEDICATIONS Please use one of the following methods to safely dispose of your unused medications. 1.Use a drug disposal kit: the drug disposal pouch allows you to safely discard your old and unuseddrugs. Ask your nurse to give you one when you are discharged.2.Visit a local take-back location: Many local pharmacies and police departments have programs that collect old and unwanted prescriptiondrugs. Call your local pharmacy or go to http://Hybrid Logic/9W6Qf5y to find one close to you.3.Make use of household items: Use cat litter or old coffee grounds to dispose medications if other options arenot available. Mix your drugs with these household products, seal them in an airtight container andthrow it into the garbage. Call [facility]: [phone] to be sure your drugs can be [...] drowsiness, such as benzodiazepines, also known as benzos,including diazepam and alprazolam, muscle relaxants or sleep aids. Never sell or share prescriptionopioids. This is illegal. Store opioids in a secure place and out of reach of others (including children, family, friends and visitors). The last page(s) of this document has been signed and retained as a CHART COPY Signatures Patient Education Materials Hypothyroidism Medication Leaflets My discharge plan and instructions have been reviewed and explained to me and I,VENICE ANDERSON understand my current condition and have read and understand these discharge instructions. I have receiveda written copy of the plan/instructions. If I have questions, I am aware that I should contact my do ctor. Patient/Presentation Specialist Signature: Date/Time: Relationship to Patient: Witness Name/Signature: Date/Time: [facility]02-07-2024 Discharge summary Author Naresh Khalil [facility] April 15, 2023 4:14pm Note Date/Time April 15, 2023 4 :14pm [facility] Medical Records Department [address] [place] [address] Emergency Department Summary 04/15/23 MR#: [id number] Acct: [id number] Name: VENICE ANDERSON Rep #:[id number] : 1970 53 From: Naresh Khalil MD PCP: Dr. Carine Grey MD Status:P RE ER Location: ED HPI HPI - URI History of Present Illness Chief Complaint: Ear Problem Detail of Chief Complaint: Left ear pain last 2 days. No trauma. Informant: patient Onset/Context/Timing Onset: Days Context: Gradual Onset Timing: Continuous Current Severity: Mild Maximum Severity: Mild Worsened by: Not Worsened By Swallowing, Eating Solids or Drinking Liquids Associated Symptoms Associated Symptoms: Negative for Headache, Sinus Pressure, Myalgias, Nausea, Vomiting, Diarrhea, Shortness of Breath, Chest Pain, Nonproductive cough or Hemoptysis Narrative Narrative: 53-year-old female history of hypertension and diabetes insipidus. Complaining of left earache for last couple days. No fever. No vomiting or diarrhea. No sore throat or trouble swallowing. No trauma to her ear. Prior similar symptoms: Yes Recent Illness/Hospitalization: No ROS ROS ED ROS Narrative Left earache. Review of Systems ROS Unobtainable: Denies due to encephalopathy Constitutional Constitutional ED: Denies chills or fever(s) Eyes Eyes: Denies blurry vision ENT ENT ED: Reports ear pain; Denies rhinorrhea or sore throat Cardiovascular Cardiovascular: Denies chest pain, palpitations or racing heartbeat Respiratory/Chest Respiratory/Chest: Denies cough or dyspnea Gastrointestinal Gastrointestinal: Denies abdominal pain or diarrhea Genitourinary Genitourinary ED: Denies dysuria or hematuria Musculoskeletal Musculoskeletal: Denies arthralgias or back pain Integumentary Denies abscess or Abrasions Neurologic Neurologic: Denies headache(s) or paresthesias Psychiatric Psychiatric: Denies anxiety or depression Endocrine Endocrinology: Denies cold intolerance Hematologic/Lymphatic Hematologic/Lymphatic: Denies easy bleeding Allergic/Immunologic Allergic/Immunologic ED: Denies mouth swelling, tongue swelling or urticaria PFSH PFSH Medical History Cervical cancer Colon cancer screening Diabetes insipidus DiGeorge's syndrome Elevated blood pressure reading without diagnosis of hypertension Health care maintenance Prediabetes Seasonal allergies Home Medications levothyroxine 125 mcg tablet 125 mcg PO DAILY #90 tabs 06/11/22 [Rx Last Taken Unknown] cetirizine 10 mg tablet 10 mg PO DAILY PRN allergies #90 tabs 06/18/22 [Rx Last Taken Unknown] desmopressin 0.1 mg tablet See Rx Instructions .Route .COMPLEX #360 tabs 08/28/22 [Rx Last Taken Unknown] lisinopril 10 mg tablet 10 mg PO DAILY #30 tabs 03/13/23 [Rx Last Taken Unknown] naproxen 500 mg tablet 500 mg PO BID PRN 03/13/23 [History Last Taken Unknown] amoxicillin 500 mg capsule 500 mg PO TID 10 days #30 caps 04/15/23 [Rx Last Taken Unknown] Allergy/AdvReac Type Severity Reaction Status Date / Time No Known Allergies Allergy Verified 04/15/23 15:39 Family History Father Heart disease Myocardial infarction Surgical History c section H/O: hysterectomy Social History household members: significant other number of children: 2 current occupational status: unemployed history of recent travel: No sexually active: Yes Smoking Status: Never smoker second hand exposure: Yes alcohol intake: never substance use type: does not use what type of physical activity do you participate in: none seatbelt use: never do you feel safe at home: Yes additional social history: boyfriend EXAM Physical Exam Narrative Exam Narrative: Well-appearing 53-year-old female. Vital signs stable afebrile. History of hypertension initial blood pressure 165/111. H EENT exam left TM dull and red. Consistent with otitis media. Canal unremarkable. Posterior pharynx normal. Tonsils not enlarged. No trouble swallowing or breathing. No erythema or exudate. Right TM and canal normal. Neck nontender no lymphadenopathy. Lungs clear to auscultation bilaterally. Heart regular rhythm no murmur. Abdomen soft nontender. Moving all 4 extremities. Normal motor strength. Normal rangeof motion. Neurologically awake and alert no focal motor deficit. Const Vital Signs: 04/15/23 15:39 Temperature 98 F Temperature Source Temporal Pulse Rate 86 Respiratory Rate 16 Blood Pressure 165/111 H Blood Pressure Mean 129 Pulse Ox 99 Oxygen Delivery Method Room Air Positive well nourished and well developed; Negative for cachectic or contractures General Appearance ED: well developed and NAD; Negative for cachectic, contractures, cyanotic, diaphoretic or pallor Nutritional Appearance: Negative for cachectic HEENT Reports moist mucous membranes; Denies dry mucous membranes normocephalic and atraumatic; Negative for scalp tenderness Face and Sinus: Negative for sinus tenderness, maxillary instability or facial tenderness Mouth ED: No dry mucous membranes Mouth: No dry mucous membranes Teeth and Gingiva: Negative for caries Throat: posterior oropharynx normal; Negative for tonsils abnormal or posterior oropharynx abnormal Eyes PERRL and EOMs intact bilaterally General Eye ED: Negative for pale conjunctiva or scleral icterus Neck no lymphadenopathy, supple, no meningeal signs and no JVD General: Negative for anterior neck swelling, lymphadenopathy or other Resp normal respiratory effort and clear to auscultation bilaterally Effort and Inspection: Negative for retractions Auscultation: Negative for rales, rhonchi or wheezes Cardio S1 normal heart sound, S2 normal heart sound and no murmurs Rate: regular rate Rhythm: regular rhythm GI non-tender, non-distended and no masses Inspection: Negative for abdominal distention Auscultation: normoactive bowel sounds Palpation: soft; Negative for tender or guarding Back/Spine no CVA tenderness and normal ROM General Back: Negative for CVA tenderness Cervical Spine: Negative for cervical spine tenderness Thoracic Spine / Upper Back: Negative for thoracic spinal tenderness Lumbar Spine / Lower Back: Negative for lumbar spinal tenderness Sacrum: Negative for tenderness Extremity normal to inspection and full ROM General Extremety ED: Negative for cyanosis or tenderness General Extremity: Negative for cyanosis Neuro oriented x3 and CN's II-XII intact bilaterally Sensorium / Orientation: alert, oriented to person, oriented to place and oriented to time; Negative for orientation impaired, lethargic or stuporous Motor Exam: strength 5/5 throughout; Negative for general weakness or strength abnormal Psych mental status grossly normal Appearance: Negative for other Attitude: No agitated Mood & Affect: Negative for depressed, anxious or tearful Skin General Skin Exam: Negative for jaundice or pallor Lesions: no lesions Rashes: no rashes Trauma: Negative for abrasion or laceration MDM MDM MDM Narrative Medical decision making narrative: 53-year-old female left ear pain for 2 days exam consistent with left otitis media. Amoxicillin 500 3 times daily for 10 days. Tylenol Motrin for pain. Follow-up if not improving. Given her first dose of antibiotic here prior to discharge. Discharge Plan Triage Chief Complaint: Ear Problem ED Provider: Naresh Khalil Dx/Rx/DC Orders Clinical Impression: Acute left otitis media, History of diabetes insipidus Instructions: ED Otitis Media Adult Prescriptions: New amoxicillin 500 mg capsule 500 mg PO TID 10 Days Qty: 30 0RF No Action naproxen 500 mg tablet 500 mg PO BID PRN lisinopril 10 mg tablet 10 mg PO DAILY Qty: 30 1RF levothyroxine 125 mcg tablet 125 mcg PO DAILY Qty: 90 1RF cetirizine 10 mg tablet 10 mg PO DAILY PRN (Reason: allergies) Qty: 90 1RF desmopressin 0.1 mg tablet See Rx Instructions .ROUTE .COMPLEX Qty: 360 1RF Dose Instruction: TAKE 2 TABLETS BY MOUTH TWICE DAILY Rx Instructions: TAKE 2 TABLETS BY MOUTH TWICE DAILY Primary Care Provider: Carine Grey Referrals: Carine Grey MD [Primary Care Provider] - 3-5 Days if not improving Activity Restrictions/Additional Instructions: Left ear infection. Motrin and Tylenol for pain. The antibiotic amoxicillin 3 times a day for the next 10 days. If not improvingfollow-up with your doctor. Try to take a second dose of the antibiotic tonightbefore you go to bed. Disposition Disposition: Home, Self Care What to do if you have Problems For any increased pain, shortness of breath, bleeding, nausea or vomiting, chestpain, or any unexpected problems, contact your Primary Care Provider. Call [facility] ([phone]) or report to the closest Emergency Room. Call 911 if necessary. 04/15/23 1614 <Electronically signed by Naresh Khalil MD> Cosigner Signature (if applicable): CC: Dr. Carine Grey MD ~ Signed [facility] Work Phone: 1(936) 558-903012-21-2023 Hospital Discharge instructions Patient Education 2023 17:22:47 Viral Syndrome [...] tests to know the difference. Watch for thewarning signs listed below for when to seek medical advice. Home care Follow these guidelines for taking care of yourself at home: If symptoms are severe, rest at home for the first 2 to 3 days. Stay away from cigarette smoke - both your smoke and the smoke from others. You may use rspq-yee-uflcfdx acetaminophen or ibuprofen for fever, muscle aching, [...] replacement and sports drinks; and decaffeinated teas andcoffee. If you have been diagnosed with a kidney disease, ask your healthcare provider how much andwhat types of fluids you should drink to prevent dehydration. If you have kidney disease, drinking too much fluid can cause it build up in the your body and be dangerous to your health. Nfsz-aeb-dlddvsi remedies won't shorten the length of the [...] or as directed by your healthcare provider 3848-6370 [employer]. [address] [place] [address], [place] [address]. All rights reserved. This information is not intended as a substitute for professional medical care. Always follow yourhealthcare professional's instructions. Follow Up Care 2023 14:22:03 With:WENDY PANG DO Address: [address] [place] [phone] When:2-4 days [facility] 12-21-2023 Note Discharge Instructions Thank you for allowing [facility] to assist you with your healthcare needs. The following is importantdischarge information regarding your hospital visit. Diagnosis from Today's Visit Medical screening exam Viral illness What to Do Next Instructions from Your Care Team No qualifying data available. Post Acute Orders No qualifying data available. You Need to Schedule the Following Appointments Follow Up with WENDY PANG DO When Within 2-4 days Where: [address] [place] [phone] Allergies No active allergies Medications Please ask your primary doctor or pharmacist before taking any other medication not listed, including over the counter drugs, herbal medications, vitamins and or supplements as they may interact withyour home medications. What How Much When Instructions [...] pharmacies. Medication Leaflets ondansetron (oral) (on GLORIA swanson) What is the most important information I [...] provided, or with a special dose-measuring spoon ormedicine cup. If you do not have a [...] the body--agitation, hallucinations, fever, fast heart rate, overactivereflexes, nausea, vomiting, diarrhea, loss of coordination, fainting. Common side effects may include: diarrhea or constipation; headache; drowsiness; or tired feeling. This is not a complete list of side effects and others may occur. Call your doctor for medical advice about side effects. You may report side effects to FDA at 5-785-CBE-5802. What other drugs will affect ondansetron? Ondansetron [...] interact with ondansetron. This includes prescription and scxo-rrv-ihdrabf medicines, vitamins, and herbal products. Give a [...] to ensure that the information provided by [employer]. ('[employer]') is accurate, up-to-date, and complete, but no guarantee is made to that effect. Drug information contained herein may be time sensitive. [employer] information has been compiled for use by healthcare practitioners and consumers in the [place] and therefore [employer] does not warrant that uses outside of the [place] are appropriate, unless specifically indicated otherwise. [employer]'s drug information does not endorse drugs, diagnose patients or recommend therapy. Hojo.pls drug information isan informational resource designed to assist licensed healthcare practitioners in caring for their p atients and/or to serve consumers viewing this service as a supplement to, and not a substitute for, the expertise, skill, knowledge and judgment of healthcare practitioners. The absence of a warningfor a given drug or drug combination in no way should be construed to indicate that the drug or drug combination is safe, effective or appropriate for any given patient. [facility] does not assume any responsibility for any aspect of healthcare administered with the aid of information [facility] provides. The information contained herein is not intended to cover all possible uses, directions, precautions, warnings, drug interactions, allergic reactions, or adverse effects. If you have questions about the drugs you are taking, check with your doctor, nurse or pharmacist. Copyright 3431-6054 [employer]. Version: 16.. Revision Date: 10/09/2022. naproxen (na [...] skin rash, fever, swollen glands, muscle aches, severeweakness, unusual bruising, or yellowing of your skin [...] stomach pain, loss of appetite, dark urine, rizwan- colored stools, jaundice (yellowing of the skin or [...] may report side effects to FDA at 6-116-XYB-9590. What other drugs will affect naproxen? Ask your doctor before using naproxen if you take an antidepressant. Taking certain antidepressantswith an NSAID may cause you to bruise [...] drugs may affect naproxen, including prescription and gkjr-mfd-wuwpaht medicines, vitamins, and herbal products. Not all [...] to ensure that the information provided by [employer]. ('[employer]') is accurate, up-to-date, and complete, but no guarantee is made to that effect. Drug information contained herein may be time sensitive. [employer] information has been compiled for use by healthcare practitioners and consumers in the [place] and therefore [employer] does not warrant that uses outside of the [place] are appropriate, unless specifically indicated otherwise. [employer]'s drug information does not endorse drugs, diagnose patients or recommend therapy. Hojo[employer]pls drug information isan informational resource designed to assist licensed healthcare practitioners in caring for their p atients and/or to serve consumers viewing this service as a supplement to, and not a substitute for, the expertise, skill, knowledge and judgment of healthcare practitioners. The absence of a warningfor a given drug or drug combination in no way should be construed to indicate that the drug or drug combination is safe, effective or appropriate for any given patient. [employer] does not assume any responsibility for any aspect of healthcare administered with the aid of information [employer] provides. The information contained herein is not intended to cover all possible uses, directions, precautions, warnings, drug interactions, allergic reactions, or adverse effects. If you have questions about the drugs you are taking, check with your doctor, nurse or pharmacist. Copyright 7467-9932 [employer]. Version: 22.. Revision Date: 10/09/2022. Education Materials [...] tests to know the difference. Watch for thewarning signs listed below for when to seek medical advice. Home care Follow these guidelines for taking care of yourself at home: If symptoms are severe, rest at home for the first 2 to 3 days. Stay away from cigarette smoke - both your smoke and the smoke from others. You may use gcet-pcz-qxiukli acetaminophen or ibuprofen for fever, muscle aching, [...] replacement and sports drinks; and decaffeinated teas andcoffee. If you have been diagnosed with a kidney disease, ask your healthcare provider how much andwhat types of fluids you should drink to prevent dehydration. If you have kidney disease, drinking too much fluid can cause it build up in the your body and be dangerous to your health. Zsoh-url-kesbqlz remedies won't shorten the length of the [...] or as directed by your healthcare provider 2720-7558 [employer]. [address] [place] [address]. All rights reserved. This information is not intended as a substitute for professional medical care. Always follow yourhealthcare professional's instructions. Additional Information VACCINATE! IT SAVES LIVES! Members of the community who have not yet received the COVID-19 vaccine and would like to receive it can visit one of [facility] vaccine clinics. There are many vaccine clinic locations within the [facility]. For locations and available times, please visit www.gettheshot.coronavirus.[place].gov/. It is important to note that some COVID mobile vaccine clinics are held outdoors and may be canceled in rainy or stormy conditions. To learn more about pediatric vaccinations (ages 5-11), we invite you to visit the [facility] webpage. https://www.[facility].org/pages/3160-Ygcsm-Zddtykqsaii-Ofuoegfmnn-Iiwsd-Dmj stions.htmlTo learn more about the COVID-19 vaccine, we invite you to visit the CDC website for a list of frequently asked questions. https://www.cdc.gov/coronavirus/2019-ncov/vaccines/faq.html [facility] Patient Portal Access Instructions: Stay connected with your healthcare team and access your personal medical information anytime with the [facility] Patient Portal. If you would like a full copy of your medical records please contact the [facility] Medical Records Department Thursday through Thursday between 8a.m. and 4:30p.m. Please follow the directions below to access the portal: 1.Access the email account you provided upon registration to the [facility].2.Look for an invitation email from [facility].3.Open the email and access the invitation link: Accept Invitation to [facility]4.Fill in the required faustin to create your account. Sign into [email or web address] with your username and password that you [...] you will allow to register on the [facility] Patient Portal for access to your information. You can also access the [facility] Patient Portal on the [employer]. Simply click on Health Records under [employer] and then click on the [employer] logo. HOW TO SAFELY DISPOSE OF PRESCRIPTION MEDICATIONS Please use one of the following methods to safely dispose of your unused medications. 1.Use a drug disposal kit: the drug disposal pouch allows you to safely discard your old and unuseddrugs. Ask your nurse to give you one when you are discharged.2.Visit a local take-back location: Many local pharmacies and police departments have programs that collect old and unwanted prescriptiondrugs. Call your local pharmacy or go to http://Tail.ANT Farm/3H5Tn2m to find one close to you.3.Make use of household items: Use cat litter or old coffee grounds to dispose medications if other options arenot available. Mix your drugs with these household products, seal them in an airtight container andthrow it into the garbage. Call [facility]: [phone] to be sure your drugs can be [...] drowsiness, such as benzodiazepines, also known as benzos,including diazepam and alprazolam, muscle relaxants or sleep aids. Never sell or share prescriptionopioids. This is illegal. Store opioids in a [...] and understand these discharge instructions. I have receiveda written copy of the plan/instructions. If I have questions, I am aware that I should contact my do ctor. Patient/Presentation Specialist Signature: Date/Time: Relationship to Patient: Witness Name/Signature: Date/Time: [facility]12-21-2023 Note ORIGINAL EXAMINATION: ONE XRAY VIEW OF [...] Sign Date: 2023 5:06:43 PM Ordering Provider: [facility]12-21-2023 SARS-CoV-2 (COVID-19) RNA SAQIB+probe Ql (Nph)Negative *NA* (02/26/23 3:41 PM)AO Auto Urine [id number] NoteHNO ID: [id number] Author: Jorge Esposito APRN.HL7 DEVELOPER Service: ? Author Type: Nurse Practitioner Type: [...] care. Patient states will drive self to [place] [facility]. Declined transport. Jorge Esposito APRN.[facility] Miscellaneous Notes* Telephone Encounter - German Shin APRN.RAMON - 01/12/2023 11:14 AM EST Negative For yeast chlamydia gonorrhea bacterial vaginosis. Patient is positive for trichomonas Christopher called in [facility] twice a day for 7 days was called and patient was called and notified. documented in [facility]Mer[facility]11-05-2023 NoteHNO ID: [id number] Author: Meir Nicole PA-C Service: ? Author Type: Physician Boilermaker Loftsman Type: Progress Notes Filed: 01/11/2023 12:15 PM Note Text: This note was created using DynaPro Publishing Companyriter. Subjective Venice Anderson is a 52 year [...] Problem Relation Age of Onset Heart Father ID Stroke Father other (anuerysm) Father other (immune [...] No focal deficit prese (more content not included)...[facility]11-05-2023 History of Present illness Narrative* Meir Nicole PA-C - 01/11/2023 12:11 PM EST This note was created using DynaPro Publishing Companyriter. Subjective Venice Anderson is a 52 year [...] eyes every 4 hours for 7 days. 10mL 0 nitrofurantoin monohydrate and macrocrystal (MACROBID) 100 [...] Problem Relation Age of Onset Heart Father ID Stroke Father other (anuerysm) Father other (immune [...] 79.5 kg (175 lb 3.2 oz) LMP 08/28/2014(Approximate) SpO2 98% BMI 34.22 kg/m Physical Exam [...] visual changes, concerns or if symptoms persist. Meir Nicole PA-C documented in this encounterMercy Health04-06-[address] Bailey [facility] June 12, 2022 9:33pm Note Date/Time June 12, 2022 9:31 pm [facility] Medical Records Department [address] [place] [address] Emergency Department Summary 06/12/22 MR#: [id number] Acct: [id number] Name: VENICE ANDERSON Rep #:[id number] : 1970 52 From: Shalom Bailey MD PCP: Dr. Carine Grey MD Status:R EG ER Location: ED HPI HPI - URI History of Present Illness Chief Complaint: Cough Informant: patient Narrative Narrative: Patient homeless living in a hotel states she has been exposed to secondhand smoke, has had a cough, couple days. Chills tonight. No dyspnea. No sore throat, headache, myalgias. No known exposure to anyone with an illness that she knows of. Unvaccinated against COVID and flu. ROS ROS ED Constitutional Constitutional ED: Denies chills or fever(s) ENT ENT ED: Reports nasal congestion, rhinorrhea and sore throat Cardiovascular Cardiovascular: Denies chest pain or palpitations Respiratory/Chest Respiratory/Chest: Reports cough; Denies dyspnea Gastrointestinal Gastrointestinal: Denies abdominal pain, diarrhea, nausea or vomiting Genitourinary Genitourinary ED: Denies dysuria or hematuria Musculoskeletal Musculoskeletal: Denies myalgias or neck pain Integumentary Denies abscess or rash Neurologic Neurologic: Denies headache(s), paresthesias or weakness Psychiatric Psychiatric: Denies depression or suicidal thoughts Endocrine Endocrinology: Denies polydipsia or polyuria PFSH PFSH Medical History Cervical cancer Colon cancer screening Diabetes insipidus DiGeorge's syndrome Elevated blood pressure reading without diagnosis of hypertension Health care maintenance Prediabetes Seasonal allergies Home Medications cetirizine 10 mg tablet 10 mg PO DAILY PRN allergies 07/17/21 [History Last Taken Unknown] desmopressin 0.1 mg tablet (DDAVP) 0.2 mg PO BID #360 tabs 08/04/22 [Rx Last Taken Unknown] levothyroxine 125 mcg tablet 125 mcg PO DAILY #90 tabs 06/11/22 [Rx Last Taken Unknown] benzonatate 100 mg capsule 200 mg PO TID PRN PRN Cough #15 CAPSULES 06/12/22 [Rx Last Taken Unknown] Allergy/AdvReac Type Severity Reaction Status Date / Time No Known Allergies Allergy Verified 06/12/22 20:15 Family History Father Heart disease Myocardial infarction Surgical History c section H/O: hysterectomy Social History household members: significant other number of children: 2 current occupational status: unemployed history of recent travel: No sexually active: Yes Smoking Status: Never smoker second hand exposure: Yes alcohol intake: never substance use type: does not use what type of physical activity do you participate in: none seatbelt use: never do you feel safe at home: Yes additional social history: boyfriend EXAM Physical Exam Const Vital Signs: 06/12/22 20:13 Temperature 100.1 F H Temperature Source Temporal Pulse Rate 80 Respiratory Rate 20 H Blood Pressure 141/98 H Blood Pressure Mean 112 Pulse Ox 98 Oxygen Delivery Method Room Air Positive well nourished and well developed General Appearance ED: well developed and NAD HEENT Reports moist mucous membranes normocephalic and atraumatic Throat: Negative for posterior oropharynx abnormal Eyes PERRL and EOMs intact bilaterally Neck no lymphadenopathy, supple and no meningeal signs Resp normal respiratory effort and clear to auscultation bilaterally Cardio no murmurs Rate: regular rate Rhythm: regular rhythm Neuro oriented x3, CN's II-XII intact bilaterally and no sensory deficits noted Sensorium / Orientation: alert Motor Exam: strength 5/5 throughout Skin Lesions: no lesions Rashes: no rashes MDM MDM MDM Narrative Medical decision making narrative: COVID and influenza swabs sent and negative. Patient was treated with Tessalon and ibuprofen for the fever, stable for discharge, supportive care advised, we discussed reasons to return. She is not hypoxic or dyspneic so I do not think she needs a chest x-rays, her lungs are clear and I do not suspect acute pneumonia at this time. Discharge Plan Triage Chief Complaint: Cough ED Provider: Shalom Bailey Dx/Rx/DC Orders Clinical Impression: Viral URI with cough Instructions: ED URI, Viral, No Abx (Adult) Prescriptions: New benzonatate [benzonatate] 100 mg capsule 200 mg PO TID PRN PRN (Reason: Cough) Qty: 15 0RF No Action desmopressin [DDAVP] 0.1 mg tablet 0.2 mg PO BID Qty: 360 1RF cetirizine 10 mg tablet 10 mg PO DAILY PRN (Reason: allergies) levothyroxine 125 mcg tablet 125 mcg PO DAILY Qty: 90 1RF Primary Care Provider: Carine Grey Referrals: Carine Grey MD [Primary Care Provider] - 10-14 Days if not better Disposition Disposition: Home, Self Care What to do if you have Problems For any increased pain, shortness of breath, bleeding, nausea or vomiting, chestpain, or any unexpected problems, contact your Primary Care Provider. Call [facility] ([phone]) or report to the closest Emergency Room. Call 911 if necessary. 06/12/222132 <Electronically signed by Shalom Bailey MD> Cosigner Signature (if applicable): CC: Dr. Carine Grey MD ~ Signed [facility] Work Phone: [phone]) 949-682812-06-2022 Miscellaneous Notes* Telephone Encounter - Melissa Nix RN - 02/11/2022 10:00 AM EST Patient notified and voiced understanding. Melissa Nix RN * Telephone Encounter - Breanne Latham APRN.CNP - 02/11/2022 9:48 AM EST Please let the patient know that her blood work is negative for any STD infections. Breanne Latham APRN.CNP documented in this encounterMer[facility]12-[facility]-2022 History of Present illness Narrative* Breanne Latham, REPORT MANAGER.HL7 DEVELOPER - 02/10/2022 2:31 PM EST It Business Process Architect offered: Patient declines. [place] is a 51 year old who presents for an annual gynecologic exam without complaints. 08/16/2015 Laparoscopic extensive lysis of adhesion, left ureterolysis, resection of pelvic mass, total hysterectomy, bilateral salpingo-oophorectomy, cystoscopy and laser ablation of vulvar condyloma Menses:Hysterectomy Contraception: tubal sterilization HPV vaccine: No Last Pap: 08/31/2017 normal HPV: 08/14/2016 negative History of abnormal pap: Yes Last mammogram: 2020normal @ [facility] Sexually active: Yes Patient concerns for STD exposure: Yes: around people with Hep C Pain with intercourse: No Postcoital bleeding: No OB History T2 L2 SAB0 IAB0 Ectopic0 Multiple0 Live Births0 Sheeter Helper History LMP: 08/28/2014 (Approximate), Ablation Age at Menarche: Age at First : Age at Menopause: Sheeter Helper History Comments: Sexual Activity: Yes; Male Contraception: [...] Problem Relation Age of Onset Heart Father ID Stroke Father other (anuerysm) Father other (immune [...] external genitalia normal, normal Bartholin's glands, urethra, [place]'s glands, no vulvar lesions, physiologic discharge present, [...] needed Breanne Latham APRN.RAMON documented in this encounterMercy Health06-24-2015 History of Past illness Narrative* Problem Noted Date Resolved Date Abnormal uterine bleeding 08/30/20142021 Absence of menstruation 12/31/2004 08/05/19 15 documented as of this encounter (statuses as of 02/10/2022) [facility] History of Past illness Narrative* Problem Noted Date Resolved Date Abnormal uterine bleeding 08/30/20142021 Absence of menstruation 12/31/2004 08/05/19 15 documented as of this encounter (statuses as of 02/11/2022) [facility] History of Past illness Narrative* Problem Noted Date Diagnosed Date Resolved Date Abnormal uterine bleeding 08/30/2014 Absence of menstruation 12/31/200407/08 documented as of this encounter (statuses as of 01/12/2023) [facility] History of Past illness Narrative* Problem Noted Date Diagnosed Date Resolved Date Abnormal uterine bleeding 08/30/2014 Absence of menstruation 12/31/200407/08 documented as of this encounter (statuses as of 01/13/2023) [facility] No data available for this section [facility] Evaluation note* Diagnosis Onset Date Resolution Status Diabetes insipidus chronic Hypothyroidism [facility] Work Phone: Evaluation note* Diagnosis Onset Date Resolution Status Diabetes insipidus chronic Hypothyroidism chronic Distal radius fracture acute Distal radius fracture acute DRUJ (distal radioulnar join t) instability, post-operative acute [facility] Work Phone: Evaluation note* Diagnosis Encounter for gynecological examination (general) (routine) without abnormal findings- Primary Encounter for screening mammogram for breast cancer Screen for STD (sexually transmitted disease) Screening examination for venereal disease Screening for vaginal cancer Special screening for malignant neoplasms, vagina documented in this encounter [facility] noteNo assessment information availableW[facility] Work Phone: Evaluation note* Diagnosis Burning with urination- Primary Dysuria Acute conjunctivitis of both eyes, unspecified acute conjunctivitis type documented in this encounter [facility]* Diagnosis Onset Date Resolution Status Influenza A acute Hypertension chronic [facility] Work Phone: Evaluation note* Diagnosis Onset Date Resolution Status Influenza A acute Hypertension chronic Concern about STD in female without diagnosis acute Hx of diverticulitis of colon acute Hx of otitis media acute Diabetes insipidus chronic Hypertension chronic Hypothyroidism chronic Breast cancer screening acut e Chest pain acute Lightheadedness acute Hypothyroidism chronic Encounter for screening colonoscopy acute [facility] Work Phone: Evaluation note* Diagnosis Onset Date Resolution Status Influenza A acute Hypertension chronic Concern about STD in female without diagnosis acute Hx of diverticulitis of colon acute Hx of otitis media acute Diabetes insipidus chronic Hypertension chronic Hypothyroidism chronic Breast cancer screening acut e Chest pain acute Lightheadedness acute Hypothyroidism chronic Encounter for screening colonoscopy acute Dizziness acute [facility] Work Phone: Evaluation note* Diagnosis Encounter to establish care- Primary Other reasons for seeking consultation DIGEORGE'S SYNDROME DiGeorge's syndrome Acquired hypothyroidism Unspecified hypothyroidism Hypocalcemia Vitamin D deficiency Unspecified vitamin D deficiency Routine health maintenance Routine general medical examination at a health care facility Encounter for screening mammogram for malignant neoplasm of breast Other screening mammogram Viral illness- Primary Unspecified viral infection, in conditions classified elsewhere and of unspecified site documented in this encounter [facility] Work Phone: [facility] Work Phone: Hospital Discharge instructions Additional Instructions Please follow-up with your PCP. Return for any worsening of your symptoms. [facility] Work Phone: Hospital Discharge instructions Additional Instructions Left ear infection. Motrin and Tylenol for pain. The antibiotic amoxicillin 3 times a day for the next 10 days. If not improving follow-up with your doctor. Try to take a second dose of the antibiotic tonight before you go to bed.[facility] Work Phone: Hospital Discharge instructionsAmbulatory Orders* Ears, Nose and Throat Location: None [facility] Work Phone: Reason for referral (narrative)* Diagnostic Procedure Only (Routine) - Pending Review Specialty Diagnoses / Procedures Referred By Contac t Referred To Contact [facility] Diagnoses Special screening examination for human papillomavirus (HPV) Procedures JUAN SCREENING SCREENING MAMMOGRAPHY BI 2-VIEW BREAST INC Breanne Gray, ÁNGEL.HL7 DEVELOPER [address] [place] [address] [facility] [address] [place] [address] Referral ID Status Reason Start Date Expiration Date Visits Requested Visits Authorized [id number] Pending Review Auto-Generat ed Referral 02/10/2022 03/12/2023 1 1 [facility] HealthReason for referral (narrative)No reason for referral information availablePhiladelphia [facility] Services Work Phone: Chief Complaint and Reason for Visit Chief Complaint fall medication refills Reason for Visit Diabetes insipidus Hypothyroidism Chief Complaint fall medication refills left arm injury LEFT WRIST LEFT WRIST xray EYE INJURY Reason for Visit Diabetes insipidus Hypothyroidism Distal radius fracture Distal radius fracture DRUJ (distal radioulnar joint) instability, post-operative Chief Complaint FINGER Chief Complaint FINGER SECOND HAND SMOKE Chief Complaint SECOND HAND SMOKE abd pain chills Chief Complaint abd pain chills ROGERIO LEG PAIN Chief Complaint abd pain chills ROGERIO LEG PAIN THIGH PAIN Chief Complaint [facility] ear pain Reason for Visit Influenza A Hypertension [facility] pain RANDOM NON DOT DRUG & BAT/ [facility] 2 M [facility] FOLLOW UP-DIZZINESS SCREENING COLONOSCOPY, OTHER DIGESTIVE PROBLEMS SCREENING Reason for Visit Influenza A Hypertension Concern about STD in female without diagnosis Hx of diverticulitis of colon Hx of otitis media Diabetes insipidus Hypertension Hypothyroidism Breast cancer screening Chest pain Lightheadedness Hypothyroidism Encounter for screening colonoscopy [facility] RANDOM NON DOT DRUG & BAT/ [place] 2 M [facility] FOLLOW UP-DIZZINESS SCREENING COLONOSCOPY, OTHER DIGESTIVE PROBLEMS SCREENING HEADACHES AND DISCUSS CHANGES Reason for Visit Influenza A Hypertension Concern about STD in female without diagnosis Hx of diverticulitis of colon Hx of otitis media Diabetes insipidus Hypertension Hypothyroidism Breast cancer screening Chest pain Lightheadedness Hypothyroidism Encounter for screening colonoscopy Dizziness Chief Complaint Admit Date ACUTE - 4 M FU June 29, 2024 10: 22am DISCUSS COLONOSCOPY July 27, 2024 1:31p m Reason for Visit Admit Date Diabetes insipidus June 29, 2024 10: 22am Hyperlipidemia June 29, 2024 10: 22am Hypothyroidism June 29, 2024 10: 22am Seasonal allergies June 29, 2024 10: 22am Chief Complaint Admit Date ACUTE - 4 M FU June 29, 2024 10: 22am DISCUSS COLONOSCOPY July 27, 2024 1:31p m Annual (SILK SNAPPER) August 03, 2024 3:20p m Reason for Visit Admit Date Diabetes insipidus June 29, 2024 10: 22am Hyperlipidemia June 29, 2024 10: 22am Hypothyroidism June 29, 2024 10: 22am Seasonal allergies June 29, 2024 10: 22am Colon cancer screening July 27, 2024 1: 31pm Possible exposure to STI August 03, 2024 3:20pm Encounter for routine gynecological exam ination August 03, 2024 3:20pm Chief Complaint Admit Date ACUTE - 4 M FU June 29, 2024 10: 22am DISCUSS COLONOSCOPY July 27, 2024 1:31p m Annual (SILK SNAPPER) August 03, 2024 3:20p m 6 M FU August 17, 2024 1:32 pm Family History Relationship Condition Age at Onset Recorded Date/T emmanuel father Cardiac disease Unknown Myocardial infarction Unknown Relationship Condition Age at Onset Recorded Date/T memanuel father Cardiac disease Unknown Myocardial infarction Unknown grandmother Malignant neoplasm of colon Unknown Advance Directives Advance Directive Response Recorded Date/ Time Advance Directives No June 07 8:17am Living Will No May 01, 2 022 3:32am Power of Livestock Agent No May 01, 2021 3:32am Advance Directive Response Recorded Date/ Time Advance Directives No June 07 8:17am Living Will No July 29, 2021 5 :22pm Power of Livestock Agent No July 29, 2021 5:22pm Advance Directive Response Recorded Date/ Time Advance Directives No June 07 7:17am Living Will No March 12 1:27pm Power of Livestock Agent No March 12, 2 023 1:27pm Advance Directive Response Recorded Date/ Time Advance Directives No June 07 8:17am Living Will No June 12, 2022 8:12pm Power of Livestock Agent No June 12 8:12pm Advance Directive Response Recorded Date/ Time Advance Directives No June 07 8:17am Living Will No September 18, 2022 9:14pm Power of Livestock Agent No September 18 9:14pm Advance Directive Response Recorded Date/ Time Advance Directives No June 07 8:17am Living Will No November 22, 2022 2:03pm Power of Livestock Agent No November 2:03pm Advance Directive Response Recorded Date/ Time Advance Directives No June 07 7:17am Living Will No April 15 4:13pm Power of Livestock Agent No April 15, 2023 4:13pm Advance Directive Response Recorded Date/ Time Advance Directives No May 19, 024 8:27am Living Will No May 20, 2023 8:27am Power of Livestock Agent No May 19 8:27am Advance Directive Response Recorded Date/ Time Advance Directives No May 19, 024 8:27am Summary Purpose Additional Source Comments Goals (unrecognized section and content) Goals may be documented in a n alternate sectionGoals may be documented in an alternate sectionGoals may be documented in an alternate sectionGoals may be documented in an alternate sectionGoals may be documented in an alternate sectionGoals may be documented in an alternate sectionGoals may be documented in an alternate section No data available for this sectionGoals may be documented in an alternate section No data available for this sectionGoals may be documented in an alternate sectionGoals may be documented in an alternate sectionGoals may be documented in an alternate sectionGoals may be documented in an alternate sectionGoals may be documented in an alternate sectionGoals may be documented in an alternate section Source Comments (unrecognize d section and content) In the event this informatio n is protected by the Federal Confidentiality of Alcohol and Drug Abuse Patient Records regulations: The Federal rules restrict any use of the information to criminally investigate or prosecute any alcohol or drug abuse patient.[facility] HealthIn the event this information is protected by the Federal Confidentiality of Alcohol and Drug Abuse Patient Records regulations: The Federal rules restrict any use of the information to criminally investigate or prosecute any alcohol or drug abuse patient.[facility] HealthIn the event this information is protected by the Federal Confidentiality of Alcohol and Drug Abuse Patient Records regulations: The Federal rules restrict any use of the information to criminally investigate or prosecute any alcohol or drug abuse patient.[facility] HealthIn the event this information is protected by the Federal Confidentiality of Alcohol and Drug Abuse Patient Records regulations: The Federal rules restrict any use of the information to criminally investigate or prosecute any alcohol or drug abuse patient.[facility] HealthIn the event this information is protected by the Federal Confidentiality of Alcohol and Drug Abuse Patient Records regulations: The Federal rules restrict any use of the information to criminally investigate or prosecute any alcohol or drug abuse patient.[facility] Reason for Visit (unrecogniz ed section and content) Reason Comments Well Woman Reason Comments Results Reason Comments UTI Burning, frequency x 2 weeks Eye Problem Both Eyes Redness, swelling, watery Reason Comments Nausea Headache, x today, d iarrhea yesterday Care Teams (unrecognized sec tion and content) Wind Farm Engineer Relationship Specialty Start Date End Date Carine Grey MD [address] [place] [address] (Fax) PCP - General Internal Medicine 09/27/20 Wind Farm Engineer Relationship Specialty Start Date End Date Carine Grey MD [address] [place] [address] (Fax) PCP - General Internal Medicine 09/27/20 Team Status: Active Member Role Status Dates Dr. Allison Blank MD Family Provider Active Dr. Carine Grey MD Primary Care Provider Active Team Status: Inactive Member Role Status Dates Dr. Carine Grey MD Primary Care Provider Active Dr. Shalom Bailey MD Attending Provider, Emergency Provider Active Team Status: Inactive Member Role Status Dates Dr. Carine Grey MD Primary Care Provider Active Dr. Shalom Bailey MD Emergency Provider Active Team Status: Inactive Member Role Status Dates Dr. Carine Grey MD Primary Care Provider Active Dr. Chidi Simpson DO Attending Provider, Emergency P omid Active Team Status: Inactive Member Role Status Dates Dr. Carine Grey MD Primary Care Provider Active Dr. Chidi Simpson DO Emergency Provider Active Team Status: Inactive Member Role Status Dates Dr. Carine Grey MD Primary Care Provider Active Ed Physician Provider Emergency Provider Active Team Status: Inactive Member Role Status Dates Dr. Carine Grey MD Primary Care Provider Active Ed Physician Provider Attending Provider, Emergency Pr ovider Active Wind Farm Engineer Relationship Specialty Start Date End Date Carine Grey MD [address] [place] [address] PCP - General Internal Medicine 09/27/20 Wind Farm Engineer Relationship Specialty Start Date End Date Carine Grey MD [address] [place] [address] PCP - General Internal Medicine 09/27/20 Team Status: Inactive Member Role Status Dates Dr. Carine Grey MD Primary Care Provider, Refer ring Provider Active SAMUEL Florian Attending Provider Active Team Status: Inactive Member Role Status Dates Dr. Carine Grey MD Primary Care Provider Active Dr. Naresh Khalil MD Emergency Provider Active Team Status: Inactive Member Role Status Dates Dr. Carine Grey MD Primary Care P rojeff, Attending Provider, Referring Provider Active Team Status: Inactive Member Role Status Dates Dr. Carine Grey MD Primary Care Provider, Refer ring Provider Active SAMUEL Lipscomb Attending Provider Active Team Status: Inactive Member Role Status Dates Dr. Carine Grey MD Primary Care Provider, Refer ring Provider Active Dr. Manan Galicia MD Attending Provider Active Team Status: Inactive Member Role Status Dates Dr. Carine Grey MD Primary Care Provider, Refer ring Provider Active DALLAS Camejo Attending Provider Active Team Status: Inactive Member Role Status Dates Dr. Carine Grey MD Primary Care Provider Active Dr. Naresh Khalil MD Attending Provider, Emergency Pro vider Active Team Status: Inactive Member Role Status Dates Dr. Carine Grey MD Primary Care Provider Active DALLAS Camejo Attending Provider, Referring Pro vider Active Wind Farm Engineer Relationship Specialty Start Date End Date Carine Grey MD [address] [phone] PCP - General Internal Medicine 09/27/20 Team Status: Active Member Role Status Dates Dr. Carine Grey MD Primary Care Provider Active Team Status: Inactive Member Role Status Dates Dr. Carine Grey MD Primary Care Provider Active Start: June 29, 2024 End: June 29, 2024 Dr. Carine Grey MD Referring Provider Active Start: June 29, 2024 End: June 29, 2024 SAMUEL Florian Attending Provider Active St art: June 29, 2024 End: June 29, 2024 Team Status: Inactive Member Role Status Dates Dr. Carine Grey MD Primary Care Provider Active Start: June 29, 2024 End: June 29, 2024 Dr. Carine Grey MD Attending Provider Active Start: June 29, 2024 End: June 29, 2024 Dr. Carine Grey MD Referring Provider Active Start: June 29, 2024 End: June 29, 2024 Radha Nataarjan CNM Other Provider Active Star t: June 29, 2024 End: June 29, 2024 Jose R BAKER PA Other Provider Active Start: June 29, 2024 End: June 29, 2024 Team Status: Inactive Member Role Status Dates Dr. Carine rGey MD Primary Care Provider Active Start: July 27, 2024 End: July 27, 2024 Dr. Carine Grey MD Referring Provider Active Start: July 27, 2024 End: July 27, 2024 Dr. Manan Galicia MD Attending Provider Active Start: July 27, 2024 End: July 27, 2024 Team Status: Inactive Member Role Status Dates Dr. Carine Grey MD Primary Care Provider Active Start: August 03, 2024 End: August 03, 2024 Dr. Carine Grey MD Referring Provider Active Start: August 03, 2024 End: August 03, 2024 DALLAS Ness Attending Provider Active Start: August 03, 2024 End: August 03, 2024 Team Status: Active Member Role Status Dates Dr. Carine Grey MD Primary Care Provider Active Start: August 03, 2024 DALLAS Ness Attending Provider Active Start: August 03, 2024 DALLAS Ness Referring Provider Active Start: August 03, 2024 Team Status: Inactive Member Role Status Dates Dr. Carine Grey MD Primary Care Provider Active Start: August 03, 2024 End: August 03, 2024 DALLAS Ness Attending Provider Active Start: August 03, 2024 End: August 03, 2024 DALLAS Ness Referring Provider Active Start: August 03, 2024 End: August 03, 2024 Team Status: Inactive Member Role Status Dates Dr. Carine Grey MD Primary Care Provider Active Start: August 17, 2024 End: August 17, 2024 Dr. Carine Grey MD Referring Provider Active Start: August 17, 2024 End: August 17, 2024 Carisa Slaughter LOG DATA TECHNICIAN, LOG DATA TECHNICIAN-C Attending Provider Active Start: August 17, 2024 End: August 17, 2024 INFORMATION SOURCE (unrecogn ized section and content) DATE CREATED AUTHOR 06/10/2023 [facility] [place] ([place]) DATE CREATED AUTHOR AUTHOR'S ORGANIZ ATION 11/07/[address] [facility] DATE CREATED AUTHOR AUTHOR'S ORGANIZ ATION 06/19/2024 [facility] DATE CREATED AUTHOR AUTHOR'S ORGANIZ ATION 08/13/2024 [facility] FOR RECORDS PERTAINING TO PATIENTS WHO ARE [...] BE BASED ON THE PRIMARY CLINICAL RECORDS. [employer] [facility]. provides no warranty or guarantee of the accuracy or completeness of information in this document.
--- NOTE | 2024-08-19 06:41 | PRE.ANES_ITS ---
ASA Classification* ASA Classification ASA Classification: 2 Assessment & Plan Anesthesia* Anesthesia Assessment Anesthesia Assessment: Discussed sedation and/or anesthesia options, risks, benefits, and alternatives with patient/parents/legal guardian/POA. Questions invited. The patient/parents/legal guardian/POA seems to understand and agrees to proceed with anesthesia plan. Reviewed the physical assessment, medical history, allergy history and patient home medications list prior to surgery/procedure/anesthetic and documented any changes. Performed airway and anesthesia risk assessments. Anesthesia Type Anesthesia Type: MAC Anesthesia Focused Assessment* Airway Assessment Mouth opens: >3 cm Mallampati Score: II Labs Anesthesia Preop lab: CBC WBC 6.5 K/mm3 (4.4-11.0) 06/29/24 11:15 06/29/24 RBC 4.02 M/mm3 (4.2-5.4) L 06/29/24 11:15 06/29/24 Hgb 12.0 g/dL (12.0-15.0) 06/29/24 11:15 06/29/24 Hct 36.8 % (37-47) L 06/29/24 11:15 06/29/24 Plt Count 157 K/mm3 (150-450) 06/29/24 11:15 06/29/24 CHEMISTRY Potassium 3.4 mmol/L (3.3-5.1) 06/29/24 11:15 06/29/24 Sodium 139 mmol/L (133-145) 06/29/24 11:15 06/29/24 Magnesium 1.9 mg/dL (1.8-2.4) 01/05/14 04:20 01/05/14 BUN 12 mg/dL (4-19) 06/29/24 11:15 06/29/24 Creatinine 0.76 mg/dL (0.70-1.20) 06/29/24 11:15 06/29/24 Glucose 120 mg/dL (70-99) H 06/29/24 11:15 06/29/24 TSH 6.900 uIU/mL (0.300-4.200) H 06/29/24 11:15 COAG Urine Test Negative Negative 06/09/15 21:06/09/15 Pre-Assessment Diagnosis/Proposed Procedure Planned Operative Procedure(s): COLONOSCOPY Anesthesia History Anesthesia History - material expediter: Anesthesia History - material expediter Hx Hospitalization No 08/18/24 10:02 Any Problems With Anesthesia No 08/18/24 10:02 Cholinesterase deficiency No 08/18/24 10:02 You/Your Family Experience No 08/18/24 10:02 fever (hyperthermia) with Relationship Recent Exposure to Contagious No 05/20/23 08:27 Disease Does patient have nerve No 08/18/24 10:02 stimulator Patient instructed to have device shut off --Does patient have Pacemaker or ICD? When Was Last Pacemaker Check QUESTION #4 FULL TEXT: You/Your Family Experience fever (hyperthermia) with Anesthesia Last Oral Intake Last Oral intake: Last Oral Intake NPO since Meds taken in AM with sips of water? Meds patient instructed to take am of surgery PONV PONV - material expediter: PONV - material expediter Female Yes 08/18/24 10:02 HX of Motion Sickness No 08/18/24 10:02 HX of N/V After Surgery No 08/18/24 10:02 Non-Smoker Yes 08/18/24 10:02 Duration of Surgery greater No 08/18/24 10:02 than 60 minutes Number of Risk Factors 2 08/18/24 10:02 PONV Score Moderate Risk 08/18/24 10:02 Height & Weight Height & Weight: Anesthesia: Height & Weight Height 5 ft 08/17/24 09:25 Respiratory Assessment Respiratory Assessment - material expediter: Respiratory Tract Infection Hx - material expediter Hx Respiratory Tract Infection No 08/18/24 10:02 STOP Sleep Apnea STOP Sleep Apnea - material expediter: STOP Sleep Apnea - material expediter Hx Hypertension No 08/18/24 10:02 Hx Sleep Apnea Yes 08/18/24 10:02 CPAP Yes 08/18/24 10:02 BIPAP No 08/18/24 10:02 Do you snore loudly (louder than talking or can be heard Do you often feel tired/ fatigued/ sleepy during daytime? Has anyone observed you stop breathing during sleep? STOP Results Positive 08/18/24 10:02 QUESTION #5 FULL TEXT : Do you snore loudly (louder than talking or can be heard through closed doors)? 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 Specify any problems Hx of Preganancy in last 3 No 08/18/24 10:02 Months Nurse Filling Out Transfusion [email or web address] 08/18/24 10:02 & Questions: Date: 08/18/24 08/18/24 10:02 Time: 10:05 08/18/24 10:02 Patient unable to answer at this time (ie. confused, unrespo /Reproduction History /Reproductive History - material expediter: /Reproductive Hx- material expediter Hx Now No 08/18/24 10:02 Gestational Age (in weeks): EDC: Hx Hx Para Hx Section SAB No 08/18/24 10:02 Active Medications Active Medications: Current Medications Generic Name Dose Route Start Last Admin Trade Name Freq PRN Reason Stop Dose Admin Lactated Ringer's 1,000 mls @ 15 mls/hr 08/19/24 06:45 IV .Q48H MAGALI PFSH Medical History Vitamin D deficiency Low iron Wears hearing aid Wears dentures Wears glasses Cancer Depression Anxiety Thyroid disease Anemia CPAP (continuous positive airway pressure) dependence Sleep apnea History of stress test Hx of otitis media Hx of diverticulitis of colon Cervical cancer Distal radius fracture Diabetes insipidus Seasonal allergies Prediabetes Elevated blood pressure reading without diagnosis of hypertension DiGeorge's syndrome Home Medications ?Medication ?Instructions ?Recorded ?Last Taken ?Type blood pressure monitor #1 ea 06/02/23 Unknown Rx cetirizine 10 mg tablet 10 mg PO DAILY PRN allergies #90 02/17/24 Unknown Rx tabs Cpap Mask #1 ea 02/24/24 Unknown Rx fluticasone propionate 50 1 spray intranasal BID #16 g ludy 06/29/24 Unknown Rx mcg/actuation nasal spray,suspension (Flonase Allergy Relief) desmopressin 0.1 mg tablet 0.2 mg (2 x 0.1 mg) PO BID 2 07/21/24 Unknown Rx months #240 tabs levothyroxine 125 mcg tablet See Rx Instructions .Rout e 07/21/24 Unknown Rx .COMPLEX #30 tabs peg 3350-electrolytes 236 4,000 ml PO ONCE #4,000 mL 0 07/28/24 Unknown Rx gram-22.74 gram-6.74 gram-5.86 gram solution Allergy/AdvReac Type Severity Reaction Status Date / Time No Known Allergies Allergy Verified 08/18/24 10:00 Family History Father Heart disease Myocardial infarction Grandmother Colon cancer Surgical History Hx of foot surgery c section H/O: hysterectomy Social History number of children: 2 current occupational status: employed and unemployed history of recent travel: No sexually active: Yes Smoking Status: Never smoker second hand exposure: Yes alcohol intake: never substance use type: does not use what type of physical activity do you participate in: none seatbelt use: never do you feel safe at home: Yes additional social history: boyfriend Review of Systems (Anesthesia) ROS Narrative System reviewed and no additional complaints, except as documented.
--- NOTE | 2024-08-19 06:48 | PCM.HP.BLA ---
History and Physical Date of Admission: 08/19/24 Intake Vital Signs 06/29/2509:32 07/27/2512:53 Height 5 ft 5 ft Weight: 193 lb 189 lb BMI 37.7 36.9 BP 128/80 H 154/83 H Blood Pressure Location Lt brachial Rt brachial Position Sitting Sitting Respiration 17 16 Pulse 65 Pulse Source Monitor Temp 98.0 F Temp Source Temporal Pulse Oximetry (%) 97 Oxygen Delivery Method room air Intake Visit Reasons: DISCUSS COLONOSCOPY Chief Complaint: c-scope Seating And Mobility Technologist Required: No Is patient in pain?: No Allergies No Known Allergies Allergy (Verified 07/27/24 13:54) Medications ?Medication ?Instructions ?Recorded ?Confirmed ?Type blood pressure monitor #1 ea 06/02/23 07/27/24 Rx cetirizine 10 mg tablet 10 mg PO DAILY PRN allergies #90 02/17/24 07/27/24 Rx tabs Cpap Mask #1 ea 02/24/24 07/27/24 Rx peg 3350-electrolytes 236 4,000 ml PO ONCE #4,000 mL 04/11/24 07/27/24 Rx gram-22.74 gram-6.74 gram-5.86 gram solution multivitamin (Daily Multi-Vitamin 1 tab PO DAILY 04/27/24 07/27/24 History tablet) fluticasone propionate 50 1 spray intranasal BID #16 grams 06/29/24 07/27/24 Rx mcg/actuation nasal spray,suspension (Flonase Allergy Relief) desmopressin 0.1 mg tablet 0.2 mg (2 x 0.1 mg) PO BID 2 07/21/24 07/27/24 Rx months #240 tabs levothyroxine 125 mcg tablet See Rx Instructions .Route 07/21/24 07/27/24 Rx .COMPLEX #30 tabs Have you fallen in the past year?: No PFSH Medical History Wears hearing aid Wears dentures Wears glasses Cancer Depression Anxiety Thyroid disease Anemia CPAP (continuous positive airway pressure) dependence Sleep apnea History of stress test Hx of otitis media Hx of diverticulitis of colon Cervical cancer Distal radius fracture Diabetes insipidus Seasonal allergies Prediabetes Elevated blood pressure reading without diagnosis of hypertension DiGeorge's syndrome Surgical History Hx of foot surgery c section H/O: hysterectomy Family History Father Heart disease Myocardial infarctionGrandmother Colon cancer Social History number of children: 2 current occupational status: employed and unemployed history of recent travel: No sexually active: Yes Smoking Status: Never smoker second hand exposure: Yes alcohol intake: never substance use type: does not use what type of physical activity do you participate in: none seatbelt use: never do you feel safe at home: Yes additional social history: boyfriend HPI HPI HPI: Patient is a 54-year-old female here for screening colonoscopy. She came in about 6 months ago and attempted colonoscopy but did not prep well. She is here to reschedule. She denies abdominal pain or blood in the stool. ROS General General: Yes weight change and fatigue; No appetite, colon cancer, breast cancer or weakness HEENT HEENT: No difficulty swallowing, eye injury, eye surgery, swollen glands or hoarseness Endo Endocrine: Yes thyroid disease and diabetes mellitus; No thyroid cancer, Hair loss, heat intolerance or cold intolerance Skin Skin: Yes rash; No changing moles Breast Breast: No left breast lump, right breast lump, nipple discharge, breast pain, abnormal mammogram, abnormal US or breast enlargement Musc Musculoskeletal: No back problems, arthritis, rheumatoid arthritis, gout or joint pain Cardio Cardiovascular: Yes high blood pressure; No murmur, pacemaker, heart disease, atrial fibrillation, heart attack, heart stent, palpitations, shortness of breath with exertion or chest pain Psych Psychiatric: Yes depression and anxiety; No hearing voices Resp Respiratory: No shortness of breath, Yes sleep apnea, No cough, No COPD, No asthma, No emphysema and No wheezing Gastro Gastrointestinal: No abdominal pain, No nausea or vomiting, No diarrhea, No constipation, No blood in stool, No acid reflux, No hemorrhoids, No ulcers, No gallbladder problem and No black,tarry stools Rahul Hematologic: No blood thinners, No blood disorders, No bleeding, Yes anemia and No blood clots Neuro Neurologic: No system reviewed and no additional complaints, except as documented, No as per HPI, No abnormal gait, No abnormal hearing, No abnormal movements, No abnormal speech, No behavioral changes, No burning sensations, No confusion, No convulsions, No disequilibrium, No dizziness, No localized weakness, No frequent falls, No headache(s), No lack of coordination, No loss of vision, No memory loss, No numbness, No other visual disturbances, No radicular pain, No restless legs, No sensory deficit, No syncope, No tingling, No tremor(s), No weakness and No other Exam Const General: cooperative Orientation: alert and oriented x3 HENPA Head: normal to inspection Neck Neck: normal visual inspection and full ROM Chest Chest palpation & inspection: normal inspection of the chest Resp Effort & Inspection: normal respiratory effort Auscultation: clear to auscultation bilaterally Cardio Rate: regular rate Rhythm: regular rhythm GI Inspection: non-distended Palpation: soft and nontender Skin General: no rashes or lesions noted Neuro General: patient alert and patient oriented x3 Extrem General: full ROM Psych Appearance: grossly normal Mental Status: mental status grossly normal Assessment and Plan Assessment and Plan (1) Colon cancer screening: Status: Acute Plan: The patient had a poor bowel prep with the MiraLAX. [facility]. I explained endoscopy in detail to the patient. I explained the risks including but not limited to stroke or heart attack with anesthesia, perforation of the GI tract, bleeding, infection. I explained that any of these could necessitate further emergency surgery. The patient understands and all questions were answered sufficiently. The patient wishes to proceed with procedure. Manan Galicia MD Pager: [facility] [address] [place] [address], [address] [place] [address] Office: I have examined the patient and the H&P has been reviewed. There are no clinical changes since date of exam.
[2024-08-19] MEDS: Lactated Ringers 1,000 ML 15 ML IV (07:10)
--- NOTE | 2024-08-19 07:56 | OP.COLON_ITS ---
Patient Name: Naomi Selby Procedure Date: 08/19/2024 7:34 AM Date of : 1970 Age: 54 Procedure: Colonoscopy Indications: Screening for colorectal malignant neoplasm Providers: Manan Galicia MD Referring MD: Nicole Grey MD Medicines: Propofol per Anesthesia Patient Profile: This is a 54 year old female. Refer to note in patient chart for documentation of history and physical. Last Colonoscopy: none. The patient's first colonoscopy is today. Complications: No immediate complications. Procedure: Pre-Anesthesia Assessment: - Prior to the procedure, a History and Physical was performed, and patient medications and allergies were reviewed. The patient's tolerance of previous anesthesia was also reviewed. The risks and benefits of the procedure and the sedation options and risks were discussed with the patient. All questions were answered, and informed consent was obtained. Prior Anticoagulants: The patient has taken no anticoagulant or antiplatelet agents. After reviewing the risks and benefits, the patient was deemed in satisfactory condition to undergo the procedure. After I obtained informed consent, the scope was passed under direct vision. Throughout the procedure, the patient's blood pressure, pulse, and oxygen saturations were monitored continuously. The colonoscope was introduced through the anus and advanced to the cecum, identified by appendiceal orifice and ileocecal valve. The colonoscopy was performed without difficulty. The patient tolerated the procedure well. The quality of the bowel preparation was good. The ileocecal valve, appendiceal orifice, and rectum were photographed. Scope In: 7:41:10 AM Scope Withdrawal Time 0 hours 6 minutes 14 seconds Scope Out: 7:52:37 AM Total Procedure Duration Time 0 hours 11 minutes 27 seconds Findings: The entire examined colon appeared normal on direct and retroflexion views. Impression: - The entire examined colon is normal on direct and retroflexion views. - No specimens collected. Recommendation: - Discharge patient to home. - Resume previous diet. - Continue present medications. - Repeat colonoscopy in 10 years for screening purposes. Procedure Code(s): --- Professional --- 76993, Colonoscopy, flexible; diagnostic, including collection of specimen(s) by brushing or washing, when performed (separate procedure) Diagnosis Code(s): --- Professional --- Z12.11, Encounter for screening for malignant neoplasm of colon CPT copyright 2021 [employer]. All rights reserved. The codes documented in this report are preliminary and upon surgical coder review may be revised to meet current compliance requirements. Manan Galicia MD 08/19/2024 7:56:17 AM This report has been signed electronically. Number of Addenda: 0 Note Initiated On: 08/19/2024 7:34 AM
--- NOTE | 2024-08-19 07:56 | OP.CCLET_ITS ---
08/19/2024 Nicole Grey MD [address] [place] [address] [place] [address] Re : Colonoscopy procedure for Naomi Selby Dear Dr. Grey This procedure was performed on Monday, August 19, 2024. My impressions and recommendations are as follows: Impressions : - The entire examined colon is normal on direct and retroflexion views. - No specimens collected. Recommendations : - Discharge patient to home. - Resume previous diet. - Continue present medications. - Repeat colonoscopy in 10 years for screening purposes. My findings are described in the full procedure note, which is enclosed. If I can be of further assistance, please feel free to contact me at Doctor phone number(s): , Work: . Sincerely, Manan Galicia MD 08/19/2024 7:56:17 AM This report has been signed electronically.
--- NOTE | 2024-08-19 08:01 | PCM.POST.ANE ---
Anesthesia: Postop Eval I Current Vital Signs Temperature: 97.7 F Pulse Rate: 67 Blood Pressure: 115/70 Respiratory Rate: 16 Pulse Ox: 99 Oxygen Delivery Method: Room Air Assessment Airway patent: Yes Spontaneous unlabored respirations: Yes Mental status: Asleep nausea: No Vomiting: No Anesthesia Complication: No Fluid Hydration Crystalloid volume administer (ml): 500 Total IV fluid infused: 500 Progress Note Anesthesia document: Postop Eval 1 completed: Yes
--- NOTE | 2024-08-19 09:19 | PCM.POSTANE2 ---
Anesthesia Postop Eval I Sum Postop Eval Completion status Anesthesia document: Postop Eval 1 completed: Yes Anesthesia Postop Eval I Summary Anesthesia Postop Eval I Summary: Anesthesia Postop Eval I: Assessment Summary Airway patent Yes 08/19/24 08:02 [email or web address] Spontaneous unlabored Yes 08/19/24 08:02 [email or web address] respirations Mental status Asleep 08/19/24 08:02 [email or web address] nausea No 08/19/24 08:02 [email or web address] Vomiting No 08/19/24 08:02 [email or web address] Anesthesia Postop Eval I: Fluid Summary Crystalloid volume administer 500 08/19/24 08:02 [email or web address] (ml) Colloids volume administered ( ml) Blood Product volume administered (ml) Total IV fluid infused 500 08/19/24 08:02 [email or web address] Anesthesia Postop Eval I: Summary Notes Anesthesia Complication No 08/19/24 08:02 [email or web address] Anesthesia Complication Comment: Post-operative progress note Anesthesia: Postop Eval II Evaluation Mental status: Awake Pain Level: 0 nausea: No Vomiting: No
== END 2024-08-19 08:59 | disposition home or self-care (01) ==
LOC: EN 06:27 → AC 06:28
PROVIDERS: PCP Internal Medicine; Referring Provider Internal Medicine; Visit Provider Surgery
PROC: 0DJD8ZZ Inspection of Lower Intestinal Tract, Via Natural or Artificial Opening Endoscopic (ICD-10-PCS; CPT 45378; principal; 2024-08-19 07:25)
DX: Z12.11 Encounter for screening for malignant neoplasm of colon (principal); Z80.0 Family history of malignant neoplasm of digestive organs; E23.2 Diabetes insipidus; E07.9 Disorder of thyroid, unspecified; G47.30 Sleep apnea, unspecified; Z87.19 Personal history of other diseases of the digestive system; Z85.41 Personal history of malignant neoplasm of cervix uteri; Z79.890 Hormone replacement therapy; Z79.899 Other long term (current) drug therapy
CPT/HCPCS: 45378; J2405

== ENCOUNTER → 2024-08-26 | Outpatient (CLI) | payer MEDICAID, SELFPAY ==
--- NOTE | 2024-08-26 15:30 | BI_ITS ---
EXAM: SCRN MAMM (CAD)W/RAQUEL BILAT 08/26/2024 CLINICAL HISTORY: F, Age 54 y/o , SCREENING TECHNIQUE: Bilateral screening digital breast tomosynthesis with 2D and 3D images. Computer aided detection. COMPARISON: Prior exam(s) dated 06/09/2023, 03/01/2020. FINDINGS: TISSUE DENSITY: The breast tissue is composed of scattered area of fibroglandular density. Bilateral Breast Mammographic Findings: No significant masses, calcifications or other abnormalities are identified. BI/SCRN MAMM (CAD)W/RAQUEL BILAT IMPRESSION: Right Breast: BIRADS 1 NEGATIVE. Left Breast: BIRADS 1 NEGATIVE. OVERALL FINAL ASSESSMENT: BIRADS 1 NEGATIVE. RECOMMENDATION: Routine annual follow-up in 1 Year A letter with findings and recommendations will be mailed to the patient. Reading Location: [id number]
== END | disposition home or self-care (01) ==
LOC: OPBI 15:26
PROVIDERS: PCP Internal Medicine; Referring Provider Nurse Practitioner Family; Visit Provider Nurse Practitioner Family
DX: Z12.31 Encounter for screening mammogram for malignant neoplasm of breast (principal)
CPT/HCPCS: 77063; 77067

== ENCOUNTER → 2024-09-22 | Outpatient (CLI) | payer MEDICAID, SELFPAY | END | disposition home or self-care (01) | LOC: SL 19:54 | PROVIDERS: PCP Internal Medicine; Referring Provider Nurse Practitioner Acute Care; Visit Provider Nurse Practitioner Acute Care | DX: G47.33 Obstructive sleep apnea (adult) (pediatric) (principal) | CPT/HCPCS: 95810 ==

== ENCOUNTER → 2024-11-11 | Outpatient (CLI) | payer MEDICAID, SELFPAY ==
[2024-11-11 16:48] LABS: T4 Total, Thyroxin 7.5 ug/dL (4.8-13.9)
== END | disposition home or self-care (01) ==
LOC: BIMLAB 15:50
PROVIDERS: PCP Internal Medicine; Visit Provider Physician Assistant
DX: E03.9 Hypothyroidism, unspecified (principal)
CPT/HCPCS: 36415; 84436; 84439; 84443

== ENCOUNTER → 2024-12-01 | Outpatient (CLI) | payer MEDICAID, SELFPAY ==
[2024-12-01 14:50] LABS: Mucous, Urine 0 SEEN /hpf (<or=2+)
[2024-12-01 16:05] LABS: Hematocrit 38.1 % (37-47); Hemoglobin 12.4 g/dL (12.0-15.0); Immature Granulocytes Count 0.050 X10^3/uL (0.0-0.0); Mean Corp Hgb Conc 32.5 g/dL (32-36); Mean Corpuscular Volume 91.6 fL (81-99); Mean Platelet Vol. 14.1 fl (6.2-12.0); NRBC Flagged by Analyzer 0 % (0-5); Platelet Count 166 K/mm3 (150-450); RBC Distribution Width CV 14.5 % (11.6-14.6); RBC Distribution Width SD 48.6 fl (35.1-43.9); Red Blood Count 4.16 M/mm3 (4.2-5.4); White Blood Count 9.9 K/mm3 (4.4-11.0)
[2024-12-01 16:33] LABS: AST(SGOT) 18 U/L (<=31); Alanine Aminotransfer ALT/SGPT 20 U/L (<=34); Albumin, Serum 4.1 g/dL (3.5-5.0); Alkaline Phosphatase 54 U/L (35-104); Amylase 17 U/L (28-100); Anion Gap 13 (5-15); BUN 9 mg/dL (4-19); BUN/Creat Ratio 11.1 RATIO (10-20); Calcium,Total 8.3 mg/dL (7.6-11.0); Carbon Dioxide 24.1 mmol/L (21.0-32.0); Chloride 105 mmol/L (98-108); Globulin 2.8 g/dL (2.2-4.2); Glucose 113 mg/dL (70-99); Lipase 32 U/L (13-75); Potassium 3.3 mmol/L (3.3-5.1)
[2024-12-01 17:13] LABS: Color, Urine Straw (Yellow); Glucose, Dipstick Normal (Normal); Ketone-Dipstick Negative (Negative); Leukocyte Esterase-Dipstick 100 /ul (Negative); Nitrite-Dipstick Negative (Negative); Occult Blood-Urine Negative /ul (Negative); Protein-Dipstick 15 mg/dl (Negative); Specific Gravity, Urine 1.010 (1.002-1.030); Urine Bilirubin Dipstick Negative (Negative)
[2024-12-01 18:09] LABS: Red Blood Cells-Urine 0-5 SEEN /hpf (0-5); Squamous Epithelial Cells - UA 5-10 SEEN /hpf (5-10)
== END | disposition home or self-care (01) ==
LOC: LAB 14:47
PROVIDERS: PCP Internal Medicine; Referring Provider Nurse Practitioner Family; Visit Provider Nurse Practitioner Family
DX: R10.9 Unspecified abdominal pain (principal)
CPT/HCPCS: 36415; 80053; 81001; 82150; 83690; 85025

== ENCOUNTER → 2025-01-27 | Outpatient (CLI) | payer MEDICAID, SELFPAY ==
[2025-01-27 16:59] LABS: Mucous, Urine 0 SEEN /hpf (<or=2+)
[2025-01-27 18:46] LABS: Vitamin D,25 Hydroxy 23.6 ng/mL (30-100)
[2025-01-27 18:51] LABS: AST(SGOT) 20 U/L (<=31); Alanine Aminotransfer ALT/SGPT 19 U/L (<=34); Albumin, Serum 4.2 g/dL (3.5-5.0); Alkaline Phosphatase 56 U/L (35-104); Anion Gap 13 (5-15); BUN 12 mg/dL (4-19); BUN/Creat Ratio 16.0 RATIO (10-20); Calcium,Total 9.2 mg/dL (7.6-11.0); Carbon Dioxide 25.6 mmol/L (21.0-32.0); Chloride 102 mmol/L (98-108); Globulin 3.2 g/dL (2.2-4.2); Glucose 84 mg/dL (70-99); Potassium 3.8 mmol/L (3.3-5.1)
[2025-01-27 22:59] LABS: Color, Urine Straw (Yellow); Glucose, Dipstick Normal (Normal); Ketone-Dipstick Negative (Negative); Leukocyte Esterase-Dipstick 25 /ul (Negative); Nitrite-Dipstick Negative (Negative); Occult Blood-Urine Negative /ul (Negative); Protein-Dipstick Negative (Negative); Specific Gravity, Urine 1.010 (1.002-1.030); Urine Bilirubin Dipstick Negative (Negative)
[2025-01-28 01:00] LABS: Red Blood Cells-Urine 0-5 SEEN /hpf (0-5); Squamous Epithelial Cells - UA 0-5 SEEN /hpf (5-10)
== END | disposition home or self-care (01) ==
LOC: LAB 16:51
PROVIDERS: PCP Internal Medicine; Referring Provider Nurse Practitioner Family; Visit Provider Nurse Practitioner Family
DX: I10 Essential (primary) hypertension (principal); R35.0 Frequency of micturition; Z78.0 Asymptomatic menopausal state; M96.89 Other intraoperative and postprocedural complications and disorders of the musculoskeletal system; G47.33 Obstructive sleep apnea (adult) (pediatric); E03.9 Hypothyroidism, unspecified; E23.2 Diabetes insipidus
CPT/HCPCS: 36415; 80053; 81001; 82306; 87086; 87088